=== PATIENT | male | born 1940 | race Caucasian/White ===

== ENCOUNTER 2016-11-06 13:08 | Inpatient (IN) | payer MEDICARE, OTHER ==
[2016-11-06] MEDS ORDERED: HYDROmorphone 1 MG/ML 1 ML SYRINGE IVP STA ×2 (13:17→17:20)
[2016-11-06] MEDS ORDERED: ONDANSETRON 4 MG/2 ML VIAL IVP STA (13:17)
--- NOTE | 2016-11-06 13:19 | ED ---
General Adult HPI - General Chief complaint: Fall Stated complaint: Fall Time Seen by Provider: 11/06/16 13:10 Source: patient, EMS, RN notes reviewed Mode of arrival: EMS Limitations: no limitations - History of Present Illness Initial comments: This is a 76-year-old male who presents emergency Department complaining of right hip pain. Patient states he normally uses a walker but in his apartment he often does not. Patient states she was walking across his apartment when he lost his balance and fell on his right hip. Patient complains of right hip pain he states he heard a crack when he fell. Patient denies any knee pain. The pain or ankle pain. Patient denies any other injury. Patient states he was not lightheaded or dizzy prior to the fall. Patient states he did not hit his head or neck. Patient denies any chest pain difficult breathing shortest of breath per patient denies any abdominal pain. Patient denies any recent fever chills or cough. Patient states he was not feeling ill prior to the fall. - Related Data Home Medications Medication Instructions Recorded Confirmed Aspirin EC [Ecotrin Low Dose] 81 mg PO W/SUPPER 07/16/16 11/06/16 HYDROcodone/APAP 10-325MG [[place] 1 tab PO TID PRN 07/16/16 11/06/16 10-325] Primidone [Primidone] 250 mg PO DAILY 11/06/16 11/06/16 Allergies Allergy/AdvReac Type Severity Reaction Status Date / Time No Known Allergies Allergy Verified 07/29/16 14:23 Review of Systems ROS Statement: Those systems with pertinent positive or pertinent negative responses have been documented in the HPI. ROS Other: All systems not noted in ROS Statement are negative. Past Medical History Past Medical History: Cancer, CVA/TIA, Deep Vein Thrombosis (DVT), Liver Disease , Pneumonia Additional Past Medical History / Comment(s): DDD, SPINAL CANAL STENSOSIS, COLON CA IN THE HAD SX CHEMO AND RADIATION, 03-01-15 UTI(E COLI), left arm weakness-fx lt arm at shoulder-December 2014-remains painful, rectal carcinoma, elevated liver enzymes, walker use,recent falls History of Any Multi-Drug Resistant Organisms: None Reported Past Surgical History: Appendectomy, Back Surgery, Bowel Resection, Cholecystectomy, Joint Replacement, Orthopedic Surgery Additional Past Surgical History / Comment(s): GASTRECTOMY, L hip replacement, spinal surgery, RT ANKLE SX Past Anesthesia/Blood Transfusion Reactions: No Reported Reaction Additional Past Anesthesia/Blood Transfusion Reaction / Comment(s): no hx at [facility]CF Past Psychological History: No Psychological Hx Reported Smoking Status: Former smoker Past Alcohol Use History: None Reported Additional Past Alcohol Use History / Comment(s): SMOKED FOR 40 YEARS QUIT 1994 , hx ETOH Past Drug Use History: None Reported - Past Family History Father Family Medical History: Unable to Obtain Additional Family Medical History / Comment(s): heart problems Mother Family Medical History: Diabetes Mellitus General Exam - General Exam Comments Initial Comments: GENERAL: Patient is well-developed and well-nourished. Patient is nontoxic and well- hydrated and is in mild distress. ENT: Neck is soft and supple. No significant lymphadenopathy is noted. Oropharynx is clear. Moist mucous membranes. Neck has full range of motion without eliciting any pain. EYES: The sclera were anicteric and conjunctiva were pink and moist. Extraocular movements were intact and pupils were equal round and reactive to light. Eyelids were unremarkable. PULMONARY: Unlabored respirations. Good breath sounds bilaterally. No audible rales rhonchi or wheezing was noted. CARDIOVASCULAR: There is a regular rate and rhythm without any murmurs gallops or rubs. ABDOMEN: Soft and nontender with normal bowel sounds. No palpable organomegaly was noted. There is no palpable pulsatile mass. SKIN: Skin is clear with no lesions or rashes and otherwise unremarkable. NEUROLOGIC: Patient is alert and oriented x3. Cranial nerves II through XII are grossly intact. Motor and sensory are also intact. Normal speech, volume and content. Symmetrical smile. MUSCULOSKELETAL: Patient is unable to move the left leg secondary to pain in the hip on palpation of the hip is very tender in the lateral aspect of the hip. Patient also has some residual left-sided weakness of the arm and leg secondary to a previous stroke. Patient cannot lift his left arm with the shoulder only can move it at the elbow. LYMPHATICS: No significant lymphadenopathy is noted PSYCHIATRIC: Normal psychiatric evaluation. Normal interpersonal interactions appears functionally intact in deals appropriately with others. No signs of depression. No signs of anxiety. Limitations: no limitations Course Vital Signs 11/06/16 13:12 Temperature 97.6 F Pulse Rate 84 Respiratory 16 Rate Blood Pressure 120/66 O2 Sat by Pulse 99 Oximetry Medical Decision Making - Medical Decision Making EKG shows normal sinus rhythm at 77 bpm MT interval 144 QRS is 86 QT interval 394 QTC is 445. Patient's EKG shows no ST segment elevation or depression or T- wave abdomen is noted. Patient has a right intertrochanteric hip fracture. - Lab Data Result diagrams: 11/06/16 13:30 11/06/16 13:30 Lab Results 11/06/16 11/06/16 11/06/16 Range/Units 13:30 13:30 14:30 WBC 6.5 (3.8-10.6) k/uL RBC 3.75 L (4.30-5.90) m/uL Hgb 12.0 L (13.0-17.5) gm/dL Hct 35.7 L (39.0-53.0) % MCV 95.2 (80.0-100.0) fL MCH 32.1 (25.0-35.0) pg MCHC 33.7 (31.0-37.0) g/dL RDW 13.2 (11.5-15.5) % Plt Count 193 (150-450) k/uL Neutrophils % 45 % Lymphocytes % 43 % Monocytes % 5 % Eosinophils % 2 % Basophils % 1 % Neutrophils # 3.0 (1.3-7.7) k/uL Lymphocytes # 2.8 (1.0-4.8) k/uL Monocytes # 0.3 (0-1.0) k/uL Eosinophils # 0.2 (0-0.7) k/uL Basophils # 0.0 (0-0.2) k/uL PT 10.1 (9.0-12.0) sec INR 1.0 (<1.1) APTT 23.6 (22.0-30.0) sec Sodium 141 (137-145) mmol/L Potassium 4.3 (3.5-5.1) mmol/L Chloride 107 (98-107) mmol/L Carbon Dioxide 23 (22-30) mmol/L Anion Gap 11 mmol/L BUN 19 (9-20) mg/dL Creatinine 0.68 (0.66-1.25) mg/dL Est GFR (MDRD) Af Amer >60 (>60 ml/min/1.73 sqM) Est GFR (MDRD) Non-Af >60 (>60 ml/min/1.73 sqM) Glucose 107 H (74-99) mg/dL Calcium 8.4 (8.4-10.2) mg/dL Total Bilirubin 0.3 (0.2-1.3) mg/dL AST 22 (17-59) U/L ALT 25 (21-72) U/L Alkaline Phosphatase 114 (38-126) U/L Total Protein 5.9 L (6.3-8.2) g/dL Albumin 3.3 L (3.5-5.0) g/dL Disposition Clinical Impression: Intertrochanteric fracture of right hip Disposition: ADMITTED IP TO THIS [facility] Time of Disposition: 15:40
[2016-11-06 14:15] LABS: Basophils % (A) 1 %; CH 31.6; CHCM 33.4; Eosinophils # (A) 0.2 k/uL (0-0.7); Eosinophils % (A) 2 %; HCT 35.7 % (39.0-53.0); HDW 2.56; Luc # (Auto) 0.22; Luc % (Auto) 3; Lymphocytes # (A) 2.8 k/uL (1.0-4.8); Lymphocytes % (A) 43 %; MCH 32.1 pg (25.0-35.0); MCHC 33.7 g/dL (31.0-37.0); MCV 95.2 fL (80.0-100.0); Mean Platelet Volume 7.2; Monocytes # (A) 0.3 k/uL (0-1.0); Monocytes % (A) 5 %; Neutrophils % (A) 45 %; RBC 3.75 m/uL (4.30-5.90); RDW 13.2 % (11.5-15.5); WBC 6.5 k/uL (3.8-10.6); WBC (Perox) 6.43
[2016-11-06 14:16] LABS: ALT 25 U/L (21-72); AST 22 U/L (17-59); Alkaline Phosphatase 114 U/L (38-126); Anion Gap 11 mmol/L; Blood Urea Nitrogen 19 mg/dL (9-20); Calcium 8.4 mg/dL (8.4-10.2); Carbon Dioxide 23 mmol/L (22-30); Chloride 107 mmol/L (98-107); Glucose 107 mg/dL (74-99); Non-African American GFR(MDRD) >60 (>60 ml/min/1.73 sqM); Potassium 4.3 mmol/L (3.5-5.1); Sodium 141 mmol/L (137-145); Total Bilirubin 0.3 mg/dL (0.2-1.3); Total Protein 5.9 g/dL (6.3-8.2)
[2016-11-06 14:49] LABS: Partial Thromboplastin Time 23.6 sec (22.0-30.0); Prothrombin Time 10.1 sec (9.0-12.0)
--- NOTE | 2016-11-06 15:33 | XR ---
EXAMINATION TYPE: XR Hip RT and AP Pelvis DATE OF EXAM: 11/06/2016 3:27 PM COMPARISON: NONE HISTORY: Fall, pain TECHNIQUE: A single AP view of the pelvis is obtained. Two views of the right hip are obtained. FINDINGS: Noted is a three-part right sided intertrochanteric fracture. Proximal migration of the dis latoya fracture component. No additional fractures identified. Left femoral hemiprosthesis in place. Ped icular screws of the lumbar spine. IMPRESSION: Right sided intertrochanteric fracture.
--- NOTE | 2016-11-06 15:35 | XR ---
EXAMINATION TYPE: XR chest 1V DATE OF EXAM: 11/06/2016 3:27 PM HISTORY: Shortness of breath. COMPARISON: 07/29/2016 TECHNIQUE: Single view of the chest is submitted. FINDINGS: Demonstrated are scattered senescent parenchymal change. There is no evidence for focal infiltrate. The heart is stable. Hilar and mediastinal structures are within normal limits. Degenerative changes are seen of the dorsal spine. IMPRESSION: 1. Chronic changes without evidence for acute pulmonary disease.
[2016-11-06] MEDS ORDERED: SODIUM CHLORIDE 0.9% 1,000 ML IV ONE (15:40)
[2016-11-06] MEDS ORDERED: HYDROmorphone 1 MG/ML 1 ML SYRINGE IVP PRN (15:41)
[2016-11-06] MEDS ORDERED: ONDANSETRON 4 MG/2 ML VIAL IVP PRN (15:42)
--- NOTE | 2016-11-06 16:48 | P.HPOR ---
History of Present Illness H&P Date: 11/06/16 Chief Complaint: Right hip pain This is a 76-year-old male who fell in his home when he lost his balance today, sustaining injury to his right hip. On exam and x-ray the emergency department he was found to have a right hip fracture. He is admitted to our service for surgical intervention and care. Past Medical History Past Medical History: Cancer, CVA/TIA, Deep Vein Thrombosis (DVT), Liver Disease , Pneumonia Additional Past Medical History / Comment(s): 11-06-16 FALL/FX RT HIP. DDD, SPINAL CANAL STENOSIS, COLON CA IN THE HAD SX CHEMO AND RADIATION, UTI(E COLI), left arm weakness-fx lt arm at shoulder-December 2014-remains painful , rectal carcinoma, elevated liver enzymes, walker use,recent falls,PAST CVA AFFECTED LT SIDE AND STATED HIS MEMORY ISN'T GOOD IT USED TO BE. History of Any Multi-Drug Resistant Organisms: None Reported Past Surgical History: Appendectomy, Back Surgery, Bowel Resection, Cholecystectomy, Joint Replacement, Orthopedic Surgery Additional Past Surgical History / Comment(s): GASTRECTOMY, L hip replacement, spinal surgery, RT ANKLE SX Past Anesthesia/Blood Transfusion Reactions: No Reported Reaction Additional Past Anesthesia/Blood Transfusion Reaction / Comment(s): no hx at F Past Psychological History: No Psychological Hx Reported Additional Psychological History / Comment(s): PT STATED LIVES AT [facility] IN [facility]. USES THE ELEVATOR. UP WITH WALKER. 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 NO PETS.M NO PAST [employer]. WORKED A COOK. Smoking Status: Former smoker Past Alcohol Use History: Occasional Additional Past Alcohol Use History / Comment(s): SMOKED FOR 40 YEARS QUIT 1994. Past Drug Use History: None Reported - Past Family History Father Family Medical History: Unable to Obtain Additional Family Medical History / Comment(s): heart problems Mother Family Medical History: Diabetes Mellitus Medications and Allergies Home Medications Medication Instructions Recorded Confirmed Type Aspirin EC [Ecotrin Low Dose] 81 mg PO W/SUPPER 07/16/16 11/06/16 History HYDROcodone/APAP 10-325MG [[place] 1 tab PO TID PRN 07/16/16 11/06/16 History 10-325] Primidone [Primidone] 250 mg PO DAILY 11/06/16 11/06/16 History Allergies Allergy/AdvReac Type Severity Reaction Status Date / Time No Known Allergies Allergy Verified 07/29/16 14:23 Physical Examination This is a pleasant 76-year-old male in no acute distress. He is alert and oriented 3. Exam of the head neck reveal no obvious deformity. There are couple of abrasions to the nose which she states are from him scratching himself. There is no pain with cervical rotation. There is no pain with palpation about cervical spine or paraspinal musculature. Exam of the upper extremities unremarkable. He has full shoulder, elbow, wrist and finger motion with without difficulty or pain. Exam the lower extremities reveals shortening and external rotation of the right leg. He has full foot and ankle motion without difficulty or pain. There is pain with any motion of the right hip. Neurovascular status to the lower extremities is intact. Results X-rays reveal a subtrochanteric fracture with avulsion of the lesser trochanter as well as a fracture line extending distally along the proximal femur. It is difficult to see where the fracture ends on the hip x-ray. - Labs Result Diagrams: 11/06/16 13:30 11/06/16 13:30 Assessment and Plan (1) Intertrochanteric fracture of right hip Status: Acute (2) Subtrochanteric fracture of right femur Status: Acute Plan: The clinical and x-ray findings are discussed the patient. It is recommended he be admitted for surgical intervention. We're planning closed reduction with insertion of long intertrochanteric nail of the right hip. The procedures been discussed in detail including possible risks and outcomes of surgery. We will consult Dr. Askew for presurgical clearance and medical management. He will will most likely require inpatient rehab postoperatively.
--- NOTE | 2016-11-06 17:01 | XR ---
Right femur HISTORY: Fall, hip pain 2 views of the right femur on 4 images. Comparison the pelvis same date Previously described intertrochanteric comminuted proximal right femoral fracture is again noted with resulting varus deformity. There are vascular calcifications along the distribution of the femoral a rtery. IMPRESSION: Fracture as previously noted proximal right femur
[2016-11-06 17:16] VITALS: BMI 26.3
[2016-11-06] MEDS: HYDROmorphone 1 MG/ML 1 ML SYRINGE IVP PRN (20:40)
[2016-11-07] MEDS: HYDROmorphone 1 MG/ML 1 ML SYRINGE IVP PRN ×5 (00:14→13:35)
--- NOTE | 2016-11-07 11:08 | P.CONS ---
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 Also has a history of colon cancer in 1989 and underwent chemo and radiation. Patient reports that he fell coming out of his bathroom into the living room. He was not using his walker at the time. He fell on his right knee. Had significant pain and heard a pop. He was unable to get up. EMS was called. He is brought into the emergency room. X-rays were done showing a right-sided intertrochanteric fracture. Patient is scheduled for surgery this afternoon. Patient denies any loss of consciousness, dizziness, chest pain, shortness of breath, nausea or vomiting, bowel movement changes or urinary symptoms. He denies any fevers chills or sweats. We have been consulted for medical management and medical clearance. Review of Systems Please refer to HPI otherwise unremarkable Past Medical History Past Medical History: Cancer, CVA/TIA, Deep Vein Thrombosis (DVT), Liver Disease , Pneumonia Additional Past Medical History / Comment(s): 11-06-16 FALL/FX RT HIP. DDD, SPINAL CANAL STENOSIS, COLON CA IN THE HAD SX CHEMO AND RADIATION, UTI(E COLI), left arm weakness-fx lt arm at shoulder-December 2014-remains painful , rectal carcinoma, elevated liver enzymes, walker use,recent falls,PAST CVA AFFECTED LT SIDE AND STATED HIS MEMORY ISN'T GOOD IT USED TO BE. History of Any Multi-Drug Resistant Organisms: None Reported Past Surgical History: Appendectomy, Back Surgery, Bowel Resection, Cholecystectomy, Joint Replacement, Orthopedic Surgery Additional Past Surgical History / Comment(s): GASTRECTOMY, L hip replacement, spinal surgery, RT ANKLE SX Past Anesthesia/Blood Transfusion Reactions: No Reported Reaction Additional Past Anesthesia/Blood Transfusion Reaction / Comm: no hx at ECF Past Psychological History: No Psychological Hx Reported Additional Psychological History / Comment(s): PT STATED LIVES AT [facility] [place] IN [facility]. USES THE ELEVATOR. UP WITH WALKER. 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 Smoking Status: Former smoker Past Alcohol Use History: Occasional Additional Past Alcohol Use History / Comment(s): SMOKED FOR 40 YEARS QUIT 1994. Patient reports drinking about 2 glasses of wine twice a week. In the past he had been heavy drinker with whiskey. He hasn't drank whiskey and about 15 years Past Drug Use History: None Reported - Past Family History Father Family Medical History: Unable to Obtain Additional Family Medical History / Comment(s): heart problems Mother Family Medical History: Diabetes Mellitus Medications and Allergies Home Medications Medication Instructions Recorded Confirmed Type Aspirin EC [Ecotrin Low Dose] 81 mg PO W/SUPPER 07/16/16 11/06/16 History HYDROcodone/APAP 10-325MG [[place] 1 tab PO TID PRN 07/16/16 11/06/16 History 10-325] Primidone [Primidone] 250 mg PO DAILY 11/06/16 11/06/16 History Allergies Allergy/AdvReac Type Severity Reaction Status Date / Time No Known Allergies Allergy Verified 07/29/16 14:23 Physical Exam Vitals: Vital Signs Temp Pulse Resp BP Pulse Ox 11/07/16 07:00 98.7 F 85 16 131/66 96 11/07/16 04:00 97.9 F 84 17 125/70 97 11/06/16 20:00 98.3 F 90 18 160/66 97 11/06/16 17:18 97.2 F L 86 16 171/79 98 Intake and Output 11/06/16 11/07/16 11/07/16 22:59 06:59 14:59 Intake Total 400 Output Total 400 200 Balance 400 -400 -200 Intake: Intake, IV Titration 300 Amount Sodium Chloride 0.9% 1, 300 000 ml @ 100 mls/hr IV . Q10H ONE Rx#:[id number] Oral 100 Output: Urine 400 200 Other: Voiding Method Urinal # Voids 1 1 Weight 76.204 kg Head normocephalic Neck supple Lungs clear to auscultation bilaterally no wheezing or crackles Heart regular rate and rhythm S1-S2, no rub or gallop Abdomen is soft nontender nondistended positive bowel sounds no hepatosplenomegaly Extremities no edema Neuro alert and orientated to 3 Results CBC & Chem 7: 11/06/16 13:30 11/06/16 13:30 Assessment and Plan Plan: 1. Fall with right sided intertrochanteric fracture: Patient admitted to orthopedic service and scheduled for surgery this afternoon. EKG showing a normal sinus rhythm and chest x-ray shows no acute changes. There is no evidence of any acute infection. Patient has intermediate to moderate risk for surgery due to previous history of stroke and age. However, patient is medically stable to proceed with surgery. 2. History of CVA. Hold aspirin for surgery 3. 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 Prior history to colon cancer in 1990s status post chemo and radiation and bowel resection 5. History of liver disease 6. GI prophylaxis Pepcid and DVT prophylaxis per orthopedic recommendations Thank you for this consultation. We will continue to follow along with you. Time with Patient: Greater than 30 (Greater than 50% of the total time spent in counseling and coordination of care. I performed an examination of the patient and discussed their management with the physician Applied Research Director. I have reviewed the Physician Applied Research Director's notes and agree with the documented findings and plan of care)
[2016-11-07 11:14] LABS: Appearance,Urine Clear (Clear); Bilirubin,Urine Negative (Negative); Glucose,Urine (UA) Negative (Negative); Ketones,Urine Negative (Negative); Leukocyte Esterase,Urine Negative (Negative); Mucus,Urine Rare /hpf; Nitrite,Urine Negative (Negative); Particle Count 322; Protein,Urine Negative (Negative); RBC,Urine 2 /hpf (0-5); Specific Gravity,Urine 1.014 (1.001-1.035); UA Billing (MACRO vs. MICRO) MICRO; Urobilinogen,Urine <2.0 mg/dL (<2.0); WBC,Urine <1 /hpf (0-5)
[2016-11-07] MEDS: PRIMIDONE 250 MG TAB PO SCH (12:41)
[2016-11-07] MEDS ORDERED: HYDROCORTISONE SUCCINATE 100 MG/2 ML VIAL IVP ONE (15:27)
[2016-11-07] MEDS ORDERED: NALOXONE 0.4 MG/ML 1 ML VIAL IV PRN (15:34)
[2016-11-07] MEDS ORDERED: HYDROcodone/APAP 5-325MG 1 EACH TAB PO PRN ×2 (15:34)
[2016-11-07] MEDS ORDERED: DIAZEPAM 5 MG TAB PO PRN (15:34)
[2016-11-07] MEDS ORDERED: MAGNESIUM HYDROXIDE 2,400 MG/10 ML CUP PO PRN (15:34)
[2016-11-07] MEDS ORDERED: IV FLUID CONTINUATION 1,000 ML IV ONE (15:34)
[2016-11-07] MEDS ORDERED: HYDROmorphone 1 MG/ML 1 ML SYRINGE IVP PRN ×3 (15:34)
[2016-11-07] MEDS ORDERED: GLYCOPYRROLATE 0.2 MG/ML 2 ML VIAL ONE (15:45)
[2016-11-07] MEDS ORDERED: PROPOFOL 10 MG/ML 20 ML VIAL IV ONE (15:45)
[2016-11-07] MEDS ORDERED: ceFAZolin 1,000 MG VIAL ONE (15:45)
[2016-11-07] MEDS ORDERED: ESMOLOL 100 MG/10 ML VIAL ONE (15:45)
[2016-11-07] MEDS ORDERED: KETAMINE 10 MG/ML 20 ML VIAL ONE (15:45)
[2016-11-07] MEDS ORDERED: fentaNYL (PF) 50 MCG/ML 2 ML AMP ONE (15:45)
[2016-11-07] MEDS ORDERED: PHENYLEPHRINE-0.9% NACL SYG 1 MG/10 ML SYRINGE ONE (15:45)
[2016-11-07] MEDS ORDERED: MIDAZOLAM 2 MG/2 ML VIAL ONE (15:45)
[2016-11-07] MEDS ORDERED: ceFAZolin 1,000 MG in SODIUM CHLORIDE 0.9% 1,000 ML IRRIGATION ONE (16:01)
[2016-11-07] MEDS: ceFAZolin 2 GM in SODIUM CHLORIDE 0.9% 100 ML IVPB SCH (16:01)
[2016-11-07] MEDS ORDERED: LACTATED RINGERS 1,000 ML IV ONE ×2 (16:38→18:14)
--- NOTE | 2016-11-07 17:46 | XR ---
Limited right hip HISTORY: Hip fracture with open reduction and internal fixation Intraoperative C-arm images document the procedure
--- NOTE | 2016-11-07 17:46 | FL ---
Fluoroscopy HISTORY: Right hip fracture 1 minute 33 seconds fluoroscopy time supplied to the referring clinician. 5 intraoperative C-arm amber ges document the procedure. See dictated report from orthopedic surgery.
--- NOTE | 2016-11-07 18:25 | XR ---
EXAMINATION TYPE: XR Hip Limited RT DATE OF EXAM: 11/07/2016 6:20 PM COMPARISON: 11/06/2016 HISTORY: Hip surgery TECHNIQUE: 2 views FINDINGS: There is intramedullary bev and a transverse screw fixing the comminuted intratrochanteric fracture of the right femur. Fragments are in anatomic position. I see no complicating process. IMPRESSION: Satisfactory reduction of the comminuted femur fracture.
[2016-11-07] MEDS: HYDROcodone/APAP 10-325MG 1 EACH TAB PO PRN (19:32)
[2016-11-07] MEDS: LACTATED RINGERS 1,000 ML IV SCH (20:55)
[2016-11-07] MEDS: ASPIRIN 325 MG TAB PO SCH (22:04)
[2016-11-07] MEDS: SENNOSIDES-DOCUSATE SODIUM 1 EACH TAB PO SCH (22:06)
--- NOTE | 2016-11-07 22:14 | PN ---
DATE OF SERVICE: 11/07/2016 Joel is a very pleasant 76-year-old man who is well known to me. Yesterday he fell in his home when he lost his balance and sustained an injury to his right hip. He was brought to [facility] via ambulance. Workup, including physical examination, x-ray, noted a right intertrochanteric hip fracture with subtrochanteric extension. He is a household independent ambulator. He does use a walker. He was admitted to my service for surgical intervention and care. MEDICAL HISTORY: 1. Cancer. 2. CVA/TIA. 3. Deep vein thrombosis. 4. Liver disease. 5. Pneumonia. 6. Degenerative disc disease. 7. Spinal canal stenosis. 8. Colon cancer in the , where he had surgery, chemo and radiation. 9. ( ) left proximal humerus fracture in December of 2014. SURGICAL HISTORY: 1. Appendectomy. 2. Back surgery. 3. Bowel resection. 4. Cholecystectomy. 5. Joint replacement. 6. Gastrectomy. 7. Left hip replacement. 8. Spinal surgery. 9. Right ankle surgery. He is a former smoker. Occasional alcohol use. PHYSICAL EXAMINATION: He is very painful over the right hip. Skin is intact. There is no bruising. He has no pain with palpation and range of motion of all long bones and joints with the exception of the right hip. His neurovascular status to both lower extremities is intact. X-rays reveal a comminuted intertrochanteric hip fracture with fairly significant subtrochanteric extension. LABORATORIES: White count 6.5, hemoglobin 12.0, platelets 193. ASSESSMENT: Right intertrochanteric hip fracture. PLAN: I reviewed my clinical impression with Joel. He is an independent ambulator. Recommendation is for operative fixation of his fracture with a long intramedullary hip screw fixation. The risks were discussed with him in detail. These risks include but not limited to risk of infection, nerve damage, bleeding, pain, failure of the fracture to heal, failure of the hardware, and possibility for perioperative fracture as well. All of his questions with regards to the risks were answered to his satisfaction and appropriate informed consent was obtained. We will proceed with fixation of his hip fracture after he has been cleared by the medical service.
[2016-11-08] MEDS: ceFAZolin 2 GM in SODIUM CHLORIDE 0.9% 100 ML IVPB SCH ×2 (00:07→08:45)
[2016-11-08] MEDS: TEMAZEPAM 15 MG CAP PO PRN ×2 (01:48→20:07)
[2016-11-08] MEDS: HYDROcodone/APAP 10-325MG 1 EACH TAB PO PRN ×3 (01:48→20:07)
[2016-11-08] MEDS: LACTATED RINGERS 1,000 ML IV SCH ×2 (03:35→13:16)
[2016-11-08 07:31] LABS: Basophils % (A) 0 %; CH 31.9; CHCM 34.2; Eosinophils # (A) 0.1 k/uL (0-0.7); Eosinophils % (A) 1 %; HCT 27.5 % (39.0-53.0); Luc # (Auto) 0.14; Luc % (Auto) 2; Lymphocytes # (A) 1.5 k/uL (1.0-4.8); Lymphocytes % (A) 19 %; MCH 30.8 pg (25.0-35.0); MCHC 32.8 g/dL (31.0-37.0); MCV 93.9 fL (80.0-100.0); Mean Platelet Volume 7.9; Monocytes # (A) 0.7 k/uL (0-1.0); Monocytes % (A) 9 %; Neutrophils # (A) 5.3 k/uL (1.3-7.7); Neutrophils % (A) 69 %; RBC 2.93 m/uL (4.30-5.90); RDW 13.2 % (11.5-15.5); WBC 7.7 k/uL (3.8-10.6); WBC (Perox) 7.68
[2016-11-08 07:44] LABS: ALT 27 U/L (21-72); AST 26 U/L (17-59); Alkaline Phosphatase 76 U/L (38-126); Anion Gap 7 mmol/L; Blood Urea Nitrogen 10 mg/dL (9-20); Calcium 8.4 mg/dL (8.4-10.2); Carbon Dioxide 24 mmol/L (22-30); Chloride 106 mmol/L (98-107); Glucose 114 mg/dL (74-99); Non-African American GFR(MDRD) >60 (>60 ml/min/1.73 sqM); Potassium 3.9 mmol/L (3.5-5.1); Sodium 137 mmol/L (137-145); Total Bilirubin 0.6 mg/dL (0.2-1.3); Total Protein 5.1 g/dL (6.3-8.2)
--- NOTE | 2016-11-08 08:06 | OP ---
DATE OF SERVICE: 11/07/2016 SURGEON: DEVIN MORRIS MD FIELD INSTRUCTOR: Venkat Hidalgo PA-C. PREOPERATIVE DIAGNOSIS: Right intertrochanteric hip fracture with subtrochanteric extension. POSTOPERATIVE DIAGNOSIS: Right intertrochanteric hip fracture with subtrochanteric extension. OPERATION: Right long intramedullary hip screw for right intertrochanteric hip fracture with subtrochanteric extension. ANESTHESIA: Spinal with sedation. ESTIMATED BLOOD LOSS: 150 mL. SPECIMENS REMOVED: COMPLICATIONS: None apparent. TOURNIQUET: None. DRAINS: None. DISPOSITION: Postanesthesia care unit. OPERATIVE FINDINGS: INDICATIONS: Joel Cohen is a very pleasant 76-year-old man who fell yesterday and sustained a right comminuted intertrochanteric hip fracture with subtrochanteric extension. He is admitted to my service. Surgically he was cleared by the medical service. Recommendation was for operative fixation of his hip fracture and Joel has agreed and decided to go forward with fixation. Risks of the procedure were discussed with him in detail. These risks include, but are not limited to risk of infection, nerve damage, bleeding, pain, and a small risk of deep vein thrombosis, which could lead to fatal pulmonary embolism. There is also a risk of fracture about the implant. There is also a risk of nonunion. The patient understands the risks. All of his questions were answered to his satisfaction. Appropriate informed consent was obtained. DESCRIPTION OF THE PROCEDURE: The patient was identified in the preoperative holding area. Surgical site was marked by both the patient and myself. He was given 2 grams of Ancef IV for prophylactic purposes. He was then transferred to the operative suite. He is placed supine on the operating room table. Spinal anesthetic was then administered and dosed by the Anesthesia Department without apparent complication. He was then placed onto the fracture table, well padded in preparation for surgery. Great care was taken to ensure that everything was appropriately padded. The fracture was then reduced with longitudinal traction and rotation. This was confirmed with fluoroscopic imaging prior to prepping and draping his leg. The reduction was acceptable. We then went forward. The right lower extremity was then prepped and draped usual sterile fashion. Standard surgical pause was then undertaken to ensure that were operating on correct site and that appropriate preoperative antibiotics had been given. All staff in the room were in agreement and we proceeded. Fluoroscopy was brought in. Identified the tip of the greater trochanter. Approximately 3 cm incision on the lateral aspect of the thigh starting at the tip of the greater trochanter and extending proximally was then made with a 10 blade scalpel. Dissection was carried down sharply to the tensor fascia. The tensor fascia was then incised in line with the incision. I then was able to place the awl on the medial aspect on the greater trochanter. I then advanced the pin to the medial aspect of the tip of the greater trochanter distally in line with the shaft of the femur. Fluoroscopic images were taken to ensure that the pin was within bone throughout and it was. I then utilized the starting reamer. The skin was protected throughout. The cannulation starting reamer was then placed over the starting pin and advanced to the lesser trochanter. The threaded starting pin was then removed and the ball-tip guidewire was then advanced down from the tip of the greater trochanter down the shaft of the femur. Again, its placement was confirmed to be intramedullary by fluoroscopic imaging. I then measured as I was planning to use a long intramedullary hip screw because he had such extensive subtrochanteric extension. I measured for a 360 mm nail. I then reamed over the ball-tip guidewire. I started with a 9 mm reamer and increasing up to a 13 mm reamer incrementally. I then had the liability claims representative open an 11 mm x 360 mm x 125-degree Rafa long gamma nail. The targeting guides were assembled on the back table and then the nail was then advanced over the ball-tip guidewire down the shaft of the femur. The ball-tip guidewire was removed. The nail was then inserted to appropriate depth. I then proceeded with placement of the hip screw. A second approximately 2 cm incision was made on the lateral thigh. The guide was then placed flush with the lateral cortex of the femur. The threaded guide pin was then placed in the center of the femoral head on both AP and lateral views. Fluoroscopic imaging was utilized to ensure proper placement. The tip apex distance was appropriate. I then measured and then reamed to 105 mm. I then had the liability claims representative open a Rafa 105 mm cannulated partially threaded hip screw. This was then advanced over the threaded guide pin. It was placed deep in the femoral head. He had excellent purchase in bone. The tip-apex distance was appropriate. I had such a good purchase in the head I decided to compress the fracture as much as possible. Compression mechanism was then utilized and then after the fracture was compressed, I placed the proximal locking screw and tightened it fully to make a fixed angle device out of the hip screw. I then proceeded to place the distal locking bolt. We used the long targeting arm. A third small stab incision was made distally over the distal slot and nail. The guide was then placed flush with the lateral cortex of femur. The drill was then placed through the lateral cortex through the nail and through the medial cortex. I then placed a 50 mm x 5.0 mm distal locking bolt. Fluoroscopic imaging was utilized to confirm that it was placed within the nail slot and it was. This was placed in a static nature. At this point in time, no further work was deemed necessary. Final fluoroscopic imaging was taken. The distal screw was confirmed to be placed through the nail and was of appropriate length. The hip screw was placed deep in the femoral head. The tip-apex distance was appropriate. The nail was of appropriate length. At this point in time, no further work was deemed necessary. All of the jig and targeting arm was removed. The wounds were thoroughly irrigated with sterile saline solution with antibiotic added. The deep tensor fascia was closed with 0 Vicryl interrupted suture. Subcutaneous tissue closed with 2-0 Vicryl interrupted suture and the skin was closed with stainless steel danielle. Sterile compressive dressings were then applied. All sponge and needle counts were deemed correct prior to closure. The patient tolerated the procedure without apparent complication. He was transferred to recovery room in stable condition.
[2016-11-08] MEDS: PRIMIDONE 250 MG TAB PO SCH (08:43)
[2016-11-08] MEDS: hydrOXYzine PAMOATE 25 MG CAP PO PRN (08:43)
[2016-11-08] MEDS: ASPIRIN 325 MG TAB PO SCH ×2 (08:43→23:06)
[2016-11-08] MEDS: FAMOTIDINE 20 MG TAB PO SCH (08:43)
--- NOTE | 2016-11-08 09:05 | P.PN ---
Subjective Principal diagnosis: S/P right IT gamma Nail for right hip fracture Patient is a pleasant 76-year-old male seen at bedside this morning. He is postop day #1 from right IT gamma nail insertion for right hip fracture performed by Dr. Huertas. He has no new complaints today. His pain appears to be controlled. He denies numbness or tingling. Review of systems negative for fever, chills, chest pain, shortness breath, nausea, vomiting or other. Objective - Vital Signs Vital signs: Vital Signs Temp 98.8 F 11/08/16 03:29 Pulse 92 11/08/16 04:00 Resp 18 11/08/16 04:00 BP 107/55 11/08/16 03:29 Pulse Ox 94 L 11/08/16 03:29 Intake & Output 11/07/16 11/08/16 11/08/16 18:59 06:59 18:59 Intake Total 2401 1000 Output Total 700 350 300 Balance 1701 650 -300 Weight 76.204 kg Intake: IV 2401 100 Sodium Chloride 0.9% 1, 800 000 ml @ 100 mls/hr IV . Q10H [facility] Rx#:[id number] ceFAZolin 2 gm In Sodium 100 Chloride 0.9% 100 ml @ 100 mls/hr IVPB Q8HR [facility] Rx#:[id number] Intake, IV Titration 900 Amount Lactated Ringers 1,000 ml 900 @ 100 mls/hr IV .Q10H [facility] Rx#:[id number] Output: Urine 550 350 300 Uretheral (Vu) 300 Estimated Blood Loss 150 Other: Voiding Method Urinal # Voids 1 1 - Exam Inspection of the surgical wounds are benign. There is no active bleeding, dehiscence or drainage. Sensation to light touch is intact throughout the right lower extremity. He has active motor at the knee, ankle, foot and toes. The calf is soft and nontender. There is 2+ dorsalis pedis pulse and less than 2 second cap refill. - Constitutional General appearance: Present: no acute distress - Psychiatric Psychiatric: Present: A&O x's 3, appropriate affect, intact judgment & insight - Labs CBC & Chem 7: 11/08/16 07:04 11/08/16 07:04 Labs: Abnormal Lab Results - Last 24 Hours (Table) 11/07/16 11/08/16 11/08/16 Range/Units 10:30 07:04 07:04 RBC 2.93 L (4.30-5.90) m/uL Hgb 9.0 L D (13.0-17.5) gm/dL Hct 27.5 L (39.0-53.0) % Creatinine 0.55 L (0.66-1.25) mg/dL Glucose 114 H (74-99) mg/dL Total Protein 5.1 L (6.3-8.2) g/dL Albumin 2.6 L (3.5-5.0) g/dL Urine Blood Trace H (Negative) Urine Mucus Rare H (None) /hpf Microbiology - Last 24 Hours (Table) 11/07/16 10:30 Urine Culture - Preliminary Urine,Clean Catch Assessment and Plan (1) Intertrochanteric fracture of right hip Narrative/Plan: He'll continue with routine postop orthopedic protocol including pain management , wound care, DVT prophylaxis, physical therapy where he is to be touchdown weightbearing, and medical management. Expect transfer to extended care facility for rehabilitation in the next 1-2 days. Status: Acute Time with Patient: Less than 30
--- NOTE | 2016-11-08 12:37 | P.PN ---
Subjective Right hip fracture status post surgery. Postop day #1. Patient's pain is tolerable. He is resting comfortably. Arousable. Denies any chest pain or shortness of breath. Denies any nausea or vomiting. Vu catheter removed this morning. Denies any bowel movement yet. Objective - Vital Signs Vital signs: Vital Signs Temp 98.8 F 11/08/16 03:29 Pulse 92 11/08/16 04:00 Resp 18 11/08/16 04:00 BP 107/55 11/08/16 03:29 Pulse Ox 94 L 11/08/16 03:29 Intake & Output 11/07/16 11/08/16 11/08/16 18:59 06:59 18:59 Intake Total 2401 1000 Output Total 700 350 300 Balance 1701 650 -300 Weight 76.204 kg Intake: IV 2401 100 Sodium Chloride 0.9% 1, 800 000 ml @ 100 mls/hr IV . Q10H [facility] Rx#:[id number] ceFAZolin 2 gm In Sodium 100 Chloride 0.9% 100 ml @ 100 mls/hr IVPB Q8HR [facility] Rx#:[id number] Intake, IV Titration 900 Amount Lactated Ringers 1,000 ml 900 @ 100 mls/hr IV .Q10H [facility] Rx#:[id number] Output: Urine 550 350 300 Uretheral (Vu) 300 Estimated Blood Loss 150 Other: Voiding Method Urinal Indwelling Catheter # Voids 1 1 - Exam Head normocephalic Neck supple Lungs clear to auscultation bilaterally no wheezing or crackles Heart regular rate and rhythm S1-S2, no rub or gallop Abdomen is soft nontender nondistended positive bowel sounds no hepatosplenomegaly Extremities no edema Neuro alert and orientated to 3 - Labs CBC & Chem 7: 11/08/16 07:04 11/08/16 07:04 Labs: Abnormal Lab Results - Last 24 Hours (Table) 11/08/16 11/08/16 Range/Units 07:04 07:04 RBC 2.93 L (4.30-5.90) m/uL Hgb 9.0 L D (13.0-17.5) gm/dL Hct 27.5 L (39.0-53.0) % Creatinine 0.55 L (0.66-1.25) mg/dL Glucose 114 H (74-99) mg/dL Total Protein 5.1 L (6.3-8.2) g/dL Albumin 2.6 L (3.5-5.0) g/dL Microbiology - Last 24 Hours (Table) 11/07/16 10:30 Urine Culture - Preliminary Urine,Clean Catch Assessment and Plan Plan: 1. Fall with right sided intertrochanteric hip fracture: Status post right long intramedullary hip screw placement. Postop day #1. Continue with current pain medications. DVT prophylaxis aspirin 325 mg twice a day 2. History of CVA. 3. 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 Prior history to colon cancer in 1990s status post chemo and radiation and bowel resection 5. History of liver disease 6. GI prophylaxis Pepcid and DVT prophylaxis aspirin 7. Acute blood loss anemia secondary to surgery. Hemoglobin 9. Start patient on iron supplement. Repeat CBC in a.m.
[2016-11-08] MEDS: FERROUS SULFATE 325 MG TAB PO SCH ×2 (13:14→17:28)
[2016-11-08] MEDS: MULTIVITAMINS, THERA 1 EACH TAB PO SCH (13:16)
[2016-11-08] MEDS: SENNOSIDES-DOCUSATE SODIUM 1 EACH TAB PO SCH (20:07)
[2016-11-09] MEDS: HYDROcodone/APAP 10-325MG 1 EACH TAB PO PRN ×3 (07:46→18:03)
[2016-11-09] MEDS: MULTIVITAMINS, THERA 1 EACH TAB PO SCH (07:46)
[2016-11-09] MEDS: FAMOTIDINE 20 MG TAB PO SCH (07:46)
[2016-11-09] MEDS: ASPIRIN 325 MG TAB PO SCH ×2 (07:46→20:25)
[2016-11-09] MEDS: PRIMIDONE 250 MG TAB PO SCH (07:47)
[2016-11-09] MEDS: FERROUS SULFATE 325 MG TAB PO SCH ×2 (07:47→18:03)
--- NOTE | 2016-11-09 08:47 | P.PN ---
Subjective Principal diagnosis: Status post IT nail right hip This is a 76 year-old male post right hip IT nail. This is post-op day 2. The patient was evaluated at the bedside today. The patient denies nausea, vomiting , abdominal pain, shortness of breath, and chest pain this morning. He states his pain is controlled at this time. The patient is moving slow with physical therapy. Objective - Vital Signs Vital signs: Vital Signs Temp 99.3 F 11/09/16 02:20 Pulse 91 11/09/16 02:20 Resp 19 11/09/16 02:20 BP 123/59 11/09/16 02:20 Pulse Ox 96 11/09/16 02:20 Intake & Output 11/08/16 11/09/16 11/09/16 18:59 06:59 18:59 Intake Total 480 Output Total 600 Balance -120 Intake: Intake, IV Titration 480 Amount Lactated Ringers 1,000 ml 480 @ 100 mls/hr IV .Q10H [facility] Rx#:[id number] Output: Urine 600 Uretheral (Vu) 300 Other: Voiding Method Indwelling Catheter Urinal # Voids 500 - Exam The patient does not appear in acute distress. Alert and orientated x3. Dressing is clean dry and intact. Incision appears fine with no erythema or active drainage. Thor in place. Calf is soft and nontender. Good foot and ankle motion without difficulty. Sensation and circulatory status is intact. - Labs CBC & Chem 7: 11/08/16 07:04 11/08/16 07:04 Labs: Microbiology - Last 24 Hours (Table) 11/07/16 10:30 Urine Culture - Final Urine,Clean Catch Assessment and Plan (1) Intertrochanteric fracture of right hip Status: Acute (2) Status post hip surgery Status: Acute Plan: 1. Continue pain control 2. Anticoagulation with Aspirin 3. Continue physical therapy and ambulation 4. Anticipate discharge to skilled rehab on Friday
[2016-11-09 09:20] LABS: Basophils % (A) 0 %; CH 31.3; CHCM 32.9; Eosinophils # (A) 0.1 k/uL (0-0.7); Eosinophils % (A) 1 %; HCT 25.5 % (39.0-53.0); HDW 2.54; HGB 8.6 gm/dL (13.0-17.5); Luc # (Auto) 0.12; Luc % (Auto) 2; Lymphocytes # (A) 1.2 k/uL (1.0-4.8); Lymphocytes % (A) 17 %; MCH 32.4 pg (25.0-35.0); MCHC 33.9 g/dL (31.0-37.0); MCV 95.7 fL (80.0-100.0); Mean Platelet Volume 7.4; Monocytes # (A) 0.4 k/uL (0-1.0); Monocytes % (A) 6 %; Neutrophils # (A) 5.3 k/uL (1.3-7.7); Neutrophils % (A) 74 %; RBC 2.67 m/uL (4.30-5.90); RDW 13.4 % (11.5-15.5); WBC 7.2 k/uL (3.8-10.6); WBC (Perox) 7.57
[2016-11-09 09:28] LABS: ALT 16 U/L (21-72); AST 25 U/L (17-59); Alkaline Phosphatase 79 U/L (38-126); Anion Gap 8 mmol/L; Blood Urea Nitrogen 12 mg/dL (9-20); Calcium 8.5 mg/dL (8.4-10.2); Carbon Dioxide 25 mmol/L (22-30); Chloride 107 mmol/L (98-107); Glucose 178 mg/dL (74-99); Non-African American GFR(MDRD) >60 (>60 ml/min/1.73 sqM); Potassium 4.2 mmol/L (3.5-5.1); Sodium 140 mmol/L (137-145); Total Bilirubin 0.4 mg/dL (0.2-1.3); Total Protein 5.1 g/dL (6.3-8.2)
[2016-11-09] MEDS: LACTATED RINGERS 1,000 ML IV SCH ×2 (09:28→09:51)
--- NOTE | 2016-11-09 16:43 | P.PN ---
Subjective Principal diagnosis: Fall with right hip fracture status post surgery postoperative day #2 Today patient is doing better His pain is better controlled There is no chest pain or shortness of breath no nausea or vomiting no abdominal pain and no urinary symptoms Objective - Vital Signs Vital signs: Vital Signs Temp 98.9 F 11/09/16 13:00 Pulse 105 H 11/09/16 13:00 Resp 16 11/09/16 13:00 BP 109/68 11/09/16 13:00 Pulse Ox 98 11/09/16 13:00 Intake & Output 11/08/16 11/09/16 11/09/16 18:59 06:59 18:59 Intake Total 480 477 Output Total 600 550 Balance -120 -73 Intake: Intake, IV Titration 480 Amount Lactated Ringers 1,000 ml 480 @ 100 mls/hr IV .Q10H [facility] Rx#:[id number] Oral 477 Output: Urine 600 550 Uretheral (Vu) 300 Other: Voiding Method Indwelling Catheter Urinal # Voids 500 # Bowel Movements 1 - Exam HEENT head normocephalic and atraumatic Neck is supple no JVD no goiter no lymphadenopathy Chest is clear to auscultation no wheezing Cardiac exam reveals regular heart sounds no gallops no murmurs Abdomen is soft nontender no organomegaly Extremity exam reveals no edema no cyanosis or clubbing - Labs CBC & Chem 7: 11/09/16 08:43 11/09/16 08:43 Labs: Abnormal Lab Results - Last 24 Hours (Table) 11/09/16 11/09/16 Range/Units 08:43 08:43 RBC 2.67 L (4.30-5.90) m/uL Hgb 8.6 L (13.0-17.5) gm/dL Hct 25.5 L (39.0-53.0) % Creatinine 0.59 L (0.66-1.25) mg/dL Glucose 178 H (74-99) mg/dL ALT 16 L (21-72) U/L Total Protein 5.1 L (6.3-8.2) g/dL Albumin 2.7 L (3.5-5.0) g/dL Microbiology - Last 24 Hours (Table) 11/07/16 10:30 Urine Culture - Final Urine,Clean Catch Assessment and Plan Plan: 1. Fall with right sided intertrochanteric hip fracture: Status post right long intramedullary hip screw placement. Postop day #1. Continue with current pain medications. DVT prophylaxis aspirin 325 mg twice a day 2. History of CVA. 3. 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 Prior history to colon cancer in status post chemo and radiation and bowel resection 5. History of elevated liver enzymes 6. GI prophylaxis Pepcid and DVT prophylaxis aspirin 7. Acute blood loss anemia secondary to surgery. Hemoglobin 8.6 Start patient on iron supplement. Repeat CBC in a.m.
[2016-11-09] MEDS: SENNOSIDES-DOCUSATE SODIUM 1 EACH TAB PO SCH (20:28)
[2016-11-10] MEDS: HYDROcodone/APAP 10-325MG 1 EACH TAB PO PRN ×4 (00:39→20:36)
[2016-11-10 07:26] LABS: Basophils % (A) 0 %; CH 31.6; CHCM 33.4; Eosinophils # (A) 0.1 k/uL (0-0.7); Eosinophils % (A) 2 %; HCT 25.4 % (39.0-53.0); HDW 2.63; HGB 8.7 gm/dL (13.0-17.5); Luc % (Auto) 3; Lymphocytes # (A) 1.7 k/uL (1.0-4.8); Lymphocytes % (A) 26 %; MCH 32.6 pg (25.0-35.0); MCHC 34.2 g/dL (31.0-37.0); MCV 95.4 fL (80.0-100.0); Mean Platelet Volume 7.2; Monocytes # (A) 0.4 k/uL (0-1.0); Monocytes % (A) 5 %; Neutrophils # (A) 4.3 k/uL (1.3-7.7); Neutrophils % (A) 64 %; RBC 2.66 m/uL (4.30-5.90); RDW 13.7 % (11.5-15.5); WBC 6.7 k/uL (3.8-10.6); WBC (Perox) 6.89
[2016-11-10 07:36] LABS: ALT 21 U/L (21-72); AST 22 U/L (17-59); Alkaline Phosphatase 76 U/L (38-126); Anion Gap 7 mmol/L; Blood Urea Nitrogen 15 mg/dL (9-20); Calcium 8.3 mg/dL (8.4-10.2); Carbon Dioxide 28 mmol/L (22-30); Chloride 105 mmol/L (98-107); Glucose 106 mg/dL (74-99); Non-African American GFR(MDRD) >60 (>60 ml/min/1.73 sqM); Potassium 3.6 mmol/L (3.5-5.1); Sodium 140 mmol/L (137-145); Total Bilirubin 0.6 mg/dL (0.2-1.3); Total Protein 4.9 g/dL (6.3-8.2)
[2016-11-10] MEDS: ASPIRIN 325 MG TAB PO SCH ×2 (07:37→20:34)
[2016-11-10] MEDS: PRIMIDONE 250 MG TAB PO SCH (07:38)
[2016-11-10] MEDS: FAMOTIDINE 20 MG TAB PO SCH (07:38)
[2016-11-10] MEDS: FERROUS SULFATE 325 MG TAB PO SCH ×2 (07:38→19:02)
--- NOTE | 2016-11-10 09:17 | P.PN ---
Subjective Principal diagnosis: Status post IT nail right hip This is a 76 year-old male post right hip IT nail. This is post-op day 3. The patient was evaluated at the bedside today. The patient denies nausea, vomiting , abdominal pain, shortness of breath, and chest pain this morning. He states his pain is controlled at this time. The patient is moving slow with physical therapy. Objective - Vital Signs Vital signs: Vital Signs Temp 97.7 F 11/10/16 07:26 Pulse 98 11/09/16 20:00 Resp 16 11/10/16 07:26 BP 116/62 11/10/16 07:26 Pulse Ox 97 11/10/16 07:26 Intake & Output 11/09/16 11/10/16 11/10/16 18:59 06:59 18:59 Intake Total 702 100 Output Total 550 200 Balance 152 -100 Intake: Oral 702 100 Output: Urine 550 200 Other: Voiding Method Urinal # Voids 2 # Bowel Movements 1 - Exam The patient does not appear in acute distress. Alert and orientated x3. Dressing is clean dry and intact. Incision appears fine with no erythema or active drainage. [place] in place. Calf is soft and nontender. Good foot and ankle motion without difficulty. Sensation and circulatory status is intact. - Labs CBC & Chem 7: 11/10/16 06:55 11/10/16 06:55 Labs: Abnormal Lab Results - Last 24 Hours (Table) 11/09/16 11/09/16 11/10/16 Range/Units 08:43 08:43 06:55 RBC 2.67 L 2.66 L (4.30-5.90) m/uL Hgb 8.6 L 8.7 L (13.0-17.5) gm/dL Hct 25.5 L 25.4 L (39.0-53.0) % Creatinine 0.59 L (0.66-1.25) mg/dL Glucose 178 H (74-99) mg/dL Calcium (8.4-10.2) mg/dL ALT 16 L (21-72) U/L Total Protein 5.1 L (6.3-8.2) g/dL Albumin 2.7 L (3.5-5.0) g/dL 11/10/16 Range/Units 06:55 RBC (4.30-5.90) m/uL Hgb (13.0-17.5) gm/dL Hct (39.0-53.0) % Creatinine 0.56 L (0.66-1.25) mg/dL Glucose 106 H (74-99) mg/dL Calcium 8.3 L (8.4-10.2) mg/dL ALT (21-72) U/L Total Protein 4.9 L (6.3-8.2) g/dL Albumin 2.7 L (3.5-5.0) g/dL Assessment and Plan (1) Intertrochanteric fracture of right hip Status: Acute (2) Status post hip surgery Status: Acute Plan: 1. Continue pain control 2. Anticoagulation with Aspirin 3. Continue physical therapy and ambulation 4. Anticipate discharge to skilled rehab tomorrow
[2016-11-10] MEDS: MULTIVITAMINS, THERA 1 EACH TAB PO SCH (11:48)
--- NOTE | 2016-11-10 15:40 | P.PN ---
Subjective Principal diagnosis: Fall with right hip fracture status post surgery postoperative day #2 Today patient is doing better His pain is better controlled There is no chest pain or shortness of breath no nausea or vomiting no abdominal pain and no urinary symptoms Objective - Vital Signs Vital signs: Vital Signs Temp 97.6 F 11/10/16 14:39 Pulse 90 11/10/16 14:39 Resp 15 11/10/16 14:39 BP 152/59 11/10/16 14:39 Pulse Ox 97 11/10/16 14:39 Intake & Output 11/09/16 11/10/16 11/10/16 18:59 06:59 18:59 Intake Total 702 100 Output Total 550 200 Balance 152 -100 Intake: Oral 702 100 Output: Urine 550 200 Other: Voiding Method Urinal # Voids 2 # Bowel Movements 1 - Exam HEENT head normocephalic and atraumatic Neck is supple no JVD no goiter no lymphadenopathy Chest is clear to auscultation no wheezing Cardiac exam reveals regular heart sounds no gallops no murmurs Abdomen is soft nontender no organomegaly Extremity exam reveals no edema no cyanosis or clubbing - Labs CBC & Chem 7: 11/10/16 06:55 11/10/16 06:55 Labs: Abnormal Lab Results - Last 24 Hours (Table) 11/10/16 11/10/16 Range/Units 06:55 06:55 RBC 2.66 L (4.30-5.90) m/uL Hgb 8.7 L (13.0-17.5) gm/dL Hct 25.4 L (39.0-53.0) % Creatinine 0.56 L (0.66-1.25) mg/dL Glucose 106 H (74-99) mg/dL Calcium 8.3 L (8.4-10.2) mg/dL Total Protein 4.9 L (6.3-8.2) g/dL Albumin 2.7 L (3.5-5.0) g/dL Assessment and Plan Plan: 1. Fall with right sided intertrochanteric hip fracture: Status post right long intramedullary hip screw placement. Postop day #1. Continue with current pain medications. DVT prophylaxis aspirin 325 mg twice a day 2. History of CVA. 3. 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 Prior history to colon cancer in status post chemo and radiation and bowel resection 5. History of elevated liver enzymes 6. GI prophylaxis Pepcid and DVT prophylaxis aspirin 7. Acute blood loss anemia secondary to surgery. Hemoglobin 8.7 Start patient on iron supplement. Repeat CBC in a.m. 8. possible discharge to rehab unit tomorrow
[2016-11-10] MEDS: hydrOXYzine PAMOATE 25 MG CAP PO PRN (17:25)
[2016-11-10] MEDS: SENNOSIDES-DOCUSATE SODIUM 1 EACH TAB PO SCH (20:00)
[2016-11-11] MEDS: HYDROcodone/APAP 10-325MG 1 EACH TAB PO PRN ×3 (03:28→19:44)
[2016-11-11 07:23] LABS: Basophils % (A) 0 %; CH 31.7; CHCM 33.1; Eosinophils # (A) 0.2 k/uL (0-0.7); Eosinophils % (A) 3 %; HCT 24.7 % (39.0-53.0); HDW 2.83; HGB 8.1 gm/dL (13.0-17.5); Luc # (Auto) 0.14; Luc % (Auto) 2; Lymphocytes # (A) 1.2 k/uL (1.0-4.8); Lymphocytes % (A) 19 %; MCH 31.6 pg (25.0-35.0); MCHC 32.9 g/dL (31.0-37.0); MCV 96.3 fL (80.0-100.0); Mean Platelet Volume 6.9; Monocytes # (A) 0.3 k/uL (0-1.0); Monocytes % (A) 5 %; Neutrophils # (A) 4.3 k/uL (1.3-7.7); Neutrophils % (A) 71 %; RBC 2.56 m/uL (4.30-5.90); RDW 13.7 % (11.5-15.5); WBC 6.1 k/uL (3.8-10.6); WBC (Perox) 6.38
--- NOTE | 2016-11-11 07:39 | P.DS ---
Providers Date of admission: 11/06/16 15:40 Expected date of discharge: 11/11/16 Attending physician: Sedrick Huertas Primary care physician: Manny Askew - Discharge Diagnosis(es) (1) Intertrochanteric fracture of right hip Current Visit: Yes Status: Acute (2) Status post hip surgery Current Visit: Yes Status: Acute Hospital Course: This is a 76 year old male who presented to the hospital post fall at home and sustained a right hip fracture. The patient was cleared by medicine for surgery. The patient underwent a right long intramedullary screw on [address] Huertas. The procedure was performed without complication or sequelae. The patient is doing well postoperatively. Labs and vital signs are stable on the day of discharge. On the day of discharge the patient's hip incision is healing well. There is minimal erythema. There is no drainage noted at this time. There is minimal soft tissue swelling to the hip and thigh. The patient has full foot and ankle motion without difficulty or pain. Neurovascular status to the right lower extremity is intact. The patient is discharged to skilled rehab in good condition. See medication reconciliation for accurate list of discharge medications. Pertinent Studies: Laboratory Tests 11/11/16 06:50 WBC 6.1 RBC 2.56 L Hgb 8.1 L Hct 24.7 L Patient Condition at Discharge: Stable Plan - Discharge Summary New Discharge Prescriptions: HYDROcodone/APAP 7.5-325MG [[place] 7.5-325] 1 - 2 tab PO Q6HR PRN #60 tab PRN Reason: Pain Aspirin 325 mg PO BID #60 tab Discharge Medication List Aspirin EC [Ecotrin Low Dose] 81 mg PO W/SUPPER 07/16/16 [History] HYDROcodone/APAP 10-325MG [Rankin 10-325] 1 tab PO TID PRN 07/16/16 [History] Primidone [Primidone] 250 mg PO DAILY 11/06/16 [History] Aspirin 325 mg PO BID #60 tab 11/08/16 [Rx] HYDROcodone/APAP 7.5-325MG [[place]in 7.5-325] 1 - 2 tab PO Q6HR PRN #60 tab [Rx] Follow up Appointment(s)/Referral(s): [facility], [NON-STAFF] - 1 Week Manny Askew MD [Primary Care Provider] - 1-2 days Sedrick Huertas MD [STAFF PHYSICIAN] - 2 Weeks Activity/Diet/Wound Care/Special Instructions: Touchdown weightbearing right lower extremity Keep wound clean and dry Take meds as directed Thor to be removed at follow up appointment Follow up with Dr. Huertas in office [phone] Discharge Disposition: TRANSFER TO SNF/ECF
[2016-11-11 07:45] LABS: ALT 24 U/L (21-72); AST 24 U/L (17-59); Alkaline Phosphatase 77 U/L (38-126); Anion Gap 10 mmol/L; Blood Urea Nitrogen 16 mg/dL (9-20); Calcium 8.3 mg/dL (8.4-10.2); Carbon Dioxide 27 mmol/L (22-30); Chloride 104 mmol/L (98-107); Glucose 98 mg/dL (74-99); Non-African American GFR(MDRD) >60 (>60 ml/min/1.73 sqM); Potassium 3.9 mmol/L (3.5-5.1); Sodium 141 mmol/L (137-145); Total Bilirubin 0.8 mg/dL (0.2-1.3); Total Protein 5.2 g/dL (6.3-8.2)
[2016-11-11] MEDS: ASPIRIN 325 MG TAB PO SCH ×2 (08:31→19:44)
[2016-11-11] MEDS: PRIMIDONE 250 MG TAB PO SCH (08:31)
[2016-11-11] MEDS: FERROUS SULFATE 325 MG TAB PO SCH ×2 (08:31→16:59)
[2016-11-11] MEDS: FAMOTIDINE 20 MG TAB PO SCH (08:31)
[2016-11-11] MEDS: hydrOXYzine PAMOATE 25 MG CAP PO PRN (08:32)
[2016-11-11] MEDS: MULTIVITAMINS, THERA 1 EACH TAB PO SCH (11:32)
--- NOTE | 2016-11-11 17:21 | P.PN ---
Subjective Principal diagnosis: Fall with right hip fracture status post surgery postoperative day #2 Today patient is doing better His pain is better controlled There is no chest pain or shortness of breath no nausea or vomiting no abdominal pain and no urinary symptoms Objective - Vital Signs Vital signs: Vital Signs Temp 98.6 F 11/11/16 14:48 Pulse 84 11/11/16 14:48 Resp 16 11/11/16 14:48 BP 93/55 11/11/16 14:48 Pulse Ox 98 11/11/16 14:48 Intake & Output 11/10/16 11/11/16 11/11/16 18:59 06:59 18:59 Intake Total 600 Output Total 600 600 Balance 0 -600 Intake: Oral 600 Output: Urine 600 600 Other: Voiding Method Urinal Urinal # Voids 2 - Exam HEENT head normocephalic and atraumatic Neck is supple no JVD no goiter no lymphadenopathy Chest is clear to auscultation no wheezing Cardiac exam reveals regular heart sounds no gallops no murmurs Abdomen is soft nontender no organomegaly Extremity exam reveals no edema no cyanosis or clubbing - Labs CBC & Chem 7: 11/11/16 06:50 11/11/16 06:50 Labs: Abnormal Lab Results - Last 24 Hours (Table) 11/11/16 11/11/16 Range/Units 06:50 06:50 RBC 2.56 L (4.30-5.90) m/uL Hgb 8.1 L (13.0-17.5) gm/dL Hct 24.7 L (39.0-53.0) % Creatinine 0.60 L (0.66-1.25) mg/dL Calcium 8.3 L (8.4-10.2) mg/dL Total Protein 5.2 L (6.3-8.2) g/dL Albumin 2.7 L (3.5-5.0) g/dL Assessment and Plan Plan: 1. Fall with right sided intertrochanteric hip fracture: Status post right long intramedullary hip screw placement. Postop day #1. Continue with current pain medications. DVT prophylaxis aspirin 325 mg twice a day 2. History of CVA. 3. 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 Prior history to colon cancer in status post chemo and radiation and bowel resection 5. History of elevated liver enzymes 6. GI prophylaxis Pepcid and DVT prophylaxis aspirin 7. Acute blood loss anemia secondary to surgery. Hemoglobin 8.7 Start patient on iron supplement. Repeat CBC in a.m. 8. possible discharge to rehab unit tomorrow
[2016-11-11] MEDS ORDERED: SODIUM FERRIC GLUCONAT-SUCROSE 125 MG in SODIUM CHLORIDE 0.9% 100 ML IVPB ONE (18:00)
[2016-11-11] MEDS: SENNOSIDES-DOCUSATE SODIUM 1 EACH TAB PO SCH (19:44)
[2016-11-12] MEDS: HYDROcodone/APAP 10-325MG 1 EACH TAB PO PRN ×4 (03:19→21:19)
[2016-11-12 07:40] LABS: Basophils % (A) 1 %; CH 31.4; Eosinophils # (A) 0.2 k/uL (0-0.7); Eosinophils % (A) 3 %; HCT 22.7 % (39.0-53.0); HDW 2.94; HGB 7.7 gm/dL (13.0-17.5); Luc # (Auto) 0.14; Luc % (Auto) 2; Lymphocytes # (A) 1.3 k/uL (1.0-4.8); Lymphocytes % (A) 22 %; MCH 31.2 pg (25.0-35.0); MCHC 33.7 g/dL (31.0-37.0); MCV 92.7 fL (80.0-100.0); Mean Platelet Volume 7.1; Monocytes # (A) 0.4 k/uL (0-1.0); Monocytes % (A) 6 %; Neutrophils # (A) 4.1 k/uL (1.3-7.7); Neutrophils % (A) 67 %; RBC 2.45 m/uL (4.30-5.90); RDW 13.9 % (11.5-15.5); WBC 6.2 k/uL (3.8-10.6); WBC (Perox) 5.98
[2016-11-12 07:58] LABS: ALT 26 U/L (21-72); AST 30 U/L (17-59); Alkaline Phosphatase 77 U/L (38-126); Anion Gap 8 mmol/L; Blood Urea Nitrogen 21 mg/dL (9-20); Carbon Dioxide 25 mmol/L (22-30); Chloride 106 mmol/L (98-107); Glucose 100 mg/dL (74-99); Non-African American GFR(MDRD) >60 (>60 ml/min/1.73 sqM); Sodium 139 mmol/L (137-145); Total Bilirubin 0.8 mg/dL (0.2-1.3)
[2016-11-12] MEDS: FERROUS SULFATE 325 MG TAB PO SCH ×2 (09:35→18:46)
[2016-11-12] MEDS: MULTIVITAMINS, THERA 1 EACH TAB PO SCH (09:35)
[2016-11-12] MEDS: PRIMIDONE 250 MG TAB PO SCH (09:35)
[2016-11-12] MEDS: ASPIRIN 325 MG TAB PO SCH ×2 (09:35→21:18)
[2016-11-12] MEDS: FAMOTIDINE 20 MG TAB PO SCH (09:35)
--- NOTE | 2016-11-12 18:53 | P.PN ---
Subjective Principal diagnosis: Fall with right hip fracture status post surgery postoperative day #2 Today patient is doing better His pain is better controlled There is no chest pain or shortness of breath no nausea or vomiting no abdominal pain and no urinary symptoms Objective - Vital Signs Vital signs: Vital Signs Temp 98.4 F 11/12/16 14:03 Pulse 81 11/12/16 14:03 Resp 16 11/12/16 14:03 BP 119/56 11/12/16 14:03 Pulse Ox 99 11/12/16 14:03 Intake & Output 11/11/16 11/12/16 11/12/16 18:59 06:59 18:59 Intake Total 500 240 Output Total 600 Balance -600 500 240 Intake: Intake, IV Titration 100 Amount Sodium Ferric Gluconat- 100 Sucrose 125 mg In Sodium Chloride 0.9% 100 ml @ 100 mls/hr IVPB ONCE ONE Rx#:[id number] Oral 400 240 Output: Urine 600 Other: Voiding Method Urinal Urinal # Voids 2 - Exam HEENT head normocephalic and atraumatic Neck is supple no JVD no goiter no lymphadenopathy Chest is clear to auscultation no wheezing Cardiac exam reveals regular heart sounds no gallops no murmurs Abdomen is soft nontender no organomegaly Extremity exam reveals no edema no cyanosis or clubbing - Labs CBC & Chem 7: 11/12/16 07:20 11/12/16 07:20 Labs: Abnormal Lab Results - Last 24 Hours (Table) 11/12/16 11/12/16 Range/Units 07:20 07:20 RBC 2.45 L (4.30-5.90) m/uL Hgb 7.7 L (13.0-17.5) gm/dL Hct 22.7 L (39.0-53.0) % BUN 21 H (9-20) mg/dL Glucose 100 H (74-99) mg/dL Calcium 8.0 L (8.4-10.2) mg/dL Total Protein 5.0 L (6.3-8.2) g/dL Albumin 2.5 L (3.5-5.0) g/dL Assessment and Plan Plan: 1. Fall with right sided intertrochanteric hip fracture: Status post right long intramedullary hip screw placement. Postop day #1. Continue with current pain medications. DVT prophylaxis aspirin 325 mg twice a day 2. History of CVA. 3. 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 Prior history to colon cancer in status post chemo and radiation and bowel resection 5. History of elevated liver enzymes 6. GI prophylaxis Pepcid and DVT prophylaxis aspirin 7. Acute blood loss anemia secondary to surgery. Hemoglobin 7.7 Start patient on iron supplement. Repeat CBC in a.m. 8. possible discharge to rehab unit tomorrow, at this time awaiting insurance approval for rehab
[2016-11-12] MEDS: SENNOSIDES-DOCUSATE SODIUM 1 EACH TAB PO SCH (21:18)
[2016-11-13 02:37] VITALS: RESP 16
[2016-11-13 08:11] LABS: Basophils % (A) 0 %; CH 31.7; CHCM 33.8; Eosinophils # (A) 0.2 k/uL (0-0.7); Eosinophils % (A) 3 %; HDW 2.89; HGB 8.5 gm/dL (13.0-17.5); Luc # (Auto) 0.16; Luc % (Auto) 2; Lymphocytes # (A) 1.3 k/uL (1.0-4.8); Lymphocytes % (A) 18 %; MCH 30.9 pg (25.0-35.0); MCHC 32.8 g/dL (31.0-37.0); MCV 94.4 fL (80.0-100.0); Monocytes # (A) 0.4 k/uL (0-1.0); Monocytes % (A) 6 %; Neutrophils # (A) 5.3 k/uL (1.3-7.7); Neutrophils % (A) 71 %; RBC 2.75 m/uL (4.30-5.90); RDW 13.9 % (11.5-15.5); WBC 7.4 k/uL (3.8-10.6); WBC (Perox) 8.04
[2016-11-13 08:18] LABS: ALT 37 U/L (21-72); AST 32 U/L (17-59); Alkaline Phosphatase 96 U/L (38-126); Anion Gap 7 mmol/L; Blood Urea Nitrogen 15 mg/dL (9-20); Carbon Dioxide 28 mmol/L (22-30); Chloride 103 mmol/L (98-107); Glucose 97 mg/dL (74-99); Non-African American GFR(MDRD) >60 (>60 ml/min/1.73 sqM); Potassium 4.4 mmol/L (3.5-5.1); Sodium 138 mmol/L (137-145); Total Bilirubin 0.9 mg/dL (0.2-1.3); Total Protein 5.4 g/dL (6.3-8.2)
--- NOTE | 2016-11-13 08:35 | P.PN ---
Subjective Principal diagnosis: Status post IT nail right hip This is a 76 year-old male post right hip IT nail. This is post-op day 6. The patient was evaluated at the bedside today. The patient denies nausea, vomiting , abdominal pain, shortness of breath, and chest pain this morning. He states his pain is controlled at this time. The patient is moving slow with physical therapy. We are awaiting rehab placement. Objective - Vital Signs Vital signs: Vital Signs Temp 98.5 F 11/13/16 08:00 Pulse 92 11/13/16 08:00 Resp 16 11/13/16 08:00 BP 120/63 11/13/16 08:00 Pulse Ox 96 11/13/16 08:00 Intake & Output 11/12/16 11/13/16 11/13/16 18:59 06:59 18:59 Intake Total 240 150 Output Total 600 Balance 240 -600 150 Intake: Oral 240 150 Output: Urine 600 Other: Voiding Method Urinal - Exam The patient does not appear in acute distress. Alert and orientated x3. Dressing is clean dry and intact. Incision appears fine with no erythema or active drainage. Thor in place. Calf is soft and nontender. Good foot and ankle motion without difficulty. Sensation and circulatory status is intact. - Labs CBC & Chem 7: 11/13/16 07:29 11/13/16 07:29 Labs: Abnormal Lab Results - Last 24 Hours (Table) 11/13/16 11/13/16 Range/Units 07:29 07:29 RBC 2.75 L (4.30-5.90) m/uL Hgb 8.5 L (13.0-17.5) gm/dL Hct 26.0 L (39.0-53.0) % Creatinine 0.61 L (0.66-1.25) mg/dL Calcium 8.0 L (8.4-10.2) mg/dL Total Protein 5.4 L (6.3-8.2) g/dL Albumin 2.9 L (3.5-5.0) g/dL Assessment and Plan (1) Intertrochanteric fracture of right hip Status: Acute (2) Status post hip surgery Status: Acute Plan: 1. Continue pain control 2. Anticoagulation with Aspirin 3. Continue physical therapy and ambulation 4. Anticipate discharge to skilled rehab today, discharge summary is complete
[2016-11-13] MEDS: HYDROcodone/APAP 10-325MG 1 EACH TAB PO PRN (08:46)
[2016-11-13] MEDS: FERROUS SULFATE 325 MG TAB PO SCH (08:47)
[2016-11-13] MEDS: FAMOTIDINE 20 MG TAB PO SCH (08:47)
[2016-11-13] MEDS: PRIMIDONE 250 MG TAB PO SCH (08:47)
[2016-11-13] MEDS: MULTIVITAMINS, THERA 1 EACH TAB PO SCH (08:47)
[2016-11-13] MEDS: ASPIRIN 325 MG TAB PO SCH (08:47)
[2016-11-13] MEDS ORDERED: HYDROcodone/APAP 10-325MG 1 EACH TAB PO PRN ×2 (09:00→09:01)
--- NOTE | 2016-11-13 12:58 | P.PN ---
Subjective Patient is awaiting discharge to [facility]. No events overnight. Hemoglobin is stable. Objective - Vital Signs Vital signs: Vital Signs Temp 98.5 F 11/13/16 08:00 Pulse 92 11/13/16 08:00 Resp 16 11/13/16 08:00 BP 120/63 11/13/16 08:00 Pulse Ox 96 11/13/16 08:00 Intake & Output 11/12/16 11/13/16 11/13/16 18:59 06:59 18:59 Intake Total 240 150 Output Total 600 Balance 240 -600 150 Intake: Oral 240 150 Output: Urine 600 Other: Voiding Method Urinal - Exam General: The patient is awake and alert, in no distress Eye: there is normal conjunctiva bilaterally. Neck: The neck is supple, there is no JVD. Cardiovascular: Normal S1-S2, no S3-S4, no murmurs. Respiratory: Lungs clear to auscultation bilaterally Gastrointestinal: Abdomen is soft, nontender Musculoskeletal: There is no pedal edema. Neurological:. Speech is normal. Skin: Skin is warm and dry - Labs CBC & Chem 7: 11/13/16 07:29 11/13/16 07:29 Labs: Abnormal Lab Results - Last 24 Hours (Table) 11/13/16 11/13/16 Range/Units 07:29 07:29 RBC 2.75 L (4.30-5.90) m/uL Hgb 8.5 L (13.0-17.5) gm/dL Hct 26.0 L (39.0-53.0) % Creatinine 0.61 L (0.66-1.25) mg/dL Calcium 8.0 L (8.4-10.2) mg/dL Total Protein 5.4 L (6.3-8.2) g/dL Albumin 2.9 L (3.5-5.0) g/dL Assessment and Plan Plan: 1. Fall with right sided intertrochanteric hip fracture: Status post right long intramedullary hip screw placement. DVT prophylaxis aspirin 325 mg twice a day 2. History of CVA. 3. 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 Prior history to colon cancer in 1990s status post chemo and radiation and bowel resection 5. History of elevated liver enzymes 6. Acute blood loss anemia secondary to surgery. Continue iron supplement twice daily Patient is medically clear for discharge.
[2016-11-13 14:48] VITALS: BP 121/65; PULSE 90; TEMP 98.3
== END 2016-11-13 16:20 | DRG 481 ==
LOC: EC 13:08 → 3SUR 15:40
PROVIDERS: ADMIT Orthopaedic Surgery Sports Medicine; ATTEND Orthopaedic Surgery Sports Medicine
PROC: 0QS606Z Reposition Right Upper Femur with Intramedullary Internal Fixation Device, Open Approach (ICD-10-PCS; principal; 2016-11-07 15:40)
DX: S72.141A Displaced intertrochanteric fracture of right femur, initial encounter for closed fracture (principal); I69.354 Hemiplegia and hemiparesis following cerebral infarction affecting left non-dominant side; D62 Acute posthemorrhagic anemia; S72.21XA Displaced subtrochanteric fracture of right femur, initial encounter for closed fracture; R25.1 Tremor, unspecified; K76.9 Liver disease, unspecified; M48.00 Spinal stenosis, site unspecified; Z85.048 Personal history of other malignant neoplasm of rectum, rectosigmoid junction, and anus; Z87.891 Personal history of nicotine dependence; Z86.718 Personal history of other venous thrombosis and embolism; Z90.49 Acquired absence of other specified parts of digestive tract; Z79.899 Other long term (current) drug therapy; Z79.82 Long term (current) use of aspirin; Z96.642 Presence of left artificial hip joint; W01.0XXA Fall on same level from slipping, tripping and stumbling without subsequent striking against object, initial encounter; Y92.009 Unspecified place in unspecified non-institutional (private) residence as the place of occurrence of the external cause
CPT/HCPCS: 36415; 71010; 73501; 73502; 80053; 81001; 85025; 85610; 85730; 87086; 93005; 96361; 96374; 96375; 96376; 99285

== ENCOUNTER 2017-08-18 11:13 | Inpatient (IN) | payer MEDICARE, OTHER ==
[2017-08-18] MEDS ORDERED: IPRATROPIUM-ALBUTEROL 3 ML NEB INHALATION STA (12:08)
--- NOTE | 2017-08-18 12:15 | ED ---
General Adult HPI - General Chief complaint: Shortness of Breath Stated complaint: SOB Time Seen by Provider: 08/18/17 11:45 Source: patient, RN notes reviewed Mode of arrival: EMS Limitations: no limitations - History of Present Illness Initial comments: Patient is a pleasant 77-year-old male presenting to the emergency department with difficulty breathing. Patient is a poor historian. Patient states he did have a sore throat however it is not bothering him at this time. Patient does admit to feeling somewhat short of breath. Patient admits to having somewhat of a cough that has been on her doctor. Patient is unclear if he has had fevers however transfer sheet states patient has had some intermittent fevers. Patient states he has been using nebulizer treatments recently however is unclear of any history of COPD or CHF. - Related Data Home Medications Medication Instructions Recorded Confirmed Aspirin EC [Ecotrin Low Dose] 81 mg PO DAILY 07/26/17 08/18/17 Gabapentin [Neurontin] 300 mg PO HS 07/26/17 08/18/17 Primidone [Mysoline] 100 mg PO TID 07/26/17 08/18/17 Previous Rx's Medication Instructions Recorded Ferrous Sulfate [Iron (65 MG 325 mg PO BID tab 07/29/17 Elemental)] HYDROcodone/APAP 10-325MG [[place] 1 tab PO TID PRN #40 tab 07/29/17 10-325] Allergies Allergy/AdvReac Type Severity Reaction Status Date / Time No Known Allergies Allergy Verified 08/18/17 11:35 Review of Systems ROS Statement: Those systems with pertinent positive or pertinent negative responses have been documented in the HPI. ROS Other: All systems not noted in ROS Statement are negative. Constitutional: Denies: fever Eyes: Denies: eye pain ENT: Reports: throat pain Respiratory: Reports: cough, dyspnea Cardiovascular: Denies: chest pain Endocrine: Reports: fatigue Gastrointestinal: Denies: abdominal pain Genitourinary: Denies: dysuria Musculoskeletal: Denies: back pain Skin: Denies: rash Neurological: Denies: weakness Past Medical History Past Medical History: Cancer, CVA/TIA, Deep Vein Thrombosis (DVT), Liver Disease , Pneumonia Additional Past Medical History / Comment(s): 11-06-16 FALL/FX RT HIP. DDD, SPINAL CANAL STENOSIS, COLON CA IN THE HAD SX CHEMO AND RADIATION, 7-22- 15 UTI(E COLI), left arm weakness-fx lt arm at shoulder-December 2014-remains painful , rectal carcinoma, elevated liver enzymes, walker use,recent falls,PAST CVA AFFECTED LT SIDE. History of Any Multi-Drug Resistant Organisms: None Reported Past Surgical History: Appendectomy, Back Surgery, Bowel Resection, Cholecystectomy, Joint Replacement, Orthopedic Surgery Additional Past Surgical History / Comment(s): GASTRECTOMY, L hip replacement, spinal surgery, RT ANKLE SX Past Anesthesia/Blood Transfusion Reactions: No Reported Reaction Additional Past Anesthesia/Blood Transfusion Reaction / Comment(s): no hx at [facility] Past Psychological History: No Psychological Hx Reported Smoking Status: Former smoker Past Alcohol Use History: Occasional Past Drug Use History: None Reported - Past Family History Father Family Medical History: Unable to Obtain Additional Family Medical History / Comment(s): heart problems Mother Family Medical History: Diabetes Mellitus General Exam Limitations: no limitations General appearance: alert, in no apparent distress Head exam: Present: atraumatic Eye exam: Present: normal appearance, PERRL ENT exam: Present: normal oropharynx Neck exam: Present: normal inspection Respiratory exam: Present: wheezes Cardiovascular Exam: Present: regular rate, normal rhythm GI/Abdominal exam: Present: soft. Absent: tenderness Extremities exam: Present: normal inspection Neurological exam: Present: alert Psychiatric exam: Present: normal affect, normal mood Skin exam: Present: normal color Course Vital Signs 08/18/17 08/18/17 08/18/17 11:21 12:21 12:31 Temperature 98.1 F Pulse Rate 99 98 98 Respiratory 16 Rate Blood Pressure 133/55 O2 Sat by Pulse 95 Oximetry 08/18/17 08/18/17 08/18/17 13:03 13:18 13:56 Temperature 98 F Pulse Rate 108 H 106 H Respiratory 18 18 Rate Blood Pressure 190/88 134/61 O2 Sat by Pulse 96 95 Oximetry 08/18/17 14:55 Temperature Pulse Rate 109 H Respiratory 18 Rate Blood Pressure 135/60 O2 Sat by Pulse 97 Oximetry - Reevaluation(s) Reevaluation #1: 08/18/17 15:16 Concerns for pneumonitis on chest x-ray. Patient does meet criteria for sepsis diagnosis at 1516. EKG Findings - EKG Comments: EKG Findings:: Normal sinus rhythm 93. [place] 158. QRS 76. QT 356. QTc 442. Normal axis. Normal QRS. No acute ST change. Medical Decision Making - Medical Decision Making Patient reevaluated and updated. Case discussed with Dr. Askew, who will admit his patient. - Lab Data Result diagrams: 08/18/17 11:35 08/18/17 11:35 Lab Results 08/18/17 08/18/17 08/18/17 Range/Units 11:35 11:35 11:35 WBC 13.4 H (3.8-10.6) k/uL RBC 4.39 (4.30-5.90) m/uL Hgb 13.7 (13.0-17.5) gm/dL Hct 42.3 (39.0-53.0) % MCV 96.3 (80.0-100.0) fL MCH 31.1 (25.0-35.0) pg MCHC 32.3 (31.0-37.0) g/dL RDW 14.0 (11.5-15.5) % Plt Count 296 (150-450) k/uL Neutrophils % 84 % Lymphocytes % 10 % Monocytes % 5 % Eosinophils % 0 % Basophils % 0 % Neutrophils # 11.3 H (1.3-7.7) k/uL Lymphocytes # 1.3 (1.0-4.8) k/uL Monocytes # 0.7 (0-1.0) k/uL Eosinophils # 0.0 (0-0.7) k/uL Basophils # 0.1 (0-0.2) k/uL PT (9.0-12.0) sec INR (<1.2) APTT (22.0-30.0) sec Sodium 136 L (137-145) mmol/L Potassium 4.4 (3.5-5.1) mmol/L Chloride 100 (98-107) mmol/L Carbon Dioxide 26 (22-30) mmol/L Anion Gap 10 mmol/L BUN 12 (9-20) mg/dL Creatinine 0.53 L (0.66-1.25) mg/dL Est GFR (MDRD) Af Amer >60 (>60 ml/min/1.73 sqM) Est GFR (MDRD) Non-Af >60 (>60 ml/min/1.73 sqM) Glucose 112 H (74-99) mg/dL Plasma Lactic Acid Rahul 1.3 (0.7-2.0) mmol/L Calcium 9.0 (8.4-10.2) mg/dL Total Bilirubin 0.7 (0.2-1.3) mg/dL AST 36 (17-59) U/L ALT 36 (21-72) U/L Alkaline Phosphatase 166 H (38-126) U/L Total Protein 6.5 (6.3-8.2) g/dL Albumin 3.5 (3.5-5.0) g/dL Urine Color Urine Appearance (Clear) Urine pH (5.0-8.0) Ur Specific [place] (1.001-1.035) Urine Protein (Negative) Urine Glucose (UA) (Negative) Urine Ketones (Negative) Urine Blood (Negative) Urine Nitrite (Negative) Urine Bilirubin (Negative) Urine Urobilinogen (<2.0) mg/dL Ur Leukocyte Esterase (Negative) Urine RBC (0-5) /hpf Urine WBC (0-5) /hpf Ur Squamous Epith Cells (0-4) /hpf Urine Mucus (None) /hpf Influenza Type A RNA (Not Detectd) Influenza Type B (PCR) (Not Detectd) Group A Strep Rapid (Negative) 08/18/17 08/18/17 08/18/17 Range/Units 11:35 12:59 12:59 WBC (3.8-10.6) k/uL RBC (4.30-5.90) m/uL Hgb (13.0-17.5) gm/dL Hct (39.0-53.0) % MCV (80.0-100.0) fL MCH (25.0-35.0) pg MCHC (31.0-37.0) g/dL RDW (11.5-15.5) % Plt Count (150-450) k/uL Neutrophils % % Lymphocytes % % Monocytes % % Eosinophils % % Basophils % % Neutrophils # (1.3-7.7) k/uL Lymphocytes # (1.0-4.8) k/uL Monocytes # (0-1.0) k/uL Eosinophils # (0-0.7) k/uL Basophils # (0-0.2) k/uL PT 10.0 (9.0-12.0) sec INR 1.0 (<1.2) APTT 25.4 (22.0-30.0) sec Sodium (137-145) mmol/L Potassium (3.5-5.1) mmol/L Chloride (98-107) mmol/L Carbon Dioxide (22-30) mmol/L Anion Gap mmol/L BUN (9-20) mg/dL Creatinine (0.66-1.25) mg/dL Est GFR (MDRD) Af Amer (>60 ml/min/1.73 sqM) Est GFR (MDRD) Non-Af (>60 ml/min/1.73 sqM) Glucose (74-99) mg/dL Plasma Lactic Acid Rahul (0.7-2.0) mmol/L Calcium (8.4-10.2) mg/dL Total Bilirubin (0.2-1.3) mg/dL AST (17-59) U/L ALT (21-72) U/L Alkaline Phosphatase (38-126) U/L Total Protein (6.3-8.2) g/dL Albumin (3.5-5.0) g/dL Urine Color Urine Appearance (Clear) Urine pH (5.0-8.0) Ur Specific [place] (1.001-1.035) Urine Protein (Negative) Urine Glucose (UA) (Negative) Urine Ketones (Negative) Urine Blood (Negative) Urine Nitrite (Negative) Urine Bilirubin (Negative) Urine Urobilinogen (<2.0) mg/dL Ur Leukocyte Esterase (Negative) Urine RBC (0-5) /hpf Urine WBC (0-5) /hpf Ur Squamous Epith Cells (0-4) /hpf Urine Mucus (None) /hpf Influenza Type A RNA Not Detected (Not Detectd) Influenza Type B (PCR) Not Detected (Not Detectd) Group A Strep Rapid Negative (Negative) 08/18/17 Range/Units 13:25 WBC (3.8-10.6) k/uL RBC (4.30-5.90) m/uL Hgb (13.0-17.5) gm/dL Hct (39.0-53.0) % MCV (80.0-100.0) fL MCH (25.0-35.0) pg MCHC (31.0-37.0) g/dL RDW (11.5-15.5) % Plt Count (150-450) k/uL Neutrophils % % Lymphocytes % % Monocytes % % Eosinophils % % Basophils % % Neutrophils # (1.3-7.7) k/uL Lymphocytes # (1.0-4.8) k/uL Monocytes # (0-1.0) k/uL Eosinophils # (0-0.7) k/uL Basophils # (0-0.2) k/uL PT (9.0-12.0) sec INR (<1.2) APTT (22.0-30.0) sec Sodium (137-145) mmol/L Potassium (3.5-5.1) mmol/L Chloride (98-107) mmol/L Carbon Dioxide (22-30) mmol/L Anion Gap mmol/L BUN (9-20) mg/dL Creatinine (0.66-1.25) mg/dL Est GFR (MDRD) Af Amer (>60 ml/min/1.73 sqM) Est GFR (MDRD) Non-Af (>60 ml/min/1.73 sqM) Glucose (74-99) mg/dL Plasma Lactic Acid Rahul (0.7-2.0) mmol/L Calcium (8.4-10.2) mg/dL Total Bilirubin (0.2-1.3) mg/dL AST (17-59) U/L ALT (21-72) U/L Alkaline Phosphatase (38-126) U/L Total Protein (6.3-8.2) g/dL Albumin (3.5-5.0) g/dL Urine Color Yellow Urine Appearance Clear (Clear) Urine pH 6.0 (5.0-8.0) Ur Specific [place] 1.017 (1.001-1.035) Urine Protein Trace H (Negative) Urine Glucose (UA) Negative (Negative) Urine Ketones 1+ H (Negative) Urine Blood Small H (Negative) Urine Nitrite Negative (Negative) Urine Bilirubin Negative (Negative) Urine Urobilinogen 2.0 (<2.0) mg/dL Ur Leukocyte Esterase Negative (Negative) Urine RBC 22 H (0-5) /hpf Urine WBC 1 (0-5) /hpf Ur Squamous Epith Cells <1 (0-4) /hpf Urine Mucus Occasional H (None) /hpf Influenza Type A RNA (Not Detectd) Influenza Type B (PCR) (Not Detectd) Group A Strep Rapid (Negative) - Radiology Data Radiology results: image reviewed (X-ray concerning for pneumonitis or heart failure.) Critical Care Time Critical Care Time: Yes Total Critical Care Time: 32 Disposition Clinical Impression: Pneumonitis, Sepsis Disposition: ADMITTED IP TO THIS HOSP Referrals: Manny Askew MD [Primary Care Provider] - 1-2 days Decision Time: 15:17
[2017-08-18 12:36] LABS: Partial Thromboplastin Time 25.4 sec (22.0-30.0)
[2017-08-18 12:37] LABS: ALT 36 U/L (21-72); AST 36 U/L (17-59); Albumin 3.5 g/dL (3.5-5.0); Alkaline Phosphatase 166 U/L (38-126); Anion Gap 10 mmol/L; Basophils # (A) 0.1 k/uL (0-0.2); Basophils % (A) 0 %; Blood Urea Nitrogen 12 mg/dL (9-20); Carbon Dioxide 26 mmol/L (22-30); Chloride 100 mmol/L (98-107); Eosinophils % (A) 0 %; Glucose 112 mg/dL (74-99); HCT 42.3 % (39.0-53.0); HGB 13.7 gm/dL (13.0-17.5); Lymphocytes # (A) 1.3 k/uL (1.0-4.8); Lymphocytes % (A) 10 %; MCH 31.1 pg (25.0-35.0); MCHC 32.3 g/dL (31.0-37.0); MCV 96.3 fL (80.0-100.0); Mean Platelet Volume 7.6; Monocytes # (A) 0.7 k/uL (0-1.0); Monocytes % (A) 5 %; Neutrophils # (A) 11.3 k/uL (1.3-7.7); Neutrophils % (A) 84 %; Platelet Count 296 k/uL (150-450); Potassium 4.4 mmol/L (3.5-5.1); RBC 4.39 m/uL (4.30-5.90); Sodium 136 mmol/L (137-145); Total Bilirubin 0.7 mg/dL (0.2-1.3); Total Protein 6.5 g/dL (6.3-8.2); WBC 13.4 k/uL (3.8-10.6)
--- NOTE | 2017-08-18 13:00 | XR ---
EXAMINATION TYPE: XR chest 2V DATE OF EXAM: 08/18/2017 COMPARISON: 07/28/2017 HISTORY: Shortness of breath, fever, and cough TECHNIQUE: Frontal and lateral views of the chest are obtained. FINDINGS: Diffuse interstitial prominence is more pronounced than on the prior exam of 07/28/2017. T his is most exaggerated on the lateral image. No confluent opacity is seen. No pleural effusion or pn eumothorax. Cardiomediastinal silhouette is within normal limits. Moderate acromioclavicular arthropa thy is noted as well as old healed fracture of the left proximal humerus. IMPRESSION: Increased interstitial prominence in comparison to the prior of 07/28/2017. This may rep resent early interstitial edema or atypical pneumonitis.
[2017-08-18 13:39] LABS: Appearance,Urine Clear (Clear); Bilirubin,Urine Negative (Negative); Blood,Urine Small (Negative); Color,Urine Yellow; Glucose,Urine (UA) Negative (Negative); Ketones,Urine 1+ (Negative); Leukocyte Esterase,Urine Negative (Negative); Mucus,Urine Occasional /hpf; Nitrite,Urine Negative (Negative); Protein,Urine Trace (Negative); RBC,Urine 22 /hpf (0-5); Specific Gravity,Urine 1.017 (1.001-1.035); Squamous Epithelial Cell,Urine <1 /hpf (0-4); WBC,Urine 1 /hpf (0-5)
[2017-08-18] MEDS ORDERED: cefTRIAXone IN SWFI 1,000 MG/10 ML SYRINGE IVP STA (15:18)
[2017-08-18] MEDS ORDERED: AZITHROMYCIN 500 MG in SODIUM CHLORIDE 0.9% 250 ML IVPB STA (15:18)
[2017-08-18] MEDS ORDERED: PNEUMONIA PROTOCOL UTILIZED 1 EACH MISC PO PRN (15:18)
[2017-08-18] MEDS ORDERED: IPRATROPIUM-ALBUTEROL 3 ML NEB INHALATION PRN (15:18)
[2017-08-18] MEDS ORDERED: ACETAMINOPHEN TAB 500 MG TAB PO STA (16:36)
[2017-08-18] MEDS: IPRATROPIUM-ALBUTEROL 3 ML NEB INHALATION SCH ×2 (19:58)
[2017-08-18] MEDS: HYDROcodone/APAP 10-325MG 1 EACH TAB PO PRN (21:27)
[2017-08-18] MEDS: PRIMIDONE 50 MG TAB PO SCH (21:29)
[2017-08-18] MEDS: HEPARIN SODIUM,PORCINE 5,000 UNIT/ML 1 ML VIAL SQ SCH (21:30)
[2017-08-18] MEDS: SODIUM CHLORIDE 0.9% 1,000 ML IV SCH (21:30)
[2017-08-18] MEDS: GABAPENTIN 300 MG CAP PO SCH (21:30)
[2017-08-18] MEDS: FERROUS SULFATE 325 MG TAB PO SCH (21:30)
[2017-08-19] MEDS: HYDROcodone/APAP 10-325MG 1 EACH TAB PO PRN ×2 (07:27→15:40)
[2017-08-19] MEDS: PRIMIDONE 50 MG TAB PO SCH ×3 (07:33→22:11)
[2017-08-19] MEDS: AZITHROMYCIN 500 MG TAB PO SCH (07:33)
[2017-08-19] MEDS: HEPARIN SODIUM,PORCINE 5,000 UNIT/ML 1 ML VIAL SQ SCH ×2 (07:33→22:11)
[2017-08-19] MEDS: FERROUS SULFATE 325 MG TAB PO SCH ×2 (07:33→22:11)
[2017-08-19] MEDS: ASPIRIN 81 MG PO SCH (07:33)
[2017-08-19] MEDS: SODIUM CHLORIDE 0.9% 1,000 ML IV SCH ×3 (07:34→22:12)
[2017-08-19] MEDS: cefTRIAXone IN SWFI 1,000 MG/10 ML SYRINGE IVP SCH (08:08)
[2017-08-19] MEDS: IPRATROPIUM-ALBUTEROL 3 ML NEB INHALATION SCH ×4 (08:49→19:20)
--- NOTE | 2017-08-19 12:54 | XR ---
EXAMINATION TYPE: XR chest 2V DATE OF EXAM: 08/19/2017 COMPARISON: Prior chest x-ray 08/18/2017 HISTORY: Pneumonia TECHNIQUE: Frontal and lateral views of the chest are obtained. FINDINGS: The patient is rotated. Increased density question in the right lower lobe. No evident pne umothorax or pleural effusion. Cardiac mediastinal silhouette, pulmonary vascularity and jodie appear stable accounting for technique. Lung volumes are low. Old posttraumatic change noted to the left star ulder. IMPRESSION: Correlate for right lower lobe pneumonia. Rotated exam, expiratory view. Follow-up recom mended.
[2017-08-19 13:26] VITALS: BMI 24.3
--- NOTE | 2017-08-19 14:33 | P.HPIM ---
History of Present Illness H&P Date: 08/19/17 Chief Complaint: Shortness of breath and cough This is a 77-year-old male with a known history of CVA , colon cancer and previous pneumonia. He did also recently been in the hospital in July 2017 after a fall with a displaced trochanteric fracture of the left hip as well as a left humerus fracture. He was seen by orthopedics and no surgical intervention but they recommended rehab. Patient had been at [facility] for rehabilitation. He was transferred from [facility] to [facility] with complaints of worsening shortness of breath feeling cold and a productive cough. He was found to have a temp of 102 white count 13.4 and chest x-ray showed interstitial edema versus atypical pneumonitis. Repeat chest x-ray shows possible right lower lobe pneumonia. Patient has been started on Rocephin and azithromycin and nebulizer treatments. He had also been complaining of a sore throat initial strep screen was negative. Influenza screen negative. EKG showed a normal sinus rhythm. Patient denies any chest pain, nausea or vomiting, bowel movement changes or urinary symptoms Review of Systems Please refer to HPI otherwise unremarkable Past Medical History Past Medical History: Cancer, CVA/TIA, Deep Vein Thrombosis (DVT), Liver Disease , Pneumonia Additional Past Medical History / Comment(s): 11-06-16 FALL/FX RT HIP. DDD, SPINAL CANAL STENOSIS, COLON CA IN THE HAD SX CHEMO AND RADIATION, UTI(E COLI), left arm weakness-fx lt arm at shoulder-December 2014-remains painful , rectal carcinoma, elevated liver enzymes, walker use,recent falls,PAST CVA AFFECTED LT SIDE. History of Any Multi-Drug Resistant Organisms: None Reported Past Surgical History: Appendectomy, Back Surgery, Bowel Resection, Cholecystectomy, Joint Replacement, Orthopedic Surgery Additional Past Surgical History / Comment(s): GASTRECTOMY, L hip replacement, spinal surgery, RT ANKLE SX , 5 broken ribs, left arm fracture Past Anesthesia/Blood Transfusion Reactions: No Reported Reaction Additional Past Anesthesia/Blood Transfusion Reaction / Comment(s): no hx at [facility] Past Psychological History: No Psychological Hx Reported Additional Psychological History / Comment(s): client lives at [facility] Smoking Status: Former smoker Past Alcohol Use History: Occasional Additional Past Alcohol Use History / Comment(s): SMOKED FOR 40 YEARS QUIT 1994. has a few alcoholic drinks per week Past Drug Use History: None Reported - Past Family History Father Family Medical History: Unable to Obtain Additional Family Medical History / Comment(s): heart problems Mother Family Medical History: Diabetes Mellitus Medications and Allergies Home Medications Medication Instructions Recorded Confirmed Type Aspirin EC [Ecotrin Low Dose] 81 mg PO DAILY 07/26/17 08/18/17 History Gabapentin [Neurontin] 300 mg PO HS 07/26/17 08/18/17 History Primidone [Mysoline] 100 mg PO TID 07/26/17 08/18/17 History Ferrous Sulfate [Iron (65 MG 325 mg PO BID tab 07/29/17 08/18/17 Rx Elemental)] HYDROcodone/APAP 10-325MG [[place] 1 tab PO TID PRN #40 tab 07/29/17 08/18/17 Rx 10-325] Allergies Allergy/AdvReac Type Severity Reaction Status Date / Time No Known Allergies Allergy Verified 08/18/17 11:35 Physical Exam Vitals: Vital Signs Temp Pulse Pulse Resp BP BP Pulse Ox 08/19/17 12:24 98 16 08/19/17 12:14 97 16 08/19/17 09:01 94 16 08/19/17 08:49 92 16 96 08/19/17 07:00 97.8 F 98 18 122/57 98 08/18/17 23:00 100.5 F H 98 16 113/54 95 08/18/17 20:08 96 08/18/17 19:58 96 08/18/17 17:15 101.3 F H 106 H 20 110/57 97 08/18/17 16:24 102 F H 108 H 18 147/62 97 08/18/17 14:55 109 H 18 135/60 97 Intake and Output 08/18/17 08/19/17 08/19/17 22:59 06:59 14:59 Intake Total 240 Output Total 450 200 Balance -450 40 Intake: Oral 240 Output: Urine 450 200 Other: Voiding Method Urinal Urinal # Voids 1 2 # Bowel Movements 0 0 Weight 70.307 kg Patient Weight 08/20/17 06:59 Weight 70.307 kg Head normocephalic Neck supple Lungs coarse breath sounds noted on the right Heart regular rate and rhythm S1-S2, no rub or gallop Abdomen is soft nontender nondistended positive bowel sounds no hepatosplenomegaly Extremities no edema Neuro alert and orientated to 3 Results CBC & Chem 7: 08/18/17 11:35 08/18/17 11:35 Labs: Microbiology - Last 24 Hours (Table) 08/18/17 11:35 Blood Culture - Preliminary Blood No Growth after 24 hours 08/18/17 13:25 Urine Culture - Preliminary Urine,Voided 08/18/17 12:59 Throat Culture - Preliminary Throat Thrombosis Risk Factor Assmnt - Choose All That Apply Each Risk Factor Represents 3 Points: Age 75 years or older, History of DVT/PE Thrombosis Risk Factor Assessment Total Risk Factor Score: 6 Thrombosis Risk Factor Assessment Level: High Risk Assessment and Plan Assessment: 1. Right lower lobe pneumonia with sepsis present on admission: Continue Rocephin and azithromycin. Check sputum culture. Continue IV fluid hydration. Urine and throat cultures pending 2. History of CVA 3. History of colon cancer status post chemo and radiation and bowel resection 4. Recent displaced trochanteric fracture of the left hip and a left humerus fracture. No surgical intervention per orthopedics. He had been at [facility] for rehabilitation. Physical therapy will be consulted to continue therapy treatment 5. Iron deficiency anemia continue iron supplement DVT prophylaxis subcu heparin and GI prophylaxis Pepcid Time with Patient: Greater than 30 (Greater than 50% of the total time spent in counseling and coordination of care.I performed an examination of the patient and discussed their management with the physician Guidance Director. I have reviewed the Physician Guidance Director's notes and agree with the documented findings and plan of care)
--- NOTE | 2017-08-19 17:46 | P.CNPUL ---
History of Present Illness Consult date: 08/19/17 Reason for consult: dyspnea, cough, pneumonia Chief complaint: Cough shortness of breath and pneumonia History of present illness: Mr. Cohen is seen and evaluated examined he is a 77-year-old male who was seen on the fourth floor. Patient has been admitted into the hospital with cough shortness of breath and a spiking fever up to 102 as well as leukocytosis patient has a component of pneumonia as well predominantly involving the right lower lobe as well as some interstitial Petrin preliminary workup for influenza and pneumonia is negative so as the strep screen patient is currently being treated with broad-spectrum antibiotics. Patient has a significant history of stroke with left hemiparesis as well as colon cancer and prior pneumonia patient was hospitalized back in July 2017 after a fall and left hip fracture along with left humeral fracture patient was stabilized and eventually was placed in extended care facility for rehabilitation purposes however due to plantar prognosis is spiking fever and breathing difficulty was brought into the emergency department where he was seen eval reexamined has been admitted into the hospital. On specific questioning patient denies any change in weakness in the left side, patient does have cough and shortness breath however slightly better today compared to last few days patient denies any hemoptysis sputum is light green to grayish in color lately Review of Systems All systems: negative Constitutional: Reports chills, Reports chronic pain, Reports fever, Reports night sweats, Reports poor appetite, Reports weakness Eyes: denies as per HPI Ears: deny: decreased hearing Ears, nose, mouth and throat: Reports as per HPI Cardiovascular: Reports as per HPI Respiratory: Reports as per HPI, Reports congestion, Reports cough, Reports cough with sputum, Reports dyspnea, Reports excessive sputum, Reports respiratory infections, Reports wheezing Gastrointestinal: Reports as per HPI Genitourinary: Reports as per HPI Musculoskeletal: Reports as per HPI Integumentary: Reports as per HPI Neurological: Reports as per HPI, Reports ataxia, Reports balance difficulties, Reports gait dysfunction Psychiatric: Reports as per HPI Endocrine: Reports as per HPI Hematologic/Lymphatic: Reports as per HPI Allergic/Immunologic: Reports as per HPI Past Medical History Past Medical History: Cancer, CVA/TIA, Deep Vein Thrombosis (DVT), Liver Disease , Pneumonia Additional Past Medical History / Comment(s): 11-06-16 FALL/FX RT HIP. DDD, SPINAL CANAL STENOSIS, COLON CA IN THE HAD SX CHEMO AND RADIATION, UTI(E COLI), left arm weakness-fx lt arm at shoulder-December 2014-remains painful , rectal carcinoma, elevated liver enzymes, walker use,recent falls,PAST CVA AFFECTED LT SIDE. History of Any Multi-Drug Resistant Organisms: None Reported Past Surgical History: Appendectomy, Back Surgery, Bowel Resection, Cholecystectomy, Joint Replacement, Orthopedic Surgery Additional Past Surgical History / Comment(s): GASTRECTOMY, L hip replacement, spinal surgery, RT ANKLE SX , 5 broken ribs, left arm fracture Past Anesthesia/Blood Transfusion Reactions: No Reported Reaction Additional Past Anesthesia/Blood Transfusion Reaction / Comment(s): no hx at [facility] Past Psychological History: No Psychological Hx Reported Additional Psychological History / Comment(s): client lives at [facility] Smoking Status: Former smoker Past Alcohol Use History: Occasional Additional Past Alcohol Use History / Comment(s): SMOKED FOR 40 YEARS QUIT 1994. has a few alcoholic drinks per week Past Drug Use History: None Reported - Past Family History Father Family Medical History: Unable to Obtain Additional Family Medical History / Comment(s): heart problems Mother Family Medical History: Diabetes Mellitus Medications and Allergies Home Medications Medication Instructions Recorded Confirmed Type Aspirin EC [Ecotrin Low Dose] 81 mg PO DAILY 07/26/17 08/18/17 History Gabapentin [Neurontin] 300 mg PO HS 07/26/17 08/18/17 History Primidone [Mysoline] 100 mg PO TID 07/26/17 08/18/17 History Ferrous Sulfate [Iron (65 MG 325 mg PO BID tab 07/29/17 08/18/17 Rx Elemental)] HYDROcodone/APAP 10-325MG [[place] 1 tab PO TID PRN #40 tab 07/29/17 08/18/17 Rx 10-325] Allergies Allergy/AdvReac Type Severity Reaction Status Date / Time No Known Allergies Allergy Verified 08/18/17 11:35 Physical Exam Vitals: Vital Signs Temp Pulse Pulse Resp BP Pulse Ox 08/19/17 15:54 98 08/19/17 15:42 96 08/19/17 15:18 100 08/19/17 15:00 98.0 F 91 18 101/58 100 08/19/17 12:24 98 16 08/19/17 12:14 97 16 08/19/17 09:01 94 16 01/09/18 08:49 92 16 96 08/19/17 07:00 97.8 F 98 18 122/57 98 08/18/17 23:00 100.5 F H 98 16 113/54 95 08/18/17 20:08 96 08/18/17 19:58 96 Intake and Output 08/19/17 08/19/17 08/19/17 06:59 14:59 22:59 Intake Total 240 Output Total 450 200 Balance -450 40 Intake: Oral 240 Output: Urine 450 200 Other: Voiding Method Urinal Urinal # Voids 2 # Bowel Movements 0 Weight 70.307 kg Patient Weight 08/20/17 06:59 Weight 70.307 kg - Constitutional General appearance: average body habitus, cooperative, disheveled, mild distress - EENT Eyes: EOMI, PERRLA, normal appearance ENT: hard of hearing, normal oropharynx Ears: bilateral: normal - Neck Neck: normal ROM Carotids: bilateral: upstroke normal, bruit absent Thyroid: bilateral: normal size - Respiratory Respiratory: bilateral: diminished (At the bases), rales (Predominantly on the right base), wheezing, prolonged expiration, negative: CTA, dullness, rhonchi, prolonged inspiration - Cardiovascular Heart sounds: normal: S1, S2 - Integumentary Integumentary: normal, normal turgor - Neurologic Neurologic: CNII-XII intact, focal deficits - Musculoskeletal Musculoskeletal: gait normal, generalized weakness, left sided weakness - Psychiatric Psychiatric: A&O x's 3, appropriate affect, intact judgment & insight Results - Laboratory Findings CBC and BMP: 08/18/17 11:35 08/18/17 11:35 PT/INR, D-dimer PT 10.0 sec (9.0-12.0) 08/18/17 11:35 INR 1.0 (<1.2) 08/18/17 11:35 Abnormal lab findings: Abnormal Labs 08/18/17 08/18/17 08/18/17 11:35 11:35 13:25 WBC 13.4 H Neutrophils # 11.3 H Sodium 136 L Creatinine 0.53 L Glucose 112 H Alkaline Phosphatase 166 H Urine Protein Trace H Urine Ketones 1+ H Urine Blood Small H Urine RBC 22 H Urine Mucus Occasional H - Diagnostic Findings Chest x-ray: report reviewed, image reviewed (Chest x-ray performed on 2017 compared with x-ray performed on 08/18/2017 Interstitial prominence predominantly in the right lower lobe) Assessment and Plan Assessment: Right lower lobe pneumonia, healthcare associated pneumonia cannot be excluded however patient appears to be responding well with Zithromax and Rocephin would recommend to continue it and monitor observe a significant worsening of clinical status and x-ray so far has been noted CVA with left hemiparesis Colon cancer status post chemoradiation and bowel resection Left hip fracture related to displace intertrochanteric fracture as well as left humeral fracture stable being monitored and observed by orthopedics no active intervention Chronic anemia Plan: As dictated above continue broad-spectrum antibiotics continue DVT and peptic ulcer disease prophylaxis continue supportive care will monitor observe clinical course closely we'll maintain on current antibiotics for now Time with Patient: Greater than 30
[2017-08-19] MEDS: GABAPENTIN 300 MG CAP PO SCH (22:11)
[2017-08-19] MEDS: MELATONIN 5 MG TABLET PO PRN (23:39)
[2017-08-20] MEDS: AZITHROMYCIN 500 MG TAB PO SCH (07:25)
[2017-08-20] MEDS: cefTRIAXone IN SWFI 1,000 MG/10 ML SYRINGE IVP SCH (07:25)
[2017-08-20] MEDS: FERROUS SULFATE 325 MG TAB PO SCH ×2 (07:25→21:46)
[2017-08-20] MEDS: FAMOTIDINE 20 MG TAB PO SCH (07:25)
[2017-08-20] MEDS: ASPIRIN 81 MG PO SCH (07:25)
[2017-08-20] MEDS: HEPARIN SODIUM,PORCINE 5,000 UNIT/ML 1 ML VIAL SQ SCH ×2 (07:25→21:46)
[2017-08-20] MEDS: HYDROcodone/APAP 10-325MG 1 EACH TAB PO PRN ×3 (07:25→22:11)
[2017-08-20] MEDS: PRIMIDONE 50 MG TAB PO SCH ×3 (07:25→21:46)
[2017-08-20] MEDS: SODIUM CHLORIDE 0.9% 1,000 ML IV SCH ×2 (07:26→21:48)
[2017-08-20] MEDS: IPRATROPIUM-ALBUTEROL 3 ML NEB INHALATION SCH ×4 (07:38→19:09)
--- NOTE | 2017-08-20 11:35 | P.PN ---
Subjective Progress Note Date: 08/20/17 This is a 77-year-old male with a known history of CVA , colon cancer and previous pneumonia. He did also recently been in the hospital in July 2017 after a fall with a displaced trochanteric fracture of the left hip as well as a left humerus fracture. He was seen by orthopedics and no surgical intervention but they recommended rehab. Patient had been at [facility] for rehabilitation. He was transferred from [facility] to [facility] with complaints of worsening shortness of breath feeling cold and a productive cough. He was found to have a temp of 102 white count 13.4 and chest x-ray showed interstitial edema versus atypical pneumonitis. Repeat chest x-ray shows possible right lower lobe pneumonia. Patient has been started on Rocephin and azithromycin and nebulizer treatments. He had also been complaining of a sore throat initial strep screen was negative. Influenza screen negative. EKG showed a normal sinus rhythm. Patient denies any chest pain, nausea or vomiting, bowel movement changes or urinary symptoms Objective - Vital Signs Vital signs: Vital Signs Temp 97.8 F 08/20/17 07:00 Pulse 88 08/20/17 07:48 Resp 16 08/20/17 07:00 BP 114/56 08/20/17 07:00 Pulse Ox 99 08/20/17 07:00 Intake & Output 08/19/17 08/20/17 08/20/17 18:59 06:59 18:59 Intake Total 240 Output Total 200 575 100 Balance 40 -575 -100 Weight 70.307 kg Intake: Oral 240 Output: Urine 200 575 100 Other: Voiding Method Urinal Urinal Urinal # Voids 3 # Bowel Movements 1 - Exam Head normocephalic and atraumatic Neck supple no JVD no goiter no lymphadenopathy Lungs coarse breath sounds noted on the right Heart regular rate and rhythm S1-S2, no rub or gallop Abdomen is soft nontender nondistended positive bowel sounds no hepatosplenomegaly Extremities no edema no cyanosis or clubbing Neuro alert and orientated to 3 - Labs CBC & Chem 7: 08/18/17 11:35 08/18/17 11:35 Labs: Microbiology - Last 24 Hours (Table) 08/19/17 09:00 Gram Stain - Preliminary Sputum 08/18/17 13:25 Urine Culture - Final Urine,Voided 08/18/17 12:59 Throat Culture - Preliminary Throat 08/18/17 11:35 Blood Culture - Preliminary Blood No Growth after 24 hours Assessment and Plan Plan: 1. Right lower lobe pneumonia with sepsis present on admission: Continue Rocephin and azithromycin. Check sputum culture. Continue IV fluid hydration. Urine and throat cultures pending continue current antibiotic at this time 2. History of CVA 3. History of colon cancer status post chemo and radiation and bowel resection 4. Recent displaced trochanteric fracture of the left hip and a left humerus fracture. No surgical intervention per orthopedics. He had been at [facility] for rehabilitation. Physical therapy will be consulted to continue therapy treatment 5. Iron deficiency anemia continue iron supplement DVT prophylaxis subcu heparin and GI prophylaxis Pepcid
--- NOTE | 2017-08-20 17:09 | P.PN ---
Subjective Progress Note Date: 08/20/17 Principal diagnosis: Right lower lobe pneumonia, may be aspiration related, CVA, history of colon cancer, recent left hip fracture and chronic anemia Gen. 2017, patient seen and evaluated examined during the rounds he is breathing relatively more comfortably he is still congested though cuff congestion shortness breath is improved denies any hemoptysis no episode of fever or chills are present respiration is slightly more stable, patient has been swelling fairly well no evidence of aspiration has been noted or reported by the staff Mr. Cohen is seen and evaluated examined he is a 77-year-old male who was seen on the fourth floor. Patient has been admitted into the hospital with cough shortness of breath and a spiking fever up to 102 as well as leukocytosis patient has a component of pneumonia as well predominantly involving the right lower lobe as well as some interstitial Petrin preliminary workup for influenza and pneumonia is negative so as the strep screen patient is currently being treated with broad-spectrum antibiotics. Patient has a significant history of stroke with left hemiparesis as well as colon cancer and prior pneumonia patient was hospitalized back in July 2017 after a fall and left hip fracture along with left humeral fracture patient was stabilized and eventually was placed in extended care facility for rehabilitation purposes however due to plantar prognosis is spiking fever and breathing difficulty was brought into the emergency department where he was seen eval reexamined has been admitted into the hospital. On specific questioning patient denies any change in weakness in the left side, patient does have cough and shortness breath however slightly better today compared to last few days patient denies any hemoptysis sputum is light green to grayish in color lately Objective - Vital Signs Vital signs: Vital Signs Temp 97.1 F L 08/20/17 15:00 Pulse 90 08/20/17 16:10 Resp 16 08/20/17 15:00 BP 99/51 08/20/17 15:00 Pulse Ox 98 08/20/17 15:57 Intake & Output 08/19/17 08/20/17 08/20/17 18:59 06:59 18:59 Intake Total 240 480 Output Total 200 575 825 Balance 40 -873 -779 Weight 70.307 kg Intake: Oral 240 480 Output: Urine 200 575 825 Other: Voiding Method Urinal Urinal Urinal # Voids 3 3 # Bowel Movements 1 - Exam - Constitutional General appearance: average body habitus, cooperative, disheveled, mild distress - EENT Eyes: EOMI, PERRLA, normal appearance ENT: hard of hearing, normal oropharynx Ears: bilateral: normal - Neck Neck: normal ROM Carotids: bilateral: upstroke normal, bruit absent Thyroid: bilateral: normal size - Respiratory Respiratory: bilateral: diminished (At the bases), rales (Predominantly on the right base), wheezing, prolonged expiration, negative: CTA, dullness, rhonchi, prolonged inspiration - Cardiovascular Heart sounds: normal: S1, S2 - Integumentary Integumentary: normal, normal turgor - Neurologic Neurologic: CNII-XII intact, focal deficits - Musculoskeletal Musculoskeletal: gait normal, generalized weakness, left sided weakness - Psychiatric Psychiatric: A&O x's 3, appropriate affect, intact judgment & insight - Labs CBC & Chem 7: 08/18/17 11:35 08/18/17 11:35 Labs: Microbiology - Last 24 Hours (Table) 08/18/17 12:59 Throat Culture - Final Throat 08/18/17 11:35 Blood Culture - Preliminary Blood No Growth after 48 hours 08/19/17 09:00 Gram Stain - Preliminary Sputum Sputum Culture - Preliminary 08/18/17 13:25 Urine Culture - Final Urine,Voided Assessment and Plan Assessment: Right lower lobe pneumonia, healthcare associated pneumonia or aspiration related (silent ) cannot be excluded however patient appears to be responding well with Zithromax and Rocephin would recommend to continue it and monitor observe a significant worsening of clinical status and x-ray so far has been noted CVA with left hemiparesis Colon cancer status post chemoradiation and bowel resection Left hip fracture related to displace intertrochanteric fracture as well as left humeral fracture stable being monitored and observed by orthopedics no active intervention Chronic anemia Plan: As dictated above continue broad-spectrum antibiotics continue DVT and peptic ulcer disease prophylaxis continue supportive care will monitor observe clinical course closely we'll maintain on current antibiotics for now continue to monitor aspiration precautions however. Time with Patient: Greater than 30
[2017-08-20] MEDS: GABAPENTIN 300 MG CAP PO SCH (21:46)
[2017-08-20] MEDS: MELATONIN 5 MG TABLET PO PRN (22:11)
[2017-08-21] MEDS: SODIUM CHLORIDE 0.9% 1,000 ML IV SCH ×2 (06:49→15:55)
[2017-08-21] MEDS: IPRATROPIUM-ALBUTEROL 3 ML NEB INHALATION SCH ×4 (08:47→19:54)
[2017-08-21 09:12] LABS: Basophils % (A) 1 %; Eosinophils # (A) 0.2 k/uL (0-0.7); Eosinophils % (A) 4 %; HCT 33.2 % (39.0-53.0); Lymphocytes # (A) 1.2 k/uL (1.0-4.8); Lymphocytes % (A) 24 %; MCH 31.3 pg (25.0-35.0); MCHC 31.8 g/dL (31.0-37.0); MCV 98.4 fL (80.0-100.0); Monocytes # (A) 0.3 k/uL (0-1.0); Monocytes % (A) 6 %; Neutrophils # (A) 3.3 k/uL (1.3-7.7); Neutrophils % (A) 65 %; Platelet Count 243 k/uL (150-450); RBC 3.37 m/uL (4.30-5.90); RDW 12.8 % (11.5-15.5); WBC 5.1 k/uL (3.8-10.6)
[2017-08-21] MEDS: HEPARIN SODIUM,PORCINE 5,000 UNIT/ML 1 ML VIAL SQ SCH ×2 (09:12→19:59)
[2017-08-21] MEDS: AZITHROMYCIN 500 MG TAB PO SCH (09:12)
[2017-08-21] MEDS: cefTRIAXone IN SWFI 1,000 MG/10 ML SYRINGE IVP SCH (09:12)
[2017-08-21] MEDS: PRIMIDONE 50 MG TAB PO SCH ×3 (09:12→19:56)
[2017-08-21] MEDS: FAMOTIDINE 20 MG TAB PO SCH (09:12)
[2017-08-21] MEDS: FERROUS SULFATE 325 MG TAB PO SCH ×2 (09:13→19:56)
[2017-08-21] MEDS: ASPIRIN 81 MG PO SCH (09:13)
[2017-08-21 09:22] LABS: HGB 10.5 gm/dL (13.0-17.5)
[2017-08-21] MEDS: HYDROcodone/APAP 10-325MG 1 EACH TAB PO PRN ×2 (09:24→19:55)
--- NOTE | 2017-08-21 09:45 | P.PN ---
Subjective Progress Note Date: 08/21/17 Principal diagnosis: Right lower lobe pneumonia, may be aspiration related, CVA, history of colon cancer, recent left hip fracture and chronic anemia 08/21/2017, patient seen eval exam is sitting upright in chair his respiratory status slightly better cough congestion is better he is able to tolerate by mouth well no evidence of aspiration reported by the nursing staff he remains on breathing treatment antibiotics overall tolerating well his sputum production denies any hemoptysis 2017, patient seen and evaluated examined during the rounds he is breathing relatively more comfortably he is still congested though cuff congestion shortness breath is improved denies any hemoptysis no episode of fever or chills are present respiration is slightly more stable, patient has been swelling fairly well no evidence of aspiration has been noted or reported by the staff Mr. Cohen is seen and evaluated examined he is a 77-year-old male who was seen on the fourth floor. Patient has been admitted into the hospital with cough shortness of breath and a spiking fever up to 102 as well as leukocytosis patient has a component of pneumonia as well predominantly involving the right lower lobe as well as some interstitial Petrin preliminary workup for influenza and pneumonia is negative so as the strep screen patient is currently being treated with broad-spectrum antibiotics. Patient has a significant history of stroke with left hemiparesis as well as colon cancer and prior pneumonia patient was hospitalized back in July 2017 after a fall and left hip fracture along with left humeral fracture patient was stabilized and eventually was placed in extended care facility for rehabilitation purposes however due to plantar prognosis is spiking fever and breathing difficulty was brought into the emergency department where he was seen eval reexamined has been admitted into the hospital. On specific questioning patient denies any change in weakness in the left side, patient does have cough and shortness breath however slightly better today compared to last few days patient denies any hemoptysis sputum is light green to grayish in color lately Objective - Vital Signs Vital signs: Vital Signs Temp 97.7 F 08/21/17 07:00 Pulse 80 08/21/17 07:00 Resp 16 08/21/17 07:00 BP 110/57 08/21/17 07:00 Pulse Ox 97 08/21/17 07:00 Intake & Output 08/20/17 08/21/17 08/21/17 18:59 06:59 18:59 Intake Total 480 Output Total 825 700 350 Balance -345 -700 -350 Intake: Oral 480 Output: Urine 825 700 350 Other: Voiding Method Urinal Urinal # Voids 3 1 - Exam - Constitutional General appearance: average body habitus, cooperative, disheveled, mild distress - EENT Eyes: EOMI, PERRLA, normal appearance ENT: hard of hearing, normal oropharynx Ears: bilateral: normal - Neck Neck: normal ROM Carotids: bilateral: upstroke normal, bruit absent Thyroid: bilateral: normal size - Respiratory Respiratory: bilateral: diminished (At the bases), rales (Predominantly on the right base), wheezing, prolonged expiration, negative: CTA, dullness, rhonchi, prolonged inspiration - Cardiovascular Heart sounds: normal: S1, S2 - Integumentary Integumentary: normal, normal turgor - Neurologic Neurologic: CNII-XII intact, focal deficits - Musculoskeletal Musculoskeletal: gait normal, generalized weakness, left sided weakness - Psychiatric Psychiatric: A&O x's 3, appropriate affect, intact judgment & insight - Labs CBC & Chem 7: 08/21/17 08:36 08/18/17 11:35 Labs: Abnormal Lab Results - Last 24 Hours (Table) 08/21/17 Range/Units 08:36 RBC 3.37 L (4.30-5.90) m/uL Hgb 10.5 L D (13.0-17.5) gm/dL Hct 33.2 L (39.0-53.0) % Microbiology - Last 24 Hours (Table) 08/18/17 12:59 Throat Culture - Final Throat 08/18/17 11:35 Blood Culture - Preliminary Blood No Growth after 48 hours 08/19/17 09:00 Gram Stain - Preliminary Sputum Sputum Culture - Preliminary Assessment and Plan Assessment: Right lower lobe pneumonia, healthcare associated pneumonia or aspiration related (silent ) cannot be excluded however patient appears to be responding well with Zithromax and Rocephin would recommend to continue it and monitor observe a significant worsening of clinical status and x-ray so far has been noted CVA with left hemiparesis Colon cancer status post chemoradiation and bowel resection Left hip fracture related to displace intertrochanteric fracture as well as left humeral fracture stable being monitored and observed by orthopedics no active intervention Chronic anemia Leukocytosis improved significantly Plan: As dictated above continue broad-spectrum antibiotics continue DVT and peptic ulcer disease prophylaxis continue supportive care will monitor observe clinical course closely we'll maintain on current antibiotics for now continue to monitor aspiration precautions however. Time with Patient: Greater than 30
[2017-08-21 09:53] LABS: ALT 31 U/L (21-72); AST 20 U/L (17-59); Albumin 2.7 g/dL (3.5-5.0); Alkaline Phosphatase 127 U/L (38-126); Anion Gap 9 mmol/L; Blood Urea Nitrogen 9 mg/dL (9-20); Calcium 8.5 mg/dL (8.4-10.2); Carbon Dioxide 24 mmol/L (22-30); Chloride 106 mmol/L (98-107); Glucose 110 mg/dL (74-99); Potassium 4.3 mmol/L (3.5-5.1); Sodium 139 mmol/L (137-145); Total Bilirubin 0.2 mg/dL (0.2-1.3); Total Protein 5.2 g/dL (6.3-8.2)
--- NOTE | 2017-08-21 12:07 | P.PN ---
Subjective Progress Note Date: 08/21/17 This is a 77-year-old male with a known history of CVA , colon cancer and previous pneumonia. He did also recently been in the hospital in July 2017 after a fall with a displaced trochanteric fracture of the left hip as well as a left humerus fracture. He was seen by orthopedics and no surgical intervention but they recommended rehab. Patient had been at [facility] for rehabilitation. He was transferred from [facility] to [facility] with complaints of worsening shortness of breath feeling cold and a productive cough. He was found to have a temp of 102 white count 13.4 and chest x-ray showed interstitial edema versus atypical pneumonitis. Repeat chest x-ray shows possible right lower lobe pneumonia. Patient has been started on Rocephin and azithromycin and nebulizer treatments. He had also been complaining of a sore throat initial strep screen was negative. Influenza screen negative. EKG showed a normal sinus rhythm. Patient denies any chest pain, nausea or vomiting, bowel movement changes or urinary symptoms 08/21/2017 patient reports some improvement in his shortness of breath. Still reports having a cough and difficulty bringing up the phlegm. Mucinex will be added. Pulmonary service is following. Denies any chest pain. Reports having bowel movement. Denies any difficulty urinating. Objective - Vital Signs Vital signs: Vital Signs Temp 97.7 F 08/21/17 07:00 Pulse 86 08/21/17 11:36 Resp 16 08/21/17 07:00 BP 110/57 08/21/17 07:00 Pulse Ox 97 08/21/17 07:00 Intake & Output 08/20/17 08/21/17 08/21/17 18:59 06:59 18:59 Intake Total 480 Output Total 825 700 350 Balance -345 -700 -350 Intake: Oral 480 Output: Urine 825 700 350 Other: Voiding Method Urinal Urinal # Voids 3 1 - Exam Head normocephalic Neck supple Lungs coarse breath sounds noted bilaterally Heart regular rate and rhythm S1-S2, no rub or gallop Abdomen is soft nontender nondistended positive bowel sounds no hepatosplenomegaly Extremities no edema Neuro alert and orientated to 3 - Labs CBC & Chem 7: 08/21/17 08:36 08/21/17 08:36 Labs: Abnormal Lab Results - Last 24 Hours (Table) 08/21/17 08/21/17 Range/Units 08:36 08:36 RBC 3.37 L (4.30-5.90) m/uL Hgb 10.5 L D (13.0-17.5) gm/dL Hct 33.2 L (39.0-53.0) % Creatinine 0.54 L (0.66-1.25) mg/dL Glucose 110 H (74-99) mg/dL Alkaline Phosphatase 127 H (38-126) U/L Total Protein 5.2 L (6.3-8.2) g/dL Albumin 2.7 L (3.5-5.0) g/dL Microbiology - Last 24 Hours (Table) 08/19/17 09:00 Gram Stain - Final Sputum Sputum Culture - Final 08/18/17 12:59 Throat Culture - Final Throat 08/18/17 11:35 Blood Culture - Preliminary Blood No Growth after 48 hours Assessment and Plan Assessment: 1. Healthcare associated pneumonia with possible silent aspiration and sepsis present on admission: Continue Rocephin and azithromycin. Check sputum culture. Blood culture, urine culture and throat culture negative. Influenza screen negative. Consult speech therapy for possible aspiration 2. History of CVA 3. History of colon cancer status post chemo and radiation and bowel resection 4. Recent displaced trochanteric fracture of the left hip and a left humerus fracture. No surgical intervention per orthopedics. He had been at [facility] for rehabilitation. Physical therapy will be consulted to continue therapy treatment 5. Iron deficiency anemia continue iron supplement DVT prophylaxis subcu heparin and GI prophylaxis Pepcid I performed an examination of the patient and discussed their management with the physician Storeroom Clerk. I have reviewed the Physician Storeroom Clerk's notes and agree with the documented findings and plan of care
[2017-08-21] MEDS: GABAPENTIN 300 MG CAP PO SCH (19:56)
[2017-08-21] MEDS: guaiFENesin 600 MG TABLET.ER PO SCH (19:58)
[2017-08-21] MEDS: MELATONIN 5 MG TABLET PO PRN (22:10)
[2017-08-22] MEDS: HYDROcodone/APAP 10-325MG 1 EACH TAB PO PRN ×2 (05:57→16:52)
[2017-08-22] MEDS: SODIUM CHLORIDE 0.9% 1,000 ML IV SCH ×3 (05:59→21:13)
[2017-08-22] MEDS: IPRATROPIUM-ALBUTEROL 3 ML NEB INHALATION SCH ×4 (07:21→21:56)
[2017-08-22] MEDS: AZITHROMYCIN 500 MG TAB PO SCH (09:47)
[2017-08-22] MEDS: cefTRIAXone IN SWFI 1,000 MG/10 ML SYRINGE IVP SCH (09:47)
[2017-08-22] MEDS: PRIMIDONE 50 MG TAB PO SCH ×3 (09:48→21:13)
[2017-08-22] MEDS: guaiFENesin 600 MG TABLET.ER PO SCH ×2 (09:48→21:13)
[2017-08-22] MEDS: FAMOTIDINE 20 MG TAB PO SCH (09:48)
[2017-08-22] MEDS: FERROUS SULFATE 325 MG TAB PO SCH ×2 (09:48→21:12)
[2017-08-22] MEDS: ASPIRIN 81 MG PO SCH (09:48)
[2017-08-22] MEDS: HEPARIN SODIUM,PORCINE 5,000 UNIT/ML 1 ML VIAL SQ SCH ×2 (09:48→21:13)
[2017-08-22 12:55] LABS: Basophils % (A) 1 %; Eosinophils # (A) 0.2 k/uL (0-0.7); Eosinophils % (A) 3 %; HCT 32.5 % (39.0-53.0); HGB 10.4 gm/dL (13.0-17.5); Lymphocytes # (A) 1.6 k/uL (1.0-4.8); Lymphocytes % (A) 30 %; MCHC 31.8 g/dL (31.0-37.0); MCV 97.2 fL (80.0-100.0); Mean Platelet Volume 7.5; Monocytes # (A) 0.3 k/uL (0-1.0); Monocytes % (A) 5 %; Neutrophils # (A) 3.1 k/uL (1.3-7.7); Neutrophils % (A) 60 %; Platelet Count 238 k/uL (150-450); RBC 3.34 m/uL (4.30-5.90); RDW 13.4 % (11.5-15.5); WBC 5.2 k/uL (3.8-10.6)
[2017-08-22 13:18] LABS: ALT 37 U/L (21-72); AST 24 U/L (17-59); Albumin 2.7 g/dL (3.5-5.0); Alkaline Phosphatase 129 U/L (38-126); Anion Gap 7 mmol/L; Blood Urea Nitrogen 9 mg/dL (9-20); Calcium 8.6 mg/dL (8.4-10.2); Carbon Dioxide 25 mmol/L (22-30); Chloride 104 mmol/L (98-107); Glucose 99 mg/dL (74-99); Potassium 4.2 mmol/L (3.5-5.1); Sodium 136 mmol/L (137-145); Total Bilirubin 0.3 mg/dL (0.2-1.3); Total Protein 5.2 g/dL (6.3-8.2)
--- NOTE | 2017-08-22 14:34 | P.PN ---
Subjective Progress Note Date: 08/22/17 This is a 77-year-old male with a known history of CVA , colon cancer and previous pneumonia. He did also recently been in the hospital in July 2017 after a fall with a displaced trochanteric fracture of the left hip as well as a left humerus fracture. He was seen by orthopedics and no surgical intervention but they recommended rehab. Patient had been at [facility] for rehabilitation. He was transferred from [facility] to [facility] with complaints of worsening shortness of breath feeling cold and a productive cough. He was found to have a temp of 102 white count 13.4 and chest x-ray showed interstitial edema versus atypical pneumonitis. Repeat chest x-ray shows possible right lower lobe pneumonia. Patient has been started on Rocephin and azithromycin and nebulizer treatments. He had also been complaining of a sore throat initial strep screen was negative. Influenza screen negative. EKG showed a normal sinus rhythm. Patient denies any chest pain, nausea or vomiting, bowel movement changes or urinary symptoms 08/21/2017 patient reports some improvement in his shortness of breath. Still reports having a cough and difficulty bringing up the phlegm. Mucinex will be added. Pulmonary service is following. Denies any chest pain. Reports having bowel movement. Denies any difficulty urinating. 08/22/2017 patient starting to report some improvement in his shortness of breath and cough. He is complaining of his left hand tremor. Reports that it is getting worse. Neurology will be consulted. No other complaints Objective - Vital Signs Vital signs: Vital Signs Temp 98.0 F 08/22/17 07:00 Pulse 80 08/22/17 11:10 Resp 20 08/22/17 07:00 BP 106/53 08/22/17 07:00 Pulse Ox 98 08/22/17 07:00 Intake & Output 08/21/17 08/22/17 08/22/17 18:59 06:59 18:59 Intake Total 1440 Output Total 1750 800 Balance -310 -800 Intake: Oral 1440 Output: Urine 1750 800 Other: Voiding Method Urinal # Voids 1 - Exam Head normocephalic Neck supple Lungs coarse breath sounds noted bilaterally. Showing improvement in air movement Heart regular rate and rhythm S1-S2, no rub or gallop Abdomen is soft nontender nondistended positive bowel sounds no hepatosplenomegaly Extremities no edema Neuro alert and orientated to 3. Left hand tremor - Labs CBC & Chem 7: 08/22/17 12:37 08/22/17 12:37 Labs: Abnormal Lab Results - Last 24 Hours (Table) 08/22/17 08/22/17 Range/Units 12:37 12:37 RBC 3.34 L (4.30-5.90) m/uL Hgb 10.4 L (13.0-17.5) gm/dL Hct 32.5 L (39.0-53.0) % Sodium 136 L (137-145) mmol/L Creatinine 0.55 L (0.66-1.25) mg/dL Alkaline Phosphatase 129 H (38-126) U/L Total Protein 5.2 L (6.3-8.2) g/dL Albumin 2.7 L (3.5-5.0) g/dL Microbiology - Last 24 Hours (Table) 08/18/17 11:35 Blood Culture - Preliminary Blood No Growth after 96 hours 08/19/17 09:00 Gram Stain - Final Sputum Sputum Culture - Final Assessment and Plan Assessment: 1. Healthcare associated pneumonia and sepsis present on admission: Continue Rocephin and azithromycin. sputum culture growing normal respiratory caron. Blood culture, urine culture and throat culture negative. Influenza screen negative. Pulmonary service following Patient seen by speech therapist with no evidence of aspiration. The recommending continuing regular diet with thin liquids 2. History of CVA 3. History of colon cancer status post chemo and radiation and bowel resection 4. Recent displaced trochanteric fracture of the left hip and a left humerus fracture. No surgical intervention per orthopedics. He had been at [facility] for rehabilitation. Physical therapy will be consulted to continue therapy treatment 5. Iron deficiency anemia continue iron supplement 6. Left hand tremor. Consult neurology. Patient reports that symptoms are worsening even with his current medications DVT prophylaxis subcu heparin and GI prophylaxis Pepcid I performed an examination of the patient and discussed their management with the physician Digital Cartographer. I have reviewed the Physician Digital Cartographer's notes and agree with the documented findings and plan of care
--- NOTE | 2017-08-22 14:56 | P.PN ---
Subjective Progress Note Date: 08/22/17 Principal diagnosis: Right lower lobe pneumonia, may be aspiration related, CVA, history of colon cancer, recent left hip fracture and chronic anemia Den 2017, he shouldn't seen and examined during the rounds from [place] standpoint cough shortness present improved breathing much better cough and sputum production is improved he remains afebrile over noted to have a tremors in the extremity noted that neurology has been consulted, patient has a significant history of stroke and hemiparesis 08/21/2017, patient seen eval exam is sitting upright in chair his respiratory status slightly better cough congestion is better he is able to tolerate by mouth well no evidence of aspiration reported by the nursing staff he remains on breathing treatment antibiotics overall tolerating well his sputum production denies any hemoptysis 2017, patient seen and evaluated examined during the rounds he is breathing relatively more comfortably he is still congested though cuff congestion shortness breath is improved denies any hemoptysis no episode of fever or chills are present respiration is slightly more stable, patient has been swelling fairly well no evidence of aspiration has been noted or reported by the staff Mr. Cohen is seen and evaluated examined he is a 77-year-old male who was seen on the fourth floor. Patient has been admitted into the hospital with cough shortness of breath and a spiking fever up to 102 as well as leukocytosis patient has a component of pneumonia as well predominantly involving the right lower lobe as well as some interstitial Petrin preliminary workup for influenza and pneumonia is negative so as the strep screen patient is currently being treated with broad-spectrum antibiotics. Patient has a significant history of stroke with left hemiparesis as well as colon cancer and prior pneumonia patient was hospitalized back in July 2017 after a fall and left hip fracture along with left humeral fracture patient was stabilized and eventually was placed in extended care facility for rehabilitation purposes however due to plantar prognosis is spiking fever and breathing difficulty was brought into the emergency department where he was seen eval reexamined has been admitted into the hospital. On specific questioning patient denies any change in weakness in the left side, patient does have cough and shortness breath however slightly better today compared to last few days patient denies any hemoptysis sputum is light green to grayish in color lately Objective - Vital Signs Vital signs: Vital Signs Temp 98.0 F 08/22/17 07:00 Pulse 80 08/22/17 11:10 Resp 20 08/22/17 07:00 BP 106/53 08/22/17 07:00 Pulse Ox 98 08/22/17 07:00 Intake & Output 08/21/17 08/22/17 08/22/17 18:59 06:59 18:59 Intake Total 1440 Output Total 1750 800 Balance -310 -800 Intake: Oral 1440 Output: Urine 1750 800 Other: Voiding Method Urinal # Voids 1 - Exam - Constitutional General appearance: average body habitus, cooperative, disheveled, mild distress - EENT Eyes: EOMI, PERRLA, normal appearance ENT: hard of hearing, normal oropharynx Ears: bilateral: normal - Neck Neck: normal ROM Carotids: bilateral: upstroke normal, bruit absent Thyroid: bilateral: normal size - Respiratory Respiratory: bilateral: diminished (At the bases), rales (Predominantly on the right base), wheezing, prolonged expiration, negative: CTA, dullness, rhonchi, prolonged inspiration - Cardiovascular Heart sounds: normal: S1, S2 - Integumentary Integumentary: normal, normal turgor - Neurologic Neurologic: CNII-XII intact, focal deficits - Musculoskeletal Musculoskeletal: gait normal, generalized weakness, left sided weakness - Psychiatric Psychiatric: A&O x's 3, appropriate affect, intact judgment & insight - Labs CBC & Chem 7: 08/22/17 12:37 08/22/17 12:37 Labs: Abnormal Lab Results - Last 24 Hours (Table) 08/22/17 08/22/17 Range/Units 12:37 12:37 RBC 3.34 L (4.30-5.90) m/uL Hgb 10.4 L (13.0-17.5) gm/dL Hct 32.5 L (39.0-53.0) % Sodium 136 L (137-145) mmol/L Creatinine 0.55 L (0.66-1.25) mg/dL Alkaline Phosphatase 129 H (38-126) U/L Total Protein 5.2 L (6.3-8.2) g/dL Albumin 2.7 L (3.5-5.0) g/dL Microbiology - Last 24 Hours (Table) 08/18/17 11:35 Blood Culture - Preliminary Blood No Growth after 96 hours 08/19/17 09:00 Gram Stain - Final Sputum Sputum Culture - Final Assessment and Plan Assessment: Right lower lobe pneumonia, healthcare associated pneumonia or aspiration related (silent ) cannot be excluded however patient appears to be responding well with Zithromax and Rocephin would recommend to continue it and monitor observe a significant worsening of clinical status and x-ray so far has been noted Tremors predominantly on the left side may very well be an essential tremors however developing Parkinson's disease cannot be excluded as they were lesser intense with rest and worse with activity CVA with left hemiparesis Colon cancer status post chemoradiation and bowel resection Left hip fracture related to displace intertrochanteric fracture as well as left humeral fracture stable being monitored and observed by orthopedics no active intervention Chronic anemia Leukocytosis improved significantly Plan: As dictated above continue broad-spectrum antibiotics continue DVT and peptic ulcer disease prophylaxis continue supportive care will monitor observe clinical course closely we'll maintain on current antibiotics for now continue to monitor aspiration precautions however. Time with Patient: Greater than 30
--- NOTE | 2017-08-22 19:53 | P.CNNES ---
History of Present Illness Consult date: 08/22/17 Reason for Consult: Patient with long standing left hand tremors. History of Present Illness: This patient is a 77-year-old right-handed white male who was admitted to Hospital with symptoms of cough and shortness of breath with spiking fevers up to 102. Patient also had evidence for leukocytosis and a component of pneumonia predominantly involving the right lower lobe. He was having productive cough. He had been residing at [facility] for subacute rehabilitation. He was brought into the hospital for further evaluation on 08/18/2017. Chest x-ray revealed interstitial edema versus atypical pneumonitis. He was started on Rocephin and azithromycin and is being followed by pulmonary medicine. Neurology was asked to see the patient as he has a long-standing history of left hand tremor. He has been treated for essential tremors and is currently taking primidone 100 mg 3 times a day. This does not seem to stop her arrest the severity of his hand tremor. The hand tremors have been present since he suffered a stroke about 7 years ago with left -sided hemiparesthesias. He does have a history of colon cancer and is undergone chemotherapy and radiation therapy with bowel resection for treatment. He suffered a fall in July with a displaced trochanteric fracture of the left hip as well as left humerus. He was seen by orthopedic surgery and did not require surgery. They recommended rehabilitation. As noted the patient has noted the tremors ongoing despite his current medications. He states that when he holds a glass in his hand it becomes quite noticeable. He also occasionally notices rest tremor and pill rolling occasionally in the left hand. He does not appear to have mask like facial expression suggesting parkinsonism. On his evaluation today bedside he frequently shows evidence of tremor. On examination his motor tone is slightly increased with rigidity in the left wrist joint. His findings suggest possibility of early parkinsonism. He states he has not been ambulating due to his recent fall. He will require ongoing rehabilitation. As mentioned he is currently on primidone 100 mg 3 times a day without much change or improvement in his tremors. Neurology is now been consulted for further evaluation and recommendations. Review of Systems Constitutional: Denies chills, Denies fever Eyes: denies blurred vision, denies pain Ears, nose, mouth and throat: Denies headache, Denies sore throat Cardiovascular: Denies chest pain, Denies shortness of breath Respiratory: Denies cough Gastrointestinal: Denies abdominal pain, Denies diarrhea, Denies nausea, Denies vomiting Musculoskeletal: Denies myalgias Integumentary: Denies pruritus, Denies rash Neurological: Reports confusion, Reports lack of coordination, Reports tremors, Denies numbness, Denies weakness Psychiatric: Denies anxiety, Denies depression Past Medical History Past Medical History: Cancer, CVA/TIA, Deep Vein Thrombosis (DVT), Liver Disease , Pneumonia Additional Past Medical History / Comment(s): 11-06-16 FALL/FX RT HIP. DDD, SPINAL CANAL STENOSIS, COLON CA IN THE HAD SX CHEMO AND RADIATION, UTI(E COLI), left arm weakness-fx lt arm at shoulder-December 2014-remains painful , rectal carcinoma, elevated liver enzymes, walker use,recent falls,PAST CVA AFFECTED LT SIDE. History of Any Multi-Drug Resistant Organisms: None Reported Past Surgical History: Appendectomy, Back Surgery, Bowel Resection, Cholecystectomy, Joint Replacement, Orthopedic Surgery Additional Past Surgical History / Comment(s): GASTRECTOMY, L hip replacement, spinal surgery, RT ANKLE SX , 5 broken ribs, left arm fracture Past Anesthesia/Blood Transfusion Reactions: No Reported Reaction Additional Past Anesthesia/Blood Transfusion Reaction / Comment(s): no hx at F Past Psychological History: No Psychological Hx Reported Additional Psychological History / Comment(s): client lives at [facility] Smoking Status: Former smoker Past Alcohol Use History: Occasional Additional Past Alcohol Use History / Comment(s): SMOKED FOR 40 YEARS QUIT 1994. has a few alcoholic drinks per week Past Drug Use History: None Reported - Past Family History Father Family Medical History: Unable to Obtain Additional Family Medical History / Comment(s): heart problems Mother Family Medical History: Diabetes Mellitus Medications and Allergies Home Medications Medication Instructions Recorded Confirmed Type Aspirin EC [Ecotrin Low Dose] 81 mg PO DAILY 07/26/17 08/18/17 History Gabapentin [Neurontin] 300 mg PO HS 07/26/17 08/18/17 History Primidone [Mysoline] 100 mg PO TID 07/26/17 08/18/17 History Ferrous Sulfate [Iron (65 MG 325 mg PO BID tab 07/29/17 08/18/17 Rx Elemental)] HYDROcodone/APAP 10-325MG [[place] 1 tab PO TID PRN #40 tab 07/29/17 08/18/17 Rx 10-285] Allergies Allergy/AdvReac Type Severity Reaction Status Date / Time No Known Allergies Allergy Verified 08/18/17 11:35 Physical Examination - Vital Signs Vital Signs: Vital Signs Temp Pulse Pulse Resp BP Pulse Ox 08/22/17 16:33 85 08/22/17 16:17 85 96 08/22/17 15:00 97.4 F L 89 20 90/42 97 08/22/17 11:10 80 08/22/17 11:00 80 08/22/17 07:31 78 08/22/17 07:21 76 08/22/17 07:00 98.0 F 77 20 106/53 98 08/21/17 23:31 12 08/21/17 23:00 98.9 F 77 12 112/62 99 Intake and Output 08/22/17 08/22/17 08/22/17 06:59 14:59 22:59 Intake Total 240 Output Total 500 600 Balance -500 -360 Intake: Oral 240 Output: Urine 500 600 Other: Voiding Method Urinal - Constitutional General appearance: average body habitus, cooperative - EENT EENT: PERRL, mucous membranes moist - Respiratory Respiratory: lungs clear, normal breath sounds - Cardiovascular Cardiovascular: regular rate, normal S1, normal S2 Extremities: no peripheral edema bilaterally - Gastrointestinal Gastrointestinal: normoactive bowel sounds - Integumentary Integumentary: normal - Neurologic Cranial nerve examination: PERRL, VFF, V1/V2/V3 grossly intact, face symmetric, tongue midline, intact gag reflex, intact corneal reflex, normal palatal elevation Speech examination: intact Sensorimotor examination: intact, hemiparesis Motor examination - right side: 4/5: biceps, triceps, wrist flexion, wrist extension, dam tender assistant, hip flexors, knee extensors, dorsiflexion, toe extension (EHL) , plantarflexion Motor examination - left side: 4/5: biceps, triceps, wrist flexion, wrist extension, dam tender assistant, hip flexors, knee extensors, dorsiflexion, toe extension (EHL) , plantarflexion Detailed sensory examination: intact Reflex and gait examination: intact Reflexes: 1+: ankle, bicep, knee, tricep - Musculoskeletal Musculoskeletal: no pain - Psychiatric Psychiatric: mood/affect appropriate, cooperative Results - Laboratory Findings CBC and BMP: 08/22/17 12:37 08/22/17 12:37 Abnormal Lab Findings: Abnormal Labs 08/18/17 08/18/17 08/18/17 11:35 11:35 13:25 WBC 13.4 H RBC Hgb Hct Neutrophils # 11.3 H Sodium 136 L Creatinine 0.53 L Glucose 112 H Alkaline Phosphatase 166 H Total Protein Albumin Urine Protein Trace H Urine Ketones 1+ H Urine Blood Small H Urine RBC 22 H Urine Mucus Occasional H 08/21/17 08/21/17 08/22/17 08:36 08:36 12:37 WBC RBC 3.37 L 3.34 L Hgb 10.5 L D 10.4 L Hct 33.2 L 32.5 L Neutrophils # Sodium Creatinine 0.54 L Glucose 110 H Alkaline Phosphatase 127 H Total Protein 5.2 L Albumin 2.7 L Urine Protein Urine Ketones Urine Blood Urine RBC Urine Mucus 08/22/17 12:37 WBC RBC Hgb Hct Neutrophils # Sodium 136 L Creatinine 0.55 L Glucose Alkaline Phosphatase 129 H Total Protein 5.2 L Albumin 2.7 L Urine Protein Urine Ketones Urine Blood Urine RBC Urine Mucus Assessment and Plan (1) Parkinsonism Current Visit: Yes Status: Acute Code(s): G20 - PARKINSON'S DISEASE SNOMED Code(s): 81075608 (2) Essential tremor Current Visit: Yes Status: Acute Code(s): G25.0 - ESSENTIAL TREMOR SNOMED Code(s): 475381942 (3) Pneumonitis Current Visit: Yes Status: Acute Code(s): J18.9 - PNEUMONIA, UNSPECIFIED ORGANISM SNOMED Code(s): 939157310 (4) History of CVA (cerebrovascular accident) Current Visit: No Status: Acute Code(s): Z86.73 - PRSNL HX OF TIA (TIA), AND CEREB INFRC W/O RESID DEFICITS SNOMED Code(s): 570207403 Plan: This patient is a 77-year-old right-handed white male who is being evaluated for left hand tremor. He has been noticing worsening of his left hand tremor ever since suffering a stroke about 7 years ago. He has been left with left- sided hemiparesis. His tremors occur frequently despite being treated with primidone at 100 mg 3 times a day. His neurological examination reveals mild cogwheel rigidity in the left wrist joint. We have suggested a trial of low- dose Sinemet for a short period of time to see if this helps reduce the frequency and intensity of the tremors. He does not have any rigidity in the right upper extremity. He may continue with the current dose of primidone and this may be slowly weaned off if he responds to low-dose Sinemet. We will suggest a very low dose of 10/100 one tablet twice a day. We will adjust the dose slowly if he is responding. Case was discussed at length with the patient. He understands our findings and recommendations. We will continue close neurological follow-up with this patient during this admission. Time with Patient: Greater than 30
[2017-08-22] MEDS: CARBIDOPA-LEVODOPA 10-100 MG 1 EACH TAB PO SCH (21:12)
[2017-08-22] MEDS: GABAPENTIN 300 MG CAP PO SCH (21:13)
[2017-08-22] MEDS: MELATONIN 5 MG TABLET PO PRN (21:34)
[2017-08-23] MEDS: IPRATROPIUM-ALBUTEROL 3 ML NEB INHALATION SCH ×4 (07:30→19:56)
[2017-08-23] MEDS: FERROUS SULFATE 325 MG TAB PO SCH ×2 (07:42→21:52)
[2017-08-23] MEDS: ASPIRIN 81 MG PO SCH (07:42)
[2017-08-23] MEDS: AZITHROMYCIN 500 MG TAB PO SCH (07:42)
[2017-08-23] MEDS: HEPARIN SODIUM,PORCINE 5,000 UNIT/ML 1 ML VIAL SQ SCH ×2 (07:42→21:52)
[2017-08-23] MEDS: PRIMIDONE 50 MG TAB PO SCH ×3 (07:42→21:52)
[2017-08-23] MEDS: FAMOTIDINE 20 MG TAB PO SCH (07:42)
[2017-08-23] MEDS: CARBIDOPA-LEVODOPA 10-100 MG 1 EACH TAB PO SCH ×2 (07:42→21:52)
[2017-08-23] MEDS: guaiFENesin 600 MG TABLET.ER PO SCH ×2 (07:42→21:52)
[2017-08-23] MEDS: cefTRIAXone IN SWFI 1,000 MG/10 ML SYRINGE IVP SCH (07:42)
[2017-08-23] MEDS: SODIUM CHLORIDE 0.9% 1,000 ML IV SCH ×2 (07:43→16:51)
[2017-08-23 08:51] LABS: Basophils % (A) 1 %; Eosinophils # (A) 0.2 k/uL (0-0.7); Eosinophils % (A) 3 %; HCT 36.5 % (39.0-53.0); HGB 11.6 gm/dL (13.0-17.5); Lymphocytes # (A) 1.6 k/uL (1.0-4.8); Lymphocytes % (A) 26 %; MCH 31.2 pg (25.0-35.0); MCHC 31.7 g/dL (31.0-37.0); MCV 98.2 fL (80.0-100.0); Mean Platelet Volume 7.1; Monocytes # (A) 0.3 k/uL (0-1.0); Monocytes % (A) 4 %; Neutrophils # (A) 4.1 k/uL (1.3-7.7); Neutrophils % (A) 65 %; Platelet Count 276 k/uL (150-450); RBC 3.71 m/uL (4.30-5.90); RDW 12.6 % (11.5-15.5); WBC 6.2 k/uL (3.8-10.6)
[2017-08-23 09:21] LABS: ALT 25 U/L (21-72); AST 23 U/L (17-59); Albumin 2.9 g/dL (3.5-5.0); Alkaline Phosphatase 145 U/L (38-126); Anion Gap 10 mmol/L; Blood Urea Nitrogen 8 mg/dL (9-20); Carbon Dioxide 23 mmol/L (22-30); Chloride 107 mmol/L (98-107); Glucose 153 mg/dL (74-99); Potassium 4.4 mmol/L (3.5-5.1); Sodium 140 mmol/L (137-145); Total Bilirubin 0.3 mg/dL (0.2-1.3); Total Protein 5.7 g/dL (6.3-8.2)
--- NOTE | 2017-08-23 13:27 | P.PN ---
Subjective This is a 77-year-old male with a known history of CVA , colon cancer and previous pneumonia. He did also recently been in the hospital in July 2017 after a fall with a displaced trochanteric fracture of the left hip as well as a left humerus fracture. He was seen by orthopedics and no surgical intervention but they recommended rehab. Patient had been at [facility] for rehabilitation. He was transferred from [facility] to [facility] with complaints of worsening shortness of breath feeling cold and a productive cough. He was found to have a temp of 102 white count 13.4 and chest x-ray showed interstitial edema versus atypical pneumonitis. Repeat chest x-ray shows possible right lower lobe pneumonia. Patient has been started on Rocephin and azithromycin and nebulizer treatments. He had also been complaining of a sore throat initial strep screen was negative. Influenza screen negative. EKG showed a normal sinus rhythm. Patient denies any chest pain, nausea or vomiting, bowel movement changes or urinary symptoms Objective - Vital Signs Vital signs: Vital Signs Temp 97.9 F 08/23/17 07:00 Pulse 88 08/23/17 11:42 Resp 20 08/23/17 07:00 BP 128/69 08/23/17 07:00 Pulse Ox 93 L 08/23/17 07:32 Intake & Output 08/22/17 08/23/17 08/23/17 18:59 06:59 18:59 Intake Total 240 540 Output Total 600 300 Balance -360 540 -300 Intake: Oral 240 540 Output: Urine 600 300 Other: Voiding Method Urinal Urinal # Voids 3 - Exam Head normocephalic and atraumatic Neck supple no JVD no goiter no lymphadenopathy Lungs coarse breath sounds noted on the right Heart regular rate and rhythm S1-S2, no rub or gallop Abdomen is soft nontender nondistended positive bowel sounds no hepatosplenomegaly Extremities no edema no cyanosis or clubbing Neuro alert and orientated to 3 - Labs CBC & Chem 7: 08/23/17 08:26 08/23/17 08:26 Labs: Abnormal Lab Results - Last 24 Hours (Table) 08/23/17 08/23/17 Range/Units 08:26 08:26 RBC 3.71 L (4.30-5.90) m/uL Hgb 11.6 L (13.0-17.5) gm/dL Hct 36.5 L (39.0-53.0) % BUN 8 L (9-20) mg/dL Creatinine 0.56 L (0.66-1.25) mg/dL Glucose 153 H (74-99) mg/dL Alkaline Phosphatase 145 H (38-126) U/L Total Protein 5.7 L (6.3-8.2) g/dL Albumin 2.9 L (3.5-5.0) g/dL Microbiology - Last 24 Hours (Table) 08/18/17 11:35 Blood Culture - Preliminary Blood No Growth after 96 hours Assessment and Plan Plan: 1. Right lower lobe pneumonia with sepsis present on admission: Continue Rocephin and azithromycin. Check sputum culture. Continue IV fluid hydration. Urine and throat cultures pending continue current antibiotic at this time 2. History of CVA 3. History of colon cancer status post chemo and radiation and bowel resection 4. Recent displaced trochanteric fracture of the left hip and a left humerus fracture. No surgical intervention per orthopedics. He had been at [facility] for rehabilitation. Physical therapy will be consulted to continue therapy treatment 5. Iron deficiency anemia continue iron supplement 6. Left hand tremor. Consult neurology. Patient reports that symptoms are worsening even with his current medications DVT prophylaxis subcu heparin and GI prophylaxis Pepcid
--- NOTE | 2017-08-23 16:26 | P.PN ---
Subjective Progress Note Date: 08/23/17 This patient is a 77-year-old male who was seen in neurology consultation yesterday for evaluation of left hand tremor. Patient has a history of chronic hand tremor mostly involving only his left hand. He had a fall in July 2017 with a displaced trochanteric fracture of the left hip and left humerus fracture. Patient had been at [facility] for subacute rehabilitation. He was transferred from [facility] due to worsening shortness of breath and productive cough. Neurology was consulted yesterday for evaluation of his left hand tremor. He was started on low dose Sinemet 10/100 one tablet twice a day. Patient states he has noted significant improvement today with controlling much of the left hand tremor. We will continue to monitor his response to the Sinemet over the next few days. Patient has minimal findings of cogwheel rigidity in the left hand at this time. We will continue him on both combination of the Sinemet and primidone at this time. We will need to see how he does long-term in terms of the current dose of the Sinemet. We will continue to follow his progress closely during this admission. Objective - Vital Signs Vital signs: Vital Signs Temp 97.9 F 08/23/17 07:00 Pulse 84 08/23/17 16:09 Resp 20 08/23/17 07:00 BP 128/69 08/23/17 07:00 Pulse Ox 93 L 08/23/17 07:32 Intake & Output 08/22/17 08/23/17 08/23/17 18:59 06:59 18:59 Intake Total 240 540 Output Total 600 300 Balance -360 540 -300 Intake: Oral 240 540 Output: Urine 600 300 Other: Voiding Method Urinal Urinal # Voids 3 1 - Exam Physical examination: PHYSICAL EXAMINATION: Patient is resting comfortably in bed. VITAL SIGNS: Blood pressure is [128/69]. Heart rate is [82]. Respiration is [20] . Temperature is [97.9]. HEENT: Head is atraumatic, neck is supple, there were no carotid bruits. CHEST: Lungs are clear to auscultation and percussion. CARDIAC: S1, S2 normal rate and rhythm. There is no murmur. ABDOMEN: Soft and nontender. Bowel sounds are present. EXTREMITIES: There is no pedal edema. Peripheral pulses are present. Neurological examination: Patient's neurological examination is nonfocal. He has much better control of his left hand today with less tremors noted on exam - Labs CBC & Chem 7: 08/23/17 08:26 08/23/17 08:26 Labs: Abnormal Lab Results - Last 24 Hours (Table) 08/23/17 08/23/17 Range/Units 08:26 08:26 RBC 3.71 L (4.30-5.90) m/uL Hgb 11.6 L (13.0-17.5) gm/dL Hct 36.5 L (39.0-53.0) % BUN 8 L (9-20) mg/dL Creatinine 0.56 L (0.66-1.25) mg/dL Glucose 153 H (74-99) mg/dL Alkaline Phosphatase 145 H (38-126) U/L Total Protein 5.7 L (6.3-8.2) g/dL Albumin 2.9 L (3.5-5.0) g/dL Microbiology - Last 24 Hours (Table) 08/18/17 11:35 Blood Culture - Preliminary Blood No Growth after 120 hours Assessment and Plan (1) Parkinsonism Current Visit: Yes Status: Acute Code(s): G20 - PARKINSON'S DISEASE SNOMED Code(s): 91905921 (2) Essential tremor Current Visit: Yes Status: Acute Code(s): G25.0 - ESSENTIAL TREMOR SNOMED Code(s): 844750591 (3) Pneumonitis Current Visit: Yes Status: Acute Code(s): J18.9 - PNEUMONIA, UNSPECIFIED ORGANISM SNOMED Code(s): 010869416 (4) History of CVA (cerebrovascular accident) Current Visit: No Status: Acute Code(s): Z86.73 - PRSNL HX OF TIA (TIA), AND CEREB INFRC W/O RESID DEFICITS SNOMED Code(s): 505347861 Plan: This patient is a 77-year-old male who is being evaluated yesterday for left hand tremors. He was started on low-dose Sinemet and has responded very well. We will continue to monitor his response to the Sinemet over the next few days and he may continue on the same dose at this time. He is being treated for right lower lobe pneumonia. He is currently on antibiotic therapy. He may be returning to [facility] early next week. We would recommend continue his current dose of Sinemet at this time and we will adjust his dose as needed. His overall prognosis at this time remains fair.
[2017-08-23] MEDS: GABAPENTIN 300 MG CAP PO SCH (21:52)
[2017-08-23] MEDS: MELATONIN 5 MG TABLET PO PRN (23:06)
[2017-08-23] MEDS: HYDROcodone/APAP 10-325MG 1 EACH TAB PO PRN (23:06)
[2017-08-24] MEDS: IPRATROPIUM-ALBUTEROL 3 ML NEB INHALATION SCH ×4 (07:06→20:22)
[2017-08-24] MEDS: SODIUM CHLORIDE 0.9% 1,000 ML IV SCH ×2 (07:32→14:16)
[2017-08-24 08:00] LABS: Basophils # (A) 0.1 k/uL (0-0.2); Basophils % (A) 1 %; Eosinophils # (A) 0.2 k/uL (0-0.7); Eosinophils % (A) 3 %; HCT 36.3 % (39.0-53.0); HGB 11.4 gm/dL (13.0-17.5); Lymphocytes # (A) 3.6 k/uL (1.0-4.8); Lymphocytes % (A) 52 %; MCH 30.9 pg (25.0-35.0); MCHC 31.3 g/dL (31.0-37.0); MCV 98.8 fL (80.0-100.0); Mean Platelet Volume 7.5; Monocytes # (A) 0.3 k/uL (0-1.0); Monocytes % (A) 4 %; Neutrophils # (A) 2.6 k/uL (1.3-7.7); Neutrophils % (A) 38 %; Platelet Count 250 k/uL (150-450); RBC 3.67 m/uL (4.30-5.90); RDW 13.7 % (11.5-15.5); WBC 6.8 k/uL (3.8-10.6)
--- NOTE | 2017-08-24 08:19 | P.PN ---
Subjective Progress Note Date: 08/23/17 (Late entry note) Principal diagnosis: Right lower lobe pneumonia, may be aspiration related, CVA, history of colon cancer, recent left hip fracture and chronic anemia 08/23/2017, vision seen and evaluated examined during the rounds clinically slightly better cough congestion is better patient has been swallowing by mouth very well his fever pattern is down breathing is improved to the tremors are seen neurology is following this patient closely no episode of aspiration has been noted patient able to swallow fairly well August 22 2017, he shouldn't seen and examined during the rounds from [place] standpoint cough shortness present improved breathing much better cough and sputum production is improved he remains afebrile over noted to have a tremors in the extremity noted that neurology has been consulted, patient has a significant history of stroke and hemiparesis 08/21/2017, patient seen eval exam is sitting upright in chair his respiratory status slightly better cough congestion is better he is able to tolerate by mouth well no evidence of aspiration reported by the nursing staff he remains on breathing treatment antibiotics overall tolerating well his sputum production denies any hemoptysis 2017, patient seen and evaluated examined during the rounds he is breathing relatively more comfortably he is still congested though cuff congestion shortness breath is improved denies any hemoptysis no episode of fever or chills are present respiration is slightly more stable, patient has been swelling fairly well no evidence of aspiration has been noted or reported by the staff Mr. Cohen is seen and evaluated examined he is a 77-year-old male who was seen on the fourth floor. Patient has been admitted into the hospital with cough shortness of breath and a spiking fever up to 102 as well as leukocytosis patient has a component of pneumonia as well predominantly involving the right lower lobe as well as some interstitial Petrin preliminary workup for influenza and pneumonia is negative so as the strep screen patient is currently being treated with broad-spectrum antibiotics. Patient has a significant history of stroke with left hemiparesis as well as colon cancer and prior pneumonia patient was hospitalized back in July 2017 after a fall and left hip fracture along with left humeral fracture patient was stabilized and eventually was placed in extended care facility for rehabilitation purposes however due to plantar prognosis is spiking fever and breathing difficulty was brought into the emergency department where he was seen eval reexamined has been admitted into the hospital. On specific questioning patient denies any change in weakness in the left side, patient does have cough and shortness breath however slightly better today compared to last few days patient denies any hemoptysis sputum is light green to grayish in color lately Objective - Vital Signs Vital signs: Blood pressure 128/69, heart rate 88 temperature 97.9 saturation 93% on 2 L oxygen, I/O-300 mL - Exam - Constitutional General appearance: average body habitus, cooperative, disheveled, mild distress - EENT Eyes: EOMI, PERRLA, normal appearance ENT: hard of hearing, normal oropharynx Ears: bilateral: normal - Neck Neck: normal ROM Carotids: bilateral: upstroke normal, bruit absent Thyroid: bilateral: normal size - Respiratory Respiratory: bilateral: diminished (At the bases), rales (Predominantly on the right base), wheezing, prolonged expiration, negative: CTA, dullness, rhonchi, prolonged inspiration - Cardiovascular Heart sounds: normal: S1, S2 - Integumentary Integumentary: normal, normal turgor - Neurologic Neurologic: CNII-XII intact, focal deficits - Musculoskeletal Musculoskeletal: gait normal, generalized weakness, left sided weakness - Psychiatric Psychiatric: A&O x's 3, appropriate affect, intact judgment & insight - Labs CBC & Chem 7: 08/24/17 07:25 08/23/17 08:26 Labs: Abnormal Lab Results - Last 24 Hours (Table) 08/23/17 08/23/17 08/24/17 Range/Units 08:26 08:26 07:25 RBC 3.71 L 3.67 L (4.30-5.90) m/uL Hgb 11.6 L 11.4 L (13.0-17.5) gm/dL Hct 36.5 L 36.3 L (39.0-53.0) % BUN 8 L (9-20) mg/dL Creatinine 0.56 L (0.66-1.25) mg/dL Glucose 153 H (74-99) mg/dL Alkaline Phosphatase 145 H (38-126) U/L Total Protein 5.7 L (6.3-8.2) g/dL Albumin 2.9 L (3.5-5.0) g/dL Microbiology - Last 24 Hours (Table) 08/18/17 11:35 Blood Culture - Preliminary Blood No Growth after 120 hours Assessment and Plan Assessment: Generalized weakness and medical debility due to complex and medical medical problems or issues as noted below Right lower lobe pneumonia, healthcare associated pneumonia or aspiration related (silent ) cannot be excluded however patient appears to be responding well with Zithromax and Rocephin would recommend to continue it and monitor observe a significant worsening of clinical status and x-ray so far has been noted Tremors predominantly on the left side may very well be an essential tremors however developing Parkinson's disease cannot be excluded as they were lesser intense with rest and worse with activity him a neurology following has been started on Sinemet tolerating well CVA with left hemiparesis Colon cancer status post chemoradiation and bowel resection Left hip fracture related to displace intertrochanteric fracture as well as left humeral fracture stable being monitored and observed by orthopedics no active intervention Chronic anemia Leukocytosis improved significantly Plan: As dictated above continue broad-spectrum antibiotics continue DVT and peptic ulcer disease prophylaxis continue supportive care will monitor observe clinical course closely we'll maintain on current antibiotics for now continue to monitor aspiration precautions however. Continue deep breathing exercises incentive spirometry Time with Patient: Greater than 30
--- NOTE | 2017-08-24 08:22 | P.PN ---
Subjective Progress Note Date: 08/24/17 Principal diagnosis: Right lower lobe pneumonia, may be aspiration related, CVA, history of colon cancer, recent left hip fracture and chronic anemia, Parkinson's disease 08/24/2017, patient seen and evaluated examined during the rounds he is sitting upright on the bed eating his breakfast and denies any choking problem breathing comfortably his cuff congestion shortness of breath is better and improved denies any pain and started on Sinemet is tremors has improved 08/23/2017, seen and evaluated examined during the rounds clinically slightly better cough congestion is better patient has been swallowing by mouth very well his fever pattern is down breathing is improved to the tremors are seen neurology is following this patient closely no episode of aspiration has been noted patient able to swallow fairly well August 22 2017, he shouldn't seen and examined during the rounds from [facility] standpoint cough shortness present improved breathing much better cough and sputum production is improved he remains afebrile over noted to have a tremors in the extremity noted that neurology has been consulted, patient has a significant history of stroke and hemiparesis 08/21/2017, patient seen eval exam is sitting upright in chair his respiratory status slightly better cough congestion is better he is able to tolerate by mouth well no evidence of aspiration reported by the nursing staff he remains on breathing treatment antibiotics overall tolerating well his sputum production denies any hemoptysis 2017, patient seen and evaluated examined during the rounds he is breathing relatively more comfortably he is still congested though cuff congestion shortness breath is improved denies any hemoptysis no episode of fever or chills are present respiration is slightly more stable, patient has been swelling fairly well no evidence of aspiration has been noted or reported by the staff Mr. Cohen is seen and evaluated examined he is a 77-year-old male who was seen on the fourth floor. Patient has been admitted into the hospital with cough shortness of breath and a spiking fever up to 102 as well as leukocytosis patient has a component of pneumonia as well predominantly involving the right lower lobe as well as some interstitial Petrin preliminary workup for influenza and pneumonia is negative so as the strep screen patient is currently being treated with broad-spectrum antibiotics. Patient has a significant history of stroke with left hemiparesis as well as colon cancer and prior pneumonia patient was hospitalized back in July 2017 after a fall and left hip fracture along with left humeral fracture patient was stabilized and eventually was placed in extended care facility for rehabilitation purposes however due to plantar prognosis is spiking fever and breathing difficulty was brought into the emergency department where he was seen eval reexamined has been admitted into the hospital. On specific questioning patient denies any change in weakness in the left side, patient does have cough and shortness breath however slightly better today compared to last few days patient denies any hemoptysis sputum is light green to grayish in color lately Objective - Vital Signs Vital signs: Vital Signs Temp 97.6 F 08/24/17 07:00 Pulse 80 08/24/17 07:19 Resp 20 08/24/17 07:00 BP 115/50 08/24/17 07:00 Pulse Ox 96 08/24/17 07:08 Intake & Output 08/23/17 08/24/17 08/24/17 18:59 06:59 18:59 Intake Total 1050 Output Total 300 1500 Balance -300 -450 Intake: Oral 1050 Output: Urine 300 1500 Other: Voiding Method Urinal Urinal Urinal # Voids 1 - Exam - Constitutional General appearance: average body habitus, cooperative, disheveled, mild distress - EENT Eyes: EOMI, PERRLA, normal appearance ENT: hard of hearing, normal oropharynx Ears: bilateral: normal - Neck Neck: normal ROM Carotids: bilateral: upstroke normal, bruit absent Thyroid: bilateral: normal size - Respiratory Respiratory: bilateral: diminished (At the bases), rales (Predominantly on the right base), wheezing, prolonged expiration, negative: CTA, dullness, rhonchi, prolonged inspiration - Cardiovascular Heart sounds: normal: S1, S2 - Integumentary Integumentary: normal, normal turgor - Neurologic Neurologic: CNII-XII intact, focal deficits - Musculoskeletal Musculoskeletal: gait normal, generalized weakness, left sided weakness - Psychiatric Psychiatric: A&O x's 3, appropriate affect, intact judgment & insight - Labs CBC & Chem 7: 08/24/17 07:25 08/23/17 08:26 Labs: Abnormal Lab Results - Last 24 Hours (Table) 08/23/17 08/23/17 08/24/17 Range/Units 08:26 08:26 07:25 RBC 3.71 L 3.67 L (4.30-5.90) m/uL Hgb 11.6 L 11.4 L (13.0-17.5) gm/dL Hct 36.5 L 36.3 L (39.0-53.0) % BUN 8 L (9-20) mg/dL Creatinine 0.56 L (0.66-1.25) mg/dL Glucose 153 H (74-99) mg/dL Alkaline Phosphatase 145 H (38-126) U/L Total Protein 5.7 L (6.3-8.2) g/dL Albumin 2.9 L (3.5-5.0) g/dL Microbiology - Last 24 Hours (Table) 08/18/17 11:35 Blood Culture - Preliminary Blood No Growth after 120 hours Assessment and Plan Assessment: Generalized weakness and medical debility due to complex and medical medical problems or issues as noted below Right lower lobe pneumonia, healthcare associated pneumonia or aspiration related (silent ) cannot be excluded however patient appears to be responding well with Zithromax and Rocephin would recommend to continue it and monitor observe a significant worsening of clinical status and x-ray so far has been noted Tremors predominantly on the left side may very well be an essential tremors however developing Parkinson's disease cannot be excluded as they were lesser intense with rest and worse with activity him a neurology following has been started on Sinemet tolerating well CVA with left hemiparesis Colon cancer status post chemoradiation and bowel resection Left hip fracture related to displace intertrochanteric fracture as well as left humeral fracture stable being monitored and observed by orthopedics no active intervention Chronic anemia Leukocytosis improved significantly Plan: As dictated above continue broad-spectrum antibiotics continue DVT and peptic ulcer disease prophylaxis continue supportive care will monitor observe clinical course closely we'll maintain on current antibiotics for now continue to monitor aspiration precautions however. Continue deep breathing exercises incentive spirometry patient can be discharged home from pulmonary standpoint the IV antibiotics can be switched to by mouth increase activity as tolerated we 'll follow closely during outpatient setting Time with Patient: Greater than 30
[2017-08-24 08:24] LABS: ALT 27 U/L (21-72); AST 20 U/L (17-59); Albumin 2.8 g/dL (3.5-5.0); Alkaline Phosphatase 138 U/L (38-126); Anion Gap 9 mmol/L; Blood Urea Nitrogen 7 mg/dL (9-20); Carbon Dioxide 25 mmol/L (22-30); Chloride 105 mmol/L (98-107); Glucose 92 mg/dL (74-99); Potassium 4.4 mmol/L (3.5-5.1); Sodium 139 mmol/L (137-145); Total Bilirubin 0.2 mg/dL (0.2-1.3); Total Protein 5.5 g/dL (6.3-8.2)
[2017-08-24] MEDS: AZITHROMYCIN 500 MG TAB PO SCH (08:24)
[2017-08-24] MEDS: guaiFENesin 600 MG TABLET.ER PO SCH ×2 (08:24→20:04)
[2017-08-24] MEDS: HEPARIN SODIUM,PORCINE 5,000 UNIT/ML 1 ML VIAL SQ SCH ×2 (08:24→20:05)
[2017-08-24] MEDS: cefTRIAXone IN SWFI 1,000 MG/10 ML SYRINGE IVP SCH (08:24)
[2017-08-24] MEDS: PRIMIDONE 50 MG TAB PO SCH ×3 (08:25→20:04)
[2017-08-24] MEDS: CARBIDOPA-LEVODOPA 10-100 MG 1 EACH TAB PO SCH ×2 (08:25→20:05)
[2017-08-24] MEDS: FAMOTIDINE 20 MG TAB PO SCH (08:25)
[2017-08-24] MEDS: FERROUS SULFATE 325 MG TAB PO SCH ×2 (08:25→20:05)
[2017-08-24] MEDS: ASPIRIN 81 MG PO SCH (08:25)
[2017-08-24 10:34] LABS: Poikilocytosis (M) Present
--- NOTE | 2017-08-24 12:04 | P.PN ---
Subjective Progress Note Date: 08/24/17 This patient is a 77-year-old male who was seen in neurology consultation yesterday for evaluation of left hand tremor. Patient has a history of chronic hand tremor mostly involving only his left hand. He had a fall in July 2017 with a displaced trochanteric fracture of the left hip and left humerus fracture. Patient had been at [facility] for subacute rehabilitation. He was transferred from [facility] due to worsening shortness of breath and productive cough. Neurology was consulted yesterday for evaluation of his left hand tremor. He was started on low dose Sinemet 10/100 one tablet twice a day. Patient states he has noted significant improvement today with controlling much of the left hand tremor. We will continue to monitor his response to the Sinemet over the next few days. Patient has minimal findings of cogwheel rigidity in the left hand at this time. We will continue him on both combination of the Sinemet and primidone at this time. We will need to see how he does long-term in terms of the current dose of the Sinemet. Patient is being considered for discharge back to [facility] tomorrow. His dose of Sinemet should be maintained and can be gradually increased over the next several weeks as needed. We will continue to follow his progress closely during this admission. Objective - Vital Signs Vital signs: Vital Signs Temp 97.6 F 08/24/17 07:00 Pulse 80 08/24/17 07:19 Resp 20 08/24/17 07:00 BP 115/50 08/24/17 07:00 Pulse Ox 96 08/24/17 07:08 Intake & Output 08/23/17 08/24/17 08/24/17 18:59 06:59 18:59 Intake Total 1050 320 Output Total 300 1500 Balance -300 -450 320 Intake: Oral 1050 320 Output: Urine 300 1500 Other: Voiding Method Urinal Urinal Urinal # Voids 1 - Exam Physical examination: PHYSICAL EXAMINATION: Patient is resting comfortably in bed. VITAL SIGNS: Blood pressure is [115/50]. Heart rate is [82]. Respiration is [20] . Temperature is [97.7]. HEENT: Head is atraumatic, neck is supple, there were no carotid bruits. CHEST: Lungs are clear to auscultation and percussion. CARDIAC: S1, S2 normal rate and rhythm. There is no murmur. ABDOMEN: Soft and nontender. Bowel sounds are present. EXTREMITIES: There is no pedal edema. Peripheral pulses are present. Neurological examination: Patient's neurological examination is nonfocal. He has much better control of his left hand today with less tremors noted on exam - Labs CBC & Chem 7: 08/24/17 07:25 08/24/17 07:25 Labs: Abnormal Lab Results - Last 24 Hours (Table) 08/24/17 08/24/17 Range/Units 07:25 07:25 RBC 3.67 L (4.30-5.90) m/uL Hgb 11.4 L (13.0-17.5) gm/dL Hct 36.3 L (39.0-53.0) % BUN 7 L (9-20) mg/dL Creatinine 0.53 L (0.66-1.25) mg/dL Alkaline Phosphatase 138 H (38-126) U/L Total Protein 5.5 L (6.3-8.2) g/dL Albumin 2.8 L (3.5-5.0) g/dL Microbiology - Last 24 Hours (Table) 08/18/17 11:35 Blood Culture - Preliminary Blood No Growth after 120 hours Assessment and Plan (1) Parkinsonism Current Visit: Yes Status: Acute Code(s): G20 - PARKINSON'S DISEASE SNOMED Code(s): 92307516 (2) Essential tremor Current Visit: Yes Status: Acute Code(s): G25.0 - ESSENTIAL TREMOR SNOMED Code(s): 389464984 (3) Pneumonitis Current Visit: Yes Status: Acute Code(s): J18.9 - PNEUMONIA, UNSPECIFIED ORGANISM SNOMED Code(s): 820702787 (4) History of CVA (cerebrovascular accident) Current Visit: No Status: Acute Code(s): Z86.73 - PRSNL HX OF TIA (TIA), AND CEREB INFRC W/O RESID DEFICITS SNOMED Code(s): 474113685 Plan: This patient is a 77-year-old male who was initially admitted to hospital with shortness of breath and right lower lobe pneumonia. Neurology was consulted to see the patient for left hand tremor. He was started on low-dose Sinemet 2 days ago and is noted ongoing improvement with controlling the left hand tremor. He is to continue on current Sinemet dose 10/100 one tablet twice a day. He is being considered for transfer back tomorrow would [facility] tomorrow and should be maintained on this low dose Sinemet. He seems to be showing good improvement. The dose may be increased over the next several weeks. We will continue to follow his progress closely during this admission. His overall prognosis at this time remains guarded.
--- NOTE | 2017-08-24 15:05 | P.PN ---
Subjective This is a 77-year-old male with a known history of CVA , colon cancer and previous pneumonia. He did also recently been in the hospital in July 2017 after a fall with a displaced trochanteric fracture of the left hip as well as a left humerus fracture. He was seen by orthopedics and no surgical intervention but they recommended rehab. Patient had been at [facility] for rehabilitation. He was transferred from [facility] to [facility] with complaints of worsening shortness of breath feeling cold and a productive cough. He was found to have a temp of 102 white count 13.4 and chest x-ray showed interstitial edema versus atypical pneumonitis. Repeat chest x-ray shows possible right lower lobe pneumonia. Patient has been started on Rocephin and azithromycin and nebulizer treatments. He had also been complaining of a sore throat initial strep screen was negative. Influenza screen negative. EKG showed a normal sinus rhythm. Patient denies any chest pain, nausea or vomiting, bowel movement changes or urinary symptoms On 08/24/2017 patient is feeling better he has less cough and less shortness of breath he denies any chest pain no fever or chills no nausea or vomiting no abdominal pain and no urinary symptoms Objective - Vital Signs Vital signs: Vital Signs Temp 97.6 F 08/24/17 07:00 Pulse 80 08/24/17 07:19 Resp 20 08/24/17 07:00 BP 115/50 08/24/17 07:00 Pulse Ox 96 08/24/17 07:08 Intake & Output 08/23/17 08/24/17 08/24/17 18:59 06:59 18:59 Intake Total 1050 320 Output Total 300 1500 Balance -300 -450 320 Intake: Oral 1050 320 Output: Urine 300 1500 Other: Voiding Method Urinal Urinal Urinal # Voids 1 3 - Exam Head normocephalic and atraumatic Neck supple no JVD no goiter no lymphadenopathy Lungs coarse breath sounds noted on the right Heart regular rate and rhythm S1-S2, no rub or gallop Abdomen is soft nontender nondistended positive bowel sounds no hepatosplenomegaly Extremities no edema no cyanosis or clubbing Neuro alert and orientated to 3 - Labs CBC & Chem 7: 08/24/17 07:25 08/24/17 07:25 Labs: Abnormal Lab Results - Last 24 Hours (Table) 08/24/17 08/24/17 Range/Units 07:25 07:25 RBC 3.67 L (4.30-5.90) m/uL Hgb 11.4 L (13.0-17.5) gm/dL Hct 36.3 L (39.0-53.0) % BUN 7 L (9-20) mg/dL Creatinine 0.53 L (0.66-1.25) mg/dL Alkaline Phosphatase 138 H (38-126) U/L Total Protein 5.5 L (6.3-8.2) g/dL Albumin 2.8 L (3.5-5.0) g/dL Microbiology - Last 24 Hours (Table) 08/18/17 11:35 Blood Culture - Final Blood No Growth after 144 hours Assessment and Plan Plan: 1. Right lower lobe pneumonia with sepsis present on admission: Continue Rocephin and azithromycin. Check sputum culture. Continue IV fluid hydration. Urine and throat cultures pending continue current antibiotic at this time 2. History of CVA 3. History of colon cancer status post chemo and radiation and bowel resection 4. Recent displaced trochanteric fracture of the left hip and a left humerus fracture. No surgical intervention per orthopedics. He had been at [facility] for rehabilitation. Physical therapy will be consulted to continue therapy treatment 5. Iron deficiency anemia continue iron supplement 6. Left hand tremor. Consult neurology. Patient reports that symptoms are worsening even with his current medications DVT prophylaxis subcu heparin and GI prophylaxis Pepcid Continue with current management possible transfer to rehab tomorrow
[2017-08-24] MEDS: HYDROcodone/APAP 10-325MG 1 EACH TAB PO PRN (16:47)
[2017-08-24] MEDS: GABAPENTIN 300 MG CAP PO SCH (20:05)
[2017-08-25] MEDS: SODIUM CHLORIDE 0.9% 1,000 ML IV SCH ×5 (05:56→15:50)
[2017-08-25] MEDS: IPRATROPIUM-ALBUTEROL 3 ML NEB INHALATION SCH ×3 (07:52→15:57)
[2017-08-25 07:53] VITALS: RESP 14
[2017-08-25 08:13] VITALS: BP 115/63; TEMP 97
[2017-08-25 08:24] LABS: Basophils % (A) 1 %; Eosinophils # (A) 0.3 k/uL (0-0.7); Eosinophils % (A) 5 %; HCT 35.6 % (39.0-53.0); HGB 11.3 gm/dL (13.0-17.5); Lymphocytes # (A) 1.5 k/uL (1.0-4.8); Lymphocytes % (A) 27 %; MCHC 31.8 g/dL (31.0-37.0); MCV 97.3 fL (80.0-100.0); Mean Platelet Volume 7.5; Monocytes # (A) 0.3 k/uL (0-1.0); Monocytes % (A) 6 %; Neutrophils # (A) 3.4 k/uL (1.3-7.7); Neutrophils % (A) 60 %; Platelet Count 272 k/uL (150-450); RBC 3.66 m/uL (4.30-5.90); RDW 13.4 % (11.5-15.5); WBC 5.6 k/uL (3.8-10.6)
[2017-08-25 08:44] LABS: ALT 27 U/L (21-72); AST 19 U/L (17-59); Albumin 2.8 g/dL (3.5-5.0); Alkaline Phosphatase 134 U/L (38-126); Anion Gap 8 mmol/L; Blood Urea Nitrogen 8 mg/dL (9-20); Carbon Dioxide 27 mmol/L (22-30); Chloride 103 mmol/L (98-107); Glucose 89 mg/dL (74-99); Potassium 4.5 mmol/L (3.5-5.1); Sodium 138 mmol/L (137-145); Total Bilirubin 0.2 mg/dL (0.2-1.3); Total Protein 5.5 g/dL (6.3-8.2)
[2017-08-25] MEDS: cefTRIAXone IN SWFI 1,000 MG/10 ML SYRINGE IVP SCH (08:46)
[2017-08-25] MEDS: FERROUS SULFATE 325 MG TAB PO SCH (08:46)
[2017-08-25] MEDS: HEPARIN SODIUM,PORCINE 5,000 UNIT/ML 1 ML VIAL SQ SCH (08:46)
[2017-08-25] MEDS: ASPIRIN 81 MG PO SCH (08:47)
[2017-08-25] MEDS: guaiFENesin 600 MG TABLET.ER PO SCH (08:47)
[2017-08-25] MEDS: AZITHROMYCIN 500 MG TAB PO SCH (08:47)
[2017-08-25] MEDS: PRIMIDONE 50 MG TAB PO SCH ×2 (08:47→15:58)
[2017-08-25] MEDS: FAMOTIDINE 20 MG TAB PO SCH (08:48)
[2017-08-25] MEDS: CARBIDOPA-LEVODOPA 10-100 MG 1 EACH TAB PO SCH (08:48)
[2017-08-25] MEDS: HYDROcodone/APAP 10-325MG 1 EACH TAB PO PRN ×2 (09:04→15:57)
--- NOTE | 2017-08-25 11:47 | P.PN ---
Subjective Progress Note Date: 08/25/17 Principal diagnosis: Right lower lobe pneumonia, may be aspiration related, CVA, history of colon cancer, recent left hip fracture and chronic anemia, Parkinson's disease August 25 2017, patient seen eval reexamined during the rounds clinically doing relatively better he still have cough congestion shortness of breath is slightly improved though able to tolerate by mouth well no obvious evidence of aspiration has been noted to tremors in the hand has improved on Sinemet 08/24/2017, patient seen and evaluated examined during the rounds he is sitting upright on the bed eating his breakfast and denies any choking problem breathing comfortably his cuff congestion shortness of breath is better and improved denies any pain and started on Sinemet is tremors has improved 08/23/2017, seen and evaluated examined during the rounds clinically slightly better cough congestion is better patient has been swallowing by mouth very well his fever pattern is down breathing is improved to the tremors are seen neurology is following this patient closely no episode of aspiration has been noted patient able to swallow fairly well August 22 2017, he shouldn't seen and examined during the rounds from [facility] standpoint cough shortness present improved breathing much better cough and sputum production is improved he remains afebrile over noted to have a tremors in the extremity noted that neurology has been consulted, patient has a significant history of stroke and hemiparesis 08/21/2017, patient seen eval exam is sitting upright in chair his respiratory status slightly better cough congestion is better he is able to tolerate by mouth well no evidence of aspiration reported by the nursing staff he remains on breathing treatment antibiotics overall tolerating well his sputum production denies any hemoptysis 2017, patient seen and evaluated examined during the rounds he is breathing relatively more comfortably he is still congested though cuff congestion shortness breath is improved denies any hemoptysis no episode of fever or chills are present respiration is slightly more stable, patient has been swelling fairly well no evidence of aspiration has been noted or reported by the staff Mr. Cohen is seen and evaluated examined he is a 77-year-old male who was seen on the fourth floor. Patient has been admitted into the hospital with cough shortness of breath and a spiking fever up to 102 as well as leukocytosis patient has a component of pneumonia as well predominantly involving the right lower lobe as well as some interstitial Petrin preliminary workup for influenza and pneumonia is negative so as the strep screen patient is currently being treated with broad-spectrum antibiotics. Patient has a significant history of stroke with left hemiparesis as well as colon cancer and prior pneumonia patient was hospitalized back in July 2017 after a fall and left hip fracture along with left humeral fracture patient was stabilized and eventually was placed in extended care facility for rehabilitation purposes however due to plantar prognosis is spiking fever and breathing difficulty was brought into the emergency department where he was seen eval reexamined has been admitted into the hospital. On specific questioning patient denies any change in weakness in the left side, patient does have cough and shortness breath however slightly better today compared to last few days patient denies any hemoptysis sputum is light green to grayish in color lately Objective - Vital Signs Vital signs: Vital Signs Temp 97.0 F L 08/25/17 07:00 Pulse 83 08/25/17 07:52 Resp 14 08/25/17 07:52 BP 115/63 08/25/17 07:00 Pulse Ox 93 L 08/25/17 07:52 Intake & Output 08/24/17 08/25/17 08/25/17 18:59 06:59 18:59 Intake Total 320 Output Total 700 100 Balance 320 -700 -100 Intake: Oral 320 Output: Urine 700 100 Other: Voiding Method Urinal Urinal # Voids 3 2 # Bowel Movements 0 - Exam - Constitutional General appearance: average body habitus, cooperative, disheveled, mild distress - EENT Eyes: EOMI, PERRLA, normal appearance ENT: hard of hearing, normal oropharynx Ears: bilateral: normal - Neck Neck: normal ROM Carotids: bilateral: upstroke normal, bruit absent Thyroid: bilateral: normal size - Respiratory Respiratory: bilateral: diminished (At the bases), rales (Predominantly on the right base), wheezing, prolonged expiration, negative: CTA, dullness, rhonchi, prolonged inspiration - Cardiovascular Heart sounds: normal: S1, S2 - Integumentary Integumentary: normal, normal turgor - Neurologic Neurologic: CNII-XII intact, focal deficits - Musculoskeletal Musculoskeletal: gait normal, generalized weakness, left sided weakness - Psychiatric Psychiatric: A&O x's 3, appropriate affect, intact judgment & insight - Labs CBC & Chem 7: 08/25/17 07:43 08/25/17 07:43 Labs: Abnormal Lab Results - Last 24 Hours (Table) 08/25/17 08/25/17 Range/Units 07:43 07:43 RBC 3.66 L (4.30-5.90) m/uL Hgb 11.3 L (13.0-17.5) gm/dL Hct 35.6 L (39.0-53.0) % BUN 8 L (9-20) mg/dL Creatinine 0.60 L (0.66-1.25) mg/dL Alkaline Phosphatase 134 H (38-126) U/L Total Protein 5.5 L (6.3-8.2) g/dL Albumin 2.8 L (3.5-5.0) g/dL Microbiology - Last 24 Hours (Table) 08/18/17 11:35 Blood Culture - Final Blood No Growth after 144 hours Assessment and Plan Assessment: Generalized weakness and medical debility due to complex and medical medical problems or issues as noted below Right lower lobe pneumonia, healthcare associated pneumonia or aspiration related (silent ) cannot be excluded however patient appears to be responding well with Zithromax and Rocephin would recommend to continue it and monitor observe a significant worsening of clinical status and x-ray so far has been noted Tremors predominantly on the left side may very well be an essential tremors however developing Parkinson's disease cannot be excluded as they were lesser intense with rest and worse with activity him a neurology following has been started on Sinemet tolerating well CVA with left hemiparesis Colon cancer status post chemoradiation and bowel resection Left hip fracture related to displace intertrochanteric fracture as well as left humeral fracture stable being monitored and observed by orthopedics no active intervention Chronic anemia Leukocytosis improved significantly Plan: As dictated above continue broad-spectrum antibiotics continue DVT and peptic ulcer disease prophylaxis continue supportive care will monitor observe clinical course closely we'll maintain on current antibiotics for now continue to monitor aspiration precautions however. Continue deep breathing exercises incentive spirometry patient can be discharged home from pulmonary standpoint the IV antibiotics can be switched to by mouth increase activity as tolerated we 'll follow closely during outpatient setting Time with Patient: Greater than 30
--- NOTE | 2017-08-25 13:48 | P.DS ---
Providers Date of admission: 08/18/17 15:18 Expected date of discharge: 08/25/17 Attending physician: Manny Askew Consults: 08/19/17 16:19 Consult Physician Routine Consulting Provider: Destin Arboleda Consult Reason/Comments: pneumonia Do you want consulting provider notified?: Yes 08/22/17 14:30 Consult Physician Routine Consulting Provider: Nereida Modi Consult Reason/Comments: left hand tremor Do you want consulting provider notified?: Yes Primary care physician: Manny Jamilah [facility] Course: Discharge diagnosis 1. Healthcare associated pneumonia and sepsis present on admission: Continue Rocephin and azithromycin. sputum culture growing normal respiratory caron. Blood culture, urine culture and throat culture negative. Influenza screen negative. Pulmonary service following. Patient will be discharged with 5 more days of azithromycin also continue Mucinex for 5 more days Patient seen by speech therapist with no evidence of aspiration. The recommending continuing regular diet with thin liquids 2. History of CVA 3. History of colon cancer status post chemo and radiation and bowel resection 4. Recent displaced trochanteric fracture of the left hip and a left humerus fracture. No surgical intervention per orthopedics. He had been at [facility] for rehabilitation. Physical therapy will be consulted to continue therapy treatment 5. Iron deficiency anemia continue iron supplement 6. 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 Patient evaluated by neurology. They have added Sinemet 10/100 mg 1 tablet twice a day. Symptoms are improving. The Sinemet can be increased over the next several weeks per neurology Hospital course This is a 77-year-old male with a known history of CVA , colon cancer and previous pneumonia. He did also recently been in the hospital in July 2017 after a fall with a displaced trochanteric fracture of the left hip as well as a left humerus fracture. He was seen by orthopedics and no surgical intervention but they recommended rehab. Patient had been at [facility] for rehabilitation. He was transferred from [facility] to [facility] with complaints of worsening shortness of breath feeling cold and a productive cough. He was found to have a temp of 102 white count 13.4 and chest x-ray showed interstitial edema versus atypical pneumonitis. Repeat chest x-ray shows possible right lower lobe pneumonia. Patient has been started on Rocephin and azithromycin and nebulizer treatments. He had also been complaining of a sore throat initial strep screen was negative. Influenza screen negative. EKG showed a normal sinus rhythm. Patient denies any chest pain, nausea or vomiting, bowel movement changes or urinary symptoms Patient was seen by pulmonary service he was maintained on IV antibiotics and bronchodilators. Sputum culture grew normal respiratory caron. Symptoms continued to improve. He has been afebrile and white count has normalized. Pulmonary service has cleared him for discharge. He will continue 5 more days of azithromycin and Mucinex. Patient was also seen by neurology regarding his left hand tremor that continued to worsen. They have diagnosed him with an assist showed left hand tremor and Parkinson's. They have added Sinemet. This can be increased as stated above. Patient's symptoms have improved. He has been cleared by consulting physicians. Patient will be discharged to [facility] for further rehabilitation. He'll be followed by Dr. Talbert at [facility] I performed an examination of the patient and discussed their management with the physician Hair Stylist. I have reviewed the Physician Hair Stylist's notes and agree with the documented findings and plan of care Patient Condition at Discharge: Stable Plan - Discharge Summary New Discharge Prescriptions: New Azithromycin [Zithromax] 500 mg PO DAILY #5 tab Carbidopa-Levodopa 10-100 mg [Sinemet 10-100 mg] 1 each PO BID tab guaiFENesin [Mucinex] 1,200 mg PO Q12HR #10 tablet.er Continue Primidone [Mysoline] 100 mg PO TID Aspirin EC [Ecotrin Low Dose] 81 mg PO DAILY Gabapentin [Neurontin] 300 mg PO HS Ferrous Sulfate [Iron (65 MG Elemental)] 325 mg PO BID tab HYDROcodone/APAP 10-325MG [[place] 10-325] 1 tab PO TID PRN #40 tab PRN Reason: Pain Discharge Medication List Aspirin EC [Ecotrin Low Dose] 81 mg PO DAILY 07/26/17 [History] Gabapentin [Neurontin] 300 mg PO HS 07/26/17 [History] Primidone [Mysoline] 100 mg PO TID 07/26/17 [History] Ferrous Sulfate [Iron (65 MG Elemental)] 325 mg PO BID tab 07/29/17 [Rx] Azithromycin [Zithromax] 500 mg PO DAILY #5 tab 08/25/17 [Rx] Carbidopa-Levodopa 10-100 mg [Sinemet 10-100 mg] 1 each PO BID tab 08/25/17 [Rx ] HYDROcodone/APAP 10-325MG [[place] 10-325] 1 tab PO TID PRN #40 tab 08/25/17 [Rx] guaiFENesin [Mucinex] 1,200 mg PO Q12HR #10 tablet.er 08/25/17 [Rx] Follow up Appointment(s)/Referral(s): Destin Arboleda MD [STAFF PHYSICIAN] - 1 Week Manny Askew MD [Primary Care Provider] - 1 Week Activity/Diet/Wound Care/Special Instructions: Diet: Regular Activity: as tolerated Discharge patient back to [facility]. Dr. Talbert to follow at [facility] Discharge Disposition: TRANSFER TO SNF/ECF
[2017-08-25 16:01] VITALS: PULSE 82
== END 2017-08-25 16:27 | DRG 871 ==
LOC: EC 11:13 → 4MS4W 15:18
PROVIDERS: ADMIT Internal Medicine; ATTEND Internal Medicine
DX: A41.9 Sepsis, unspecified organism (principal); J18.9 Pneumonia, unspecified organism; S72.143A Displaced intertrochanteric fracture of unspecified femur, initial encounter for closed fracture; G20 Parkinson's disease; I69.354 Hemiplegia and hemiparesis following cerebral infarction affecting left non-dominant side; S42.302A Unspecified fracture of shaft of humerus, left arm, initial encounter for closed fracture; D50.9 Iron deficiency anemia, unspecified; G25.0 Essential tremor; M48.00 Spinal stenosis, site unspecified; Z79.899 Other long term (current) drug therapy; Z79.82 Long term (current) use of aspirin; Z96.642 Presence of left artificial hip joint; Z92.21 Personal history of antineoplastic chemotherapy; Z91.81 History of falling; Z87.891 Personal history of nicotine dependence; Z87.01 Personal history of pneumonia (recurrent); Z85.048 Personal history of other malignant neoplasm of rectum, rectosigmoid junction, and anus; Z86.718 Personal history of other venous thrombosis and embolism; W19.XXXA Unspecified fall, initial encounter
CPT/HCPCS: 36415; 71046; 80053; 81001; 83605; 83880; 85025; 85610; 85730; 87040; 87070; 87086; 87205; 87430; 87502; 93005; 94640; 94760; 96365; 96375; 99291

== ENCOUNTER 2017-09-17 21:21 | Inpatient (IN) | payer MEDICARE, OTHER ==
[2017-09-17] MEDS ORDERED: ACETAMINOPHEN IV (For NPO) 1,000 MG in EMPTY BAG 1 BAG IVPB STA (21:50)
[2017-09-17] MEDS ORDERED: SODIUM CHLORIDE 0.9% 1,000 ML IV STA ×2 (21:50)
[2017-09-17 21:59] LABS: Basophils % (A) 0 %; Eosinophils % (A) 1 %; HCT 47.6 % (39.0-53.0); Lymphocytes # (A) 0.4 k/uL (1.0-4.8); Lymphocytes % (A) 7 %; MCHC 31.7 g/dL (31.0-37.0); MCV 97.7 fL (80.0-100.0); Mean Platelet Volume 7.4; Monocytes # (A) 0.3 k/uL (0-1.0); Monocytes % (A) 4 %; Neutrophils # (A) 5.8 k/uL (1.3-7.7); Neutrophils % (A) 88 %; Platelet Count 225 k/uL (150-450); RBC 4.87 m/uL (4.30-5.90); RDW 12.6 % (11.5-15.5); WBC 6.6 k/uL (3.8-10.6)
[2017-09-17 22:01] LABS: HGB 15.1 gm/dL (13.0-17.5)
--- NOTE | 2017-09-17 22:03 | ED ---
General Adult HPI - General Chief complaint: Nausea/Vomiting/Diarrhea Stated complaint: NVD Time Seen by Provider: 09/17/17 21:50 Source: patient, RN notes reviewed, old records reviewed Mode of arrival: EMS Limitations: no limitations - History of Present Illness Initial comments: This is a 77-year-old male the ER for evaluation and I'll pain. Bowel pain fever. Patient does have history of multiple abdominal surgeries. Patient was given Tylenol prior to arrival for evaluation of fever. Patient does have positive nausea vomiting. No current diarrhea. - Related Data Home Medications Medication Instructions Recorded Confirmed Aspirin EC [Ecotrin Low Dose] 81 mg PO DAILY@1700 07/26/17 09/17/17 Gabapentin [Neurontin] 300 mg PO HS 07/26/17 09/17/17 Primidone [Mysoline] 100 mg PO TID 07/26/17 09/17/17 Beneprotein 1 scoop PO BID 09/17/17 09/17/17 Bisacodyl [Dulcolax] 10 mg RECTAL DAILY PRN 09/17/17 09/17/17 Carbidopa-Levodopa 10-100 mg 1 tab PO BID 09/17/17 09/17/17 [Sinemet 10-100 mg] Magnesium Hydroxide [Milk of 2,400 mg PO DAILY PRN 09/17/17 09/17/17 Magnesia] Na Phos,M-B/Na Phos,Di-Ba [Fleet 133 ml RECTAL ONCE PRN 09/17/17 09/17/17 Adult] Previous Rx's Medication Instructions Recorded Ferrous Sulfate [Iron (65 MG 325 mg PO BID tab 07/29/17 Elemental)] guaiFENesin [Mucinex] 1,200 mg PO Q12HR #10 tablet.er 08/25/17 HYDROcodone/APAP 10-325MG [[place] 1 tab PO TID PRN #40 tab 09/22/17 10-325] Allergies Allergy/AdvReac Type Severity Reaction Status Date / Time No Known Allergies Allergy Verified 09/17/17 21:31 Review of Systems ROS Statement: Those systems with pertinent positive or pertinent negative responses have been documented in the HPI. ROS Other: All systems not noted in ROS Statement are negative. Past Medical History Past Medical History: Cancer, CVA/TIA, Deep Vein Thrombosis (DVT), Liver Disease , Pneumonia Additional Past Medical History / Comment(s): 11-06-16 FALL/FX RT HIP. DDD, SPINAL CANAL STENOSIS, COLON CA IN THE HAD SX CHEMO AND RADIATION, UTI(E COLI), left arm weakness-fx lt arm at shoulder-December 2014-remains painful , rectal carcinoma, elevated liver enzymes, walker use,recent falls,PAST CVA AFFECTED LT SIDE. History of Any Multi-Drug Resistant Organisms: None Reported Past Surgical History: Appendectomy, Back Surgery, Bowel Resection, Cholecystectomy, Joint Replacement, Orthopedic Surgery Additional Past Surgical History / Comment(s): GASTRECTOMY, L hip replacement, spinal surgery, RT ANKLE SX , 5 broken ribs, left arm fracture Past Anesthesia/Blood Transfusion Reactions: No Reported Reaction Additional Past Anesthesia/Blood Transfusion Reaction / Comment(s): no hx at ECF Past Psychological History: No Psychological Hx Reported Smoking Status: Former smoker Past Alcohol Use History: Occasional Past Drug Use History: None Reported - Past Family History Father Family Medical History: Unable to Obtain Additional Family Medical History / Comment(s): heart problems Mother Family Medical History: Diabetes Mellitus General Exam Limitations: no limitations General appearance: alert, in no apparent distress Head exam: Present: atraumatic, normocephalic, normal inspection Eye exam: Present: normal appearance, PERRL, EOMI. Absent: scleral icterus, conjunctival injection, periorbital swelling ENT exam: Present: normal exam, mucous membranes moist Neck exam: Present: normal inspection. Absent: tenderness, meningismus, lymphadenopathy Respiratory exam: Present: normal lung sounds bilaterally. Absent: respiratory distress, wheezes, rales, rhonchi, stridor Cardiovascular Exam: Present: normal rhythm, tachycardia, normal heart sounds. Absent: systolic murmur, diastolic murmur, rubs, gallop, clicks GI/Abdominal exam: Present: soft, normal bowel sounds. Absent: distended, tenderness, guarding, rebound, rigid Extremities exam: Present: normal inspection, full ROM, normal capillary refill. Absent: tenderness, pedal edema, joint swelling, calf tenderness Back exam: Present: normal inspection Neurological exam: Present: alert, oriented X3, CN II-XII intact Psychiatric exam: Present: normal affect, normal mood Skin exam: Present: warm, dry, intact, normal color. Absent: rash Course Vital Signs 09/17/17 09/17/17 09/18/17 21:25 23:00 00:18 Temperature 100.2 F H 101.6 F H Pulse Rate 107 H 98 100 Respiratory 20 18 20 Rate Blood Pressure 137/63 123/59 124/59 O2 Sat by Pulse 97 97 98 Oximetry 09/18/17 00:49 Temperature 98.8 F Pulse Rate 94 Respiratory 18 Rate Blood Pressure 112/56 O2 Sat by Pulse 98 Oximetry Medical Decision Making - Medical Decision Making 77 male the ER with continued nausea vomiting, ileus, fever. Patient be admitted for fever control symptom control and rehydration - Lab Data Result diagrams: 09/22/17 07:14 09/22/17 07:14 Lab Results 09/17/17 09/17/17 09/17/17 Range/Units 21:24 21:31 21:31 WBC 6.6 (3.8-10.6) k/uL RBC 4.87 (4.30-5.90) m/uL Hgb 15.1 D (13.0-17.5) gm/dL Hct 47.6 (39.0-53.0) % MCV 97.7 (80.0-100.0) fL MCH 31.0 (25.0-35.0) pg MCHC 31.7 (31.0-37.0) g/dL RDW 12.6 (11.5-15.5) % Plt Count 225 (150-450) k/uL Neutrophils % 88 % Lymphocytes % 7 % Monocytes % 4 % Eosinophils % 1 % Basophils % 0 % Neutrophils # 5.8 (1.3-7.7) k/uL Lymphocytes # 0.4 L (1.0-4.8) k/uL Monocytes # 0.3 (0-1.0) k/uL Eosinophils # 0.0 (0-0.7) k/uL Basophils # 0.0 (0-0.2) k/uL PT (9.0-12.0) sec INR (<1.2) APTT (22.0-30.0) sec Sodium (137-145) mmol/L Potassium (3.5-5.1) mmol/L Chloride (98-107) mmol/L Carbon Dioxide (22-30) mmol/L Anion Gap mmol/L BUN (9-20) mg/dL Creatinine (0.66-1.25) mg/dL Est GFR (MDRD) Af Amer (>60 ml/min/1.73 sqM) Est GFR (MDRD) Non-Af (>60 ml/min/1.73 sqM) Glucose (74-99) mg/dL Plasma Lactic Acid Rahul (0.7-2.0) mmol/L Calcium (8.4-10.2) mg/dL Phosphorus (2.5-4.5) mg/dL Magnesium (1.6-2.3) mg/dL Total Bilirubin (0.2-1.3) mg/dL AST (17-59) U/L ALT (21-72) U/L Alkaline Phosphatase (38-126) U/L Total Creatine Kinase 116 (55-170) U/L CK-MB (CK-2) 0.6 (0.0-2.4) ng/mL CK-MB (CK-2) Rel Index 0.5 Troponin I <0.012 (0.000-0.034) ng/mL Total Protein (6.3-8.2) g/dL Albumin (3.5-5.0) g/dL Influenza Type A RNA Not Detected (Not Detectd) Influenza Type B (PCR) Not Detected (Not Detectd) 09/17/17 09/17/17 09/17/17 Range/Units 21:31 21:31 21:31 WBC (3.8-10.6) k/uL RBC (4.30-5.90) m/uL Hgb (13.0-17.5) gm/dL Hct (39.0-53.0) % MCV (80.0-100.0) fL MCH (25.0-35.0) pg MCHC (31.0-37.0) g/dL RDW (11.5-15.5) % Plt Count (150-450) k/uL Neutrophils % % Lymphocytes % % Monocytes % % Eosinophils % % Basophils % % Neutrophils # (1.3-7.7) k/uL Lymphocytes # (1.0-4.8) k/uL Monocytes # (0-1.0) k/uL Eosinophils # (0-0.7) k/uL Basophils # (0-0.2) k/uL PT 9.6 (9.0-12.0) sec INR 1.0 (<1.2) APTT 21.5 L (22.0-30.0) sec Sodium 134 L (137-145) mmol/L Potassium 4.7 (3.5-5.1) mmol/L Chloride 98 (98-107) mmol/L Carbon Dioxide 28 (22-30) mmol/L Anion Gap 8 mmol/L BUN 16 (9-20) mg/dL Creatinine 0.64 L (0.66-1.25) mg/dL Est GFR (MDRD) Af Amer >60 (>60 ml/min/1.73 sqM) Est GFR (MDRD) Non-Af >60 (>60 ml/min/1.73 sqM) Glucose 135 H (74-99) mg/dL Plasma Lactic Acid Rahul 1.1 (0.7-2.0) mmol/L Calcium 9.0 (8.4-10.2) mg/dL Phosphorus 2.4 L (2.5-4.5) mg/dL Magnesium 1.6 (1.6-2.3) mg/dL Total Bilirubin 0.4 (0.2-1.3) mg/dL AST 52 (17-59) U/L ALT 32 (21-72) U/L Alkaline Phosphatase 166 H (38-126) U/L Total Creatine Kinase (55-170) U/L CK-MB (CK-2) (0.0-2.4) ng/mL CK-MB (CK-2) Rel Index Troponin I (0.000-0.034) ng/mL Total Protein 7.5 (6.3-8.2) g/dL Albumin 4.0 (3.5-5.0) g/dL Influenza Type A RNA (Not Detectd) Influenza Type B (PCR) (Not Detectd) - Radiology Data Radiology results: report reviewed (CT of pelvis positive for likely ileus), image reviewed Disposition Clinical Impression: Dehydration, Fever, Ileus, Weakness, Nausea & vomiting Disposition: ADMITTED IP TO THIS HOSP Condition: Stable
[2017-09-17 22:13] LABS: Prothrombin Time 9.6 sec (9.0-12.0)
[2017-09-17 22:17] LABS: ALT 32 U/L (21-72); AST 52 U/L (17-59); Alkaline Phosphatase 166 U/L (38-126); Anion Gap 8 mmol/L; Blood Urea Nitrogen 16 mg/dL (9-20); Carbon Dioxide 28 mmol/L (22-30); Chloride 98 mmol/L (98-107); Glucose 135 mg/dL (74-99); Magnesium 1.6 mg/dL (1.6-2.3); Phosphorus 2.4 mg/dL (2.5-4.5); Sodium 134 mmol/L (137-145); Total Bilirubin 0.4 mg/dL (0.2-1.3); Total Protein 7.5 g/dL (6.3-8.2)
[2017-09-17 22:20] LABS: Creatine Kinase 116 U/L (55-170)
[2017-09-17 22:22] LABS: Potassium 4.7 mmol/L (3.5-5.1)
[2017-09-17 22:26] LABS: Partial Thromboplastin Time 21.5 sec (22.0-30.0)
[2017-09-17 22:33] LABS: Creatine Kinase MB 0.6 ng/mL (0.0-2.4); Troponin I <0.012 ng/mL (0.000-0.034)
--- NOTE | 2017-09-17 23:32 | XR ---
EXAMINATION TYPE: XR abdomen acute w cxr DATE OF EXAM: 09/17/2017 COMPARISON: NONE HISTORY: Pain TECHNIQUE: 4 views FINDINGS: There is no sign of intestinal obstruction or pneumoperitoneum. Fecal pattern is normal. Lungs are cl ear of consolidation. There is no heart failure. Thoracic aorta is atheromatous. There is no sign of pleural effusion. There is bilateral hip surgery. There is lower lumbar spine posterior fusion surger y. There are no pathologic calcifications over the kidneys. IMPRESSION: Nonacute abdomen. No active cardiopulmonary disease.
[2017-09-17] MEDS ORDERED: RX INFO: IV CONTRAST WAS GIVEN 1 EACH MISC MISCELLANE PRN (23:57)
[2017-09-18] MEDS ORDERED: IBUPROFEN 600 MG TAB PO STA (00:26)
[2017-09-18] MEDS ORDERED: ACETAMINOPHEN TAB 325 MG TAB PO STA (00:26)
--- NOTE | 2017-09-18 00:46 | CT ---
EXAMINATION TYPE: CT abdomen pelvis w con DATE OF EXAM: 09/18/2017 COMPARISON: 04/18/2015 HISTORY: Prior on synapse, abd pain, vomiting and diarrhea, pt has partial gastrectomy, appendectomy and cholecystectomy CT DLP: 1031.20 mGycm Automated exposure control for dose reduction was used. TECHNIQUE: Helical acquisition of images was performed from the lung bases through the pelvis. CONTRAST: Performed without Oral Contrast and with IV Contrast, patient injected with 100 mL of Omnipaque 300. FINDINGS: There is subpleural reticular interstitial density at the lung bases consistent with fibrosis. There is no pleural effusion. Heart size is normal. Liver shows no focal defect. Bile ducts are not dilated. There are clips from cholecystectomy. There is no pancreatic mass. Spleen appears normal. There is no adrenal mass. Kidneys show satisfactory con trast opacification. There is no hydronephrosis. There is no retroperitoneal adenopathy. There are a few fluid-filled mildly distended loops of small bowel in the mid abdomen. These measure up to 2.5 cm . Bladder distends smoothly. There is a left hip prosthesis. There is no ascites. There is no sign of free air. There is no sign of a hernia. There is metal artifact from posterior lumbar spine fusion s urgery. There are multiple mild compression fractures in the thoracic and lumbar spine. These appear not significantly different than old exam. There is a first-degree L5-S1 spondylolisthesis. IMPRESSION: THERE IS EVIDENCE OF MILD SMALL BOWEL ILEUS. FIBROTIC CHANGES AT THE LUNG BASES. THERE IS CLEARING OF THE DILATED BILIARY TREE COMPARED TO OLD EXAM. NO DILATED DUCTS.
[2017-09-18] MEDS ORDERED: ONDANSETRON 4 MG/2 ML VIAL IVP STA (00:51)
[2017-09-18] MEDS ORDERED: ACETAMINOPHEN TAB 325 MG TAB PO PRN (00:51)
[2017-09-18] MEDS ORDERED: MORPHINE SULFATE 4 MG/ML SYRINGE IVP STA (00:51)
[2017-09-18] MEDS ORDERED: SODIUM CHLORIDE 0.9% 1,000 ML IV ONE (00:51)
[2017-09-18] MEDS ORDERED: MORPHINE SULFATE 4 MG/ML SYRINGE IVP PRN (00:51)
[2017-09-18] MEDS ORDERED: ONDANSETRON 4 MG/2 ML VIAL IVP PRN (00:51)
[2017-09-18] MEDS ORDERED: AMPICILLIN-SULBACTAM 3 GM in SODIUM CHLORIDE 0.9% 100 ML IVPB STA (00:53)
[2017-09-18] MEDS ORDERED: MAGNESIUM HYDROXIDE 2,400 MG/10 ML CUP PO PRN (08:52)
[2017-09-18] MEDS ORDERED: HYDROcodone/APAP 10-325MG 1 EACH TAB PO PRN (08:52)
[2017-09-18] MEDS ORDERED: BISACODYL 10 MG SUPP RECTAL PRN (08:52)
[2017-09-18] MEDS ORDERED: PROTEIN SUPPLEMENT PO SCH (09:00)
[2017-09-18] MEDS: FERROUS SULFATE 325 MG TAB PO SCH ×2 (09:09→21:25)
[2017-09-18] MEDS: CARBIDOPA-LEVODOPA 10-100 MG 1 EACH TAB PO SCH ×2 (09:10→21:25)
[2017-09-18] MEDS: guaiFENesin 600 MG TABLET.ER PO SCH ×2 (09:10→21:25)
[2017-09-18] MEDS: PANTOPRAZOLE 40 MG/10 ML VIAL IVP SCH (09:11)
[2017-09-18] MEDS: PRIMIDONE 50 MG TAB PO SCH ×3 (09:11→21:25)
[2017-09-18] MEDS: ENOXAPARIN 40 MG/0.4 ML SYRINGE SQ SCH (09:11)
[2017-09-18 09:40] LABS: ALT 39 U/L (21-72); AST 35 U/L (17-59); Albumin 2.7 g/dL (3.5-5.0); Alkaline Phosphatase 108 U/L (38-126); Anion Gap 7 mmol/L; Blood Urea Nitrogen 14 mg/dL (9-20); Calcium 8.2 mg/dL (8.4-10.2); Carbon Dioxide 26 mmol/L (22-30); Chloride 105 mmol/L (98-107); Glucose 92 mg/dL (74-99); Sodium 138 mmol/L (137-145); Total Bilirubin 0.2 mg/dL (0.2-1.3); Total Protein 5.2 g/dL (6.3-8.2)
[2017-09-18 10:26] LABS: Basophils % (A) 0 %; Eosinophils # (A) 0.1 k/uL (0-0.7); Eosinophils % (A) 2 %; Lymphocytes # (A) 0.9 k/uL (1.0-4.8); Lymphocytes % (A) 19 %; MCH 30.8 pg (25.0-35.0); MCHC 31.9 g/dL (31.0-37.0); MCV 96.7 fL (80.0-100.0); Mean Platelet Volume 7.2; Monocytes # (A) 0.3 k/uL (0-1.0); Monocytes % (A) 6 %; Neutrophils # (A) 3.6 k/uL (1.3-7.7); Neutrophils % (A) 72 %; Platelet Count 195 k/uL (150-450); RBC 3.93 m/uL (4.30-5.90); RDW 12.7 % (11.5-15.5)
[2017-09-18 10:32] LABS: HGB 12.1 gm/dL (13.0-17.5)
--- NOTE | 2017-09-18 10:38 | XR ---
EXAMINATION TYPE: XR chest 1V portable DATE OF EXAM: 09/18/2017 COMPARISON: 09/17/2017 HISTORY: Rehabilitation placement TECHNIQUE: Single frontal view of the chest is obtained. FINDINGS: There is no focal air space opacity, pleural effusion, or pneumothorax seen. The cardiac silhouette size is within normal limits. The osseous structures are intact. Elevated right hemidiap hragm noted. Diffuse osteopenia and arthropathy shoulders with evidence of remote trauma involving th e left shoulder. Underlying COPD suspected. IMPRESSION: No acute process.
[2017-09-18 10:53] LABS: Mucus,Urine Rare /hpf; Squamous Epithelial Cell,Urine <1 /hpf (0-4)
[2017-09-18 10:54] LABS: Appearance,Urine Clear (Clear); Color,Urine Yellow; Glucose,Urine (UA) Negative (Negative); Protein,Urine Negative (Negative); Specific Gravity,Urine 1.015 (1.001-1.035)
[2017-09-18 10:55] LABS: Bilirubin,Urine 2+ (Negative); Blood,Urine Negative (Negative); Ketones,Urine Negative (Negative); Leukocyte Esterase,Urine Negative (Negative); Nitrite,Urine Negative (Negative); Urobilinogen,Urine <2.0 mg/dL (<2.0)
--- NOTE | 2017-09-18 13:30 | P.HPIM ---
History of Present Illness H&P Date: 09/18/17 Chief Complaint: Vomiting diarrhea and fever This is a 77-year-old male with a known history of colon cancer status post chemo and radiation treatment in 1989 and bowel resection, CVA, Parkinson's, recent displaced trochanteric fracture of the left hip and left humerus fracture. No surgical intervention per orthopedics. He has been undergoing rehab at [facility]. Patient was recently hospitalized in August for pneumonia with sepsis. He has been at [facility] and presented to the emergency room due to multiple episodes of diarrhea vomiting and fever. Patient had a temp of 101.6 last night. He had a computed tomography scan of the abdomen showing a small bowel ileus. Fibrotic changes at the lung bases. Chest x-ray was negative. Influenza swab negative. Blood culture and urine culture pending. Consult has been placed for infectious disease and surgical service. Patient reports that his symptoms started yesterday. Reports no blood in the stool or the vomit. Patient was given 1 dose of Unasyn in the emergency room. He is currently on IV fluids. Stool study for C. diff and oral virus have been ordered. Patient denies any abdominal pain. Denies any chest pain or shortness of breath. Denies any burning with urination. Review of Systems Please refer to HPI otherwise unremarkable Past Medical History Past Medical History: Cancer, CVA/TIA, Deep Vein Thrombosis (DVT), Liver Disease , Pneumonia Additional Past Medical History / Comment(s): 11-06-16 FALL/FX RT HIP. DDD, SPINAL CANAL STENOSIS, COLON CA IN THE HAD SX CHEMO AND RADIATION, UTI(E COLI), left arm weakness-fx lt arm at shoulder-December 2014-remains painful , rectal carcinoma, elevated liver enzymes, walker use,recent falls,PAST CVA AFFECTED LT SIDE. History of Any Multi-Drug Resistant Organisms: None Reported Past Surgical History: Appendectomy, Back Surgery, Bowel Resection, Cholecystectomy, Joint Replacement, Orthopedic Surgery Additional Past Surgical History / Comment(s): GASTRECTOMY, L hip replacement, spinal surgery, RT ANKLE SX , 5 broken ribs, left arm fracture Past Anesthesia/Blood Transfusion Reactions: No Reported Reaction Additional Past Anesthesia/Blood Transfusion Reaction / Comment(s): no hx at F Past Psychological History: No Psychological Hx Reported Additional Psychological History / Comment(s): client lives at [facility] Smoking Status: Former smoker Past Alcohol Use History: Occasional Additional Past Alcohol Use History / Comment(s): SMOKED FOR 37 YEARS QUIT 1995 Past Drug Use History: None Reported - Past Family History Father Family Medical History: Unable to Obtain Additional Family Medical History / Comment(s): heart problems Mother Family Medical History: Diabetes Mellitus Medications and Allergies Home Medications Medication Instructions Recorded Confirmed Type Aspirin EC [Ecotrin Low Dose] 81 mg PO DAILY@1700 07/26/17 09/17/17 History Gabapentin [Neurontin] 300 mg PO HS 07/26/17 09/17/17 History Primidone [Mysoline] 100 mg PO TID 07/26/17 09/17/17 History Ferrous Sulfate [Iron (65 MG 325 mg PO BID tab 07/29/17 09/17/17 Rx Elemental)] HYDROcodone/APAP 10-325MG [[place] 1 tab PO TID PRN #40 tab 08/25/17 09/17/17 Rx 10-325] guaiFENesin [Mucinex] 1,200 mg PO Q12HR #10 tablet.er 08/25/17 09/17/17 Rx Beneprotein 1 scoop PO BID 09/17/17 09/17/17 History Bisacodyl [Dulcolax] 10 mg RECTAL DAILY PRN 09/17/17 09/17/17 History Carbidopa-Levodopa 10-100 mg 1 tab PO BID 09/17/17 09/17/17 History [Sinemet 10-100 mg] Magnesium Hydroxide [Milk of 2,400 mg PO DAILY PRN 09/17/17 09/17/17 History Magnesia] Na Phos,M-B/Na Phos,Di-Ba [Fleet 133 ml RECTAL ONCE PRN 09/17/17 09/17/17 History Adult] Allergies Allergy/AdvReac Type Severity Reaction Status Date / Time No Known Allergies Allergy Verified 09/17/17 21:31 Physical Exam Vitals: Vital Signs Temp Pulse Pulse Resp BP BP Pulse Ox 09/18/17 09:07 97.2 F L 79 16 120/58 99 09/18/17 08:00 16 09/18/17 01:54 98.5 F 92 18 117/66 09/18/17 00:49 98.8 F 94 18 112/56 98 09/18/17 00:18 100 20 124/59 98 09/17/17 23:00 101.6 F H 98 18 123/59 97 09/17/17 21:25 100.2 F H 107 H 20 137/63 97 Intake and Output 09/17/17 09/18/17 09/18/17 22:59 06:59 14:59 Intake Total 400 Output Total 400 500 Balance 0 -500 Intake: Intake, IV Titration 400 Amount Sodium Chloride 0.9% 1, 400 000 ml @ 100 mls/hr IV . Q10H ONE Rx#:[id number] Output: Urine 400 500 Other: Voiding Method Diaper Diaper Urinal Diaper # Voids 2 Weight 68.039 kg Head normocephalic Neck supple Lungs clear to auscultation bilaterally no wheezing or crackles Heart regular rate and rhythm S1-S2, no rub or gallop Abdomen is soft nontender nondistended positive bowel sounds no hepatosplenomegaly Extremities no edema Neuro alert and orientated to 3 Results CBC & Chem 7: 09/18/17 09:12 09/18/17 09:12 Labs: Abnormal Lab Results - Last 24 Hours (Table) 09/17/17 09/17/17 09/17/17 Range/Units 21:31 21:31 21:31 RBC (4.30-5.90) m/uL Hgb (13.0-17.5) gm/dL Hct (39.0-53.0) % Lymphocytes # 0.4 L (1.0-4.8) k/uL APTT 21.5 L (22.0-30.0) sec Sodium 134 L (137-145) mmol/L Creatinine 0.64 L (0.66-1.25) mg/dL Glucose 135 H (74-99) mg/dL Calcium (8.4-10.2) mg/dL Phosphorus 2.4 L (2.5-4.5) mg/dL Alkaline Phosphatase 166 H (38-126) U/L Total Protein (6.3-8.2) g/dL Albumin (3.5-5.0) g/dL Urine Bilirubin (Negative) Urine Mucus (None) /hpf 09/18/17 09/18/17 09/18/17 Range/Units 09:12 09:12 10:00 RBC 3.93 L (4.30-5.90) m/uL Hgb 12.1 L D (13.0-17.5) gm/dL Hct 38.0 L (39.0-53.0) % Lymphocytes # 0.9 L (1.0-4.8) k/uL APTT (22.0-30.0) sec Sodium (137-145) mmol/L Creatinine 0.60 L (0.66-1.25) mg/dL Glucose (74-99) mg/dL Calcium 8.2 L (8.4-10.2) mg/dL Phosphorus (2.5-4.5) mg/dL Alkaline Phosphatase (38-126) U/L Total Protein 5.2 L (6.3-8.2) g/dL Albumin 2.7 L (3.5-5.0) g/dL Urine Bilirubin 2+ H (Negative) Urine Mucus Rare H (None) /hpf Thrombosis Risk Factor Assmnt - Choose All That Apply Any of the Below Risk Factors Present?: Yes Each Factor Represents 1 point: Medical pt on bed rest Other Risk Factors: Yes Each Risk Factor Represents 2 Points: Patient confined to bed Each Risk Factor Represents 3 Points: Age 75 years or older, History of DVT/PE Each Risk Factor Represents 5 Points: Hip, pelvis, or leg fracture (< 1 month) Thrombosis Risk Factor Assessment Total Risk Factor Score: 14 Thrombosis Risk Factor Assessment Level: High Risk Assessment and Plan Assessment: 1. Vomiting, diarrhea and fever as high as 101.6. Recent antibiotic use. Check stool for C. diff. Check stool for norovirus. Continue IV fluid hydration. Consult infectious disease 2. Computed tomography scan abdomen and pelvis showing a small bowel ileus. Consult surgery. 3. History of colon cancer with chemotherapy and radiation treatment and bowel resection 4. History of CVA 5. Recent pneumonia. Chest x-ray negative 6. Recent displaced trochanteric fracture of the left hip and left humerus fracture. No surgical intervention per orthopedics. Patient undergoing rehabilitation at [facility] 7. Parkinson's continue Sinemet GI prophylaxis Protonix and DVT prophylaxis Lovenox Time with Patient: Greater than 30 (Greater than 50% of the total time spent in counseling and coordination of care.I performed an examination of the patient and discussed their management with the physician Oncology Rn. I have reviewed the Physician Oncology Rn's notes and agree with the documented findings and plan of care)
[2017-09-18] MEDS: SODIUM CHLORIDE 0.9% 1,000 ML IV SCH ×2 (14:00→23:41)
[2017-09-18] MEDS: ASPIRIN 81 MG PO SCH (15:37)
--- NOTE | 2017-09-18 20:44 | P.GSCN ---
History of Present Illness Consult date: 09/18/17 Reason for Consult: Abdominal pain History of present illness: Patient hospitalized with primary complaints of intractable diarrhea some vomiting and some abdominal pain. He recently fell and is currently at [facility] rehabilitating. He was found have elevated fevers as high as 101.6. C. diff was checked and is normal. Normal virus is pending. Infectious disease is also consulted. Says his pain is improved currently. No recent travel. He is hungry. White blood cell count is normal. CAT scan abdomen and pelvis revealed some mildly dilated small bowel loops without definite obstruction. This would be consistent with enteritis. He is a history of previous rectal cancer and states he had did have surgical resection. Review of Systems The patient denies any acute changes in vision or hearing, no dysphagia or odynophagia, no chest pain or shortness of breath, no dysuria or hematuria, no headache, no runny nose, no rectal bleeding or melena, no unexplained weight loss Past Medical History Past Medical History: Cancer, CVA/TIA, Deep Vein Thrombosis (DVT), Liver Disease , Pneumonia Additional Past Medical History / Comment(s): 11-06-16 FALL/FX RT HIP. DDD, SPINAL CANAL STENOSIS, COLON CA IN THE HAD SX CHEMO AND RADIATION, UTI(E COLI), left arm weakness-fx lt arm at shoulder-December 2014-remains painful , rectal carcinoma, elevated liver enzymes, walker use,recent falls,PAST CVA AFFECTED LT SIDE. History of Any Multi-Drug Resistant Organisms: None Reported Past Surgical History: Appendectomy, Back Surgery, Bowel Resection, Cholecystectomy, Joint Replacement, Orthopedic Surgery Additional Past Surgical History / Comment(s): GASTRECTOMY, L hip replacement, spinal surgery, RT ANKLE SX , 5 broken ribs, left arm fracture Past Anesthesia/Blood Transfusion Reactions: No Reported Reaction Additional Past Anesthesia/Blood Transfusion Reaction / Comm: no hx at F Past Psychological History: No Psychological Hx Reported Additional Psychological History / Comment(s): client lives at [facility] Smoking Status: Former smoker Past Alcohol Use History: Occasional Additional Past Alcohol Use History / Comment(s): SMOKED FOR 37 YEARS QUIT 1995 Past Drug Use History: None Reported - Past Family History Father Family Medical History: Unable to Obtain Additional Family Medical History / Comment(s): heart problems Mother Family Medical History: Diabetes Mellitus Medications and Allergies Home Medications Medication Instructions Recorded Confirmed Type Aspirin EC [Ecotrin Low Dose] 81 mg PO DAILY@1700 07/26/17 09/17/17 History Gabapentin [Neurontin] 300 mg PO HS 07/26/17 09/17/17 History Primidone [Mysoline] 100 mg PO TID 07/26/17 09/17/17 History Ferrous Sulfate [Iron (65 MG 325 mg PO BID tab 07/29/17 09/17/17 Rx Elemental)] HYDROcodone/APAP 10-325MG [Lacey 1 tab PO TID PRN #40 tab 08/25/17 09/17/17 Rx 10-325] guaiFENesin [Mucinex] 1,200 mg PO Q12HR #10 tablet.er 08/25/17 09/17/17 Rx Beneprotein 1 scoop PO BID 09/17/17 09/17/17 History Bisacodyl [Dulcolax] 10 mg RECTAL DAILY PRN 09/17/17 09/17/17 History Carbidopa-Levodopa 10-100 mg 1 tab PO BID 09/17/17 09/17/17 History [Sinemet 10-100 mg] Magnesium Hydroxide [Milk of 2,400 mg PO DAILY PRN 09/17/17 09/17/17 History Magnesia] Na Phos,M-B/Na Phos,Di-Ba [Fleet 133 ml RECTAL ONCE PRN 09/17/17 09/17/17 History Adult] Allergies Allergy/AdvReac Type Severity Reaction Status Date / Time No Known Allergies Allergy Verified 09/17/17 21:31 Surgical - Exam Vital Signs Temp Pulse Resp BP Pulse Ox 100.2 F H 107 H 20 137/63 97 09/17/17 21:25 09/17/17 21:25 09/17/17 21:25 09/17/17 21:25 09/17/17 21:25 Physical exam: General: Well-developed, well-nourished HEENT: Normocephalic, sclerae nonicteric Abdomen: Nontender, nondistended Extremities: No edema Neuro: Alert and oriented Results - Labs 09/18/17 09:12 09/18/17 09:12 Abnormal Lab Results - Last 24 Hours (Table) 09/17/17 09/17/17 09/17/17 Range/Units 21:31 21:31 21:31 RBC (4.30-5.90) m/uL Hgb (13.0-17.5) gm/dL Hct (39.0-53.0) % Lymphocytes # 0.4 L (1.0-4.8) k/uL APTT 21.5 L (22.0-30.0) sec Sodium 134 L (137-145) mmol/L Creatinine 0.64 L (0.66-1.25) mg/dL Glucose 135 H (74-99) mg/dL Calcium (8.4-10.2) mg/dL Phosphorus 2.4 L (2.5-4.5) mg/dL Alkaline Phosphatase 166 H (38-126) U/L Total Protein (6.3-8.2) g/dL Albumin (3.5-5.0) g/dL Urine Bilirubin (Negative) Urine Mucus (None) /hpf 09/18/17 09/18/17 09/18/17 Range/Units 09:12 09:12 10:00 RBC 3.93 L (4.30-5.90) m/uL Hgb 12.1 L D (13.0-17.5) gm/dL Hct 38.0 L (39.0-53.0) % Lymphocytes # 0.9 L (1.0-4.8) k/uL APTT (22.0-30.0) sec Sodium (137-145) mmol/L Creatinine 0.60 L (0.66-1.25) mg/dL Glucose (74-99) mg/dL Calcium 8.2 L (8.4-10.2) mg/dL Phosphorus (2.5-4.5) mg/dL Alkaline Phosphatase (38-126) U/L Total Protein 5.2 L (6.3-8.2) g/dL Albumin 2.7 L (3.5-5.0) g/dL Urine Bilirubin 2+ H (Negative) Urine Mucus Rare H (None) /hpf Microbiology - Last 24 Hours (Table) 09/18/17 10:00 Urine Culture - Preliminary Urine,Clean Catch Diabetes panel 09/17/17 09/18/17 Range/Units 21:31 09:12 Sodium 134 L 138 (137-145) mmol/L Potassium 4.7 4.0 (3.5-5.1) mmol/L Chloride 98 105 (98-107) mmol/L Carbon Dioxide 28 26 (22-30) mmol/L BUN 16 14 (9-20) mg/dL Creatinine 0.64 L 0.60 L (0.66-1.25) mg/dL Glucose 135 H 92 (74-99) mg/dL Calcium 9.0 8.2 L (8.4-10.2) mg/dL AST 52 35 (17-59) U/L ALT 32 39 (21-72) U/L Alkaline Phosphatase 166 H 108 (38-126) U/L Total Protein 7.5 5.2 L (6.3-8.2) g/dL Albumin 4.0 2.7 L (3.5-5.0) g/dL Calcium panel 09/17/17 09/18/17 Range/Units 21:31 09:12 Calcium 9.0 8.2 L (8.4-10.2) mg/dL Phosphorus 2.4 L (2.5-4.5) mg/dL Albumin 4.0 2.7 L (3.5-5.0) g/dL Pituitary panel 09/17/17 09/18/17 Range/Units 21:31 09:12 Sodium 134 L 138 (137-145) mmol/L Potassium 4.7 4.0 (3.5-5.1) mmol/L Chloride 98 105 (98-107) mmol/L Carbon Dioxide 28 26 (22-30) mmol/L BUN 16 14 (9-20) mg/dL Creatinine 0.64 L 0.60 L (0.66-1.25) mg/dL Glucose 135 H 92 (74-99) mg/dL Calcium 9.0 8.2 L (8.4-10.2) mg/dL Adrenal panel 18 09/18/17 Range/Units 21:31 09:12 Sodium 134 L 138 (137-145) mmol/L Potassium 4.7 4.0 (3.5-5.1) mmol/L Chloride 98 105 (98-107) mmol/L Carbon Dioxide 28 26 (22-30) mmol/L BUN 16 14 (9-20) mg/dL Creatinine 0.64 L 0.60 L (0.66-1.25) mg/dL Glucose 135 H 92 (74-99) mg/dL Calcium 9.0 8.2 L (8.4-10.2) mg/dL Total Bilirubin 0.4 0.2 (0.2-1.3) mg/dL AST 52 35 (17-59) U/L ALT 32 39 (21-72) U/L Alkaline Phosphatase 166 H 108 (38-126) U/L Total Protein 7.5 5.2 L (6.3-8.2) g/dL Albumin 4.0 2.7 L (3.5-5.0) g/dL Assessment and Plan (1) Enteritis Narrative/Plan: Continue gradually advancing diet. Await neurovirus results. Will follow with you. Current Visit: Yes Status: Acute Code(s): K52.9 - NONINFECTIVE GASTROENTERITIS AND COLITIS, UNSPECIFIED SNOMED Code(s): 14450795
[2017-09-18] MEDS: GABAPENTIN 300 MG CAP PO SCH (21:25)
[2017-09-18] MEDS: metroNIDAZOLE 500 MG TAB PO SCH (23:41)
[2017-09-18] MEDS: cefTRIAXone IN SWFI 1,000 MG/10 ML SYRINGE IVP SCH (23:41)
--- NOTE | 2017-09-19 06:06 | CONS ---
CONSULTATION DATE OF CONSULTATION: 09/18/2017. REASON FOR CONSULTATION: Fever and diarrhea. HISTORY OF PRESENT ILLNESS: The patient is a 77-year-old male who recently did have a trochanteric fracture of the left hip and left femur fracture after a fall: No surgical intervention per Orthopedics and the patient has been undergoing rehab at [facility]. Also treated for pneumonia with sepsis in August. The patient has been sent to the ER at [facility] with concern for fever, nausea and vomiting along with diarrhea. The patient's symptoms had been going on for a day prior to presentation to hospital. The patient did have multiple episodes of vomiting as well as loose stool. No blood or mucus in the stools. The patient did have some pain for 1 day before presentation to hospital. The pain is mostly in the abdominal area, was mostly colicky 3-4 out of 10 and no radiation. However, the patient did have pain seemed to have resolved. The patient has been evaluated by the ER physician. On arrival to the ER the patient did have a fever of 100.2-101.6. His white count was not elevated. The patient did have stool for Clostridium difficile, which came back negative. Influenza serology was negative. CT abdomen and pelvis was suspicious for enteritis. He did receive a dose of Unasyn in the ER and ID was consulted for further recommendation regarding antibiotic therapy. REVIEW OF SYSTEMS: Constitutional: Positive for weakness along with fever. Eyes no complaint. ENT no complaint. Respiratory no complaint. Cardiovascular no complaint. Genitourinary no complaint. GASTROINTESTINAL: As per HPI. Musculoskeletal no complaint. INTEGUMENTARY: No complaint. Psychological no complaint. Endocrine no complaint. Neurological no complaint. PAST MEDICAL HISTORY: Significant for rectal cancer, CVA, TIA, DVT, pneumonia, right hip fracture, osteoarthritis of the spine. PAST SURGICAL HISTORY: Appendectomy, back surgery, bowel resection, cholecystectomy, left hip replacement, right ankle surgery. SOCIAL HISTORY: Remote history of smoking, quit back in 1995. No drinking or drug use. FAMILY HISTORY: Father history of heart problems. Mother history of diabetes mellitus. ALLERGIES: No known drug allergies. MEDICATION: Medications include the patient is currently on Gilliam, aspirin, Dulcolax, Lovenox, iron sulfate, Neurontin, Mucinex milk of magnesia, morphine sulfate, Zofran, Protonix, Tylenol, and did received dose of Unasyn in the ER. EXAMINATION: Blood pressure 133/66 with a pulse of 76, temperature 98.3, he is 98% on room air. General description is an elderly male lying in bed in no distress with no tachypnea or accessory muscles of respiration use. HEENT: Shows no pallor or scleral icterus. Oral mucosa membranes dry. No pharyngeal thrush. Neck trachea central. No thyromegaly. Lungs unlabored breathing. Clear to auscultation anteriorly. No wheeze or crackles. Heart S1, S2. Regular rate and rhythm. ABDOMEN: Soft. No tenderness. No guarding. No rigidity. No abdominal distention. EXTREMITIES: No edema of feet. Skin examination: No rash or mass palpable. Neurological: Patient is awake, alert, oriented x2. Mood and affect normal. LABS: Hemoglobin is 12.1, white count 5.0 with a BUN of 14, creatinine 0.60. Electrolytes have been normal. Liver enzymes are normal. Urine is negative. CT report as mentioned above. DIAGNOSTIC IMPRESSION AND PLAN: Patient admitted to the hospital with fever, nausea, vomiting and diarrhea with some abdominal pain in a patient whose initial workup including a stool for C. difficile, which has been negative. CT abdominal pelvis with some features of enteritis, but no evidence of any colitis, abdominal abscess. The patient did receive a dose of Unasyn with overall resolution of fever with question of possible bacterial. is not entirely excluded versus a viral etiology. PLAN: 1. We will check a stool for stool cultures. 2. We will add Rocephin 1 g daily and Flagyl 500 p.o. q.8 hours. Waiting for the culture to finalize. 3. Depending upon his clinical response as well as cultures will adjust the medication further if needed. Thank you for this consultation. Will follow this patient along with you. MMODL / IJN: [id number] / FRANC
[2017-09-19 07:10] LABS: Basophils % (A) 1 %; Eosinophils # (A) 0.2 k/uL (0-0.7); Eosinophils % (A) 3 %; HCT 39.1 % (39.0-53.0); HGB 12.1 gm/dL (13.0-17.5); Hypochromasia Slight; Lymphocytes # (A) 1.6 k/uL (1.0-4.8); Lymphocytes % (A) 28 %; MCH 30.9 pg (25.0-35.0); MCHC 30.9 g/dL (31.0-37.0); MCV 99.8 fL (80.0-100.0); Mean Platelet Volume 7.4; Monocytes # (A) 0.3 k/uL (0-1.0); Monocytes % (A) 6 %; Neutrophils # (A) 3.5 k/uL (1.3-7.7); Neutrophils % (A) 61 %; Platelet Count 182 k/uL (150-450); RBC 3.91 m/uL (4.30-5.90); RDW 12.6 % (11.5-15.5); WBC 5.7 k/uL (3.8-10.6)
[2017-09-19 07:24] LABS: ALT 33 U/L (21-72); AST 32 U/L (17-59); Albumin 2.8 g/dL (3.5-5.0); Alkaline Phosphatase 112 U/L (38-126); Anion Gap 9 mmol/L; Blood Urea Nitrogen 9 mg/dL (9-20); Calcium 8.5 mg/dL (8.4-10.2); Carbon Dioxide 19 mmol/L (22-30); Chloride 110 mmol/L (98-107); Glucose 59 mg/dL (74-99); Potassium 4.1 mmol/L (3.5-5.1); Sodium 138 mmol/L (137-145); Total Bilirubin 0.3 mg/dL (0.2-1.3); Total Protein 5.3 g/dL (6.3-8.2)
[2017-09-19] MEDS: PANTOPRAZOLE 40 MG/10 ML VIAL IVP SCH (08:20)
[2017-09-19] MEDS: ENOXAPARIN 40 MG/0.4 ML SYRINGE SQ SCH (08:20)
[2017-09-19] MEDS: metroNIDAZOLE 500 MG TAB PO SCH ×3 (08:21→20:55)
[2017-09-19] MEDS: CARBIDOPA-LEVODOPA 10-100 MG 1 EACH TAB PO SCH ×2 (08:21→20:56)
[2017-09-19] MEDS: FERROUS SULFATE 325 MG TAB PO SCH ×2 (08:21→20:56)
[2017-09-19] MEDS: PRIMIDONE 50 MG TAB PO SCH ×3 (08:21→20:55)
[2017-09-19] MEDS: SODIUM CHLORIDE 0.9% 1,000 ML IV SCH ×2 (08:22→19:58)
[2017-09-19] MEDS: guaiFENesin 600 MG TABLET.ER PO SCH ×2 (08:22→20:55)
[2017-09-19 09:00] LABS: Glucose,Whole Blood 68 mg/dL (75-99)
[2017-09-19 09:00] LABS: Glucose,Whole Blood 76 mg/dL (75-99)
--- NOTE | 2017-09-19 10:05 | P.PN ---
<Edita Coats M - Last Filed: 09/19/17 10:00> Subjective Progress Note Date: 09/19/17 77-year-old male seen and examined sitting up in a chair. Patient states he has not had any further bowel movements this morning none during the night. Tolerating a full liquid diet. Patients being followed by surgical service for CAT scan abdomen and pelvis showing mild dilated small bowel loop of the bowel with no definitive obstruction. Consistent with enteritis stool for C. diff negative Objective - Vital Signs Vital signs: Vital Signs Temp 97.3 F L 09/19/17 06:53 Pulse 82 09/19/17 06:53 Resp 16 09/19/17 06:53 BP 118/56 09/19/17 06:53 Pulse Ox 96 09/19/17 08:53 Intake & Output 09/18/17 09/19/17 09/19/17 18:59 06:59 18:59 Intake Total 600 Output Total 1000 350 Balance -1000 250 Intake: IV 500 Sodium Chloride 0.9% 1, 500 000 ml @ 100 mls/hr IV . Q10H [facility] Rx#:[id number] Oral 100 Output: Urine 1000 350 Other: Voiding Method Urinal Urinal Diaper Incontinent # Voids 2 1 # Bowel Movements 5 1 - Exam Physical exam Pleasant 77-year-old male sitting up in a chair appears in no acute distress Lungs adequate air movement bilaterally no shortness of breath Heart S1-S2 audible regular no chest pain Abdomen soft nontender. Hypoactive bowel tones no stool urinating no difficulty Extremities no edema - Labs CBC & Chem 7: 09/19/17 06:18 09/19/17 06:18 Labs: Abnormal Lab Results - Last 24 Hours (Table) 09/18/17 09/18/17 09/19/17 Range/Units 09:12 10:00 06:18 RBC 3.93 L 3.91 L (4.30-5.90) m/uL Hgb 12.1 L D 12.1 L (13.0-17.5) gm/dL Hct 38.0 L (39.0-53.0) % MCHC 30.9 L (31.0-37.0) g/dL Lymphocytes # 0.9 L (1.0-4.8) k/uL Chloride (98-107) mmol/L Carbon Dioxide (22-30) mmol/L Creatinine (0.66-1.25) mg/dL Glucose (74-99) mg/dL POC Glucose (mg/dL) (75-99) mg/dL Total Protein (6.3-8.2) g/dL Albumin (3.5-5.0) g/dL Urine Bilirubin 2+ H (Negative) Urine Mucus Rare H (None) /hpf 09/19/17 09/19/17 Range/Units 06:18 08:34 RBC (4.30-5.90) m/uL Hgb (13.0-17.5) gm/dL Hct (39.0-53.0) % MCHC (31.0-37.0) g/dL Lymphocytes # (1.0-4.8) k/uL Chloride 110 H (98-107) mmol/L Carbon Dioxide 19 L (22-30) mmol/L Creatinine 0.51 L (0.66-1.25) mg/dL Glucose 59 L (74-99) mg/dL POC Glucose (mg/dL) 68 L (75-99) mg/dL Total Protein 5.3 L (6.3-8.2) g/dL Albumin 2.8 L (3.5-5.0) g/dL Urine Bilirubin (Negative) Urine Mucus (None) /hpf Microbiology - Last 24 Hours (Table) 09/17/17 21:31 Blood Culture - Preliminary Blood No Growth after 24 hours 09/18/17 10:00 Urine Culture - Preliminary Urine,Clean Catch Assessment and Plan Assessment: Impression Present on admission nausea vomiting febrile History of colon cancer with chemo and radiation treatment with a bowel resection A recent displaced fracture left hip left humerus Parkinson's disease CAT scan abdomen and pelvis mildly dilated small bowel loops without definitive up structure and consistent with enteritis Plan Follow up on pending labs Advance diet to full liquid Follow-up norovirus results pending Will follow with you The above impression and plan of care have been discussed and directed by signing physician. Edita Coats nurse practitioner acting as scribe for signing physician. <Kaz Mariscal - Last Filed: 09/19/17 14:14> Objective - Vital Signs Vital signs: Vital Signs Temp 97.3 F L 09/19/17 06:53 Pulse 82 09/19/17 06:53 Resp 16 09/19/17 06:53 BP 118/56 09/19/17 06:53 Pulse Ox 96 09/19/17 08:53 Intake & Output 09/18/17 09/19/17 09/19/17 18:59 06:59 18:59 Intake Total 600 Output Total 1000 350 Balance -1000 250 Intake: IV 500 Sodium Chloride 0.9% 1, 500 000 ml @ 100 mls/hr IV . Q10H [facility] Rx#:[id number] Oral 100 Output: Urine 1000 350 Other: Voiding Method Urinal Urinal Diaper Incontinent # Voids 2 1 1 # Bowel Movements 5 1 1 - Labs CBC & Chem 7: 09/19/17 06:18 09/19/17 06:18 Labs: Abnormal Lab Results - Last 24 Hours (Table) 09/19/17 09/19/17 09/19/17 Range/Units 06:18 06:18 08:34 RBC 3.91 L (4.30-5.90) m/uL Hgb 12.1 L (13.0-17.5) gm/dL MCHC 30.9 L (31.0-37.0) g/dL Chloride 110 H (98-107) mmol/L Carbon Dioxide 19 L (22-30) mmol/L Creatinine 0.51 L (0.66-1.25) mg/dL Glucose 59 L (74-99) mg/dL POC Glucose (mg/dL) 68 L (75-99) mg/dL Total Protein 5.3 L (6.3-8.2) g/dL Albumin 2.8 L (3.5-5.0) g/dL Microbiology - Last 24 Hours (Table) 09/18/17 10:00 Urine Culture - Final Urine,Clean Catch 09/17/17 21:31 Blood Culture - Preliminary Blood No Growth after 24 hours Assessment and Plan Assessment: Patient doing better today. States his diarrhea is improved. He is afebrile. Denies abdominal pain. He is hungry. We'll plan advancing diet as tolerated. We'll sign off at this point. Please contact if needed. (1) Enteritis Current Visit: Yes Status: Acute Code(s): K52.9 - NONINFECTIVE GASTROENTERITIS AND COLITIS, UNSPECIFIED SNOMED Code(s): 99775783
--- NOTE | 2017-09-19 12:03 | P.PN ---
Subjective Progress Note Date: 09/19/17 This is a 77-year-old male with a known history of colon cancer status post chemo and radiation treatment in 1989 and bowel resection, CVA, Parkinson's, recent displaced trochanteric fracture of the left hip and left humerus fracture. No surgical intervention per orthopedics. He has been undergoing rehab at [facility]. Patient was recently hospitalized in August for pneumonia with sepsis. He has been at [facility] and presented to the emergency room due to multiple episodes of diarrhea vomiting and fever. Patient had a temp of 101.6 last night. He had a computed tomography scan of the abdomen showing a small bowel ileus. Fibrotic changes at the lung bases. Chest x-ray was negative. Influenza swab negative. Blood culture and urine culture pending. Consult has been placed for infectious disease and surgical service. Patient reports that his symptoms started yesterday. Reports no blood in the stool or the vomit. Patient was given 1 dose of Unasyn in the emergency room. He is currently on IV fluids. Stool study for C. diff and oral virus have been ordered. Patient denies any abdominal pain. Denies any chest pain or shortness of breath. Denies any burning with urination. 09/19/2017 patient sitting at bedside chair. No further episodes of diarrhea since midnight last night. He was started on Rocephin and Flagyl by infectious disease. He's been afebrile. C. diff is negative. Awaiting further stool studies. He did have some hypoglycemia this morning. However, he had been initially nothing by mouth. Now liquid diet has been started by surgery and to advance as tolerated. Patient denies any chest pain or shortness of breath. Starting to feel little bit better. However, does not feel he is ready for discharge. Stomach is still little nauseous and he feels that he may have diarrhea again. Objective - Vital Signs Vital signs: Vital Signs Temp 97.3 F L 09/19/17 06:53 Pulse 82 09/19/17 06:53 Resp 16 09/19/17 06:53 BP 118/56 09/19/17 06:53 Pulse Ox 96 09/19/17 08:53 Intake & Output 09/18/17 09/19/17 09/19/17 18:59 06:59 18:59 Intake Total 600 Output Total 1000 350 Balance -1000 250 Intake: IV 500 Sodium Chloride 0.9% 1, 500 000 ml @ 100 mls/hr IV . Q10H [facility] Rx#:[id number] Oral 100 Output: Urine 1000 350 Other: Voiding Method Urinal Urinal Diaper Incontinent # Voids 2 1 1 # Bowel Movements 5 1 1 - Exam Head normocephalic Neck supple Lungs clear to auscultation bilaterally no wheezing or crackles Heart regular rate and rhythm S1-S2, no rub or gallop Abdomen is soft nontender nondistended positive bowel sounds no hepatosplenomegaly Extremities no edema Neuro alert and orientated to 3 - Labs CBC & Chem 7: 09/19/17 06:18 09/19/17 06:18 Labs: Abnormal Lab Results - Last 24 Hours (Table) 09/19/17 09/19/17 09/19/17 Range/Units 06:18 06:18 08:34 RBC 3.91 L (4.30-5.90) m/uL Hgb 12.1 L (13.0-17.5) gm/dL MCHC 30.9 L (31.0-37.0) g/dL Chloride 110 H (98-107) mmol/L Carbon Dioxide 19 L (22-30) mmol/L Creatinine 0.51 L (0.66-1.25) mg/dL Glucose 59 L (74-99) mg/dL POC Glucose (mg/dL) 68 L (75-99) mg/dL Total Protein 5.3 L (6.3-8.2) g/dL Albumin 2.8 L (3.5-5.0) g/dL Microbiology - Last 24 Hours (Table) 09/17/17 21:31 Blood Culture - Preliminary Blood No Growth after 24 hours 09/18/17 10:00 Urine Culture - Preliminary Urine,Clean Catch Assessment and Plan Assessment: 1. Vomiting, diarrhea and fever as high as 101.6. Recent antibiotic use. Stool cultures and norovirus pending. Vomiting resolved. Last stool was yesterday at midnight. He had multiple episodes of diarrhea yesterday. Surgery and infectious disease evaluated patient. Rocephin and Flagyl added per infectious disease 2. Computed tomography scan abdomen and pelvis showing a small bowel ileus. Evaluated by surgery. 3. History of colon cancer with chemotherapy and radiation treatment and bowel resection 4. History of CVA 5. Recent pneumonia. Chest x-ray negative 6. Recent displaced trochanteric fracture of the left hip and left humerus fracture. No surgical intervention per orthopedics. Patient undergoing rehabilitation at [facility] 7. Parkinson's continue Sinemet 8. Hypoglycemia secondary to nothing by mouth status. Patient's been started on liquid diet. Blood sugar is improving. Continue to monitor. 9. Metabolic acidosis: Secondary to diarrhea. Repeat labs in a.m. GI prophylaxis Protonix and DVT prophylaxis Lovenox I performed an examination of the patient and discussed their management with the physician Senior Gis Analyst. I have reviewed the Physician Senior Gis Analyst's notes and agree with the documented findings and plan of care
[2017-09-19 14:27] LABS: Bilirubin Confirmation, Urine Negative (Negative)
[2017-09-19] MEDS: ASPIRIN 81 MG PO SCH (16:04)
[2017-09-19] MEDS: GABAPENTIN 300 MG CAP PO SCH (20:55)
[2017-09-19] MEDS: cefTRIAXone IN SWFI 1,000 MG/10 ML SYRINGE IVP SCH (20:56)
--- NOTE | 2017-09-19 21:52 | PN ---
PROGRESS NOTE DATE OF SERVICE: 09/19/2017 REASON FOR FOLLOWUP: A fever with acute gastroenteritis questionable viral versus bacterial. INTERVAL HISTORY: The patient is afebrile. He is breathing comfortably. Denies having any chest pain or cough. No abdominal pain. Diarrhea has slowed down. No nausea. No vomiting. No blood or mucus in the stool. EXAMINATION: Blood pressure is 127/58 with a pulse of 59, temperature of 98.8. He is 97% on room air. General description is an elderly male lying in bed in no distress. RESPIRATORY SYSTEM: Unlabored breathing. Clear to auscultation anteriorly. HEART: S1, S2. Regular rate and rhythm. ABDOMEN: Soft. No tenderness. LABS: Hemoglobin is 12.1, white count of 5.7. BUN of 9 creatinine 0.51. Stool culture currently pending. DIAGNOSTIC IMPRESSION AND PLAN: Patient admitted to the hospital with fever, nausea, vomiting and diarrhea with a question of viral gastritis versus bacterial. The patient responded to Rocephin and Flagyl. That will be continued while we are waiting for the culture to finalize. Continue supportive care. MMODL / IJN: [id number] /
[2017-09-20 07:30] LABS: Basophils % (A) 1 %; Eosinophils # (A) 0.2 k/uL (0-0.7); Eosinophils % (A) 3 %; HCT 34.6 % (39.0-53.0); HGB 10.8 gm/dL (13.0-17.5); Lymphocytes # (A) 1.6 k/uL (1.0-4.8); Lymphocytes % (A) 28 %; MCH 30.4 pg (25.0-35.0); MCHC 31.1 g/dL (31.0-37.0); MCV 97.9 fL (80.0-100.0); Mean Platelet Volume 7.2; Monocytes # (A) 0.4 k/uL (0-1.0); Monocytes % (A) 7 %; Neutrophils # (A) 3.4 k/uL (1.3-7.7); Neutrophils % (A) 60 %; Platelet Count 158 k/uL (150-450); RBC 3.54 m/uL (4.30-5.90); RDW 12.8 % (11.5-15.5); WBC 5.6 k/uL (3.8-10.6)
[2017-09-20 07:47] LABS: ALT 27 U/L (21-72); AST 22 U/L (17-59); Albumin 2.4 g/dL (3.5-5.0); Alkaline Phosphatase 91 U/L (38-126); Anion Gap 7 mmol/L; Blood Urea Nitrogen 5 mg/dL (9-20); Calcium 8.3 mg/dL (8.4-10.2); Carbon Dioxide 20 mmol/L (22-30); Chloride 111 mmol/L (98-107); Glucose 85 mg/dL (74-99); Potassium 3.5 mmol/L (3.5-5.1); Sodium 138 mmol/L (137-145); Total Bilirubin 0.2 mg/dL (0.2-1.3); Total Protein 4.9 g/dL (6.3-8.2)
[2017-09-20] MEDS: PRIMIDONE 50 MG TAB PO SCH ×3 (08:25→21:31)
[2017-09-20] MEDS: PANTOPRAZOLE 40 MG/10 ML VIAL IVP SCH (08:25)
[2017-09-20] MEDS: FERROUS SULFATE 325 MG TAB PO SCH ×2 (08:25→21:31)
[2017-09-20] MEDS: CARBIDOPA-LEVODOPA 10-100 MG 1 EACH TAB PO SCH ×2 (08:26→21:31)
[2017-09-20] MEDS: guaiFENesin 600 MG TABLET.ER PO SCH ×2 (08:26→21:31)
[2017-09-20] MEDS: ENOXAPARIN 40 MG/0.4 ML SYRINGE SQ SCH (08:26)
[2017-09-20] MEDS: metroNIDAZOLE 500 MG TAB PO SCH ×3 (08:26→21:31)
[2017-09-20] MEDS: SODIUM CHLORIDE 0.9% 1,000 ML IV SCH ×2 (08:29→21:30)
--- NOTE | 2017-09-20 09:14 | P.PN ---
Subjective Progress Note Date: 09/20/17 This is a 77-year-old male with a known history of colon cancer status post chemo and radiation treatment in 1989 and bowel resection, CVA, Parkinson's, recent displaced trochanteric fracture of the left hip and left humerus fracture. No surgical intervention per orthopedics. He has been undergoing rehab at [facility]. Patient was recently hospitalized in August for pneumonia with sepsis. He has been at [facility] and presented to the emergency room due to multiple episodes of diarrhea vomiting and fever. Patient had a temp of 101.6 last night. He had a computed tomography scan of the abdomen showing a small bowel ileus. Fibrotic changes at the lung bases. Chest x-ray was negative. Influenza swab negative. Blood culture and urine culture pending. Consult has been placed for infectious disease and surgical service. Patient reports that his symptoms started yesterday. Reports no blood in the stool or the vomit. Patient was given 1 dose of Unasyn in the emergency room. He is currently on IV fluids. Stool study for C. diff and oral virus have been ordered. Patient denies any abdominal pain. Denies any chest pain or shortness of breath. Denies any burning with urination. 09/19/2017 patient sitting at bedside chair. No further episodes of diarrhea since midnight last night. He was started on Rocephin and Flagyl by infectious disease. He's been afebrile. C. diff is negative. Awaiting further stool studies. He did have some hypoglycemia this morning. However, he had been initially nothing by mouth. Now liquid diet has been started by surgery and to advance as tolerated. Patient denies any chest pain or shortness of breath. Starting to feel little bit better. However, does not feel he is ready for discharge. Stomach is still little nauseous and he feels that he may have diarrhea again. On 09/20/2017 patient is feeling better he had diarrhea yesterday no bowel movements today yet, stool testing positive for Norovirus group 2 Patient clinically improving potassium low again at 3.5 will continue with IV fluid and potassium replacement will discuss with infectious disease whether we can stop antibiotics at this time Objective - Vital Signs Vital signs: Vital Signs Temp 98.4 F 09/20/17 07:00 Pulse 80 09/20/17 07:00 Resp 18 09/20/17 07:00 BP 124/61 09/20/17 07:00 Pulse Ox 95 09/20/17 07:00 Intake & Output 09/19/17 09/20/17 09/20/17 18:59 06:59 18:59 Intake Total 1270 Balance 1270 Intake: IV 1150 Sodium Chloride 0.9% 1, 1150 000 ml @ 100 mls/hr IV . Q10H [facility] Rx#:[id number] Oral 120 Other: Voiding Method Incontinent # Voids 1 1 # Bowel Movements 1 1 - Exam Head normocephalic and atraumatic Neck supple no JVD no goiter Lungs clear to auscultation bilaterally no wheezing or crackles Heart regular rate and rhythm S1-S2, no rub or gallop Abdomen is soft nontender nondistended positive bowel sounds no hepatosplenomegaly Extremities no edema no cyanosis or clubbing Neuro alert and orientated to 3 - Labs CBC & Chem 7: 09/20/17 07:11 09/20/17 07:11 Labs: Abnormal Lab Results - Last 24 Hours (Table) 09/20/17 09/20/17 Range/Units 07:11 07:11 RBC 3.54 L (4.30-5.90) m/uL Hgb 10.8 L (13.0-17.5) gm/dL Hct 34.6 L (39.0-53.0) % Chloride 111 H (98-107) mmol/L Carbon Dioxide 20 L (22-30) mmol/L BUN 5 L (9-20) mg/dL Creatinine 0.46 L (0.66-1.25) mg/dL Calcium 8.3 L (8.4-10.2) mg/dL Total Protein 4.9 L (6.3-8.2) g/dL Albumin 2.4 L (3.5-5.0) g/dL Microbiology - Last 24 Hours (Table) 09/17/17 21:31 Blood Culture - Preliminary Blood No Growth after 48 hours 09/19/17 10:00 Stool Culture - Preliminary Stool 09/18/17 10:00 Urine Culture - Final Urine,Clean Catch Assessment and Plan Plan: 1. Vomiting, diarrhea and fever as high as 101.6. Recent antibiotic use. Stool cultures and norovirus pending. Vomiting resolved. Last stool was yesterday at midnight. He had multiple episodes of diarrhea yesterday. Surgery and infectious disease evaluated patient. Rocephin and Flagyl added per infectious disease. Stool testing is positive for Norro virus group 2 2. Computed tomography scan abdomen and pelvis showing a small bowel ileus. Evaluated by surgery. 3. History of colon cancer with chemotherapy and radiation treatment and bowel resection 4. History of CVA 5. Recent pneumonia. Chest x-ray negative 6. Recent displaced trochanteric fracture of the left hip and left humerus fracture. No surgical intervention per orthopedics. Patient undergoing rehabilitation at [facility] 7. Parkinson's continue Sinemet 8. Hypoglycemia secondary to nothing by mouth status. Patient's been started on liquid diet. Blood sugar is improving. Continue to monitor. 9. Metabolic acidosis: Secondary to diarrhea. Repeat labs in a.m. GI prophylaxis Protonix and DVT prophylaxis Lovenox
[2017-09-20] MEDS: ASPIRIN 81 MG PO SCH (16:02)
[2017-09-20] MEDS: GABAPENTIN 300 MG CAP PO SCH (21:31)
[2017-09-20] MEDS: cefTRIAXone IN SWFI 1,000 MG/10 ML SYRINGE IVP SCH (21:31)
[2017-09-21] MEDS: FERROUS SULFATE 325 MG TAB PO SCH ×2 (07:37→21:04)
[2017-09-21] MEDS: CARBIDOPA-LEVODOPA 10-100 MG 1 EACH TAB PO SCH ×2 (07:37→21:03)
[2017-09-21] MEDS: ENOXAPARIN 40 MG/0.4 ML SYRINGE SQ SCH (07:37)
[2017-09-21] MEDS: metroNIDAZOLE 500 MG TAB PO SCH (07:38)
[2017-09-21] MEDS: guaiFENesin 600 MG TABLET.ER PO SCH ×2 (07:38→21:04)
[2017-09-21] MEDS: PRIMIDONE 50 MG TAB PO SCH ×3 (07:38→21:03)
[2017-09-21] MEDS: PANTOPRAZOLE 40 MG/10 ML VIAL IVP SCH (07:38)
[2017-09-21] MEDS: SODIUM CHLORIDE 0.9% 1,000 ML IV SCH ×2 (07:43→15:08)
[2017-09-21 08:14] LABS: ALT 28 U/L (21-72); AST 18 U/L (17-59); Albumin 2.6 g/dL (3.5-5.0); Alkaline Phosphatase 105 U/L (38-126); Anion Gap 6 mmol/L; Blood Urea Nitrogen 3 mg/dL (9-20); Calcium 8.4 mg/dL (8.4-10.2); Carbon Dioxide 24 mmol/L (22-30); Chloride 111 mmol/L (98-107); Glucose 88 mg/dL (74-99); Potassium 3.6 mmol/L (3.5-5.1); Sodium 141 mmol/L (137-145); Total Bilirubin 0.2 mg/dL (0.2-1.3); Total Protein 4.9 g/dL (6.3-8.2)
[2017-09-21 08:33] LABS: Basophils % (A) 0 %; Eosinophils # (A) 0.1 k/uL (0-0.7); Eosinophils % (A) 3 %; HCT 36.7 % (39.0-53.0); HGB 11.4 gm/dL (13.0-17.5); Lymphocytes # (A) 1.5 k/uL (1.0-4.8); Lymphocytes % (A) 33 %; MCH 30.5 pg (25.0-35.0); MCHC 31.1 g/dL (31.0-37.0); MCV 97.9 fL (80.0-100.0); Mean Platelet Volume 7.3; Monocytes # (A) 0.3 k/uL (0-1.0); Monocytes % (A) 7 %; Neutrophils # (A) 2.6 k/uL (1.3-7.7); Neutrophils % (A) 55 %; Platelet Count 166 k/uL (150-450); RBC 3.75 m/uL (4.30-5.90); RDW 12.8 % (11.5-15.5); WBC 4.7 k/uL (3.8-10.6)
--- NOTE | 2017-09-21 09:42 | P.PN ---
Subjective Progress Note Date: 09/21/17 This is a 77-year-old male with a known history of colon cancer status post chemo and radiation treatment in 1989 and bowel resection, CVA, Parkinson's, recent displaced trochanteric fracture of the left hip and left humerus fracture. No surgical intervention per orthopedics. He has been undergoing rehab at [facility]. Patient was recently hospitalized in August for pneumonia with sepsis. He has been at [facility] and presented to the emergency room due to multiple episodes of diarrhea vomiting and fever. Patient had a temp of 101.6 last night. He had a computed tomography scan of the abdomen showing a small bowel ileus. Fibrotic changes at the lung bases. Chest x-ray was negative. Influenza swab negative. Blood culture and urine culture pending. Consult has been placed for infectious disease and surgical service. Patient reports that his symptoms started yesterday. Reports no blood in the stool or the vomit. Patient was given 1 dose of Unasyn in the emergency room. He is currently on IV fluids. Stool study for C. diff and oral virus have been ordered. Patient denies any abdominal pain. Denies any chest pain or shortness of breath. Denies any burning with urination. 09/19/2017 patient sitting at bedside chair. No further episodes of diarrhea since midnight last night. He was started on Rocephin and Flagyl by infectious disease. He's been afebrile. C. diff is negative. Awaiting further stool studies. He did have some hypoglycemia this morning. However, he had been initially nothing by mouth. Now liquid diet has been started by surgery and to advance as tolerated. Patient denies any chest pain or shortness of breath. Starting to feel little bit better. However, does not feel he is ready for discharge. Stomach is still little nauseous and he feels that he may have diarrhea again. On 09/20/2017 patient is feeling better he had diarrhea yesterday no bowel movements today yet, stool testing positive for Norovirus group 2 Patient clinically improving potassium low again at 3.5 will continue with IV fluid and potassium replacement will discuss with infectious disease whether we can stop antibiotics at this time. On 09/21/2017 patient is feeling better he is alert and oriented 3 no new episodes of diarrhea patient is afebrile, potassium is 3.6, patient is feeling better most likely diagnosis is viral gastroenteritis was normal virus group 2 patient improved clinically at this time will discontinue antibiotics if stable possible transfer back to longterm tomorrow. Objective - Vital Signs Vital signs: Vital Signs Temp 97.4 F L 09/21/17 07:00 Pulse 68 09/21/17 08:00 Resp 16 09/21/17 08:00 BP 123/68 09/21/17 07:00 Pulse Ox 97 09/21/17 07:00 Intake & Output 09/20/17 09/21/17 09/21/17 18:59 06:59 18:59 Intake Total 240 1200 Output Total 0 0 Balance 240 1200 0 Intake: IV 1200 Sodium Chloride 0.9% 1, 1200 000 ml @ 100 mls/hr IV . Q10H [facility] Rx#:[id number] Oral 240 Output: Stool 0 0 Other: Voiding Method Incontinent Incontinent Incontinent # Voids 2 - Exam Head normocephalic and atraumatic Neck supple no JVD no goiter Lungs clear to auscultation bilaterally no wheezing or crackles Heart regular rate and rhythm S1-S2, no rub or gallop Abdomen is soft nontender nondistended positive bowel sounds no hepatosplenomegaly Extremities no edema no cyanosis or clubbing Neuro alert and orientated to 3 - Labs CBC & Chem 7: 09/21/17 07:37 09/21/17 07:37 Labs: Abnormal Lab Results - Last 24 Hours (Table) 09/21/17 09/21/17 Range/Units 07:37 07:37 RBC 3.75 L (4.30-5.90) m/uL Hgb 11.4 L (13.0-17.5) gm/dL Hct 36.7 L (39.0-53.0) % Chloride 111 H (98-107) mmol/L BUN 3 L (9-20) mg/dL Creatinine 0.49 L (0.66-1.25) mg/dL Total Protein 4.9 L (6.3-8.2) g/dL Albumin 2.6 L (3.5-5.0) g/dL Microbiology - Last 24 Hours (Table) 09/19/17 10:00 Stool Culture - Preliminary Stool 09/17/17 21:31 Blood Culture - Preliminary Blood No Growth after 72 hours Assessment and Plan Plan: 1. Vomiting, diarrhea and fever as high as 101.6. Recent antibiotic use. norovirus group 2 positive. Vomiting resolved. Last stool was yesterday at midnight. He had multiple episodes of diarrhea yesterday. Surgery and infectious disease evaluated patient. Rocephin and Flagyl added per infectious disease. Stool testing is positive for Norro virus group 2 2. Computed tomography scan abdomen and pelvis showing a small bowel ileus. Evaluated by surgery. 3. History of colon cancer with chemotherapy and radiation treatment and bowel resection 4. History of CVA 5. Recent pneumonia. Chest x-ray negative 6. Recent displaced trochanteric fracture of the left hip and left humerus fracture. No surgical intervention per orthopedics. Patient undergoing rehabilitation at [facility] 7. Parkinson's continue Sinemet 8. Hypoglycemia secondary to nothing by mouth status. Patient's been started on liquid diet. Blood sugar is improving. Continue to monitor. 9. Metabolic acidosis: Secondary to diarrhea. Repeat labs in a.m. GI prophylaxis Protonix and DVT prophylaxis Lovenox
[2017-09-21] MEDS: ASPIRIN 81 MG PO SCH (15:07)
[2017-09-21] MEDS: GABAPENTIN 300 MG CAP PO SCH (21:17)
[2017-09-21 21:49] VITALS: RESP 18
--- NOTE | 2017-09-21 23:42 | PN ---
PROGRESS NOTE DATE OF SERVICE: 09/21/2017. REASON FOR FOLLOW UP: Acute gastroenteritis, viral. INTERVAL HISTORY: The patient is afebrile, has been breathing comfortably. Denies having any chest pain. No cough. No abdominal pain. No nausea, vomiting and diarrhea has resolved. EXAMINATION: Blood pressure 144/75 with a pulse of 65, temperature 97.2. He is 97% on room air. General description is an elderly male lying in bed in no distress. Respiratory system: Unlabored breathing. Clear to auscultation anteriorly. Heart S1, S2. Regular rate and rhythm. Abdomen soft, no tenderness. LABS: Hemoglobin 11.4, white count 4.6 with a BUN of 30, creatinine 0.49. Stool culture has been negative. DIAGNOSTIC IMPRESSION AND PLAN: Patient admitted to the hospital with acute gastroenteritis with nausea, vomiting, diarrhea and a fever with concern for possible infectious gastroenteritis. Stool culture has been negative, could be more likely a viral. Antibiotic has been discontinued. We will continue with symptomatic treatment. Monitor him closely off antibiotic therapy. Continue supportive care. MMODL / IJN: [id number] /
[2017-09-22] MEDS: SODIUM CHLORIDE 0.9% 1,000 ML IV SCH ×2 (05:35→09:11)
[2017-09-22 07:48] VITALS: BP 122/65; PULSE 64; TEMP 98.6
[2017-09-22 08:21] LABS: Basophils % (A) 1 %; Eosinophils # (A) 0.2 k/uL (0-0.7); Eosinophils % (A) 4 %; HCT 35.9 % (39.0-53.0); HGB 11.3 gm/dL (13.0-17.5); Lymphocytes % (A) 39 %; MCH 30.4 pg (25.0-35.0); MCHC 31.5 g/dL (31.0-37.0); MCV 96.5 fL (80.0-100.0); Mean Platelet Volume 7.2; Monocytes # (A) 0.3 k/uL (0-1.0); Monocytes % (A) 6 %; Neutrophils # (A) 2.4 k/uL (1.3-7.7); Neutrophils % (A) 48 %; Platelet Count 187 k/uL (150-450); RBC 3.72 m/uL (4.30-5.90); RDW 12.7 % (11.5-15.5); WBC 5.1 k/uL (3.8-10.6)
[2017-09-22 08:41] LABS: ALT 24 U/L (21-72); AST 22 U/L (17-59); Albumin 2.5 g/dL (3.5-5.0); Alkaline Phosphatase 100 U/L (38-126); Anion Gap 8 mmol/L; Blood Urea Nitrogen 3 mg/dL (9-20); Calcium 8.4 mg/dL (8.4-10.2); Carbon Dioxide 23 mmol/L (22-30); Chloride 108 mmol/L (98-107); Glucose 81 mg/dL (74-99); Sodium 139 mmol/L (137-145); Total Bilirubin 0.3 mg/dL (0.2-1.3)
[2017-09-22] MEDS: CARBIDOPA-LEVODOPA 10-100 MG 1 EACH TAB PO SCH (09:10)
[2017-09-22] MEDS: guaiFENesin 600 MG TABLET.ER PO SCH (09:10)
[2017-09-22] MEDS: FERROUS SULFATE 325 MG TAB PO SCH (09:10)
[2017-09-22] MEDS: ENOXAPARIN 40 MG/0.4 ML SYRINGE SQ SCH (09:10)
[2017-09-22] MEDS: PANTOPRAZOLE 40 MG/10 ML VIAL IVP SCH (09:10)
[2017-09-22] MEDS: PRIMIDONE 50 MG TAB PO SCH (09:10)
--- NOTE | 2017-09-22 12:47 | P.DS ---
Providers Date of admission: 09/18/17 00:51 Expected date of discharge: 09/22/17 Attending physician: Manny Askew Consults: 09/18/17 13:21 Consult Physician Routine Consulting Provider: Kaz Mariscal Consult Reason/Comments: small bowel ileus Do you want consulting provider notified?: Yes Consult Physician Routine Consulting Provider: Maday Casanova Consult Reason/Comments: fever with diarrhea and vomiting Do you want consulting provider notified?: Yes Primary care physician: Manny Jamilah [place] [facility] Course: Discharge diagnosis 1. Viral gastroenteritis with no oral virus group 2 positive: Vomiting, diarrhea and fever as high as 101.6 on admission. Now resolved. 2. Computed tomography scan abdomen and pelvis showing a small bowel ileus. Evaluated by surgery. NO intervention needed. 3. History of colon cancer with chemotherapy and radiation treatment and bowel resection 4. History of CVA 5. Recent pneumonia. Chest x-ray negative 6. Recent displaced trochanteric fracture of the left hip and left humerus fracture. No surgical intervention per orthopedics. Patient undergoing rehabilitation at [facility] 7. Parkinson's continue Sinemet 8. Hypoglycemia secondary to nothing by mouth status. improved as diet was advanced 9. Metabolic acidosis: Secondary to diarrhea. now resolved Hospital course This is a 77-year-old male with a known history of colon cancer status post chemo and radiation treatment in 1989 and bowel resection, CVA, Parkinson's, recent displaced trochanteric fracture of the left hip and left humerus fracture. No surgical intervention per orthopedics. He has been undergoing rehab at [facility]. Patient was recently hospitalized in August for pneumonia with sepsis. He has been at [facility] and presented to the emergency room due to multiple episodes of diarrhea vomiting and fever. Patient had a temp of 101.6 last night. He had a computed tomography scan of the abdomen showing a small bowel ileus. Fibrotic changes at the lung bases. Chest x-ray was negative. Influenza swab negative. Blood culture and urine culture pending. Consult has been placed for infectious disease and surgical service. Patient reports that his symptoms started yesterday. Reports no blood in the stool or the vomit. Patient was given 1 dose of Unasyn in the emergency room. He is currently on IV fluids. Stool study for C. diff and oral virus have been ordered. Patient denies any abdominal pain. Denies any chest pain or shortness of breath. Denies any burning with urination. Patient was seen by infectious disease and surgical service. He was started on IV antibiotics by infectious disease. However, stool studies were negative for C. diff and stool cultures were negative. The norovirus was positive. Therefore antibiotics were discontinued. He was continued on IV fluids. And symptoms improved. He tolerated advancement of diet. He's had no further episodes of diarrhea. He was evaluated by surgical service for possible small bowel ileus. No intervention was needed. Surgical service. Patient is medical stable for discharge and he'll return back to [facility] for further rehabilitation. I performed an examination of the patient and discussed their management with the physician Certified Respiratory Therapist. I have reviewed the Physician Certified Respiratory Therapist's notes and agree with the documented findings and plan of care Patient Condition at Discharge: Stable Plan - Discharge Summary Discharge Rx Participant: No New Discharge Prescriptions: Continue Primidone [Mysoline] 100 mg PO TID Aspirin EC [Ecotrin Low Dose] 81 mg PO DAILY@1700 Gabapentin [Neurontin] 300 mg PO HS Ferrous Sulfate [Iron (65 MG Elemental)] 325 mg PO BID tab guaiFENesin [Mucinex] 1,200 mg PO Q12HR #10 tablet.er Magnesium Hydroxide [Milk of Magnesia] 2,400 mg PO DAILY PRN PRN Reason: Constipation Na Phos,M-B/Na Phos,Di-Ba [Fleet Adult] 133 ml RECTAL ONCE PRN PRN Reason: Constipation Bisacodyl [Dulcolax] 10 mg RECTAL DAILY PRN PRN Reason: Constipation Carbidopa-Levodopa 10-100 mg [Sinemet 10-100 mg] 1 tab PO BID Beneprotein 1 scoop PO BID HYDROcodone/APAP 10-325MG [Fisher 10-325] 1 tab PO TID PRN #40 tab PRN Reason: Pain Discharge Medication List Aspirin EC [Ecotrin Low Dose] 81 mg PO DAILY@1700 07/26/17 [History] Gabapentin [Neurontin] 300 mg PO HS 07/26/17 [History] Primidone [Mysoline] 100 mg PO TID 07/26/17 [History] Ferrous Sulfate [Iron (65 MG Elemental)] 325 mg PO BID tab 07/29/17 [Rx] guaiFENesin [Mucinex] 1,200 mg PO Q12HR #10 tablet.er 08/25/17 [Rx] Beneprotein 1 scoop PO BID 09/17/17 [History] Bisacodyl [Dulcolax] 10 mg RECTAL DAILY PRN 09/17/17 [History] Carbidopa-Levodopa 10-100 mg [Sinemet 10-100 mg] 1 tab PO BID 09/17/17 [History] Magnesium Hydroxide [Milk of Magnesia] 2,400 mg PO DAILY PRN 09/17/17 [History] Na Phos,M-B/Na Phos,Di-Ba [Fleet Adult] 133 ml RECTAL ONCE PRN 09/17/17 [History ] HYDROcodone/APAP 10-325MG [Fisher 10-325] 1 tab PO TID PRN #40 tab 09/22/17 [Rx] Follow up Appointment(s)/Referral(s): Manny Askew MD [Primary Care Provider] - 1 Week Activity/Diet/Wound Care/Special Instructions: Diet: regular Activity: as tolerated ok to D/c back to [facility]. Dr. Talbert to follow at [facility] Discharge Disposition: TRANSFER TO SNF/ECF
--- NOTE | 2017-09-22 23:39 | PN ---
PROGRESS NOTE DATE OF SERVICE: 09/22/2017 REASON FOR FOLLOW UP: Acute gastroenteritis, likely viral. INTERVAL HISTORY: The patient is seen on rounds this morning. The patient has been afebrile, has been breathing comfortably. No nausea, no vomiting. No abdominal pain. No diarrhea. He has been tolerating a regular diet. EXAMINATION: Blood pressure 122/65 with a pulse of 74, temperature of 98.6. He is 93% on room air. General description is an elderly male lying in bed in no distress. Respiratory system: Unlabored breathing clear to auscultation anteriorly. Heart S1, S2. Regular rate and rhythm. Abdomen soft, no tenderness. LABS: Hemoglobin 11.8, white count 5.1 with a BUN of 30, creatinine 0.51. DIAGNOSTIC IMPRESSION AND PLAN: Patient admitted to the hospital with acute nausea, vomiting, diarrhea with concern for gastroenteritis, questionable bacteria. However, his stool culture has been negative and patient will go off antibiotic therapy. Recommend no antibiotic on discharge. Plan of care discussed with the nurse practitioner for the primary team. JESI / AYSHAN: [id number] /
== END 2017-09-22 15:50 | DRG 392 ==
LOC: EC 21:21 → 3SUR 09-18 00:51 → 5MS5E 09-19 22:06
PROVIDERS: ADMIT Internal Medicine; ATTEND Internal Medicine
DX: A08.4 Viral intestinal infection, unspecified (principal); E87.2 Acidosis; G20 Parkinson's disease; K56.7 Ileus, unspecified; E86.0 Dehydration; E16.2 Hypoglycemia, unspecified; Z83.3 Family history of diabetes mellitus; Z85.048 Personal history of other malignant neoplasm of rectum, rectosigmoid junction, and anus; Z86.73 Personal history of transient ischemic attack (TIA), and cerebral infarction without residual deficits; Z87.01 Personal history of pneumonia (recurrent); Z87.891 Personal history of nicotine dependence; Z90.49 Acquired absence of other specified parts of digestive tract; Z92.21 Personal history of antineoplastic chemotherapy; Z92.3 Personal history of irradiation; Z96.642 Presence of left artificial hip joint; Z79.82 Long term (current) use of aspirin; Z79.899 Other long term (current) drug therapy; Z79.891 Long term (current) use of opiate analgesic; S72.002D Fracture of unspecified part of neck of left femur, subsequent encounter for closed fracture with routine healing
CPT/HCPCS: 36415; 71045; 74022; 74177; 80053; 81003; 82550; 82553; 83605; 83735; 84100; 84484; 85025; 85610; 85730; 87040; 87045; 87046; 87086; 87324; 87502; 87798; 94760; 96360; 96361; 99285

== ENCOUNTER → 2017-11-03 | Outpatient (CLI) | payer MEDICARE, OTHER ==
--- NOTE | 2017-11-03 14:01 | US ---
EXAMINATION TYPE: US abdomen comp/pelvis limited DATE OF EXAM: 11/03/2017 COMPARISON: CT abdomen and pelvis September 18, 2017 CLINICAL HISTORY: R10.84 abdominal pain, R10.9 right flank pain. EXAM MEASUREMENTS: Liver Length: 11.8 cm Gallbladder Wall: Surgically absent CBD: 0.2 cm Spleen: 11.0 cm Right Kidney: 9.5 x4.4 x 4.2 cm Left Kidney: 10.0 x 6.0 x 5.5 cm Pancreas: Suboptimally seen due to overlying bowel gas Liver: portions visualized wnl, some portions obscured Gallbladder: Surgically absent CBD: wnl Spleen: wnl Right Kidney: Inferior portion obscured by overlying bowel gas Left Kidney: lobulated surface, there is a possible mass measuring 1.9 x 1.9 x 1.9 cm, this may be a lobulation but does appear to have borders Upper IVC: wnl Abd Aorta: proximal portions obscured by bowel gas Bladder: irregular wall border with cystic spaces Bilateral Jets Seen Yes Normal Post Void Residual (normal less than 50ml) Atherosclerotic and ectatic course to abdominal aorta is present. Pancreas is suboptimally evaluated on current study. Visualized portion of liver slightly heterogeneous. Gallbladder is surgically absen t. Bladder shows lobulations without suspicious wall thickening or focal mass. Bilateral distal urete r jets are seen. I do not see post void images performed. Towards end of study technologist degroot lob ulated cortex as possible isoechoic 1.9 cm lesion. I strongly favor lobulated cortex which correlates with CT. IMPRESSION: No hydronephrosis is present bilaterally. No suspicious finding is seen to account for pilar neri's symptoms of right-sided flank pain.
== END | disposition home or self-care (01) ==
LOC: RADUSWWP 08:45
PROVIDERS: ATTEND Internal Medicine
DX: R10.84 Generalized abdominal pain (principal)
CPT/HCPCS: 76700; 76857

== ENCOUNTER 2018-12-23 12:34 | Inpatient (IN) | payer MEDICARE, OTHER ==
[2018-12-23] MEDS ORDERED: ACETAMINOPHEN TAB 325 MG TAB PO STA (12:49)
--- NOTE | 2018-12-23 12:53 | ED ---
General Adult HPI - General Chief complaint: Fever Stated complaint: Fever Time Seen by Provider: 12/23/18 12:35 Source: patient, EMS, RN notes reviewed Mode of arrival: EMS Limitations: physical limitation - History of Present Illness Initial comments: Patient is a pleasant 78-year-old male presenting to the emergency department with fever. Patient does admit to having cough for the past couple of days. Patient reportedly had a fever that started today. Patient did take one [place] this morning which he does routinely take. Patient is wheelchair-bound. Patient does admit to cough with occasional baker sputum. Patient denies any dyspnea. Patient feels achy and fatigued. Patient states his caregiver must have called ems. - Related Data Home Medications Medication Instructions Recorded Confirmed Aspirin EC [Ecotrin Low Dose] 81 mg PO DAILY@1700 07/26/17 12/23/18 Primidone [Mysoline] 100 mg PO TID 07/26/17 12/23/18 Carbidopa-Levodopa 10-100 mg 1 tab PO BID 09/17/17 12/23/18 [Sinemet 10-100 mg] Amoxic-Pot Clav 500-125 mg 1 tab PO BID 12/23/18 12/23/18 [Augmentin 500-125 mg] Multivitamins, Thera [Multivitamin 1 tab PO DAILY 12/23/18 12/23/18 (formulary)] Previous Rx's Medication Instructions Recorded Ferrous Sulfate [Iron (65 MG 325 mg PO BID tab 07/29/17 Elemental)] HYDROcodone/APAP 10-325MG [[place] 1 tab PO TID PRN #40 tab 09/22/17 10-325] Allergies Allergy/AdvReac Type Severity Reaction Status Date / Time No Known Allergies Allergy Verified 12/23/18 12:51 Review of Systems ROS Statement: Those systems with pertinent positive or pertinent negative responses have been documented in the HPI. ROS Other: All systems not noted in ROS Statement are negative. Constitutional: Reports: fever, chills Eyes: Denies: eye pain ENT: Denies: ear pain Respiratory: Reports: cough. Denies: dyspnea Cardiovascular: Denies: chest pain Endocrine: Reports: fatigue Gastrointestinal: Denies: abdominal pain Genitourinary: Denies: dysuria Musculoskeletal: Denies: back pain Skin: Denies: rash Neurological: Denies: headache Past Medical History Past Medical History: Cancer, CVA/TIA, Deep Vein Thrombosis (DVT), Liver Disease , Pneumonia Additional Past Medical History / Comment(s): 11-06-16 FALL/FX RT HIP. DDD, SPINAL CANAL STENOSIS, COLON CA IN THE HAD SX CHEMO AND RADIATION, 03-01-15 UTI(E COLI), left arm weakness-fx lt arm at shoulder-December 2014-remains painful, rectal carcinoma, elevated liver enzymes, walker use,recent falls,PAST CVA AFFECTED LT SIDE. History of Any Multi-Drug Resistant Organisms: None Reported Past Surgical History: Appendectomy, Back Surgery, Bowel Resection, Cholecystectomy, Joint Replacement, Orthopedic Surgery Additional Past Surgical History / Comment(s): GASTRECTOMY, L hip replacement, spinal surgery, RT ANKLE SX , 5 broken ribs, left arm fracture Past Anesthesia/Blood Transfusion Reactions: No Reported Reaction Additional Past Anesthesia/Blood Transfusion Reaction / Comment(s): no hx at ECF Past Psychological History: No Psychological Hx Reported Smoking Status: Former smoker Past Alcohol Use History: Occasional Past Drug Use History: None Reported - Past Family History Father Family Medical History: Unable to Obtain Additional Family Medical History / Comment(s): heart problems Mother Family Medical History: Diabetes Mellitus General Exam Limitations: physical limitation General appearance: alert, in no apparent distress Head exam: Present: atraumatic Eye exam: Present: normal appearance, PERRL ENT exam: Present: normal oropharynx Neck exam: Present: normal inspection Respiratory exam: Present: rales Cardiovascular Exam: Present: tachycardia GI/Abdominal exam: Present: soft. Absent: tenderness Extremities exam: Present: normal inspection Neurological exam: Present: alert Psychiatric exam: Present: normal affect, normal mood Skin exam: Present: normal color Course Vital Signs 12/23/18 12/23/18 12/23/18 12:40 13:53 15:08 Temperature 100.7 F H 100.6 F H 99.8 F H Pulse Rate 115 H 110 H 103 H Respiratory 20 18 18 Rate Blood Pressure 152/94 118/79 118/72 O2 Sat by Pulse 96 95 95 Oximetry 12/23/18 15:57 Temperature 98.6 F Pulse Rate 86 Respiratory 18 Rate Blood Pressure 106/56 O2 Sat by Pulse 100 Oximetry - Reevaluation(s) Reevaluation #1: 12/23/18 16:37 Patient does meet sepsis criteria diagnosed at 1637. Patient will have blood culture and lactic acid and IV antibiotics ordered. EKG Findings - EKG Comments: EKG Findings:: Sinus tachycardia 109. VT 150. QRS 74. QT 324. QTC 436. Normal axis. Normal QRS. No acute ST change. Medical Decision Making - Medical Decision Making Patient reevaluated and updated. Case was discussed in detail with Dr. Askew, who will admit his patient. - Lab Data Result diagrams: 12/23/18 13:34 12/23/18 13:34 Lab Results 12/23/18 12/23/18 12/23/18 Range/Units 10:00 13:20 13:34 WBC 11.3 H (3.8-10.6) k/uL RBC 4.09 L (4.30-5.90) m/uL Hgb 12.5 L (13.0-17.5) gm/dL Hct 38.4 L (39.0-53.0) % MCV 94.0 (80.0-100.0) fL MCH 30.5 (25.0-35.0) pg MCHC 32.5 (31.0-37.0) g/dL RDW 13.0 (11.5-15.5) % Plt Count 325 (150-450) k/uL Neutrophils % 83 % Lymphocytes % 10 % Monocytes % 5 % Eosinophils % 1 % Basophils % 0 % Neutrophils # 9.4 H (1.3-7.7) k/uL Lymphocytes # 1.1 (1.0-4.8) k/uL Monocytes # 0.5 (0-1.0) k/uL Eosinophils # 0.1 (0-0.7) k/uL Basophils # 0.0 (0-0.2) k/uL PT (9.0-12.0) sec INR (<1.2) APTT (22.0-30.0) sec Sodium (137-145) mmol/L Potassium (3.5-5.1) mmol/L Chloride (98-107) mmol/L Carbon Dioxide (22-30) mmol/L Anion Gap mmol/L BUN (9-20) mg/dL Creatinine (0.66-1.25) mg/dL Est GFR (CKD-EPI)AfAm (>60 ml/min/1.73 sqM) Est GFR (CKD-EPI)NonAf (>60 ml/min/1.73 sqM) Glucose (74-99) mg/dL Plasma Lactic Acid Rahul (0.7-2.0) mmol/L Calcium (8.4-10.2) mg/dL Total Bilirubin (0.2-1.3) mg/dL AST (17-59) U/L ALT (21-72) U/L Alkaline Phosphatase (38-126) U/L Total Protein (6.3-8.2) g/dL Albumin (3.5-5.0) g/dL Urine Color Yellow Urine Appearance Clear (Clear) Urine pH 6.0 (5.0-8.0) Ur Specific Echo 1.018 (1.001-1.035) Urine Protein 1+ H (Negative) Urine Glucose (UA) Negative (Negative) Urine Ketones 3+ H (Negative) Urine Blood Moderate H (Negative) Urine Nitrite Positive (Negative) Urine Bilirubin Negative (Negative) Urine Urobilinogen <2.0 (<2.0) mg/dL Ur Leukocyte Esterase Small H (Negative) Urine RBC 3 (0-5) /hpf Urine WBC 32 H (0-5) /hpf Urine Bacteria Rare H (None) /hpf Influenza Type A RNA Not Detected (Not Detectd) Influenza Type B (PCR) Not Detected (Not Detectd) 12/23/18 12/23/18 12/23/18 Range/Units 13:34 13:34 13:34 WBC (3.8-10.6) k/uL RBC (4.30-5.90) m/uL Hgb (13.0-17.5) gm/dL Hct (39.0-53.0) % MCV (80.0-100.0) fL MCH (25.0-35.0) pg MCHC (31.0-37.0) g/dL RDW (11.5-15.5) % Plt Count (150-450) k/uL Neutrophils % % Lymphocytes % % Monocytes % % Eosinophils % % Basophils % % Neutrophils # (1.3-7.7) k/uL Lymphocytes # (1.0-4.8) k/uL Monocytes # (0-1.0) k/uL Eosinophils # (0-0.7) k/uL Basophils # (0-0.2) k/uL PT 10.6 (9.0-12.0) sec INR 1.0 (<1.2) APTT 28.5 (22.0-30.0) sec Sodium 136 L (137-145) mmol/L Potassium 4.5 (3.5-5.1) mmol/L Chloride 100 (98-107) mmol/L Carbon Dioxide 24 (22-30) mmol/L Anion Gap 12 mmol/L BUN 14 (9-20) mg/dL Creatinine 0.54 L (0.66-1.25) mg/dL Est GFR (CKD-EPI)AfAm >90 (>60 ml/min/1.73 sqM) Est GFR (CKD-EPI)NonAf >90 (>60 ml/min/1.73 sqM) Glucose 91 (74-99) mg/dL Plasma Lactic Acid Rahul 0.9 (0.7-2.0) mmol/L Calcium 9.1 (8.4-10.2) mg/dL Total Bilirubin 0.6 (0.2-1.3) mg/dL AST 27 (17-59) U/L ALT 6 L (21-72) U/L Alkaline Phosphatase 147 H (38-126) U/L Total Protein 7.1 (6.3-8.2) g/dL Albumin 3.9 (3.5-5.0) g/dL Urine Color Urine Appearance (Clear) Urine pH (5.0-8.0) Ur Specific Echo (1.001-1.035) Urine Protein (Negative) Urine Glucose (UA) (Negative) Urine Ketones (Negative) Urine Blood (Negative) Urine Nitrite (Negative) Urine Bilirubin (Negative) Urine Urobilinogen (<2.0) mg/dL Ur Leukocyte Esterase (Negative) Urine RBC (0-5) /hpf Urine WBC (0-5) /hpf Urine Bacteria (None) /hpf Influenza Type A RNA (Not Detectd) Influenza Type B (PCR) (Not Detectd) - Radiology Data Radiology results: image reviewed (Chest x-ray shows chronic changes without acute process.) Critical Care Time Critical Care Time: Yes Total Critical Care Time: 32 Disposition Clinical Impression: Urinary tract infection, Sepsis Disposition: ADMITTED IP TO THIS HOSP Is patient prescribed a controlled substance at d/c from ED?: No Referrals: None,Stated [REFERRING] - 1-2 days Decision Time: 16:37
[2018-12-23 13:53] LABS: Basophils % (A) 0 %; Eosinophils # (A) 0.1 k/uL (0-0.7); Eosinophils % (A) 1 %; HCT 38.4 % (39.0-53.0); HGB 12.5 gm/dL (13.0-17.5); Lymphocytes # (A) 1.1 k/uL (1.0-4.8); Lymphocytes % (A) 10 %; MCH 30.5 pg (25.0-35.0); MCHC 32.5 g/dL (31.0-37.0); Monocytes # (A) 0.5 k/uL (0-1.0); Monocytes % (A) 5 %; Neutrophils # (A) 9.4 k/uL (1.3-7.7); Neutrophils % (A) 83 %; Platelet Count 325 k/uL (150-450); RBC 4.09 m/uL (4.30-5.90); WBC 11.3 k/uL (3.8-10.6)
[2018-12-23 14:07] LABS: ALT 6 U/L (21-72); AST 27 U/L (17-59); Albumin 3.9 g/dL (3.5-5.0); Alkaline Phosphatase 147 U/L (38-126); Anion Gap 12 mmol/L; Blood Urea Nitrogen 14 mg/dL (9-20); Calcium 9.1 mg/dL (8.4-10.2); Carbon Dioxide 24 mmol/L (22-30); Chloride 100 mmol/L (98-107); Glucose 91 mg/dL (74-99); Potassium 4.5 mmol/L (3.5-5.1); Sodium 136 mmol/L (137-145); Total Bilirubin 0.6 mg/dL (0.2-1.3); Total Protein 7.1 g/dL (6.3-8.2)
[2018-12-23 14:12] LABS: Partial Thromboplastin Time 28.5 sec (22.0-30.0); Prothrombin Time 10.6 sec (9.0-12.0)
--- NOTE | 2018-12-23 14:15 | XR ---
EXAMINATION TYPE: XR chest 2V DATE OF EXAM: 12/23/2018 COMPARISON: Chest x-ray September 18 2017. HISTORY: Fever today. Cough for several days. TECHNIQUE: Frontal and lateral views of the chest are obtained. FINDINGS: There is some chronic parenchymal change without suspicious new focal air space opacity, pl eural effusion, or pneumothorax seen. The cardiac silhouette size remains within normal limits. Is a therosclerotic and ectatic thoracic aorta causing mass effect on trachea redemonstrated. Cholecystect arash clips are again seen. The osseous structures remain demineralized. Deformity left proximal humer us is again seen. There are old lateral left mid rib fractures redemonstrated. IMPRESSION: Chronic changes without acute pulmonary process.
[2018-12-23 15:17] LABS: Appearance,Urine Clear (Clear); Bacteria,Urine Rare /hpf; Bilirubin,Urine Negative (Negative); Blood,Urine Moderate (Negative); Color,Urine Yellow; Glucose,Urine (UA) Negative (Negative); Ketones,Urine 3+ (Negative); Leukocyte Esterase,Urine Small (Negative); Nitrite,Urine Positive (Negative); Protein,Urine 1+ (Negative); RBC,Urine 3 /hpf (0-5); Specific Gravity,Urine 1.018 (1.001-1.035); Urobilinogen,Urine <2.0 mg/dL (<2.0); WBC,Urine 32 /hpf (0-5)
[2018-12-23] MEDS ORDERED: NALOXONE 0.4 MG/ML 1 ML VIAL IV PRN (16:38)
[2018-12-23] MEDS ORDERED: cefTRIAXone IN SWFI 1,000 MG/10 ML SYRINGE IVP STA (16:38)
[2018-12-23] MEDS: SODIUM CHLORIDE 0.9% 1,000 ML IV SCH (16:48)
[2018-12-23] MEDS: PRIMIDONE 50 MG TAB PO SCH (21:16)
[2018-12-23] MEDS: CARBIDOPA-LEVODOPA 10-100 MG 1 EACH TAB PO SCH (21:17)
[2018-12-24] MEDS: ACETAMINOPHEN TAB 325 MG TAB PO PRN ×2 (00:36→20:12)
[2018-12-24] MEDS: SODIUM CHLORIDE 0.9% 1,000 ML IV SCH ×2 (06:33→16:57)
[2018-12-24] MEDS: MULTIVITAMINS, THERA 1 EACH TAB PO SCH (07:31)
[2018-12-24] MEDS: PRIMIDONE 50 MG TAB PO SCH ×3 (07:31→21:47)
[2018-12-24] MEDS: FERROUS SULFATE 325 MG TAB PO SCH ×2 (07:31→16:59)
[2018-12-24] MEDS: CARBIDOPA-LEVODOPA 10-100 MG 1 EACH TAB PO SCH ×2 (07:31→21:47)
[2018-12-24 09:22] LABS: Basophils % (A) 1 %; Eosinophils # (A) 0.1 k/uL (0-0.7); Eosinophils % (A) 1 %; Lymphocytes # (A) 1.3 k/uL (1.0-4.8); Lymphocytes % (A) 18 %; MCH 30.3 pg (25.0-35.0); MCHC 32.3 g/dL (31.0-37.0); MCV 93.7 fL (80.0-100.0); Mean Platelet Volume 7.3; Monocytes # (A) 0.4 k/uL (0-1.0); Monocytes % (A) 5 %; Neutrophils # (A) 5.7 k/uL (1.3-7.7); Neutrophils % (A) 75 %; Platelet Count 277 k/uL (150-450); RBC 3.63 m/uL (4.30-5.90); RDW 13.7 % (11.5-15.5); WBC 7.6 k/uL (3.8-10.6)
[2018-12-24 09:30] LABS: ALT 11 U/L (21-72); AST 23 U/L (17-59); Albumin 2.9 g/dL (3.5-5.0); Alkaline Phosphatase 102 U/L (38-126); Anion Gap 8 mmol/L; Blood Urea Nitrogen 14 mg/dL (9-20); Calcium 8.4 mg/dL (8.4-10.2); Carbon Dioxide 24 mmol/L (22-30); Chloride 104 mmol/L (98-107); Glucose 138 mg/dL (74-99); Sodium 136 mmol/L (137-145); Total Bilirubin 0.4 mg/dL (0.2-1.3); Total Protein 5.8 g/dL (6.3-8.2)
--- NOTE | 2018-12-24 10:38 | P.HPIM ---
History of Present Illness H&P Date: 12/24/18 This is a 78-year-old male patient who presented with complaints of fever. Patient reports that he started to feel feverish yesterday along with increased weakness. Patient reports he feels increased achiness and fatigue. Patient currently resides at [facility] in which he has caregivers. Patient also reports that he's had a nonproductive cough. Patient is wheelchair-bound. Additional medical history includes colon cancer in 1989 status post chemoradiation, CVA with left-sided weakness, DVT, liver disease, pneumonia and cholecystectomy. Chest x-ray completed showing chronic changes without acute pulmonary process. EKG completed showing sinus tachycardia. Elevated temperature 100.7 on admission. White blood cell 11.3. Lactic acid 0.9. Urinary analysis showing small amount of leukocyte Estrace. Patient started on Rocephin for IV antibiotics. Urine and blood cultures ordered. This time patient is resting comfortably in bed. Patient still complaining of cough will order repeat chest x-ray. Patient denies any chest pain. Patient denies nausea vomiting or diarrhea. Patient denies any burning with urination or frequency. Review of Systems please refer to HPI otherwise unremarkable Past Medical History Past Medical History: Cancer, CVA/TIA, Deep Vein Thrombosis (DVT), Liver Disease, Pneumonia Additional Past Medical History / Comment(s): 11-06-16 FALL/FX RT HIP. DDD, SPINAL CANAL STENOSIS, COLON CA IN THE HAD SX CHEMO AND RADIATION, 03-01-15 UTI(E COLI), left arm weakness-fx lt arm at shoulder-December 2014-remains painful, rectal carcinoma, elevated liver enzymes, walker use,recent falls,PAST CVA AFFECTED LT SIDE. History of Any Multi-Drug Resistant Organisms: None Reported Past Surgical History: Appendectomy, Back Surgery, Bowel Resection, Cholecystectomy, Joint Replacement, Orthopedic Surgery Additional Past Surgical History / Comment(s): GASTRECTOMY, L hip replacement, spinal surgery, RT ANKLE SX , 5 broken ribs, left arm fracture Past Anesthesia/Blood Transfusion Reactions: No Reported Reaction Additional Past Anesthesia/Blood Transfusion Reaction / Comment(s): no hx at ECF Past Psychological History: No Psychological Hx Reported Additional Psychological History / Comment(s): Client lives at [facility]. Smoking Status: Former smoker Past Alcohol Use History: None Reported, Occasional Additional Past Alcohol Use History / Comment(s): SMOKED FOR 37 YEARS QUIT 1995 Past Drug Use History: None Reported - Past Family History Father Family Medical History: Unable to Obtain Additional Family Medical History / Comment(s): heart problems Mother Family Medical History: Diabetes Mellitus Medications and Allergies Home Medications Medication Instructions Recorded Confirmed Type Aspirin EC [Ecotrin Low Dose] 81 mg PO DAILY@1700 07/26/17 12/23/18 History Primidone [Mysoline] 100 mg PO TID 07/26/17 12/23/18 History Ferrous Sulfate [Iron (65 MG 325 mg PO BID tab 07/29/17 12/23/18 Rx Elemental)] Carbidopa-Levodopa 10-100 mg 1 tab PO BID 09/17/17 12/23/18 History [Sinemet 10-100 mg] HYDROcodone/APAP 10-325MG [[place] 1 tab PO TID PRN #40 tab 09/22/17 12/23/18 Rx 10-325] Amoxic-Pot Clav 500-125 mg 1 tab PO BID 12/23/18 12/23/18 History [Augmentin 500-125 mg] Multivitamins, Thera [Multivitamin 1 tab PO DAILY 12/23/18 12/23/18 History (formulary)] Allergies Allergy/AdvReac Type Severity Reaction Status Date / Time No Known Allergies Allergy Verified 12/23/18 12:51 Physical Exam Vitals: Vital Signs Temp Pulse Pulse Resp BP BP BP 12/24/18 07:41 18 12/24/18 04:25 98.8 F 88 20 99/50 12/24/18 00:36 99.4 F 12/23/18 21:00 97.8 F 91 16 112/53 12/23/18 17:25 97.5 F L 88 16 117/56 12/23/18 16:50 92 18 100/59 12/23/18 15:57 98.6 F 86 18 106/56 12/23/18 15:08 99.8 F H 103 H 18 118/72 12/23/18 13:53 100.6 F H 110 H 18 118/79 12/23/18 12:40 100.7 F H 115 H 20 152/94 Pulse Ox 12/24/18 07:41 12/24/18 04:25 96 12/24/18 00:36 12/23/18 21:00 100 12/23/18 17:25 100 12/23/18 16:50 97 12/23/18 15:57 100 12/23/18 15:08 95 12/23/18 13:53 95 12/23/18 12:40 96 Intake and Output 12/23/18 12/24/18 12/24/18 22:59 06:59 14:59 Output Total 200 450 Balance -200 -450 Output: Urine 200 450 Other: Voiding Method Urinal # Voids 0 Head normocephalic Neck supple Lungs clear to auscultation bilaterally no wheezing or crackles Heart regular rate and rhythm S1-S2, no rub or gallop Abdomen is soft nontender nondistended positive bowel sounds no hepatosplenomegaly Extremities no edema Neuro alert and orientated to 3 Results CBC & Chem 7: 12/24/18 08:47 12/24/18 08:47 Labs: Abnormal Lab Results - Last 24 Hours (Table) 12/23/18 12/23/18 12/23/18 Range/Units 10:00 13:34 13:34 WBC 11.3 H (3.8-10.6) k/uL RBC 4.09 L (4.30-5.90) m/uL Hgb 12.5 L (13.0-17.5) gm/dL Hct 38.4 L (39.0-53.0) % Neutrophils # 9.4 H (1.3-7.7) k/uL Sodium 136 L (137-145) mmol/L Creatinine 0.54 L (0.66-1.25) mg/dL Glucose (74-99) mg/dL ALT 6 L (21-72) U/L Alkaline Phosphatase 147 H (38-126) U/L Total Protein (6.3-8.2) g/dL Albumin (3.5-5.0) g/dL Urine Protein 1+ H (Negative) Urine Ketones 3+ H (Negative) Urine Blood Moderate H (Negative) Ur Leukocyte Esterase Small H (Negative) Urine WBC 32 H (0-5) /hpf Urine Bacteria Rare H (None) /hpf 12/24/18 12/24/18 Range/Units 08:47 08:47 WBC (3.8-10.6) k/uL RBC 3.63 L (4.30-5.90) m/uL Hgb 11.0 L (13.0-17.5) gm/dL Hct 34.0 L (39.0-53.0) % Neutrophils # (1.3-7.7) k/uL Sodium 136 L (137-145) mmol/L Creatinine 0.44 L (0.66-1.25) mg/dL Glucose 138 H (74-99) mg/dL ALT 11 L (21-72) U/L Alkaline Phosphatase (38-126) U/L Total Protein 5.8 L (6.3-8.2) g/dL Albumin 2.9 L (3.5-5.0) g/dL Urine Protein (Negative) Urine Ketones (Negative) Urine Blood (Negative) Ur Leukocyte Esterase (Negative) Urine WBC (0-5) /hpf Urine Bacteria (None) /hpf Microbiology - Last 24 Hours (Table) 12/23/18 10:00 Urine Culture - Preliminary Urine,Ureter Thrombosis Risk Factor Assmnt - Choose All That Apply Other Risk Factors: Yes Each Risk Factor Represents 3 Points: Age 75 years or older, History of DVT/PE Other congenital or acquired thrombophilia - If yes, enter type in comment: No Thrombosis Risk Factor Assessment Total Risk Factor Score: 6 Thrombosis Risk Factor Assessment Level: High Risk Assessment and Plan Assessment: 1. Fever with urinary tract infection. Patient's initial temp 100.7. Urine culture ordered. Patient started on Rocephin. Lactic acid 0.9 2. Nonproductive cough. Initial chest x-ray completed showing chronic changes without acute pulmonary process. Will order repeat 2 view chest x-ray 3. History of colon cancer in the in which he received chemo and radiation 4. History of CVA and TIA with left-sided weakness 5. History of deep vein thrombosis 6. History of pneumonia 7. History of Parkinson's. Maintained on levodopa DVT prophylaxis heparin. GI prophylaxis Protonix Time with Patient: Greater than 30 (Greater than 60% of the total time spent in counseling and coordination of care. I performed an examination of the patient and discussed their management with the Nurse Practitioner. I have reviewed the Nurse Practitioner's notes and agree with the documented findings and plan of care)
--- NOTE | 2018-12-24 14:44 | XR ---
EXAMINATION TYPE: XR chest 2V DATE OF EXAM: 12/24/2018 COMPARISON: Prior chest x-ray 12/23/2018 HISTORY: Cough TECHNIQUE: Frontal and lateral views of the chest are obtained. FINDINGS: Patchy basilar density is present as on prior exam. No pneumothorax or evident effusion. D eformity the proximal left humerus appears chronic. Patient is rotated. Apical pleural thickening is greater on the right. Aorta is dense. IMPRESSION: Correlate for right lower lobe pneumonia. Follow-up is recommended.
[2018-12-24] MEDS: ASPIRIN 81 MG PO SCH (17:07)
[2018-12-24] MEDS: HEPARIN SODIUM,PORCINE 5,000 UNIT/ML 1 ML VIAL SQ SCH (20:12)
[2018-12-25] MEDS ORDERED: IPRATROPIUM-ALBUTEROL 3 ML NEB INHALATION PRN (08:25)
[2018-12-25] MEDS ORDERED: guaiFENesin 600 MG TABLET.ER PO PRN (08:26)
[2018-12-25] MEDS: CARBIDOPA-LEVODOPA 10-100 MG 1 EACH TAB PO SCH ×2 (08:31→21:07)
[2018-12-25] MEDS: PRIMIDONE 50 MG TAB PO SCH ×3 (08:31→21:08)
[2018-12-25] MEDS: DOCUSATE 100 MG CAP PO SCH ×2 (08:31→21:08)
[2018-12-25] MEDS: HEPARIN SODIUM,PORCINE 5,000 UNIT/ML 1 ML VIAL SQ SCH ×2 (08:31→21:08)
[2018-12-25] MEDS: PANTOPRAZOLE 40 MG TABLET PO SCH (08:32)
[2018-12-25] MEDS: MULTIVITAMINS, THERA 1 EACH TAB PO SCH (08:32)
[2018-12-25] MEDS: SODIUM CHLORIDE 0.9% 1,000 ML IV SCH ×2 (08:32→17:18)
[2018-12-25] MEDS: FERROUS SULFATE 325 MG TAB PO SCH ×2 (08:32→17:18)
[2018-12-25] MEDS: AZITHROMYCIN 500 MG in SODIUM CHLORIDE 0.9% 250 ML IVPB SCH (09:26)
[2018-12-25 09:47] LABS: Basophils % (A) 0 %; Eosinophils # (A) 0.1 k/uL (0-0.7); Eosinophils % (A) 1 %; HCT 30.8 % (39.0-53.0); HGB 10.2 gm/dL (13.0-17.5); Lymphocytes # (A) 1.3 k/uL (1.0-4.8); Lymphocytes % (A) 19 %; MCHC 33.3 g/dL (31.0-37.0); MCV 93.3 fL (80.0-100.0); Mean Platelet Volume 7.4; Monocytes # (A) 0.4 k/uL (0-1.0); Monocytes % (A) 6 %; Neutrophils % (A) 73 %; Platelet Count 274 k/uL (150-450); WBC 6.9 k/uL (3.8-10.6)
[2018-12-25] MEDS ORDERED: guaiFENesin-Coden 100-10MG/5ML 10 ML CUP PO PRN (09:56)
--- NOTE | 2018-12-25 09:58 | P.PN ---
Subjective Progress Note Date: 12/25/18 This is a 78-year-old male patient who presented with complaints of fever. Patient reports that he started to feel feverish yesterday along with increased weakness. Patient reports he feels increased achiness and fatigue. Patient currently resides [facility] in which he has caregivers. Patient also reports that he's had a nonproductive cough. Patient is wheelchair-bound. Additional medical history includes colon cancer in 1990 status post chemoradiation, CVA with left-sided weakness, DVT, liver disease, pneumonia and cholecystectomy. Chest x-ray completed showing chronic changes without acute pulmonary process. EKG completed showing sinus tachycardia. Elevated temperature 100.7 on admission. White blood cell 11.3. Lactic acid 0.9. Urinary analysis showing small amount of leukocyte Estrace. Patient started on Rocephin for IV antibiotics. Urine and blood cultures ordered. This time patient is resting comfortably in bed. Patient still complaining of cough will order repeat chest x-ray. Patient denies any chest pain. Patient denies nausea vomiting or diarrhea. Patient denies any burning with urination or frequency. On 12/25/2018 patient is alert and oriented 3. Patient is still complaining of cough. Repeat chest x-ray reviewed. Dr. Holloway has been consulted for pulmonary services. Azithromycin and Rocephin added for pneumonia. Assessment patient denies nausea vomiting or diarrhea. Patient denies any urinary burning or frequency. Patient denies chest pain. Objective - Vital Signs Vital signs: Vital Signs Temp 98.8 F 12/25/18 07:00 Pulse 87 12/25/18 07:00 Resp 16 12/25/18 08:00 BP 120/57 12/25/18 07:00 Pulse Ox 99 12/25/18 07:00 Intake & Output 12/24/18 12/25/18 12/25/18 18:59 06:59 18:59 Intake Total 800 160 Output Total 300 Balance 800 -140 Intake: Intake, IV Titration 160 Amount Sodium Chloride 0.9% 1, 160 000 ml @ 80 mls/hr IV . [id number] [facility] Rx#:[id number] Oral 800 Output: Urine 300 Other: Voiding Method Urinal # Voids 3 1 - Exam Head normocephalic Neck supple Lungs clear to auscultation bilaterally no wheezing or crackles Heart regular rate and rhythm S1-S2, no rub or gallop Abdomen is soft nontender nondistended positive bowel sounds no hepatosplenomegaly Extremities no edema Neuro alert and orientated to 3 - Labs CBC & Chem 7: 12/25/18 09:18 12/24/18 08:47 Labs: Abnormal Lab Results - Last 24 Hours (Table) 12/25/18 Range/Units 09:18 RBC 3.30 L (4.30-5.90) m/uL Hgb 10.2 L (13.0-17.5) gm/dL Hct 30.8 L (39.0-53.0) % Microbiology - Last 24 Hours (Table) 12/23/18 10:00 Urine Culture - Final Urine,Ureter 12/23/18 13:34 Blood Culture - Preliminary Blood No Growth after 24 hours Assessment and Plan Assessment: 1. Right lower lobe pneumonia with failed outpatient treatment . Initial chest x-ray completed showing chronic changes without acute pulmonary process. Repeat 2 view chest x-ray showing correlation for right lower lobe pneumonia. Dr. Arboleda has been consulted for pulmonary services. Sputum culture ordered. Patient started on azithromycin and Rocephin. Mucinex added. DuoNeb breathing treatments added 2. urinary tract infection. Patient's initial temp 100.7. Urine culture ordered. Patient started on Rocephin. Lactic acid 0.9 3. History of colon cancer in the in which he received chemo and radiati on 4. History of CVA and TIA with left-sided weakness 5. History of deep vein thrombosis 6. History of pneumonia 7. History of Parkinson's. Maintained on levodopa 8. Anemia. Iron studies have been ordered DVT prophylaxis heparin. GI prophylaxis Protonix I performed an examination of the patient and discussed their management with the Nurse Practitioner. I have reviewed the Nurse Practitioner's notes and agree with the documented findings and plan of care
[2018-12-25 10:00] LABS: ALT 18 U/L (21-72); AST 36 U/L (17-59); Albumin 2.6 g/dL (3.5-5.0); Alkaline Phosphatase 105 U/L (38-126); Anion Gap 4 mmol/L; Blood Urea Nitrogen 9 mg/dL (9-20); Calcium 8.2 mg/dL (8.4-10.2); Carbon Dioxide 26 mmol/L (22-30); Chloride 105 mmol/L (98-107); Glucose 123 mg/dL (74-99); Potassium 3.7 mmol/L (3.5-5.1); Sodium 135 mmol/L (137-145); Total Bilirubin 0.2 mg/dL (0.2-1.3); Total Protein 5.4 g/dL (6.3-8.2)
[2018-12-25] MEDS: IPRATROPIUM-ALBUTEROL 3 ML NEB INHALATION SCH ×3 (12:31→19:40)
--- NOTE | 2018-12-25 13:50 | P.CNPUL ---
History of Present Illness Consult date: 12/25/18 Reason for consult: dyspnea, cough, pneumonia, pleural effusion Chief complaint: Fever with progressive weakness for 2-3 days History of present illness: 78-year-old male with the past medical history of multiple problems including prior history of pelvic fracture and right femoral fracture he is wheelchair- bound he lives in an apartment for last 2 or 3 days he has been having feverish feeling with increased cough and congestion in addition to above complaining of overwhelming tightness with those problem came into the hospital he was found to have elevated temperature 100.7 and white cell count of 11.3 chest x-rays is still of right lower lobe pneumonia hours asked to evaluate this patient further Review of Systems All systems: negative Past Medical History Past Medical History: Cancer, CVA/TIA, Deep Vein Thrombosis (DVT), Liver Disease, Pneumonia Additional Past Medical History / Comment(s): 11-06-16 FALL/FX RT HIP. DDD, SPINAL CANAL STENOSIS, COLON CA IN THE HAD SX CHEMO AND RADIATION, UTI(E COLI), left arm weakness-fx lt arm at shoulder-December 2014-remains painful, rectal carcinoma, elevated liver enzymes, walker use,recent falls,PAST CVA AFFECTED LT SIDE. History of Any Multi-Drug Resistant Organisms: None Reported Past Surgical History: Appendectomy, Back Surgery, Bowel Resection, Cholecystectomy, Joint Replacement, Orthopedic Surgery Additional Past Surgical History / Comment(s): GASTRECTOMY, L hip replacement, spinal surgery, RT ANKLE SX , 5 broken ribs, left arm fracture Past Anesthesia/Blood Transfusion Reactions: No Reported Reaction Additional Past Anesthesia/Blood Transfusion Reaction / Comment(s): no hx at F Past Psychological History: No Psychological Hx Reported Additional Psychological History / Comment(s): Client lives at [facility]. Smoking Status: Former smoker Past Alcohol Use History: None Reported, Occasional Additional Past Alcohol Use History / Comment(s): SMOKED FOR 37 YEARS QUIT 1995 Past Drug Use History: None Reported - Past Family History Father Family Medical History: Unable to Obtain Additional Family Medical History / Comment(s): heart problems Mother Family Medical History: Diabetes Mellitus Medications and Allergies Home Medications Medication Instructions Recorded Confirmed Type Aspirin EC [Ecotrin Low Dose] 81 mg PO DAILY@1700 07/26/17 12/23/18 History Primidone [Mysoline] 100 mg PO TID 07/26/17 12/23/18 History Ferrous Sulfate [Iron (65 MG 325 mg PO BID tab 07/29/17 12/23/18 Rx Elemental)] Carbidopa-Levodopa 10-100 mg 1 tab PO BID 09/17/17 12/23/18 History [Sinemet 10-100 mg] HYDROcodone/APAP 10-325MG [[place] 1 tab PO TID PRN #40 tab 09/22/17 12/23/18 Rx 10-325] Amoxic-Pot Clav 500-125 mg 1 tab PO BID 12/23/18 12/23/18 History [Augmentin 500-125 mg] Multivitamins, Thera [Multivitamin 1 tab PO DAILY 12/23/18 12/23/18 History (formulary)] Allergies Allergy/AdvReac Type Severity Reaction Status Date / Time No Known Allergies Allergy Verified 12/23/18 12:51 Physical Exam Vitals: Vital Signs Temp Pulse Resp BP Pulse Ox 12/25/18 08:00 16 12/25/18 07:00 98.8 F 87 16 120/57 99 12/24/18 23:00 98.2 F 81 18 95 12/24/18 19:59 99.3 F 96 18 104/61 96 12/24/18 15:23 16 12/24/18 14:07 98.6 F 106 H 16 111/54 95 Intake and Output 12/24/18 12/25/18 12/25/18 22:59 06:59 14:59 Intake Total 160 Output Total 300 Balance 160 -300 Intake: Intake, IV Titration 160 Amount Sodium Chloride 0.9% 1, 160 000 ml @ 80 mls/hr IV . [id number] [facility] Rx#:[id number] Output: Urine 300 Other: Voiding Method Urinal # Voids 1 - Constitutional General appearance: average body habitus, cooperative, disheveled, mild distress - EENT Eyes: EOMI, PERRLA, normal appearance ENT: normal oropharynx Ears: bilateral: normal - Neck Neck: normal ROM Carotids: bilateral: upstroke normal, bruit absent Thyroid: bilateral: normal size - Respiratory Respiratory: right: rales, bilateral: diminished, prolonged expiration, negative: rhonchi, wheezing - Cardiovascular Rhythm: regular Heart sounds: normal: S1, S2 - Gastrointestinal General gastrointestinal: decreased bowel sounds, soft - Neurologic Neurologic: CNII-XII intact - Musculoskeletal Musculoskeletal: generalized weakness, strength equal bilaterally - Psychiatric Psychiatric: A&O x's 3, appropriate affect, intact judgment & insight Results - Laboratory Findings CBC and BMP: 12/25/18 09:18 12/25/18 09:18 PT/INR, D-dimer PT 10.6 sec (9.0-12.0) 12/23/18 13:34 INR 1.0 (<1.2) 12/23/18 13:34 Abnormal lab findings: Abnormal Labs 12/23/18 12/23/18 12/23/18 10:00 13:34 13:34 WBC 11.3 H RBC 4.09 L Hgb 12.5 L Hct 38.4 L Neutrophils # 9.4 H Sodium 136 L Creatinine 0.54 L Glucose Calcium ALT 6 L Alkaline Phosphatase 147 H Total Protein Albumin Urine Protein 1+ H Urine Ketones 3+ H Urine Blood Moderate H Ur Leukocyte Esterase Small H Urine WBC 32 H Urine Bacteria Rare H 12/24/18 12/24/18 12/25/18 08:47 08:47 09:18 WBC RBC 3.63 L 3.30 L Hgb 11.0 L 10.2 L Hct 34.0 L 30.8 L Neutrophils # Sodium 136 L Creatinine 0.44 L Glucose 138 H Calcium ALT 11 L Alkaline Phosphatase Total Protein 5.8 L Albumin 2.9 L Urine Protein Urine Ketones Urine Blood Ur Leukocyte Esterase Urine WBC Urine Bacteria 12/25/18 09:18 WBC RBC Hgb Hct Neutrophils # Sodium 135 L Creatinine 0.38 L Glucose 123 H Calcium 8.2 L ALT 18 L Alkaline Phosphatase Total Protein 5.4 L Albumin 2.6 L Urine Protein Urine Ketones Urine Blood Ur Leukocyte Esterase Urine WBC Urine Bacteria - Diagnostic Findings Chest x-ray: report reviewed, image reviewed (Developing right lower lobe pneumonia) Assessment and Plan Assessment: Sepsis due to right lower lobe pneumonia Colon cancer status post XRT and radiation therapy Story of DVT Residual left-sided weakness was prior history of CVA Advanced Parkinson's disease Acute anemia Plan: Broad-spectrum antibiotics deep breathing sense incentive spirometry Bronchodilators DVT prophylaxis Further plan of care as per clinical response of the patient Time with Patient: Greater than 30
[2018-12-25 16:34] LABS: Iron Saturation 9.5 (15.00-50.00)
[2018-12-25] MEDS: ASPIRIN 81 MG PO SCH (17:18)
[2018-12-26] MEDS: PANTOPRAZOLE 40 MG TABLET PO SCH (07:21)
[2018-12-26] MEDS: CARBIDOPA-LEVODOPA 10-100 MG 1 EACH TAB PO SCH ×2 (07:22→20:16)
[2018-12-26] MEDS: DOCUSATE 100 MG CAP PO SCH ×2 (07:22→20:16)
[2018-12-26] MEDS: FERROUS SULFATE 325 MG TAB PO SCH ×2 (07:22→17:48)
[2018-12-26] MEDS: HYDROcodone/APAP 10-325MG 1 EACH TAB PO PRN ×3 (07:22→23:34)
[2018-12-26] MEDS: PRIMIDONE 50 MG TAB PO SCH ×3 (07:22→21:23)
[2018-12-26] MEDS: MULTIVITAMINS, THERA 1 EACH TAB PO SCH (07:22)
[2018-12-26] MEDS: HEPARIN SODIUM,PORCINE 5,000 UNIT/ML 1 ML VIAL SQ SCH ×2 (07:23→20:17)
[2018-12-26] MEDS: AZITHROMYCIN 500 MG in SODIUM CHLORIDE 0.9% 250 ML IVPB SCH (07:23)
[2018-12-26] MEDS: SODIUM CHLORIDE 0.9% 1,000 ML IV SCH (07:24)
[2018-12-26 07:44] LABS: Basophils % (A) 0 %; Eosinophils # (A) 0.1 k/uL (0-0.7); Eosinophils % (A) 2 %; HCT 31.9 % (39.0-53.0); HGB 10.1 gm/dL (13.0-17.5); Lymphocytes # (A) 1.7 k/uL (1.0-4.8); Lymphocytes % (A) 28 %; MCH 30.1 pg (25.0-35.0); MCHC 31.7 g/dL (31.0-37.0); MCV 94.9 fL (80.0-100.0); Mean Platelet Volume 6.9; Monocytes # (A) 0.3 k/uL (0-1.0); Monocytes % (A) 4 %; Neutrophils % (A) 65 %; Platelet Count 300 k/uL (150-450); RBC 3.36 m/uL (4.30-5.90); WBC 6.1 k/uL (3.8-10.6)
[2018-12-26 08:02] LABS: ALT 8 U/L (21-72); AST 42 U/L (17-59); Albumin 2.8 g/dL (3.5-5.0); Alkaline Phosphatase 114 U/L (38-126); Anion Gap 5 mmol/L; Blood Urea Nitrogen 7 mg/dL (9-20); Calcium 8.4 mg/dL (8.4-10.2); Carbon Dioxide 25 mmol/L (22-30); Chloride 104 mmol/L (98-107); Glucose 85 mg/dL (74-99); Potassium 4.1 mmol/L (3.5-5.1); Sodium 134 mmol/L (137-145); Total Bilirubin 0.3 mg/dL (0.2-1.3); Total Protein 5.5 g/dL (6.3-8.2)
[2018-12-26] MEDS: IPRATROPIUM-ALBUTEROL 3 ML NEB INHALATION SCH ×4 (09:07→20:38)
--- NOTE | 2018-12-26 13:48 | P.PN ---
Subjective Progress Note Date: 12/26/18 This is a 78-year-old male patient who presented with complaints of fever. Patient reports that he started to feel feverish yesterday along with increased weakness. Patient reports he feels increased achiness and fatigue. Patient [facility] in which he has caregivers. Patient also reports that he's had a nonproductive cough. Patient is wheelchair-bound. Additional medical history includes colon cancer in 1990 status post chemoradiation, CVA with left-sided weakness, DVT, liver disease, pneumonia and cholecystectomy. Chest x-ray completed showing chronic changes without acute pulmonary process. EKG completed showing sinus tachycardia. Elevated temperature 100.7 on admission. White blood cell 11.3. Lactic acid 0.9. Urinary analysis showing small amount of leukocyte Estrace. Patient started on Rocephin for IV antibiotics. Urine and blood cultures ordered. This time patient is resting comfortably in bed. Patient still complaining of cough will order repeat chest x-ray. Patient denies any chest pain. Patient denies nausea vomiting or diarrhea. Patient denies any burning with urination or frequency. On 12/25/2018 patient is alert and oriented 3. Patient is still complaining of cough. Repeat chest x-ray reviewed. Dr. Holloway has been consulted for pulmonary services. Azithromycin and Rocephin added for pneumonia. Assessment patient denies nausea vomiting or diarrhea. Patient denies any urinary burning or frequency. Patient denies chest pain. On 12/26/2018 patient was seen and examined on the medical floor, he is alert and oriented 3 in no apparent distress he is complaining of neck pain he is also complaining of cough and shortness of breath otherwise he denies any complaints there is no fever or chills no headache or dizziness no chest pain no nausea or vomiting no abdominal pain no diarrhea and no urinary symptoms Objective - Vital Signs Vital signs: Vital Signs Temp 98.3 F 12/26/18 07:28 Pulse 84 12/26/18 12:37 Resp 20 12/26/18 07:28 BP 120/64 12/26/18 07:28 Pulse Ox 97 12/26/18 09:09 Intake & Output 12/25/18 12/26/18 12/26/18 18:59 06:59 18:59 Intake Total 1900 Output Total 850 Balance 1050 Intake: Intake, IV Titration 1250 Amount Sodium Chloride 0.9% 1, 1200 000 ml @ 80 mls/hr IV . [id number] [facility] Rx#:[id number] cefTRIAXone 1 gm In 50 Sodium Chloride 0.9% 50 ml @ 100 mls/hr IVPB Q12H [facility] Rx#:[id number] Oral 650 Output: Urine 850 Other: Voiding Method Urinal Urinal # Voids 3 3 4 # Bowel Movements 0 - Exam In general patient is alert and oriented 3 in no apparent distress Head normocephalic and atraumatic Neck supple no JVD no goiter Lungs clear to auscultation bilaterally no wheezing or crackles Heart regular rate and rhythm S1-S2, no rub or gallop Abdomen is soft nontender nondistended positive bowel sounds no hepatosplenomegaly Extremities no edema no cyanosis or clubbing Neuro no gross focal neurological deficit - Labs CBC & Chem 7: 12/26/18 07:03 12/26/18 07:03 Labs: Abnormal Lab Results - Last 24 Hours (Table) 12/25/18 12/26/18 12/26/18 Range/Units 09:18 07:03 07:03 RBC 3.36 L (4.30-5.90) m/uL Hgb 10.1 L (13.0-17.5) gm/dL Hct 31.9 L (39.0-53.0) % Sodium 134 L (137-145) mmol/L BUN 7 L (9-20) mg/dL Creatinine 0.40 L (0.66-1.25) mg/dL Iron 17 L (65-175) ug/dL TIBC 179 L (228-460) ug/dL Iron Saturation 9.50 L (15.00-50.00) ALT 8 L (21-72) U/L Total Protein 5.5 L (6.3-8.2) g/dL Albumin 2.8 L (3.5-5.0) g/dL Microbiology - Last 24 Hours (Table) 12/25/18 16:00 Gram Stain - Preliminary Sputum Sputum Culture - Preliminary 12/23/18 13:34 Blood Culture - Preliminary Blood No Growth after 48 hours Assessment and Plan Plan: 1. Right lower lobe pneumonia with failed outpatient treatment . Initial chest x-ray completed showing chronic changes without acute pulmonary process. Repeat 2 view chest x-ray showing correlation for right lower lobe pneumonia. Dr. Arboleda has been consulted for pulmonary services. Sputum culture ordered. Patient started on azithromycin and Rocephin. Mucinex added. DuoNeb breathing treatments added 2. urinary tract infection. Patient's initial temp 100.7. Urine culture ordered. Patient started on Rocephin. Lactic acid 0.9 3. History of colon cancer in the in which he received chemo and radiation 4. History of CVA and TIA with left-sided weakness 5. History of deep vein thrombosis 6. History of pneumonia 7. History of Parkinson's. Maintained on levodopa 8. Anemia. Iron studies have been ordered. 9. Neck pain will add muscle relaxer will recheck in a DVT prophylaxis heparin. GI prophylaxis Protonix
[2018-12-26] MEDS ORDERED: guaiFENesin-DM 100-10MG/5ML 10 ML CUP PO PRN (15:41)
--- NOTE | 2018-12-26 15:42 | P.PN ---
Subjective Progress Note Date: 12/26/18 Principal diagnosis: Right lower lobe pneumonia, sepsis, colon cancer, DVT, left-sided weakness, old CVA, advanced Parkinson's disease, acute on chronic anemia 12/26/2018, patient seen and evaluated examined during the rounds, patient is complaining of some stiffness in the extremities and and also some pain in the neck is complaining of intermittent cough as well tolerating antibiotics well his Parkinson's disease remains an issue with possible exacerbation he has been resumed on his anti-Parkinson's medicine will see the response but is possible if he continued to have problem to have medicines readjusted 78-year-old male with the past medical history of multiple problems including prior history of pelvic fracture and right femoral fracture he is wheelchair- bound he lives in an apartment for last 2 or 3 days he has been having feverish feeling with increased cough and congestion in addition to above complaining of overwhelming tightness with those problem came into the hospital he was found to have elevated temperature 100.7 and white cell count of 11.3 chest x-rays is still of right lower lobe pneumonia hours asked to evaluate this patient further Objective - Vital Signs Vital signs: Vital Signs Temp 98.3 F 12/26/18 07:28 Pulse 84 12/26/18 12:37 Resp 20 12/26/18 07:28 BP 120/64 12/26/18 07:28 Pulse Ox 97 12/26/18 09:09 Intake & Output 12/25/18 12/26/18 12/26/18 18:59 06:59 18:59 Intake Total 1900 Output Total 850 Balance 1050 Intake: Intake, IV Titration 1250 Amount Sodium Chloride 0.9% 1, 1200 000 ml @ 80 mls/hr IV . [id number] [facility] Rx#:[id number] cefTRIAXone 1 gm In 50 Sodium Chloride 0.9% 50 ml @ 100 mls/hr IVPB Q12H [facility] Rx#:[id number] Oral 650 Output: Urine 850 Other: Voiding Method Urinal Urinal # Voids 3 3 4 # Bowel Movements 0 - Exam - Constitutional General appearance: average body habitus, cooperative, disheveled, mild distress - EENT Eyes: EOMI, PERRLA, normal appearance ENT: normal oropharynx Ears: bilateral: normal - Neck Neck: normal ROM Carotids: bilateral: upstroke normal, bruit absent Thyroid: bilateral: normal size - Respiratory Respiratory: right: rales, bilateral: diminished, prolonged expiration, negative: rhonchi, wheezing - Cardiovascular Rhythm: regular Heart sounds: normal: S1, S2 - Gastrointestinal General gastrointestinal: decreased bowel sounds, soft - Neurologic Neurologic: CNII-XII intact - Musculoskeletal Musculoskeletal: generalized weakness, strength equal bilaterally - Psychiatric Psychiatric: A&O x's 3, appropriate affect, intact judgment & insight - Labs CBC & Chem 7: 12/26/18 07:03 12/26/18 07:03 Labs: Abnormal Lab Results - Last 24 Hours (Table) 12/25/18 12/26/18 12/26/18 Range/Units 09:18 07:03 07:03 RBC 3.36 L (4.30-5.90) m/uL Hgb 10.1 L (13.0-17.5) gm/dL Hct 31.9 L (39.0-53.0) % Sodium 134 L (137-145) mmol/L BUN 7 L (9-20) mg/dL Creatinine 0.40 L (0.66-1.25) mg/dL Iron 17 L (65-175) ug/dL TIBC 179 L (228-460) ug/dL Iron Saturation 9.50 L (15.00-50.00) ALT 8 L (21-72) U/L Total Protein 5.5 L (6.3-8.2) g/dL Albumin 2.8 L (3.5-5.0) g/dL Microbiology - Last 24 Hours (Table) 12/25/18 16:00 Gram Stain - Preliminary Sputum Sputum Culture - Preliminary Gram Neg Bacilli 12/23/18 13:34 Blood Culture - Preliminary Blood No Growth after 48 hours Assessment and Plan Assessment: Intractable cough Sepsis due to right lower lobe pneumonia Colon cancer status post XRT and radiation therapy Story of DVT Residual left-sided weakness was prior history of CVA Advanced Parkinson's disease Acute anemia Plan: Will use cough medicine Broad-spectrum antibiotics deep breathing sense incentive spirometry Bronchodilators DVT prophylaxis Further plan of care as per clinical response of the patient Time with Patient: Greater than 30
[2018-12-26] MEDS: ASPIRIN 81 MG PO SCH (17:48)
[2018-12-26] MEDS: ACETAMINOPHEN TAB 325 MG TAB PO PRN (20:16)
[2018-12-27] MEDS: SODIUM CHLORIDE 0.9% 1,000 ML IV SCH ×3 (06:26→21:09)
[2018-12-27] MEDS: HYDROcodone/APAP 10-325MG 1 EACH TAB PO PRN ×3 (07:42→21:13)
[2018-12-27] MEDS: HEPARIN SODIUM,PORCINE 5,000 UNIT/ML 1 ML VIAL SQ SCH ×2 (07:42→21:10)
[2018-12-27] MEDS: FERROUS SULFATE 325 MG TAB PO SCH ×2 (07:42→18:11)
[2018-12-27] MEDS: DOCUSATE 100 MG CAP PO SCH ×2 (07:43→21:10)
[2018-12-27] MEDS: CARBIDOPA-LEVODOPA 10-100 MG 1 EACH TAB PO SCH ×2 (07:43→21:10)
[2018-12-27] MEDS: AZITHROMYCIN 500 MG in SODIUM CHLORIDE 0.9% 250 ML IVPB SCH (07:43)
[2018-12-27] MEDS: MULTIVITAMINS, THERA 1 EACH TAB PO SCH (07:43)
[2018-12-27] MEDS: PRIMIDONE 50 MG TAB PO SCH ×3 (07:43→21:10)
[2018-12-27] MEDS: PANTOPRAZOLE 40 MG TABLET PO SCH (07:43)
[2018-12-27] MEDS: IPRATROPIUM-ALBUTEROL 3 ML NEB INHALATION SCH ×4 (08:53→20:46)
[2018-12-27 09:20] LABS: Albumin 2.7 g/dL (3.5-5.0); Anion Gap 8 mmol/L; Blood Urea Nitrogen 6 mg/dL (9-20); Calcium 7.9 mg/dL (8.4-10.2); Carbon Dioxide 24 mmol/L (22-30); Chloride 104 mmol/L (98-107); Glucose 84 mg/dL (74-99); Sodium 136 mmol/L (137-145); Total Bilirubin 0.5 mg/dL (0.2-1.3); Total Protein 5.5 g/dL (6.3-8.2)
[2018-12-27 09:23] LABS: ALT 20 U/L (21-72); AST 41 U/L (17-59); Alkaline Phosphatase 110 U/L (38-126); Basophils % (A) 0 %; Eosinophils # (A) 0.1 k/uL (0-0.7); Eosinophils % (A) 1 %; HCT 31.9 % (39.0-53.0); HGB 10.1 gm/dL (13.0-17.5); Lymphocytes # (A) 1.1 k/uL (1.0-4.8); Lymphocytes % (A) 17 %; MCH 29.9 pg (25.0-35.0); MCHC 31.6 g/dL (31.0-37.0); MCV 94.5 fL (80.0-100.0); Mean Platelet Volume 6.9; Monocytes # (A) 0.3 k/uL (0-1.0); Monocytes % (A) 4 %; Neutrophils # (A) 4.9 k/uL (1.3-7.7); Neutrophils % (A) 76 %; Platelet Count 306 k/uL (150-450); Potassium 4.5 mmol/L (3.5-5.1); RBC 3.37 m/uL (4.30-5.90); WBC 6.5 k/uL (3.8-10.6)
[2018-12-27] MEDS ORDERED: LACTULOSE 20 GM/30 ML CUP PO ONE (11:29)
[2018-12-27] MEDS ORDERED: BACLOFEN 10 MG TAB PO PRN (11:29)
--- NOTE | 2018-12-27 12:41 | P.PN ---
Subjective Progress Note Date: 12/27/18 This is a 78-year-old male patient who presented with complaints of fever. Patient reports that he started to feel feverish yesterday along with increased weakness. Patient reports he feels increased achiness and fatigue. Patient currently resides [facility] in which he has caregivers. Patient also reports that he's had a nonproductive cough. Patient is wheelchair-bound. Additional medical history includes colon cancer in 1990 status post chemoradiation, CVA with left-sided weakness, DVT, liver disease, pneumonia and cholecystectomy. Chest x-ray completed showing chronic changes without acute pulmonary process. EKG completed showing sinus tachycardia. Elevated temperature 100.7 on admission. White blood cell 11.3. Lactic acid 0.9. Urinary analysis showing small amount of leukocyte Estrace. Patient started on Rocephin for IV antibiotics. Urine and blood cultures ordered. This time patient is resting comfortably in bed. Patient still complaining of cough will order repeat chest x-ray. Patient denies any chest pain. Patient denies nausea vomiting or diarrhea. Patient denies any burning with urination or frequency. On 12/25/2018 patient is alert and oriented 3. Patient is still complaining of cough. Repeat chest x-ray reviewed. Dr. Holloway has been consulted for pulmonary services. Azithromycin and Rocephin added for pneumonia. Assessment patient denies nausea vomiting or diarrhea. Patient denies any urinary burning or frequency. Patient denies chest pain. On 12/26/2018 patient was seen and examined on the medical floor, he is alert and oriented 3 in no apparent distress he is complaining of neck pain he is also complaining of cough and shortness of breath otherwise he denies any complaints there is no fever or chills no headache or dizziness no chest pain no nausea or vomiting no abdominal pain no diarrhea and no urinary symptoms On 12/27/2018 patient is alert and oriented 3 is complaining of neck pain, he is still having cough and difficulty bringing sputum, otherwise he denies any complaints there is no fever or chills no headache or dizziness no chest pain no nausea or vomiting no abdominal pain and no urinary symptoms. At this time medications are reevaluated to be able to add a muscle relaxer to his regimen without medication interaction. Objective - Vital Signs Vital signs: Vital Signs Temp 98.8 F 12/27/18 07:09 Pulse 78 12/27/18 08:54 Resp 22 12/27/18 07:09 BP 130/67 12/27/18 07:09 Pulse Ox 97 12/27/18 07:09 Intake & Output 12/26/18 12/27/18 12/27/18 18:59 06:59 18:59 Intake Total 1710 Output Total 375 Balance 1335 Intake: Intake, IV Titration 1290 Amount Sodium Chloride 0.9% 1, 1240 000 ml @ 80 mls/hr IV . [id number] [facility] Rx#:[id number] cefTRIAXone 1 gm In 50 Sodium Chloride 0.9% 50 ml @ 100 mls/hr IVPB Q12H [facility] Rx#:[id number] Oral 420 Output: Urine 375 Other: Voiding Method Urinal Urinal Urinal # Voids 4 2 - Exam In general patient is alert and oriented 3 in no apparent distress Head normocephalic and atraumatic Neck supple no JVD no goiter Lungs clear to auscultation bilaterally no wheezing or crackles Heart regular rate and rhythm S1-S2, no rub or gallop Abdomen is soft nontender nondistended positive bowel sounds no hepatosplenomegaly Extremities no edema no cyanosis or clubbing Neuro no gross focal neurological deficit - Labs CBC & Chem 7: 12/27/18 08:17 12/27/18 08:17 Labs: Abnormal Lab Results - Last 24 Hours (Table) 12/27/18 12/27/18 Range/Units 08:17 08:17 RBC 3.37 L (4.30-5.90) m/uL Hgb 10.1 L (13.0-17.5) gm/dL Hct 31.9 L (39.0-53.0) % Sodium 136 L (137-145) mmol/L BUN 6 L (9-20) mg/dL Creatinine 0.35 L (0.66-1.25) mg/dL Calcium 7.9 L (8.4-10.2) mg/dL ALT 20 L (21-72) U/L Total Protein 5.5 L (6.3-8.2) g/dL Albumin 2.7 L (3.5-5.0) g/dL Microbiology - Last 24 Hours (Table) 12/25/18 16:00 Gram Stain - Final Sputum Sputum Culture - Final Escherichia coli 05/15/19 13:34 Blood Culture - Preliminary Blood No Growth after 72 hours Assessment and Plan Plan: 1. Right lower lobe pneumonia with failed outpatient treatment . Initial chest x-ray completed showing chronic changes without acute pulmonary process. Repeat 2 view chest x-ray showing correlation for right lower lobe pneumonia. Dr. Arboleda has been consulted for pulmonary services. Sputum culture ordered. Patient started on azithromycin and Rocephin. Mucinex added. DuoNeb breathing treatments added 2. urinary tract infection. Patient's initial temp 100.7. Urine culture ordered. Patient started on Rocephin. Lactic acid 0.9 3. History of colon cancer in the in which he received chemo and radiation 4. History of CVA and TIA with left-sided weakness 5. History of deep vein thrombosis 6. History of pneumonia 7. History of Parkinson's. Maintained on levodopa 8. Anemia. Iron studies have been ordered. 9. Neck pain will add muscle relaxer will recheck in a DVT prophylaxis heparin. GI prophylaxis Protonix
[2018-12-27] MEDS: ERTAPENEM 1 GM in SODIUM CHLORIDE 0.9% 50 ML IVPB SCH (16:10)
--- NOTE | 2018-12-27 17:23 | P.CONS ---
History of Present Illness - Reason for Consult Consult date: 12/27/18 - Chief Complaint wweakness and shortness of breath - History of Present Illness 78-year-old male presents to Hospital from his care setting where he has caregivers in the senior apartment where he lives. Generally does relatively well after his history of cancer, progressive weakness and fall resulting in trauma and fracture that his limited his ambulation. Patient relates that he sta rted to feel poorly and constantly was brought into the emergency center. There he was found evidence of leukocytosis and fever and he was admitted. With evidence of urinary tract infection and possible pneumonia the infectious diseases consultation was requested. The patient relates his breathing is better since admission but does not feel back to baseline at this time. Review of Systems HEENT patient denies sinus or mouth discomfort. No dysphagia. No oral pain. No neck stiffness or lymphadenopathy Lungs patient denies shortness of breath cough or sputum production no hemoptysis Heart patient denies chest pain or pressure. He is not having dyspnea on exertion, orthopnea, or syncope Abdomen patient denies abdominal pain, denies nausea vomiting constipation or diarrhea. Denies hematemesis melena or hematochezia Extremitiesas chronic difficulties with lower extremities with his occult he walking does not however have much edema and no ulcers Neuro patient denies dizziness, or new deficits feels quite weak overall Past Medical History Past Medical History: Cancer, CVA/TIA, Deep Vein Thrombosis (DVT), Liver Disease, Pneumonia Additional Past Medical History / Comment(s): 11-06-16 FALL/FX RT HIP. DDD, SPINAL CANAL STENOSIS, COLON CA IN THE HAD SX CHEMO AND RADIATION, 03-01-15 UTI(E COLI), left arm weakness-fx lt arm at shoulder-December 2014-remains painful, rectal carcinoma, elevated liver enzymes, walker use,recent falls,PAST CVA AFFECTED LT SIDE. History of Any Multi-Drug Resistant Organisms: None Reported Past Surgical History: Appendectomy, Back Surgery, Bowel Resection, Cholecystectomy, Joint Replacement, Orthopedic Surgery Additional Past Surgical History / Comment(s): GASTRECTOMY, L hip replacement, spinal surgery, RT ANKLE SX , 5 broken ribs, left arm fracture Past Anesthesia/Blood Transfusion Reactions: No Reported Reaction Additional Past Anesthesia/Blood Transfusion Reaction / Comm: no hx at [facility] Past Psychological History: No Psychological Hx Reported Additional Psychological History / Comment(s): Client lives at [facility]. has caretakers. Retired. No service. No current tobacco use. No current alcohol use. no animal in the apartment Smoking Status: Former smoker Past Alcohol Use History: None Reported, Occasional Additional Past Alcohol Use History / Comment(s): SMOKED FOR 37 YEARS QUIT 1995 Past Drug Use History: None Reported - Past Family History Father Family Medical History: Unable to Obtain Additional Family Medical History / Comment(s): heart problems Mother Family Medical History: Diabetes Mellitus Medications and Allergies Home Medications and Allergies Comment(s): Current Medications Acetaminophen (Tylenol Tab) 650 mg PO Q6HR PRN PRN Reason: Mild Pain or Fever > 100.5 Last Admin: 12/26/18 20:16 Dose: 650 mg Documented by: Hydrocodone Bitart/Acetaminophen ([place] 10) 1 each PO Q6H PRN PRN Reason: MODERATE Pain Last Admin: 12/27/18 13:28 Dose: 1 each Documented by: Albuterol/Ipratropium (Duoneb 0.5 Mg-3 Mg/3 Ml Soln) 3 ml INHALATION RT-QID [facility] Last Admin: 12/27/18 15:57 Dose: 3 ml Documented by: Albuterol/Ipratropium (Duoneb 0.5 Mg-3 Mg/3 Ml Soln) 3 ml INHALATION RT-Q2H PRN PRN Reason: Shortness Of Breath Or Wheezing Aspirin (Aspirin) 81 mg PO DAILY@1700 [facility] Last Admin: 12/26/18 17:48 Dose: 81 mg Documented by: Baclofen (Lioresal) 5 mg PO BID PRN PRN Reason: Muscle Spasm Last Admin: 12/27/18 12:22 Dose: 5 mg Documented by: Carbidopa/Levodopa (Sinemet 10-100) 1 each PO BID [facility] Last Admin: 12/27/18 07:43 Dose: 1 each Documented by: Docusate Sodium (Colace) 100 mg PO BID [facility] Last Admin: 12/27/18 07:43 Dose: 100 mg Documented by: Ferrous Sulfate (Feosol) 325 mg PO BID@1200,1730 [facility] Last Admin: 12/27/18 07:42 Dose: 325 mg Documented by: Guaifenesin (Mucinex) 600 mg PO Q12HR PRN PRN Reason: cough Last Admin: 12/25/18 08:38 Dose: 600 mg Documented by: Heparin Sodium (Porcine) (Heparin) 5,000 unit SQ Q12HR [facility] Last Admin: 12/27/18 07:42 Dose: 5,000 unit Documented by: Sodium Chloride (Saline 0.9%) 1,000 mls @ 80 mls/hr IV .[id number] [facility] Last Admin: 12/27/18 07:44 Dose: 80 mls/hr Documented by: Azithromycin 500 mg/ Sodium (Chloride) 250 mls @ 250 mls/hr IVPB DAILY [facility] Last Admin: 12/27/18 07:43 Dose: 250 mls/hr Documented by: Ertapenem 1 gm/ Sodium (Chloride) 50 mls @ 100 mls/hr IVPB DAILY [facility]; Protocol Last Admin: 12/27/18 16:10 Dose: 100 mls/hr Documented by: Multivitamins (Theragran) 1 each PO DAILY [facility] Last Admin: 12/27/18 07:43 Dose: 1 each Documented by: Naloxone HCl (Narcan) 0.2 mg IV Q2M PRN PRN Reason: Opioid Reversal Pantoprazole Sodium (Protonix) 40 mg PO -BRKFST [facility] Last Admin: 12/27/18 07:43 Dose: 40 mg Documented by: Primidone (Mysoline) 100 mg PO TID [facility] Last Admin: 12/27/18 16:01 Dose: 100 mg Documented by: Home Medications Medication Instructions Recorded Confirmed Type Aspirin EC [Ecotrin Low Dose] 81 mg PO DAILY@1700 07/26/17 12/23/18 History Primidone [Mysoline] 100 mg PO TID 07/26/17 12/23/18 History Ferrous Sulfate [Iron (65 MG 325 mg PO BID tab 07/29/17 12/23/18 Rx Elemental)] Carbidopa-Levodopa 10-100 mg 1 tab PO BID 09/17/17 12/23/18 History [Sinemet 10-100 mg] HYDROcodone/APAP 10-325MG [[place] 1 tab PO TID PRN #40 tab 09/22/17 12/23/18 Rx 10-325] Amoxic-Pot Clav 500-125 mg 1 tab PO BID 12/23/18 12/23/18 History [Augmentin 500-125 mg] Multivitamins, Thera [Multivitamin 1 tab PO DAILY 12/23/18 12/23/18 History (formulary)] Allergies Allergy/AdvReac Type Severity Reaction Status Date / Time No Known Allergies Allergy Verified 12/23/18 12:51 Physical Exam Vitals: Vital Signs Temp Pulse Pulse Resp BP Pulse Ox 12/27/18 16:05 92 12/27/18 15:56 92 12/27/18 14:24 99.0 F 98 16 132/61 97 12/27/18 13:19 80 12/27/18 13:07 84 12/27/18 08:54 78 12/27/18 07:09 98.8 F 82 22 130/67 97 12/27/18 01:39 98.4 F 81 18 128/70 97 12/27/18 00:10 18 12/26/18 20:42 80 12/26/18 20:32 82 12/26/18 20:00 88 18 12/26/18 18:59 99.2 F 88 18 127/72 98 Intake and Output 12/27/18 12/27/18 12/27/18 06:59 14:59 22:59 Intake Total 860 Output Total 375 Balance 485 Intake: Intake, IV Titration 640 Amount Sodium Chloride 0.9% 1, 640 000 ml @ 80 mls/hr IV . [id number] [facility] Rx#:[id number] Oral 220 Output: Urine 375 Other: Voiding Method Urinal # Voids 2 2 3 # Bowel Movements 0 HEENT: Anicteric, conjunctiva are pink and moist, nasal or oral mucosa are without lesion. The neck is supple without lymphadenopathy or thyromegaly. No oral thrush is noted. Lungs: there is symmetrical air entry there are a few basilar crackles no bronchial sounds no dullness or egophony Heart: Regular rate and rhythm with an audible S1-S2, no S3 or S4 noted. No significant murmur click or rub noted. Abdomen: Positive bowel sounds, soft and nontender, there is no palpable masses or organomegaly. Abdomen is without guarding or rebound. Extremities:Upper extremities reveal evidence of equal pulses, no lesions are seen, no petechiae or telangiectasia. The lower extremities have no significant edema, peripheral pulses were 2+ and symmetric, no lesions or ulcerations are se en. Capillary refill was brisk. Skin: Intact without significant rash or lesions. Neuro:Awake and alert, oriented to person place and time. No gross focal sensory motor deficits noted. Musculoskeletal: Patient is able to stand with assistance No acute joint effusions are noted. Lymph: No cervical, supraclavicular, axillary, epitrochlear, or inguinal lymphadenopathy was noted. Results CBC & Chem 7: 12/27/18 08:17 12/27/18 08:17 Labs: Abnormal Lab Results - Last 24 Hours (Table) 12/27/18 12/27/18 Range/Units 08: 08:17 RBC 3.37 L (4.30-5.90) m/uL Hgb 10.1 L (13.0-17.5) gm/dL Hct 31.9 L (39.0-53.0) % Sodium 136 L (137-145) mmol/L BUN 6 L (9-20) mg/dL Creatinine 0.35 L (0.66-1.25) mg/dL Calcium 7.9 L (8.4-10.2) mg/dL ALT 20 L (21-72) U/L Total Protein 5.5 L (6.3-8.2) g/dL Albumin 2.7 L (3.5-5.0) g/dL Microbiology - Last 24 Hours (Table) 12/23/18 13:34 Blood Culture - Preliminary Blood No Growth after 96 hours 12/25/18 16:00 Gram Stain - Final Sputum Sputum Culture - Final Escherichia coli Laboratory Results WBC 6.5 k/uL (3.8-10.6) 12/27/18 08:17 RBC 3.37 m/uL (4.30-5.90) L 12/27/18 08:17 Hgb 10.1 gm/dL (13.0-17.5) L 12/27/18 08:17 Hct 31.9 % (39.0-53.0) L 12/27/18 08:17 MCV 94.5 fL (80.0-100.0) 12/27/18 08:17 MCH 29.9 pg (25.0-35.0) 12/27/18 08:17 MCHC 31.6 g/dL (31.0-37.0) 12/27/18 08:17 RDW 13.0 % (11.5-15.5) 12/27/18 08:17 Plt Count 306 k/uL (150-450) 12/27/18 08:17 Neutrophils % 76 % 12/27/18 08:17 Lymphocytes % 17 % 12/27/18 08:17 Monocytes % 4 % 12/27/18 08:17 Eosinophils % 1 % 12/27/18 08:17 Basophils % 0 % 12/27/18 08:17 Neutrophils # 4.9 k/uL (1.3-7.7) 12/27/18 08:17 Lymphocytes # 1.1 k/uL (1.0-4.8) 12/27/18 08:17 Monocytes # 0.3 k/uL (0-1.0) 12/27/18 08:17 Eosinophils # 0.1 k/uL (0-0.7) 12/27/18 08:17 Basophils # 0.0 k/uL (0-0.2) 12/27/18 08:17 PT 10.6 sec (9.0-12.0) 12/23/18 13:34 INR 1.0 (<1.2) 12/23/18 13:34 APTT 28.5 sec (22.0-30.0) 12/23/18 13:34 Sodium 136 mmol/L (137-145) L 12/27/18 08:17 Potassium 4.5 mmol/L (3.5-5.1) 12/27/18 08:17 Chloride 104 mmol/L (98-107) 12/27/18 08:17 Carbon Dioxide 24 mmol/L (22-30) 12/27/18 08:17 Anion Gap 8 mmol/L 12/27/18 08:17 BUN 6 mg/dL (9-20) L 12/27/18 08:17 Creatinine 0.35 mg/dL (0.66-1.25) L 12/27/18 08:17 Est GFR (CKD-EPI)AfAm >90 (>60 ml/min/1.73 sqM) 12/27/18 08:17 Est GFR (CKD-EPI)NonAf >90 (>60 ml/min/1.73 sqM) 12/27/18 08:17 Glucose 84 mg/dL (74-99) 12/27/18 08:17 Plasma Lactic Acid Rahul 0.9 mmol/L (0.7-2.0) 12/23/18 13:34 Calcium 7.9 mg/dL (8.4-10.2) L 12/27/18 08:17 Iron 17 ug/dL (65-175) L 12/25/18 09:18 TIBC 179 ug/dL (228-460) L 12/25/18 09:18 Iron Saturation 9.50 (15.00-50.00) L 12/25/18 09:18 Ferritin 273.9 ng/mL (22.0-322.0) 12/25/18 09:18 Total Bilirubin 0.5 mg/dL (0.2-1.3) 12/27/18 08:17 AST 41 U/L (17-59) 12/27/18 08:17 ALT 20 U/L (21-72) L 12/27/18 08:17 Alkaline Phosphatase 110 U/L (38-126) 12/27/18 08:17 Total Protein 5.5 g/dL (6.3-8.2) L 12/27/18 08:17 Albumin 2.7 g/dL (3.5-5.0) L 12/27/18 08:17 Urine Color Yellow 12/23/18 10:00 Urine Appearance Clear (Clear) 12/23/18 10:00 Urine pH 6.0 (5.0-8.0) 12/23/18 10:00 Ur Specific [place] 1.018 (1.001-1.035) 12/23/18 10:00 Urine Protein 1+ (Negative) H 12/23/18 10:00 Urine Glucose (UA) Negative (Negative) 12/23/18 10:00 Urine Ketones 3+ (Negative) H 12/23/18 10:00 Urine Blood Moderate (Negative) H 12/23/18 10:00 Urine Nitrite Positive (Negative) 12/23/18 10:00 Urine Bilirubin Negative (Negative) 12/23/18 10:00 Urine Urobilinogen <2.0 mg/dL (<2.0) 12/23/18 10:00 Ur Leukocyte Esterase Small (Negative) H 12/23/18 10:00 Urine RBC 3 /hpf (0-5) 12/23/18 10:00 Urine WBC 32 /hpf (0-5) H 12/23/18 10:00 Urine Bacteria Rare /hpf (None) H 12/23/18 10:00 Influenza Type A RNA Not Detected (Not Detectd) 12/23/18 13:20 Influenza Type B (PCR) Not Detected (Not Detectd) 12/23/18 13:20 Microbiology Entire Visit 12/23/18 13:34 Blood Blood Culture - Preliminary No Growth after 96 hours 12/25/18 16:00 Sputum Gram Stain - Final 12/25/18 16:00 Sputum Sputum Culture - Final Escherichia coli 12/23/18 10:00 Urine,Ureter Urine Culture - Final Assessment and Plan (1) Sepsis Current Visit: Yes Status: Acute Code(s): A41.9 - SEPSIS, UNSPECIFIED ORGANISM SNOMED Code(s): 83750156 (2) Infection due to ESBL-producing Escherichia coli Narrative/Plan: 78-year-old male with multiple medical troubles presents to Hospital with increasing weakness. Evidence of infection and admission with leukocytosis and abnormal chest x-ray with a right lower lobe infiltrate. The patient's expectorated sputum and Escherichia coli ESBL was isolated. Consequently antibiotic therapy has been changed to Invanz. We'll ask for a midline catheter be placed and when he transfers to rehabilitation she will receive 10-14 days of antibiotic therapy to complete the treatment of his drug resistant pneumonia. He fortunately is feeling somewhat better. Leukocytosis is improving with hydration. Sepsis appears to be improving. He is still however weak. Current Visit: Yes Status: Acute Code(s): A49.8 - OTHER BACTERIAL INFECTIONS OF UNSPECIFIED SITE; Z16.12 - EXTENDED SPECTRUM BETA LACTAMASE (ESBL) RESISTANCE SNOMED Code(s): 364659739
[2018-12-27] MEDS: ASPIRIN 81 MG PO SCH (18:11)
--- NOTE | 2018-12-27 18:19 | P.PN ---
Subjective Progress Note Date: 12/27/18 Principal diagnosis: ESBL E. coli related Right lower lobe pneumonia, sepsis, colon cancer, DVT, left-sided weakness, old CVA, advanced Parkinson's disease, acute on chronic anemia 12/27/2018, patient seen eval reexamined during the rounds is still of intermittent cough patient's sputum is growing ESBL E. coli infectious disease Has been consulted patient is being placed on Invanz 12/26/2018, patient seen and evaluated examined during the rounds, patient is complaining of some stiffness in the extremities and and also some pain in the neck is complaining of intermittent cough as well tolerating antibiotics well his Parkinson's disease remains an issue with possible exacerbation he has been resumed on his anti-Parkinson's medicine will see the response but is possible if he continued to have problem to have medicines readjusted 78-year-old male with the past medical history of multiple problems including prior history of pelvic fracture and right femoral fracture he is wheelchair- bound he lives in an apartment for last 2 or 3 days he has been having feverish feeling with increased cough and congestion in addition to above complaining of overwhelming tightness with those problem came into the hospital he was found to have elevated temperature 100.7 and white cell count of 11.3 chest x-rays is still of right lower lobe pneumonia hours asked to evaluate this patient further Objective - Vital Signs Vital signs: Vital Signs Temp 99.0 F 12/27/18 14:24 Pulse 92 12/27/18 16:05 Resp 16 12/27/18 14:24 BP 132/61 12/27/18 14:24 Pulse Ox 97 12/27/18 14:24 Intake & Output 12/26/18 12/27/18 12/27/18 18:59 06:59 18:59 Intake Total 1710 Output Total 375 Balance 1335 Intake: Intake, IV Titration 1290 Amount Sodium Chloride 0.9% 1, 1240 000 ml @ 80 mls/hr IV . [id number] [facility] Rx#:[id number] cefTRIAXone 1 gm In 50 Sodium Chloride 0.9% 50 ml @ 100 mls/hr IVPB Q12H [facility] Rx#:[id number] Oral 420 Output: Urine 375 Other: Voiding Method Urinal Urinal Urinal # Voids 4 2 3 # Bowel Movements 0 - Exam - Constitutional General appearance: average body habitus, cooperative, disheveled, mild distress - EENT Eyes: EOMI, PERRLA, normal appearance ENT: normal oropharynx Ears: bilateral: normal - Neck Neck: normal ROM Carotids: bilateral: upstroke normal, bruit absent Thyroid: bilateral: normal size - Respiratory Respiratory: right: rales, bilateral: diminished, prolonged expiration, negative: rhonchi, wheezing - Cardiovascular Rhythm: regular Heart sounds: normal: S1, S2 - Gastrointestinal General gastrointestinal: decreased bowel sounds, soft - Neurologic Neurologic: CNII-XII intact - Musculoskeletal Musculoskeletal: generalized weakness, strength equal bilaterally - Psychiatric Psychiatric: A&O x's 3, appropriate affect, intact judgment & insight - Labs CBC & Chem 7: 12/27/18 08:17 12/27/18 08:17 Labs: Abnormal Lab Results - Last 24 Hours (Table) 12/27/18 12/27/18 Range/Units 08:17 08:17 RBC 3.37 L (4.30-5.90) m/uL Hgb 10.1 L (13.0-17.5) gm/dL Hct 31.9 L (39.0-53.0) % Sodium 136 L (137-145) mmol/L BUN 6 L (9-20) mg/dL Creatinine 0.35 L (0.66-1.25) mg/dL Calcium 7.9 L (8.4-10.2) mg/dL ALT 20 L (21-72) U/L Total Protein 5.5 L (6.3-8.2) g/dL Albumin 2.7 L (3.5-5.0) g/dL Microbiology - Last 24 Hours (Table) 12/23/18 13:34 Blood Culture - Preliminary Blood No Growth after 96 hours 12/25/18 16:00 Gram Stain - Final Sputum Sputum Culture - Final Escherichia coli Assessment and Plan Assessment: Intractable cough ESBL E. coli right lower lobe pneumonia Sepsis due to right lower lobe pneumonia Colon cancer status post XRT and radiation therapy Story of DVT Residual left-sided weakness was prior history of CVA Advanced Parkinson's disease Acute anemia Plan: Will use cough medicine Broad-spectrum antibiotics, antibiotics are adjusted and Invanz has been started deep breathing sense incentive spirometry Bronchodilators DVT prophylaxis Further plan of care as per clinical response of the patient Time with Patient: Greater than 30
[2018-12-28] MEDS: ERTAPENEM 1 GM in SODIUM CHLORIDE 0.9% 50 ML IVPB SCH (08:18)
[2018-12-28] MEDS: CARBIDOPA-LEVODOPA 10-100 MG 1 EACH TAB PO SCH ×2 (08:19→14:57)
[2018-12-28] MEDS: PANTOPRAZOLE 40 MG TABLET PO SCH (08:19)
[2018-12-28] MEDS: MULTIVITAMINS, THERA 1 EACH TAB PO SCH (08:20)
[2018-12-28] MEDS: DOCUSATE 100 MG CAP PO SCH ×2 (08:20→22:28)
[2018-12-28] MEDS: HEPARIN SODIUM,PORCINE 5,000 UNIT/ML 1 ML VIAL SQ SCH ×2 (08:20→22:28)
[2018-12-28] MEDS: PRIMIDONE 50 MG TAB PO SCH ×3 (08:22→22:28)
[2018-12-28] MEDS: HYDROcodone/APAP 10-325MG 1 EACH TAB PO PRN ×2 (08:28→19:25)
[2018-12-28] MEDS: IPRATROPIUM-ALBUTEROL 3 ML NEB INHALATION SCH ×4 (09:43→20:42)
[2018-12-28] MEDS: AZITHROMYCIN 500 MG in SODIUM CHLORIDE 0.9% 250 ML IVPB SCH (09:57)
[2018-12-28 10:16] LABS: Basophils % (A) 1 %; Eosinophils # (A) 0.2 k/uL (0-0.7); Eosinophils % (A) 2 %; HCT 32.9 % (39.0-53.0); HGB 10.4 gm/dL (13.0-17.5); Lymphocytes # (A) 1.3 k/uL (1.0-4.8); Lymphocytes % (A) 18 %; MCH 29.9 pg (25.0-35.0); MCHC 31.6 g/dL (31.0-37.0); MCV 94.8 fL (80.0-100.0); Mean Platelet Volume 6.8; Monocytes # (A) 0.3 k/uL (0-1.0); Monocytes % (A) 4 %; Neutrophils # (A) 5.1 k/uL (1.3-7.7); Neutrophils % (A) 74 %; Platelet Count 323 k/uL (150-450); RBC 3.47 m/uL (4.30-5.90); WBC 6.9 k/uL (3.8-10.6)
[2018-12-28 10:49] LABS: ALT 18 U/L (21-72); AST 32 U/L (17-59); Albumin 2.8 g/dL (3.5-5.0); Alkaline Phosphatase 143 U/L (38-126); Anion Gap 5 mmol/L; Blood Urea Nitrogen 5 mg/dL (9-20); Calcium 8.5 mg/dL (8.4-10.2); Carbon Dioxide 27 mmol/L (22-30); Chloride 105 mmol/L (98-107); Glucose 84 mg/dL (74-99); Potassium 4.3 mmol/L (3.5-5.1); Sodium 137 mmol/L (137-145); Total Bilirubin 0.3 mg/dL (0.2-1.3); Total Protein 5.7 g/dL (6.3-8.2)
--- NOTE | 2018-12-28 11:30 | P.PN ---
Subjective Progress Note Date: 12/28/18 This is a 78-year-old male patient who presented with complaints of fever. Patient reports that he started to feel feverish yesterday along with increased weakness. Patient reports he feels increased achiness and fatigue. [facility] in which he has [facility]. Patient also reports that he's had a nonproductive cough. Patient is wheelchair-bound. Additional medical history includes colon cancer in 1990 status post chemoradiation, CVA with left-sided weakness, DVT, liver disease, pneumonia and cholecystectomy. Chest x-ray completed showing chronic changes without acute pulmonary process. EKG completed showing sinus tachycardia. Elevated temperature 100.7 on admission. White blood cell 11.3. Lactic acid 0.9. Urinary analysis showing small amount of leukocyte Estrace. Patient started on Rocephin for IV antibiotics. Urine and blood cultures ordered. This time patient is resting comfortably in bed. Patient still complaining of cough will order repeat chest x-ray. Patient denies any chest pain. Patient denies nausea vomiting or diarrhea. Patient denies any burning with urination or frequency. On 12/25/2018 patient is alert and oriented 3. Patient is still complaining of cough. Repeat chest x-ray reviewed. Dr. Holloway has been consulted for pulmonary services. Azithromycin and Rocephin added for pneumonia. Assessment patient denies nausea vomiting or diarrhea. Patient denies any urinary burning or frequency. Patient denies chest pain. On 12/26/2018 patient was seen and examined on the medical floor, he is alert and oriented 3 in no apparent distress he is complaining of neck pain he is also complaining of cough and shortness of breath otherwise he denies any complaints there is no fever or chills no headache or dizziness no chest pain no nausea or vomiting no abdominal pain no diarrhea and no urinary symptoms On 12/27/2018 patient is alert and oriented 3 is complaining of neck pain, he is still having cough and difficulty bringing sputum, otherwise he denies any complaints there is no fever or chills no headache or dizziness no chest pain no nausea or vomiting no abdominal pain and no urinary symptoms. At this time medications are reevaluated to be able to add a muscle relaxer to his regimen without medication interaction. On 12/28/2018 patient is alert and oriented 3. Patient reports improvement with neck pain. Patient is getting midline for IV antibiotics at this time. Patient is currently on Invanz. Infectious disease is following. At this time patient is still complaining of some shortness of breath and cough. Patient denies chest pain. Patient denies nausea vomiting or diarrhea. Patient denies any urinary burning or frequency Objective - Vital Signs Vital signs: Vital Signs Temp 98.6 F 12/28/18 06:39 Pulse 92 12/28/18 06:39 Resp 18 12/28/18 06:39 BP 124/64 12/28/18 06:39 Pulse Ox 97 12/28/18 06:39 Intake & Output 12/27/18 12/28/18 12/28/18 18:59 06:59 18:59 Intake Total 700 Balance 700 Intake: Oral 700 Other: Voiding Method Urinal Urinal Urinal Diaper # Voids 3 6 2 # Bowel Movements 0 - Exam Head normocephalic Neck supple Lungs clear to auscultation bilaterally no wheezing or crackles Heart regular rate and rhythm S1-S2, no rub or gallop Abdomen is soft nontender nondistended positive bowel sounds no hepatosplenomegaly Extremities no edema Neuro alert and orientated to 3 - Labs CBC & Chem 7: 12/28/18 09:50 12/28/18 09:50 Labs: Abnormal Lab Results - Last 24 Hours (Table) 12/28/18 12/28/18 Range/Units 09:50 09:50 RBC 3.47 L (4.30-5.90) m/uL Hgb 10.4 L (13.0-17.5) gm/dL Hct 32.9 L (39.0-53.0) % BUN 5 L (9-20) mg/dL Creatinine 0.41 L (0.66-1.25) mg/dL ALT 18 L (21-72) U/L Alkaline Phosphatase 143 H (38-126) U/L Total Protein 5.7 L (6.3-8.2) g/dL Albumin 2.8 L (3.5-5.0) g/dL Microbiology - Last 24 Hours (Table) 12/25/18 16:00 Gram Stain - Final Sputum Sputum Culture - Final Escherichia coli 12/23/18 13:34 Blood Culture - Preliminary Blood No Growth after 96 hours Assessment and Plan Assessment: 1. Right lower lobe pneumonia with failed outpatient treatment and sepsis present on admission . Initial chest x-ray completed showing chronic changes without acute pulmonary process. Repeat 2 view chest x-ray showing correlation for right lower lobe pneumonia. Dr. Robles gooden for pulmonary services. Sputum culture positive for E. coli. Dr. Proctor following for infectious disease. Patient will require outpatient IV antibiotics for 10-4 days. Midline has been placed. 2. urinary tract infection. Patient's initial temp 100.7. Urine culture ordered. Patient started on Rocephin. Lactic acid 0.9 3. History of colon cancer in the in which he received chemo and radiation 4. History of CVA and TIA with left-sided weakness 5. History of deep vein thrombosis 6. History of pneumonia 7. History of Parkinson's. Maintained on levodopa 8. Iron deficiency anemia. Continue ferrous sulfate 9. Neck pain. Muscle relaxer has been added DVT prophylaxis heparin. GI prophylaxis Protonix Plan for discharge to [facility] been medically cleared I performed an examination of the patient and discussed their management with the Nurse Practitioner. I have reviewed the Nurse Practitioner's notes and agree with the documented findings and plan of care
[2018-12-28] MEDS: FERROUS SULFATE 325 MG TAB PO SCH ×2 (12:59→17:41)
--- NOTE | 2018-12-28 15:56 | P.PN ---
Subjective Progress Note Date: 12/28/18 Principal diagnosis: ESBL E. coli related Right lower lobe pneumonia, sepsis, colon cancer, DVT, left-sided weakness, old CVA, advanced Parkinson's disease, acute on chronic anemia 12/28/2018, shouldn't seen and evaluated examined, clinically has improved with stiffness in the extremities and neck also neck pain is improved he is on therapy he is on broad-spectrum antibiotics for ESBL E. coli cough and shortness of breath still present but severity is improving 12/27/2018, patient seen eval reexamined during the rounds is still of intermittent cough patient's sputum is growing ESBL E. coli infectious disease Has been consulted patient is being placed on Invanz 12/26/2018, patient seen and evaluated examined during the rounds, patient is complaining of some stiffness in the extremities and and also some pain in the neck is complaining of intermittent cough as well tolerating antibiotics well his Parkinson's disease remains an issue with possible exacerbation he has been resumed on his anti-Parkinson's medicine will see the response but is possible if he continued to have problem to have medicines readjusted 78-year-old male with the past medical history of multiple problems including prior history of pelvic fracture and right femoral fracture he is wheelchair- bound he lives in an apartment for last 2 or 3 days he has been having feverish feeling with increased cough and congestion in addition to above complaining of overwhelming tightness with those problem came into the hospital he was found to have elevated temperature 100.7 and white cell count of 11.3 chest x-rays is still of right lower lobe pneumonia hours asked to evaluate this patient further Objective - Vital Signs Vital signs: Vital Signs Temp 97.0 F L 12/28/18 12:42 Pulse 88 12/28/18 14:05 Resp 16 12/28/18 12:42 BP 116/68 12/28/18 12:42 Pulse Ox 99 12/28/18 12:42 Intake & Output 12/27/18 12/28/18 12/28/18 18:59 06:59 18:59 Intake Total 700 Output Total 400 Balance 700 -400 Intake: Oral 700 Output: Urine 400 Other: Voiding Method Urinal Urinal Urinal Diaper # Voids 3 6 1 # Bowel Movements 0 - Exam - Constitutional General appearance: average body habitus, cooperative, disheveled, mild distress - EENT Eyes: EOMI, PERRLA, normal appearance ENT: normal oropharynx Ears: bilateral: normal - Neck Neck: normal ROM Carotids: bilateral: upstroke normal, bruit absent Thyroid: bilateral: normal size - Respiratory Respiratory: right: rales, bilateral: diminished, prolonged expiration, negative: rhonchi, wheezing - Cardiovascular Rhythm: regular Heart sounds: normal: S1, S2 - Gastrointestinal General gastrointestinal: decreased bowel sounds, soft - Neurologic Neurologic: CNII-XII intact - Musculoskeletal Musculoskeletal: generalized weakness, strength equal bilaterally - Psychiatric Psychiatric: A&O x's 3, appropriate affect, intact judgment & insight - Labs CBC & Chem 7: 12/28/18 09:50 12/28/18 09:50 Labs: Abnormal Lab Results - Last 24 Hours (Table) 12/28/18 12/28/18 Range/Units 09:50 09:50 RBC 3.47 L (4.30-5.90) m/uL Hgb 10.4 L (13.0-17.5) gm/dL Hct 32.9 L (39.0-53.0) % BUN 5 L (9-20) mg/dL Creatinine 0.41 L (0.66-1.25) mg/dL ALT 18 L (21-72) U/L Alkaline Phosphatase 143 H (38-126) U/L Total Protein 5.7 L (6.3-8.2) g/dL Albumin 2.8 L (3.5-5.0) g/dL Microbiology - Last 24 Hours (Table) 12/23/18 13:34 Blood Culture - Preliminary Blood No Growth after 120 hours 12/25/18 16:00 Gram Stain - Final Sputum Sputum Culture - Final Escherichia coli Assessment and Plan Assessment: Intractable cough slowly improving with therapy ESBL E. coli right lower lobe pneumonia Sepsis due to right lower lobe pneumonia Colon cancer status post XRT and radiation therapy Story of DVT Residual left-sided weakness was prior history of CVA Advanced Parkinson's disease Acute anemia Plan: Will use cough medicine Broad-spectrum antibiotics, antibiotics are adjusted and Invanz has been started deep breathing sense incentive spirometry Bronchodilators DVT prophylaxis Further plan of care as per clinical response of the patient Time with Patient: Greater than 30
[2018-12-28] MEDS: ASPIRIN 81 MG PO SCH (17:41)
[2018-12-28] MEDS: SODIUM CHLORIDE 0.9% 1,000 ML IV SCH ×2 (17:42→22:32)
--- NOTE | 2018-12-29 00:13 | P.PN ---
Subjective Progress Note Date: 12/28/18 78-year-old male presents to Hospital from his care setting where he has caregivers in the senior apartment where he lives. Generally does relatively well after his history of cancer, progressive weakness and fall resulting in trauma and fracture that his limited his ambulation. Patient relates that he started to feel poorly and constantly was brought into the emergency center. There he was found evidence of leukocytosis and fever and he was admitted. With evidence of urinary tract infection and possible pneumonia the infectious diseases consultation was requested. The patient relates his breathing is better since admission but does not feel back to baseline at this time. 12/28/2018 patient is a feels somewhat poorly. is with evidence of pneumonia and ESBL E. coli was isolated. Antibiotic therapy was altered to Invanz. IV access with midline requested for his transfer to extended care. Objective - Vital Signs Vital signs: Vital Signs Temp 99.3 F 12/28/18 21:00 Pulse 87 12/28/18 21:00 Resp 16 12/28/18 21:00 BP 114/59 12/28/18 21:00 Pulse Ox 98 12/28/18 21:00 Intake & Output 12/28/18 12/28/18 12/29/18 06:59 18:59 06:59 Intake Total 700 Output Total 400 250 Balance 700 -400 -250 Intake: Oral 700 Output: Urine 400 250 Other: Voiding Method Urinal Urinal Diaper # Voids 6 2 1 - Exam HEENT: Anicteric, conjunctiva are pink and moist, nasal or oral mucosa are without lesion. The neck is supple without lymphadenopathy or thyromegaly. No oral thrush is noted. Lungs: there is symmetrical air entry there are a few basilar crackles no bronchial sounds no dullness or egophony Heart: Regular rate and rhythm with an audible S1-S2, no S3 or S4 noted. No significant murmur click or rub noted. Abdomen: Positive bowel sounds, soft and nontender, there is no palpable masses or organomegaly. Abdomen is without guarding or rebound. Extremities:Upper extremities reveal evidence of equal pulses, no lesions are seen, no petechiae or telangiectasia. The lower extremities have no significant edema, peripheral pulses were 2+ and symmetric, no lesions or ulcerations are seen. Capillary refill was brisk. Skin: Intact without significant rash or lesions. Neuro:Awake and alert, oriented to person place and time. No gross focal sensory motor deficits noted. Musculoskeletal: Patient is able to stand with assistance No acute joint effusions are noted. Lymph: No cervical, supraclavicular, axillary, epitrochlear, or inguinal lymphadenopathy was noted. - Labs CBC & Chem 7: 12/28/18 09:50 12/28/18 09:50 Labs: Abnormal Lab Results - Last 24 Hours (Table) 12/28/18 12/28/18 Range/Units 09:50 09:50 RBC 3.47 L (4.30-5.90) m/uL Hgb 10.4 L (13.0-17.5) gm/dL Hct 32.9 L (39.0-53.0) % BUN 5 L (9-20) mg/dL Creatinine 0.41 L (0.66-1.25) mg/dL ALT 18 L (21-72) U/L Alkaline Phosphatase 143 H (38-126) U/L Total Protein 5.7 L (6.3-8.2) g/dL Albumin 2.8 L (3.5-5.0) g/dL Microbiology - Last 24 Hours (Table) 12/23/18 13:34 Blood Culture - Preliminary Blood No Growth after 120 hours Laboratory Results WBC 6.9 k/uL (3.8-10.6) 12/28/18 09:50 RBC 3.47 m/uL (4.30-5.90) L 12/28/18 09:50 Hgb 10.4 gm/dL (13.0-17.5) L 12/28/18 09:50 Hct 32.9 % (39.0-53.0) L 12/28/18 09:50 MCV 94.8 fL (80.0-100.0) 12/28/18 09:50 MCH 29.9 pg (25.0-35.0) 12/28/18 09:50 MCHC 31.6 g/dL (31.0-37.0) 12/28/18 09:50 RDW 13.0 % (11.5-15.5) 12/28/18 09:50 Plt Count 323 k/uL (150-450) 12/28/18 09:50 Neutrophils % 74 % 12/28/18 09:50 Lymphocytes % 18 % 12/28/18 09:50 Monocytes % 4 % 12/28/18 09:50 Eosinophils % 2 % 12/28/18 09:50 Basophils % 1 % 12/28/18 09:50 Neutrophils # 5.1 k/uL (1.3-7.7) 12/28/18 09:50 Lymphocytes # 1.3 k/uL (1.0-4.8) 12/28/18 09:50 Monocytes # 0.3 k/uL (0-1.0) 12/28/18 09:50 Eosinophils # 0.2 k/uL (0-0.7) 12/28/18 09:50 Basophils # 0.0 k/uL (0-0.2) 12/28/18 09:50 PT 10.6 sec (9.0-12.0) 12/23/18 13:34 INR 1.0 (<1.2) 12/23/18 13:34 APTT 28.5 sec (22.0-30.0) 12/23/18 13:34 Sodium 137 mmol/L (137-145) 12/28/18 09:50 Potassium 4.3 mmol/L (3.5-5.1) 12/28/18 09:50 Chloride 105 mmol/L (98-107) 12/28/18 09:50 Carbon Dioxide 27 mmol/L (22-30) 12/28/18 09:50 Anion Gap 5 mmol/L 12/28/18 09:50 BUN 5 mg/dL (9-20) L 12/28/18 09:50 Creatinine 0.41 mg/dL (0.66-1.25) L 12/28/18 09:50 Est GFR (CKD-EPI)AfAm >90 (>60 ml/min/1.73 sqM) 12/28/18 09:50 Est GFR (CKD-EPI)NonAf >90 (>60 ml/min/1.73 sqM) 12/28/18 09:50 Glucose 84 mg/dL (74-99) 12/28/18 09:50 Plasma Lactic Acid Rahul 0.9 mmol/L (0.7-2.0) 12/23/18 13:34 Calcium 8.5 mg/dL (8.4-10.2) 12/28/18 09:50 Iron 17 ug/dL (65-175) L 12/25/18 09:18 TIBC 179 ug/dL (228-460) L 12/25/18 09:18 Iron Saturation 9.50 (15.00-50.00) L 12/25/18 09:18 Ferritin 273.9 ng/mL (22.0-322.0) 12/25/18 09:18 Total Bilirubin 0.3 mg/dL (0.2-1.3) 12/28/18 09:50 AST 32 U/L (17-59) 12/28/18 09:50 ALT 18 U/L (21-72) L 12/28/18 09:50 Alkaline Phosphatase 143 U/L (38-126) H 12/28/18 09:50 Total Protein 5.7 g/dL (6.3-8.2) L 12/28/18 09:50 Albumin 2.8 g/dL (3.5-5.0) L 12/28/18 09:50 Urine Color Yellow 12/23/18 10:00 Urine Appearance Clear (Clear) 12/23/18 10:00 Urine pH 6.0 (5.0-8.0) 12/23/18 10:00 Ur Specific [place] 1.018 (1.001-1.035) 12/23/18 10:00 Urine Protein 1+ (Negative) H 12/23/18 10:00 Urine Glucose (UA) Negative (Negative) 12/23/18 10:00 Urine Ketones 3+ (Negative) H 12/23/18 10:00 Urine Blood Moderate (Negative) H 12/23/18 10:00 Urine Nitrite Positive (Negative) 12/23/18 10:00 Urine Bilirubin Negative (Negative) 12/23/18 10:00 Urine Urobilinogen <2.0 mg/dL (<2.0) 12/23/18 10:00 Ur Leukocyte Esterase Small (Negative) H 12/23/18 10:00 Urine RBC 3 /hpf (0-5) 12/23/18 10:00 Urine WBC 32 /hpf (0-5) H 12/23/18 10:00 Urine Bacteria Rare /hpf (None) H 12/23/18 10:00 Influenza Type A RNA Not Detected (Not Detectd) 12/23/18 13:20 Influenza Type B (PCR) Not Detected (Not Detectd) 12/23/18 13:20 Microbiology 12/23/18 13:34 Blood Blood Culture - Preliminary No Growth after 120 hours 12/25/18 16:00 Sputum Gram Stain - Final 12/25/18 16:00 Sputum Sputum Culture - Final Escherichia coli 12/23/18 10:00 Urine,Ureter Urine Culture - Final Assessment and Plan (1) Sepsis Current Visit: Yes Status: Acute Code(s): A41.9 - SEPSIS, UNSPECIFIED ORGANISM SNOMED Code(s): 26630741 (2) Infection due to ESBL-producing Escherichia coli Narrative/Plan: 78-year-old male with multiple medical troubles presents to Hospital with increasing weakness. Evidence of infection and admission with leukocytosis and abnormal chest x-ray with a right lower lobe infiltrate. The patient's expectorated sputum and Escherichia coli ESBL was isolated. Consequently antibiotic therapy has been changed to Invanz. We'll ask for a midline catheter be placed and when he transfers to rehabilitation she will receive 10-14 days of antibiotic therapy to complete the treatment of his drug resistant pneumonia. He fortunately is feeling somewhat better. Leukocytosis is improving with hydration. Sepsis appears to be improving. He is still however weak. 12/28/2018 patient is feeling slightly better today. Midline catheter for his intravenous antibiotic therapy of Invanz as requested. ESBL E. coli pneumonia which is forcing susceptible. Planning 14 days of therapy. On going respiratory treatments. Will transfer to rehab to complete his course of therapy. Current Visit: Yes Status: Acute Code(s): A49.8 - OTHER BACTERIAL INFECTIONS OF UNSPECIFIED SITE; Z16.12 - EXTENDED SPECTRUM BETA LACTAMASE (ESBL) RESISTANCE SNOMED Code(s): 161627741
[2018-12-29] MEDS: IPRATROPIUM-ALBUTEROL 3 ML NEB INHALATION SCH ×2 (07:08→11:04)
[2018-12-29] MEDS: PANTOPRAZOLE 40 MG TABLET PO SCH (08:03)
[2018-12-29] MEDS: FERROUS SULFATE 325 MG TAB PO SCH (08:04)
[2018-12-29] MEDS: SODIUM CHLORIDE 0.9% 1,000 ML IV SCH (08:04)
[2018-12-29] MEDS: AZITHROMYCIN 500 MG in SODIUM CHLORIDE 0.9% 250 ML IVPB SCH (08:04)
[2018-12-29] MEDS: DOCUSATE 100 MG CAP PO SCH (08:04)
[2018-12-29] MEDS: PRIMIDONE 50 MG TAB PO SCH (08:04)
[2018-12-29] MEDS: MULTIVITAMINS, THERA 1 EACH TAB PO SCH (08:04)
[2018-12-29] MEDS: ERTAPENEM 1 GM in SODIUM CHLORIDE 0.9% 50 ML IVPB SCH (08:04)
[2018-12-29] MEDS: CARBIDOPA-LEVODOPA 10-100 MG 1 EACH TAB PO SCH ×2 (08:04→14:02)
[2018-12-29] MEDS: HEPARIN SODIUM,PORCINE 5,000 UNIT/ML 1 ML VIAL SQ SCH (08:04)
[2018-12-29] MEDS: HYDROcodone/APAP 10-325MG 1 EACH TAB PO PRN ×2 (08:07→14:02)
[2018-12-29 10:04] LABS: Basophils % (A) 0 %; Eosinophils # (A) 0.1 k/uL (0-0.7); Eosinophils % (A) 2 %; HCT 31.3 % (39.0-53.0); HGB 10.2 gm/dL (13.0-17.5); Lymphocytes # (A) 1.3 k/uL (1.0-4.8); Lymphocytes % (A) 21 %; MCH 30.5 pg (25.0-35.0); MCHC 32.6 g/dL (31.0-37.0); MCV 93.6 fL (80.0-100.0); Mean Platelet Volume 7.3; Monocytes # (A) 0.2 k/uL (0-1.0); Monocytes % (A) 4 %; Neutrophils # (A) 4.4 k/uL (1.3-7.7); Neutrophils % (A) 71 %; Platelet Count 350 k/uL (150-450); RBC 3.34 m/uL (4.30-5.90); WBC 6.2 k/uL (3.8-10.6)
[2018-12-29 10:31] LABS: ALT 26 U/L (21-72); AST 24 U/L (17-59); Albumin 2.6 g/dL (3.5-5.0); Alkaline Phosphatase 127 U/L (38-126); Anion Gap 6 mmol/L; Blood Urea Nitrogen 5 mg/dL (9-20); Calcium 8.3 mg/dL (8.4-10.2); Carbon Dioxide 25 mmol/L (22-30); Chloride 106 mmol/L (98-107); Glucose 128 mg/dL (74-99); Potassium 4.1 mmol/L (3.5-5.1); Sodium 137 mmol/L (137-145); Total Bilirubin 0.2 mg/dL (0.2-1.3); Total Protein 5.4 g/dL (6.3-8.2)
[2018-12-29 13:16] VITALS: BP 119/69; PULSE 82; RESP 18; TEMP 98.1
--- NOTE | 2018-12-29 13:29 | P.DS ---
Providers Date of admission: 12/24/18 17:45 Expected date of discharge: 12/29/18 Attending physician: Manny Askew Consults: 12/24/18 12:03 Consult Physician Routine Consulting Provider: Destin Arboleda Consult Reason/Comments: Cough with febrile Do you want consulting provider notified?: Yes 12/27/18 11:31 Consult Physician Routine Consulting Provider: Adalberto Proctor Consult Reason/Comments: pneumonia Do you want consulting provider notified?: Yes Primary care physician: [facility] Course: Discharge Diagnosis 1. Right lower lobe pneumonia with failed outpatient treatment and sepsis present on admission . Initial chest x-ray completed showing chronic changes without acute pulmonary process. Repeat 2 view chest x-ray showing correlation for right lower lobe pneumonia. Dr. Arboleda following for pulmonary services. Sputum culture positive for E. coli. Dr. Proctor following for infectious disease. Patient will require outpatient IV antibiotics for 10-4 days. Midline has been placed. Antibiotics per infectious disease. Discussed case with Dr. Fisher pulmonary has been cleared for discharge 2. urinary tract infection. Patient's initial temp 100.7. Urine culture ordered. Patient started on Rocephin. Lactic acid 0.9 3. History of colon cancer in the in which he received chemo and radiation 4. History of CVA and TIA with left-sided weakness 5. History of deep vein thrombosis 6. History of pneumonia 7. History of Parkinson's. Maintained on levodopa 8. Iron deficiency anemia. Continue ferrous sulfate 9. Neck pain. Muscle relaxer has been added Hospital course This is a 78-year-old male patient who presented with complaints of fever. Patient reports that he started to feel feverish yesterday along with increased weakness. Patient reports he feels increased achiness and fatigue. Patient currently resides at [facility] in which he has caregivers. Patient also reports that he's had a nonproductive cough. Patient is wheelchair-bound. Additional medical history includes colon cancer in 1989 status post chemoradiation, CVA with left-sided weakness, DVT, liver disease, pneumonia and cholecystectomy. Chest x-ray completed showing chronic changes without acute pulmonary process. EKG completed showing sinus tachycardia. Elevated temperature 100.7 on admission. White blood cell 11.3. Lactic acid 0.9. U rinary analysis showing small amount of leukocyte Estrace. Patient started on Rocephin for IV antibiotics. Urine and blood cultures ordered. This time patient is resting comfortably in bed. Patient still complaining of cough will order repeat chest x-ray. Patient denies any chest pain. Patient denies nausea vomiting or diarrhea. Patient denies any burning with urination or frequency. On 12/25/2018 patient is alert and oriented 3. Patient is still complaining of cough. Repeat chest x-ray reviewed. Dr. Holloway has been consulted for pulmonary services. Azithromycin and Rocephin added for pneumonia. Assessment patient denies nausea vomiting or diarrhea. Patient denies any urinary burning or frequency. Patient denies chest pain. On 12/26/2018 patient was seen and examined on the medical floor, he is alert and oriented 3 in no apparent distress he is complaining of neck pain he is also complaining of cough and shortness of breath otherwise he denies any complaints there is no fever or chills no headache or dizziness no chest pain no nausea or vomiting no abdominal pain no diarrhea and no urinary symptoms On 12/27/2018 patient is alert and oriented 3 is complaining of neck pain, he is still having cough and difficulty bringing sputum, otherwise he denies any complaints there is no fever or chills no headache or dizziness no chest pain no nausea or vomiting no abdominal pain and no urinary symptoms. At this time medications are reevaluated to be able to add a muscle relaxer to his regimen without medication interaction. On 12/28/2018 patient is alert and oriented 3. Patient reports improvement with neck pain. Patient is getting midline for IV antibiotics at this time. Patient is currently on Invanz. Infectious disease is following. At this time patient is still complaining of some shortness of breath and cough. Patient denies chest pain. Patient denies nausea vomiting or diarrhea. Patient denies any urinary burning or frequency On 12/29/2018 patient is alert and oriented 3. Patient has been cleared for discharge from infectious disease and pulmonary. Patient will be discharged to [facility] for physical therapy. Patient does have midline in place him to get IV IV antibiotics for 10-14 more days per infectious disease. Patient denies chest pain or shortness breath. Patient denies nausea vomiting or diarrhea. Patient denies any urinary burning or frequency. I performed an examination of the patient and discussed their management with the Nurse Practitioner. I have reviewed the Nurse Practitioner's notes and agree with the documented findings and plan of care Patient Condition at Discharge: Stable Plan - Discharge Summary Discharge Rx Participant: No New Discharge Prescriptions: New Docusate [Colace] 100 mg PO BID cap guaiFENesin [Mucinex] 600 mg PO Q12HR PRN tablet.er PRN Reason: cough Continue Primidone [Mysoline] 100 mg PO TID Aspirin EC [Ecotrin Low Dose] 81 mg PO DAILY@1700 Ferrous Sulfate [Iron (65 MG Elemental)] 325 mg PO BID tab Carbidopa-Levodopa 10-100 mg [Sinemet 10-100 mg] 1 tab PO BID Multivitamins, Thera [Multivitamin (formulary)] 1 tab PO DAILY HYDROcodone/APAP 10-325MG [[place] 10-325] 1 tab PO TID PRN 90 Days #40 tab PRN Reason: Pain Discontinued Amoxic-Pot Clav 500-125 mg [Augmentin 500-125 mg] 1 tab PO BID Discharge Medication List Aspirin EC [Ecotrin Low Dose] 81 mg PO DAILY@1700 07/26/17 [History] Primidone [Mysoline] 100 mg PO TID 07/26/17 [History] Ferrous Sulfate [Iron (65 MG Elemental)] 325 mg PO BID tab 07/29/17 [Rx] Carbidopa-Levodopa 10-100 mg [Sinemet 10-100 mg] 1 tab PO BID 09/17/17 [History] Multivitamins, Thera [Multivitamin (formulary)] 1 tab PO DAILY 12/23/18 [History] Docusate [Colace] 100 mg PO BID cap 12/29/18 [Rx] HYDROcodone/APAP 10-325MG [[place] 10-325] 1 tab PO TID PRN 90 Days #40 tab 12/29/18 [Rx] guaiFENesin [Mucinex] 600 mg PO Q12HR PRN tablet.er 12/29/18 [Rx] Follow up Appointment(s)/Referral(s): Laurence Tijerina, [NON-STAFF] - As Needed None,Stated [REFERRING] - 1-2 days Destin Arboleda MD [STAFF PHYSICIAN] - 1 Week Adalberto Proctor MD [STAFF PHYSICIAN] - 1 Week Activity/Diet/Wound Care/Special Instructions: Antibiotics per infectious disease Activity as tolerated Diet heart healthy Discharge Disposition: TRANSFER TO SNF/ECF
--- NOTE | 2018-12-29 18:05 | P.PN ---
Subjective Progress Note Date: 12/29/18 Principal diagnosis: ESBL E. coli related Right lower lobe pneumonia, sepsis, colon cancer, DVT, left-sided weakness, old CVA, advanced Parkinson's disease, acute on chronic anemia 12/29/2018, patient seen eval reexamined during the rounds care plan discussed with the primary service patient has been tolerating antibiotics well cough and congestion is improved respiratory status improved Agri with discharge planning 12/28/2018, seen and evaluated examined, clinically has improved with stiffness in the extremities and neck also neck pain is improved he is on therapy he is on broad-spectrum antibiotics for ESBL E. coli cough and shortness of breath still present but severity is improving 12/27/2018, patient seen eval reexamined during the rounds is still of intermittent cough patient's sputum is growing ESBL E. coli infectious disease Has been consulted patient is being placed on Invanz 12/26/2018, patient seen and evaluated examined during the rounds, patient is complaining of some stiffness in the extremities and and also some pain in the neck is complaining of intermittent cough as well tolerating antibiotics well his Parkinson's disease remains an issue with possible exacerbation he has been resumed on his anti-Parkinson's medicine will see the response but is possible if he continued to have problem to have medicines readjusted 78-year-old male with the past medical history of multiple problems including prior history of pelvic fracture and right femoral fracture he is wheelchair- bound he lives in an apartment for last 2 or 3 days he has been having feverish feeling with increased cough and congestion in addition to above complaining of overwhelming tightness with those problem came into the hospital he was found to have elevated temperature 100.7 and white cell count of 11.3 chest x-rays is still of right lower lobe pneumonia hours asked to evaluate this patient further Objective - Vital Signs Vital signs: Vital Signs Temp 98.1 F 12/29/18 13:16 Pulse 82 12/29/18 13:16 Resp 18 12/29/18 13:16 BP 119/69 12/29/18 13:16 Pulse Ox 95 12/29/18 13:16 Intake & Output 12/28/18 12/29/18 12/29/18 18:59 06:59 18:59 Output Total 445 611 3714 Balance -400 -900 -1200 Output: Urine 474 177 7087 Other: Voiding Method Urinal Urinal Urinal Diaper Diaper Diaper # Voids 2 0 # Bowel Movements 0 - Exam - Constitutional General appearance: average body habitus, cooperative, disheveled, mild distress - EENT Eyes: EOMI, PERRLA, normal appearance ENT: normal oropharynx Ears: bilateral: normal - Neck Neck: normal ROM Carotids: bilateral: upstroke normal, bruit absent Thyroid: bilateral: normal size - Respiratory Respiratory: right: rales, bilateral: diminished, prolonged expiration, negative: rhonchi, wheezing - Cardiovascular Rhythm: regular Heart sounds: normal: S1, S2 - Gastrointestinal General gastrointestinal: decreased bowel sounds, soft - Neurologic Neurologic: CNII-XII intact - Musculoskeletal Musculoskeletal: generalized weakness, strength equal bilaterally - Psychiatric Psychiatric: A&O x's 3, appropriate affect, intact judgment & insight - Labs CBC & Chem 7: 12/29/18 09:26 12/29/18 09:26 Labs: Abnormal Lab Results - Last 24 Hours (Table) 12/29/18 12/29/18 Range/Units 09:26 09:26 RBC 3.34 L (4.30-5.90) m/uL Hgb 10.2 L (13.0-17.5) gm/dL Hct 31.3 L (39.0-53.0) % BUN 5 L (9-20) mg/dL Creatinine 0.40 L (0.66-1.25) mg/dL Glucose 128 H (74-99) mg/dL Calcium 8.3 L (8.4-10.2) mg/dL Alkaline Phosphatase 127 H (38-126) U/L Total Protein 5.4 L (6.3-8.2) g/dL Albumin 2.6 L (3.5-5.0) g/dL Microbiology - Last 24 Hours (Table) 12/23/18 13:34 Blood Culture - Final Blood No Growth after 144 hours Assessment and Plan Assessment: Intractable cough slowly improving with therapy ESBL E. coli right lower lobe pneumonia Sepsis due to right lower lobe pneumonia Colon cancer status post XRT and radiation therapy Story of DVT Residual left-sided weakness was prior history of CVA Advanced Parkinson's disease Acute anemia Plan: Will use cough medicine Broad-spectrum antibiotics, antibiotics are adjusted and Invanz has been started deep breathing sense incentive spirometry Bronchodilators DVT prophylaxis Further plan of care as per clinical response of the patient Time with Patient: Greater than 30
== END 2018-12-29 15:25 | DRG 871 ==
LOC: EC 12:34 → INTOOBSV 16:38 → 4MS4W 16:38 → OBSVTOIN 12-24 17:45 → 4SSUR 12-24 17:56 → 4MS4W 12-27 17:48
PROVIDERS: ADMIT Internal Medicine; ATTEND Internal Medicine
PROC: 05H933Z Insertion of Infusion Device into Right Brachial Vein, Percutaneous Approach (ICD-10-PCS; principal; 2018-12-28 09:15)
DX: A41.51 Sepsis due to Escherichia coli [E. coli] (principal); J15.5 Pneumonia due to Escherichia coli; I69.354 Hemiplegia and hemiparesis following cerebral infarction affecting left non-dominant side; N39.0 Urinary tract infection, site not specified; Z87.891 Personal history of nicotine dependence; Z16.12 Extended spectrum beta lactamase (ESBL) resistance; Z85.038 Personal history of other malignant neoplasm of large intestine; Z92.3 Personal history of irradiation; Z92.21 Personal history of antineoplastic chemotherapy; D50.9 Iron deficiency anemia, unspecified; G20 Parkinson's disease; Z79.82 Long term (current) use of aspirin; Z83.3 Family history of diabetes mellitus; Z85.048 Personal history of other malignant neoplasm of rectum, rectosigmoid junction, and anus; Z86.718 Personal history of other venous thrombosis and embolism; Z87.01 Personal history of pneumonia (recurrent); Z96.642 Presence of left artificial hip joint; Z99.3 Dependence on wheelchair; Z90.3 Acquired absence of stomach [part of]; M54.2 Cervicalgia; Z91.81 History of falling; Z87.440 Personal history of urinary (tract) infections; Z79.2 Long term (current) use of antibiotics; Z79.899 Other long term (current) drug therapy
CPT/HCPCS: 36410; 36415; 71046; 76937; 80053; 81001; 82728; 83540; 83550; 83605; 85025; 85610; 85730; 87040; 87070; 87077; 87086; 87186; 87205; 87502; 93005; 94640; 94760; 96374; 99291

== ENCOUNTER 2019-03-21 09:41 | Emergency (ER) | payer MEDICARE, OTHER ==
--- NOTE | 2019-03-21 10:28 | ED ---
Fall HPI - General Chief Complaint: Fall Stated Complaint: Fall Time Seen by Provider: 03/21/19 09:49 Source: patient, EMS Mode of arrival: EMS Limitations: physical limitation - History of Present Illness Initial Comments: 79-year-old male presents emergency department via EMS chief complaint of right hip pain, head injury. Patient states he fell out of his chair yesterday. Patient states he has some worsening pain today and felt that he needed to be evaluated. He has not went of headache or dizziness denies any neck pain or back pain. Patient does state days had prior surgery to his right hip states he has some soreness is concerned about this. Patient does admit he his left knee has small abrasion but has no complaints of pain. - Related Data Home Medications Medication Instructions Recorded Confirmed Aspirin EC [Ecotrin Low Dose] 81 mg PO DAILY@1700 07/26/17 12/23/18 Primidone [Mysoline] 100 mg PO TID 07/26/17 12/23/18 Carbidopa-Levodopa 10-100 mg 1 tab PO BID 09/17/17 12/23/18 [Sinemet 10-100 mg] Multivitamins, Thera [Multivitamin 1 tab PO DAILY 12/23/18 12/23/18 (formulary)] Previous Rx's Medication Instructions Recorded Ferrous Sulfate [Iron (65 MG 325 mg PO BID tab 07/29/17 Elemental)] Docusate [Colace] 100 mg PO BID cap 12/29/18 Ertapenem [INVanz] 1 gm IVPB DAILY 14 Days #14 vial 12/29/18 HYDROcodone/APAP 10-325MG [[place] 1 tab PO TID PRN 90 Days #40 tab 12/29/18 10-325] guaiFENesin [Mucinex] 600 mg PO Q12HR PRN tablet.er 12/29/18 Allergies Allergy/AdvReac Type Severity Reaction Status Date / Time No Known Allergies Allergy Verified 12/23/18 12:51 Review of Systems ROS Statement: Those systems with pertinent positive or pertinent negative responses have been documented in the HPI. ROS Other: All systems not noted in ROS Statement are negative. Past Medical History Past Medical History: Cancer, CVA/TIA, Deep Vein Thrombosis (DVT), Liver Disease, Pneumonia Additional Past Medical History / Comment(s): 11-06-16 FALL/FX RT HIP. DDD, SPINAL CANAL STENOSIS, COLON CA IN THE HAD SX CHEMO AND RADIATION, 03-01-15 UTI(E COLI), left arm weakness-fx lt arm at shoulder-December 2014-remains painful, rectal carcinoma, elevated liver enzymes, walker use,recent falls,PAST CVA AFFECTED LT SIDE. History of Any Multi-Drug Resistant Organisms: ESBL Date of last positivie culture/infection: 12/25/18 E. coli ESBL MDRO Source:: Sputum Past Surgical History: Appendectomy, Back Surgery, Bowel Resection, Cholecystectomy, Joint Replacement, Orthopedic Surgery Additional Past Surgical History / Comment(s): GASTRECTOMY, L hip replacement, spinal surgery, RT ANKLE SX , 5 broken ribs, left arm fracture Past Anesthesia/Blood Transfusion Reactions: No Reported Reaction Additional Past Anesthesia/Blood Transfusion Reaction / Comment(s): no hx at [facility] Past Psychological History: No Psychological Hx Reported Smoking Status: Former smoker Past Alcohol Use History: None Reported, Occasional Past Drug Use History: None Reported - Past Family History Father Family Medical History: Unable to Obtain Additional Family Medical History / Comment(s): heart problems Mother Family Medical History: Diabetes Mellitus General Exam Limitations: physical limitation General appearance: alert, in no apparent distress Head exam: Present: atraumatic, normocephalic. Absent: normal inspection (Small hematoma noted just above the left eyebrow) Eye exam: Present: normal appearance, PERRL, EOMI. Absent: scleral icterus, conjunctival injection, periorbital swelling ENT exam: Present: normal exam, mucous membranes moist Neck exam: Present: normal inspection, full ROM. Absent: tenderness, meningismus, lymphadenopathy Respiratory exam: Present: normal lung sounds bilaterally. Absent: respiratory distress, wheezes, rales, rhonchi, stridor Cardiovascular Exam: Present: regular rate, normal rhythm, normal heart sounds. Absent: systolic murmur, diastolic murmur, rubs, gallop, clicks GI/Abdominal exam: Present: soft, normal bowel sounds. Absent: distended, tenderness, guarding, rebound, rigid Extremities exam: Present: other (Moderate tenderness the right hip there is no rotation or shortening mild discomfort with range of motion, abrasion to left knee with no tenderness full range of motion) Back exam: Present: full ROM. Absent: tenderness, paraspinal tenderness, vertebral tenderness Neurological exam: Present: alert, oriented X3, CN II-XII intact, reflexes normal. Absent: motor sensory deficit Skin exam: Present: warm, dry, intact, normal color. Absent: rash Course Vital Signs 03/21/19 09:47 Temperature 97.8 F Pulse Rate 85 Respiratory 16 Rate Blood Pressure 149/71 O2 Sat by Pulse 98 Oximetry Medical Decision Making - Medical Decision Making 79-year-old male present emergency from for fall, hip pain, knee pain and head injury. Imaging was obtained which shows no acute findings. Patient will be discharged at this time is able to ambulate. Patient follow-up PCP and return for any worsening symptoms. Disposition Clinical Impression: Fall, Head injury, Contusion, hip, Knee contusion Disposition: HOME SELF-CARE Condition: Stable Instructions (If sedation given, give patient instructions): Fall Prevention for Older Adults (ED) Additional Instructions: Please return to the Emergency Department if symptoms worsen or any other concerns. Is patient prescribed a controlled substance at d/c from ED?: No Referrals: Manny Askew MD [Primary Care Provider] - 1-2 days Time of Disposition: 11:05
--- NOTE | 2019-03-21 10:43 | CT ---
EXAMINATION TYPE: CT brain ioana wo con DATE OF EXAM: 03/21/2019 COMPARISON: 07/16/2016 HISTORY: Fall from wheelchair CT DLP: 1214.8 mGycm, Automated exposure control for dose reduction was used. CONTRAST: None CT of the brain is performed utilizing 3 mm thick sections through the posterior fossa and 3 mm thick sections through the remaining calvarium. Study is performed within 24 hours of arrival to the hospital. No abnormal hyperdensity is present to suggest an acute intracranial hemorrhage. No mass lesion is evident. No acute infarcts are evident. Periventricular white matter hypodensity is present, likely on the ba sis of chronic white matter ischemic changes Ventricles and sulci are prominent for the patient age. Paranasal sinuses and mastoid air cells within the [id number] are clear. Nasal bone fractures are present. This may be old and similar to the 07/16/2016 comparison IMPRESSIONS: 1. Atrophy with periventricular white matter ischemic changes. 2. Suspected old nasal bone fractures. CT cervical spine. COMPARISON: 07/16/2016 CT of the cervical spine is performed in the axial plane at 2 mm thick sections. Reconstructed image s in the coronal, and sagittal plane are reviewed on the computer. No acute fractures are evident. Vertebral body alignment is normal. There is loss of disc height diffusely throughout the cervical spine. Vertebral body heights are preserved. No spinal canal stenosis is evident. Some right foraminal narrowing is present C6-C7. IMPRESSIONS: 1. Degenerative disc changes. 2. No acute abnormality.
--- NOTE | 2019-03-21 10:46 | XR ---
EXAMINATION TYPE: XR knee complete LT DATE OF EXAM: 03/21/2019 COMPARISON: None HISTORY: Pain, fall TECHNIQUE: Three-view left knee FINDINGS: There is narrowing of the medial lateral compartment joint space. Lateral, heart and may dela cruz ve some meniscal calcification. No acute fractures are evident. Moderate to large joint effusion is p resent. Vascular calcifications within the knee. IMPRESSION: 1. Moderate to large joint effusion. 2. Mild degenerative changes left knee.
--- NOTE | 2019-03-21 10:48 | XR ---
EXAMINATION TYPE: XR Hip RT and AP Pelvis DATE OF EXAM: 03/21/2019 COMPARISON: 11/06/2016 pelvis HISTORY: Pain, fall TECHNIQUE: 2 view right hip FINDINGS: There is a left hip prosthesis present. Postsurgical changes are within the lumbar spine. Right hip pin and medullary bev are present. No acute right hip fracture is evident. Femoral head art iculates with the acetabulum. Joint space appears preserved. IMPRESSION: 1. No acute fractures right hip. Right hip pin is present
[2019-03-21 11:45] VITALS: BP 135/76; PULSE 76; RESP 16; TEMP 98.3
== END 2019-03-21 11:44 | disposition home or self-care (01) ==
LOC: EC 09:41
DX: S70.01XA Contusion of right hip, initial encounter (principal); S80.02XA Contusion of left knee, initial encounter; S00.12XA Contusion of left eyelid and periocular area, initial encounter; Z87.891 Personal history of nicotine dependence; Z79.82 Long term (current) use of aspirin; Z79.899 Other long term (current) drug therapy; Z86.73 Personal history of transient ischemic attack (TIA), and cerebral infarction without residual deficits; Z85.048 Personal history of other malignant neoplasm of rectum, rectosigmoid junction, and anus; Z85.038 Personal history of other malignant neoplasm of large intestine; Z92.21 Personal history of antineoplastic chemotherapy; Z92.3 Personal history of irradiation; Z87.39 Personal history of other diseases of the musculoskeletal system and connective tissue; Z96.642 Presence of left artificial hip joint; Z90.49 Acquired absence of other specified parts of digestive tract; W07.XXXA Fall from chair, initial encounter; Y92.009 Unspecified place in unspecified non-institutional (private) residence as the place of occurrence of the external cause
CPT/HCPCS: 70450; 72125; 73502; 99284

== ENCOUNTER 2019-10-14 09:04 | Inpatient (IN) | payer MEDICARE, OTHER ==
[2019-10-14] MEDS ORDERED: methylPREDNISolone SOD SUCCI 125 MG/2 ML VIAL IV STA (09:14)
[2019-10-14] MEDS ORDERED: IPRATROPIUM-ALBUTEROL 3 ML NEB INHALATION STA (09:14)
--- NOTE | 2019-10-14 09:19 | ED ---
SOB HPI - General Chief Complaint: Shortness of Breath Stated Complaint: HAYDE Time Seen by Provider: 10/14/19 09:04 Source: patient, EMS, RN notes reviewed, old records reviewed Mode of arrival: EMS Limitations: no limitations - History of Present Illness Initial Comments: This is a 79-year-old male history of COPD among other medical illnesses who states he's been having difficulty with breathing over last 1-2 weeks getting worse today he's had a cough. He denies any overt fevers chills or sweats to decrease oral intake. He denies any chest pain at this time. He was brought in by paramedics. He was given a nebulizer treatment in route did improve his oxygenation. MD Complaint: shortness of breath - Related Data Home Medications Medication Instructions Recorded Confirmed Aspirin EC [Ecotrin Low Dose] 81 mg PO DAILY@1700 07/26/17 10/14/19 Primidone [Mysoline] 100 mg PO TID 07/26/17 10/14/19 Carbidopa-Levodopa 10-100 mg 1 tab PO BID 09/17/17 10/14/19 [Sinemet 10-100 mg] Multivitamins, Thera [Multivitamin 1 tab PO DAILY 12/23/18 10/14/19 (formulary)] HYDROcodone/APAP 10-325MG [[place] 1 tab PO Q8H PRN 10/14/19 10/14/19 10-325] Previous Rx's Medication Instructions Recorded Ferrous Sulfate [Iron (65 MG 325 mg PO BID tab 07/29/17 Elemental)] Docusate [Colace] 100 mg PO BID cap 12/29/18 guaiFENesin [Mucinex] 600 mg PO Q12HR PRN tablet.er 12/29/18 Allergies Allergy/AdvReac Type Severity Reaction Status Date / Time No Known Allergies Allergy Verified 10/14/19 11:13 Review of Systems ROS Statement: Those systems with pertinent positive or pertinent negative responses have been documented in the HPI. ROS Other: All systems not noted in ROS Statement are negative. Past Medical History Past Medical History: Cancer, CVA/TIA, Deep Vein Thrombosis (DVT), Liver Disea se, Pneumonia Additional Past Medical History / Comment(s): 11-06-16 FALL/FX RT HIP. DDD, SPINAL CANAL STENOSIS, COLON CA IN THE HAD SX CHEMO AND RADIATION, 03-01-15 UTI(E COLI), left arm weakness-fx lt arm at shoulder-December 2014-remains painful, rectal carcinoma, elevated liver enzymes, walker use,recent falls,PAST CVA AFFECTED LT SIDE. History of Any Multi-Drug Resistant Organisms: ESBL Date of last positivie culture/infection: 12/25/18 E. coli ESBL MDRO Source:: Sputum Past Surgical History: Appendectomy, Back Surgery, Bowel Resection, Cholecystectomy, Joint Replacement, Orthopedic Surgery Additional Past Surgical History / Comment(s): GASTRECTOMY, L hip replacement, spinal surgery, RT ANKLE SX , 5 broken ribs, left arm fracture Past Anesthesia/Blood Transfusion Reactions: No Reported Reaction Additional Past Anesthesia/Blood Transfusion Reaction / Comment(s): no hx at [facility] Past Psychological History: No Psychological Hx Reported Smoking Status: Former smoker Past Alcohol Use History: None Reported, Occasional Past Drug Use History: None Reported - Past Family History Father Family Medical History: Unable to Obtain Additional Family Medical History / Comment(s): heart problems Mother Family Medical History: Diabetes Mellitus General Exam - General Exam Comments Initial Comments: This is a well-developed sec appearing male was awake alert no somewhat lethargic Limitations: no limitations General appearance: alert, lethargic Head exam: Present: atraumatic, normocephalic, normal inspection Eye exam: Present: normal appearance, PERRL, EOMI. Absent: scleral icterus, conjunctival injection, periorbital swelling ENT exam: Present: mucous membranes dry Neck exam: Present: normal inspection, full ROM, other (No stridor JVD or bruits). Absent: tenderness, meningismus, lymphadenopathy Respiratory exam: Present: wheezes, accessory muscle use, decreased breath sounds. Absent: respiratory distress, rales, rhonchi, stridor Cardiovascular Exam: Present: regular rate, normal rhythm, normal heart sounds. Absent: systolic murmur, diastolic murmur, rubs, gallop, clicks GI/Abdominal exam: Present: soft, normal bowel sounds. Absent: distended, tenderness, guarding, rebound, rigid Extremities exam: Present: normal inspection, full ROM, normal capillary refill. Absent: tenderness, pedal edema, joint swelling, calf tenderness Back exam: Present: normal inspection Neurological exam: Present: alert, oriented X3, CN II-XII intact Psychiatric exam: Present: normal affect, normal mood Skin exam: Present: warm, dry, intact, normal color. Absent: rash Course Vital Signs 10/14/19 10/14/19 10/14/19 09:06 09:52 10:01 Temperature 97.7 F Pulse Rate 90 85 87 Respiratory 14 Rate Blood Pressure 135/63 O2 Sat by Pulse 100 Oximetry 10/14/19 10/14/19 10:19 11:48 Temperature 98.0 F 98.4 F Pulse Rate 88 91 Respiratory 16 16 Rate Blood Pressure 127/60 120/60 O2 Sat by Pulse 99 100 Oximetry Medical Decision Making - Medical Decision Making I did reevaluate patient several occasions he still dyspneic with some wheezing. He will be admitted the case was initially discussed with Dr. Askew. Patient has been discharged from the practice to be admitted to [facility] Dr. Stevens - Lab Data Result diagrams: 10/14/19 09:28 10/14/19 09:28 Lab Results 10/14/19 10/14/19 10/14/19 Range/Units 09:28 09:28 09:28 WBC 8.3 (3.8-10.6) k/uL RBC 4.13 L (4.30-5.90) m/uL Hgb 12.5 L (13.0-17.5) gm/dL Hct 39.2 (39.0-53.0) % MCV 94.9 (80.0-100.0) fL MCH 30.1 (25.0-35.0) pg MCHC 31.7 (31.0-37.0) g/dL RDW 12.9 (11.5-15.5) % Plt Count 427 (150-450) k/uL Neutrophils % 74 % Lymphocytes % 18 % Monocytes % 5 % Eosinophils % 1 % Basophils % 0 % Neutrophils # 6.1 (1.3-7.7) k/uL Lymphocytes # 1.5 (1.0-4.8) k/uL Monocytes # 0.4 (0-1.0) k/uL Eosinophils # 0.1 (0-0.7) k/uL Basophils # 0.0 (0-0.2) k/uL PT 10.5 (9.0-12.0) sec INR 1.0 (<1.2) APTT 26.4 (22.0-30.0) sec Sodium 137 (137-145) mmol/L Potassium 4.6 (3.5-5.1) mmol/L Chloride 103 (98-107) mmol/L Carbon Dioxide 26 (22-30) mmol/L Anion Gap 8 mmol/L BUN 18 (9-20) mg/dL Creatinine 0.54 L (0.66-1.25) mg/dL Est GFR (CKD-EPI)AfAm >90 (>60 ml/min/1.73 sqM) Est GFR (CKD-EPI)NonAf >90 (>60 ml/min/1.73 sqM) Glucose 109 H (74-99) mg/dL Plasma Lactic Acid Rahul (0.7-2.0) mmol/L Calcium 8.3 L (8.4-10.2) mg/dL Magnesium 1.6 (1.6-2.3) mg/dL Total Bilirubin 0.5 (0.2-1.3) mg/dL AST 28 (17-59) U/L ALT 13 (4-49) U/L Alkaline Phosphatase 115 (38-126) U/L Creatine Kinase 21 L (55-170) U/L Troponin I (0.000-0.034) ng/mL NT-Pro-B Natriuret Pep pg/mL Total Protein 6.2 L (6.3-8.2) g/dL Albumin 2.9 L (3.5-5.0) g/dL 10/14/19 10/14/19 10/14/19 Range/Units 09:28 09:28 09:28 WBC (3.8-10.6) k/uL RBC (4.30-5.90) m/uL Hgb (13.0-17.5) gm/dL Hct (39.0-53.0) % MCV (80.0-100.0) fL MCH (25.0-35.0) pg MCHC (31.0-37.0) g/dL RDW (11.5-15.5) % Plt Count (150-450) k/uL Neutrophils % % Lymphocytes % % Monocytes % % Eosinophils % % Basophils % % Neutrophils # (1.3-7.7) k/uL Lymphocytes # (1.0-4.8) k/uL Monocytes # (0-1.0) k/uL Eosinophils # (0-0.7) k/uL Basophils # (0-0.2) k/uL PT (9.0-12.0) sec INR (<1.2) APTT (22.0-30.0) sec Sodium (137-145) mmol/L Potassium (3.5-5.1) mmol/L Chloride (98-107) mmol/L Carbon Dioxide (22-30) mmol/L Anion Gap mmol/L BUN (9-20) mg/dL Creatinine (0.66-1.25) mg/dL Est GFR (CKD-EPI)AfAm (>60 ml/min/1.73 sqM) Est GFR (CKD-EPI)NonAf (>60 ml/min/1.73 sqM) Glucose (74-99) mg/dL Plasma Lactic Acid Rahul 1.0 (0.7-2.0) mmol/L Calcium (8.4-10.2) mg/dL Magnesium (1.6-2.3) mg/dL Total Bilirubin (0.2-1.3) mg/dL AST (17-59) U/L ALT (4-49) U/L Alkaline Phosphatase (38-126) U/L Creatine Kinase (55-170) U/L Troponin I <0.012 (0.000-0.034) ng/mL NT-Pro-B Natriuret Pep 130 pg/mL Total Protein (6.3-8.2) g/dL Albumin (3.5-5.0) g/dL - EKG Data -: EKG Interpreted by Al EKG shows normal: sinus rhythm EKG Comments: Sinus rhythm 87. Interval 146 QRS duration 82 QT since QTC 354/425 evidence of old septal changes no acute ST-T wave changes - Radiology Data Radiology results: report reviewed (Review the imaging and report no acute findings.), image reviewed Disposition Clinical Impression: Acute exacerbation of chronic obstructive pulmonary disease Disposition: ADMITTED IP TO THIS HOSP Condition: Fair Referrals: Manny Askew MD [Primary Care Provider] - 1-2 days
[2019-10-14 09:48] LABS: Basophils % (A) 0 %; Eosinophils # (A) 0.1 k/uL (0-0.7); Eosinophils % (A) 1 %; HCT 39.2 % (39.0-53.0); HGB 12.5 gm/dL (13.0-17.5); Lymphocytes # (A) 1.5 k/uL (1.0-4.8); Lymphocytes % (A) 18 %; MCH 30.1 pg (25.0-35.0); MCHC 31.7 g/dL (31.0-37.0); MCV 94.9 fL (80.0-100.0); Mean Platelet Volume 7.1; Monocytes # (A) 0.4 k/uL (0-1.0); Monocytes % (A) 5 %; Neutrophils # (A) 6.1 k/uL (1.3-7.7); Neutrophils % (A) 74 %; Platelet Count 427 k/uL (150-450); RBC 4.13 m/uL (4.30-5.90); RDW 12.9 % (11.5-15.5); WBC 8.3 k/uL (3.8-10.6)
--- NOTE | 2019-10-14 09:55 | XR ---
EXAMINATION TYPE: XR chest 2V DATE OF EXAM: 10/14/2019 COMPARISON: 12/24/2018 TECHNIQUE: PA and lateral views submitted. HISTORY: Cough FINDINGS: Small right pleural effusion seen with coarsened interstitium. Apical pleural thickening noted. Diffu se osteopenia with arthropathy of the shoulders. Subsegmental changes along the medial aspect of the right lower lobe. Could not exclude a nodule in the right upper lobe measuring 1.2 cm. IMPRESSION: 1. Asymmetric coarsened interstitium with patchy infiltrate involving the right lung correlate for in terstitial pneumonitis with superimposed pneumonia. Follow-up to resolution recommended as there is a questionable 1.2 cm nodule in the right upper lobe. If findings fail to resolve then CT chest would be suggested.
[2019-10-14 09:59] LABS: Partial Thromboplastin Time 26.4 sec (22.0-30.0); Prothrombin Time 10.5 sec (9.0-12.0)
[2019-10-14 10:07] LABS: ALT 13 U/L (4-49); AST 28 U/L (17-59); African American GFR (CKD) >90 (>60 ml/min/1.73 sqM); Albumin 2.9 g/dL (3.5-5.0); Alkaline Phosphatase 115 U/L (38-126); Anion Gap 8 mmol/L; Blood Urea Nitrogen 18 mg/dL (9-20); Calcium 8.3 mg/dL (8.4-10.2); Carbon Dioxide 26 mmol/L (22-30); Chloride 103 mmol/L (98-107); Creatine Kinase 21 U/L (55-170); Glucose 109 mg/dL (74-99); Magnesium 1.6 mg/dL (1.6-2.3); Non-African American GFR(CKD) >90 (>60 ml/min/1.73 sqM); Potassium 4.6 mmol/L (3.5-5.1); Sodium 137 mmol/L (137-145); Total Bilirubin 0.5 mg/dL (0.2-1.3); Total Protein 6.2 g/dL (6.3-8.2)
[2019-10-14] MEDS ORDERED: guaiFENesin 600 MG TABLET.ER PO PRN (12:14)
--- NOTE | 2019-10-14 15:20 | P.CNPUL ---
History of Present Illness Consult date: 10/14/19 Reason for consult: dyspnea, COPD, pneumonia History of present illness: 79-year-old female patient, quite debilitated, known history of COPD in addition to history of Parkinson's disease whereas chronic interstitial changes in his right lung laterally right more than left. He has been hospitalized in the past for pneumonias including infections with E. coli. He comes in feeling sick, with a congested cough, unable to bring up much sputum and his breathing got worse over this past 1-2 weeks. Denies having any chest pain. He is a poor h istorian in general. He has a nebulizer at home that he doesn't necessary basis. His chest x-ray shows asymmetric coarsened interstitium with patchy infiltration involving the right lung base. There is another 1.2 cm nodule in the right upper lobe. His white cell count is currently at 8.3. He is a nonsmoker for now. He is a former smoker. He is a poor historian.. No hypotension. No falls. He has had previous bouts of urine infection with open eye also. He is post CVA with some left-sided weakness. He also has history of rectal cancer. He looks quite malnourished and debilitated. He states that he lives independently by himself and is able to prepare his own meals. He walks without the walker. Review of Systems Constitutional: Reports fatigue, Reports poor appetite, Reports weakness, Reports weight loss Eyes: denies as per HPI, denies blurred vision, denies bulging eye, denies decreased vision, denies diplopia, denies discharge, denies dry eye, denies irritation, denies itching, denies pain, denies photophobia, denies loss of peripheral vision, denies loss of vision, denies tunnel vision/blind spots Ears: deny: decreased hearing, ear discharge, earache, tinnitus Ears, nose, mouth and throat: Reports as per HPI Breasts: absent: as per HPI, gynecomastia Cardiovascular: Reports decreased exercise tolerance, Reports dyspnea on exertion, Reports shortness of breath Respiratory: Reports cough, Reports cough with sputum, Reports dyspnea, Reports respiratory infections Gastrointestinal: Reports loss of appetite Genitourinary: Reports as per HPI Musculoskeletal: Reports as per HPI Musculoskeletal: absent: ankle pain, ankle stiffness, ankle swelling Integumentary: Reports as per HPI Neurological: Reports as per HPI, Reports gait dysfunction, Reports lack of coordination, Reports memory loss, Reports weakness Psychiatric: Reports as per HPI Endocrine: Reports as per HPI, Reports fatigue Hematologic/Lymphatic: Reports as per HPI Allergic/Immunologic: Reports as per HPI 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 coli ESBL MDRO Source:: Sputum Past Surgical History: Appendectomy, Back Surgery, Bowel Resection, Cholecystectomy, Joint Replacement, Orthopedic Surgery Additional Past Surgical History / Comment(s): bowel resection d/t cancer, partial gastrectomy d/t bleeding ulcer, colonoscopies, low back surgery, total L hip arthroplasty, R hip/pelvic fracture with surgery/hardware, R ankle fracture with surgery/hardware Past Anesthesia/Blood Transfusion Reactions: No Reported Reaction Additional Past Anesthesia/Blood Transfusion Reaction / Comment(s): Pt states he has received blood in past without reaction. Smoking Status: Former smoker - Past Family History Father Family Medical History: Unable to Obtain Additional Family Medical History / Comment(s): heart problems Mother History Unknown: Yes Family Medical History: Diabetes Mellitus Additional Family Medical History / Comment(s): Pt states he cannot remember mother's medical hx. Medications and Allergies Home Medications Medication Instructions Recorded Confirmed Type Aspirin EC [Ecotrin Low Dose] 81 mg PO DAILY@1700 07/26/17 10/14/19 History Primidone [Mysoline] 100 mg PO TID 07/26/17 10/14/19 History Ferrous Sulfate [Iron (65 MG 325 mg PO BID tab 07/29/17 10/14/19 Rx Elemental)] Carbidopa-Levodopa 10-100 mg 1 tab PO BID 09/17/17 10/14/19 History [Sinemet 10-100 mg] Multivitamins, Thera [Multivitamin 1 tab PO DAILY 12/23/18 10/14/19 History (formulary)] Docusate [Colace] 100 mg PO BID cap 12/29/18 10/14/19 Rx guaiFENesin [Mucinex] 600 mg PO Q12HR PRN tablet.er 12/29/18 10/14/19 Rx HYDROcodone/APAP 10-325MG [[place] 1 tab PO Q8H PRN 10/14/19 10/14/19 History 10-325] Allergies Allergy/AdvReac Type Severity Reaction Status Date / Time No Known Allergies Allergy Verified 10/14/19 11:13 Physical Exam Vitals: Vital Signs Temp Pulse Pulse Resp BP BP Pulse Ox 10/14/19 13:35 98.1 F 87 16 124/60 99 10/14/19 12:55 16 10/14/19 11:48 98.4 F 91 16 120/60 100 10/14/19 10:19 98.0 F 88 16 127/60 99 10/14/19 10:01 87 10/14/19 09:52 85 10/14/19 09:06 97.7 F 90 14 135/63 100 Intake and Output 10/14/19 10/14/19 10/14/19 06:59 14:59 22:59 Other: Weight 57.606 kg Debilitated cachectic thin nonacute distress Head exam was generally normal. There was no scleral icterus or corneal arcus. Mucous membranes were moist. Neck was supple and without jugular venous distension, thyromegaly, or carotid bruits. Carotids were easily palpable bilaterally. There was no adenopathy. The patient has dentures in the upper jaw, not in the lower jaw, no thrush. Lungs sounds are diminished special lung bases. Scattered rhonchi heard bilaterally right more than left. Cardiac exam revealed the PMI to be normally situated and sized. The rhythm was regular and no extrasystoles were noted during several minutes of auscultation. The first and second heart sounds were normal and physiologic splitting of the second heart sound was noted. There were no murmurs, rubs, clicks, or gallops. Abdominal exam revealed normal bowel sounds. The abdomen was soft, non-tender, and without masses, organomegaly, or appreciable enlargement of the abdominal aorta. Examination of the extremities revealed easily palpable radial, femoral and pedal pulses. There was no cyanosis, clubbing or edema. Examination of the skin revealed no evidence of significant rashes, suspicious appearing nevi or other concerning lesions. Results - Laboratory Findings CBC and BMP: 10/14/19 09:10/14/19: ABG WBC 8.3 k/uL (3.8-10.6) 10/14/19: RBC 4.13 m/uL (4.30-5.90) L 10/14/19: Hgb 12.5 gm/dL (13.0-17.5) L 10/14/19: Hct 39.2 % (39.0-53.0) 10/14/19 MCV 94.9 fL (80.0-100.0) 10/14/19: MCH 30.1 pg (25.0-35.0) 10/14/19 MCHC 31.7 g/dL (31.0-37.0) 10/14/19: RDW 12.9 % (11.5-15.5) 10/14/19: Plt Count 427 k/uL (150-450) 10/14/19: Neutrophils % 74 % 10/14/19: Lymphocytes % 18 % 10/14/19: Monocytes % 5 % 10/14/19: Eosinophils % 1 % 10/14/19: Basophils % 0 % 10/14/19: Neutrophils # 6.1 k/uL (1.3-7.7) 10/14/19: Lymphocytes # 1.5 k/uL (1.0-4.8) 10/14/19: Monocytes # 0.4 k/uL (0-1.0) 10/14/19: Eosinophils # 0.1 k/uL (0-0.7) 10/14/19: Basophils # 0.0 k/uL (0-0.2) 10/14/19: PT 10.5 sec (9.0-12.0) 10/14/19: INR 1.0 (<1.2) 10/14/19: APTT 26.4 sec (22.0-30.0) 10/14/19 09: Sodium 137 mmol/L (137-145) 10/14/19: Potassium 4.6 mmol/L (3.5-5.1) 10/14/19: Chloride 103 mmol/L (98-107) 10/14/19 09: Carbon Dioxide 26 mmol/L (22-30) 10/14/19: Anion Gap 8 mmol/L 10/14/19: BUN 18 mg/dL (9-20) 10/14/19: Creatinine 0.54 mg/dL (0.66-1.25) L 10/14/19: Est GFR (CKD-EPI)AfAm >90 (>60 ml/min/1.73 sqM) 10/14/19: Est GFR (CKD-EPI)NonAf >90 (>60 ml/min/1.73 sqM) 10/14/19: Glucose 109 mg/dL (74-99) H 10/14/19 09: Plasma Lactic Acid Rahul 1.0 mmol/L (0.7-2.0) 10/14/19: Calcium 8.3 mg/dL (8.4-10.2) L 10/14/19: Magnesium 1.6 mg/dL (1.6-2.3) 10/14/19: Total Bilirubin 0.5 mg/dL (0.2-1.3) 10/14/19: AST 28 U/L (17-59) 10/14/19: ALT 13 U/L (4-49) 10/14/19: Alkaline Phosphatase 115 U/L (38-126) 10/14/19: Creatine Kinase 21 U/L (55-170) L 10/14/19: Troponin I <0.012 ng/mL (0.000-0.034) 10/14/19: NT-Pro-B Natriuret Pep 130 pg/mL 10/14/19 09: Total Protein 6.2 g/dL (6.3-8.2) L 10/14/19: Albumin 2.9 g/dL (3.5-5.0) L 10/14/19 09:28 PT/INR, D-dimer PT 10.5 sec (9.0-12.0) 10/14/19 09:28 INR 1.0 (<1.2) 10/14/19 09:28 Abnormal lab findings: Abnormal Labs 10/14/19 10/14/19 09:28 09:28 RBC 4.13 L Hgb 12.5 L Creatinine 0.54 L Glucose 109 H Calcium 8.3 L Creatine Kinase 21 L Total Protein 6.2 L Albumin 2.9 L - Diagnostic Findings Chest x-ray: image reviewed Assessment and Plan Plan: 1 right lung pneumonia possibly an aspiration type. The patient is a high risk factor patient's for recurrent aspiration based on his previous history of CVA and previous history of heart consent disease in addition to COPD and weak cough and poor ability to perform pulmonary toileting. Previous sputum cultures have shown E. coli. There is chronic interstitial changes on the lungs right more than left, possibly indicating ongoing/persistent aspiration. We'll treat this patient accordingly for now. 2 previous history of ESBL producing E. coli in the right lung 3 COPD 4 Parkinson's disease 5 history of CVA 6 remote history of DVT 7 history of rectal cancer 8 History of alcoholism 9 history of partial gastrectomy for stomach ulcer 10 spinal stenosis with degenerative spine disease 11 history of neurogenic bladder with episodic UTIs Plan Aspiration precautions IV Invanz swallow evaluation by speech pathology DuoNeb nebulized treatments around the clock IV Solu-Medrol We'll continue to follow
[2019-10-14] MEDS ORDERED: PIPERACILLIN-TAZOBACTAM 3.375 GM in SODIUM CHLORIDE 0.9% 100 ML IVPB SCH (16:00)
[2019-10-14] MEDS: IPRATROPIUM-ALBUTEROL 3 ML NEB INHALATION SCH ×3 (16:21→23:55)
[2019-10-14] MEDS: ERTAPENEM 1 GM in SODIUM CHLORIDE 0.9% 50 ML IVPB SCH (17:17)
[2019-10-14] MEDS: PRIMIDONE 50 MG TAB PO SCH ×2 (17:17→19:41)
[2019-10-14] MEDS: methylPREDNISolone SOD SUCCI 125 MG/2 ML VIAL IV SCH ×2 (17:17→23:07)
[2019-10-14] MEDS: ASPIRIN 81 MG PO SCH (17:17)
[2019-10-14] MEDS ORDERED: IPRATROPIUM-ALBUTEROL 3 ML NEB INHALATION PRN (17:33)
[2019-10-14] MEDS ORDERED: ACETAMINOPHEN TAB 325 MG TAB PO PRN (17:34)
[2019-10-14] MEDS ORDERED: NALOXONE 0.4 MG/ML 1 ML VIAL IV PRN (17:34)
--- NOTE | 2019-10-14 17:39 | P.HPIM ---
History of Present Illness H&P Date: 10/14/19 Chief Complaint: Shortness of breath 79-year-old male with PMH of COPD and Parkinson's disease presents the ED for shortness of breath. Patient states that he caught a cold 3 weeks ago. His symptoms are characterized by cough productive of baker sputum and rhinorrhea. Patient states that his breathing continued to worsen over the next 3 weeks which prompted him to come to the ED. He reports smoking 3 packs of cigarettes daily for 9-10 years and smoking progressively since the age of 16. He denies any alcohol or drug use. Patient also reports at 30-40 pound weight loss over the past 6 months. He does report a decreased appetite. Patient denies any headache, lower extremity edema, nausea or vomiting, fever or chills, chest pain, palpitations, changes in urination or bowel habits. He denies any dizziness, numbness/weakness/tingling of the extremities. He does not have a nebulizer machine at home. He does not use any home oxygen. He does not see a chucker. In the ED, his vital signs were stable on 2 L nasal cannula. CBC showed hemoglobin of 12.5. Coagulation panel was negative. CMP showed glucose of 109, creatinine 0.54, calcium 8.3. BNP was 130, chest x-ray showing asymmetric patchy infiltrate in the right lung along with 1.2 cm nodule in the right upper lobe. Troponin was less than 0.012, EKG showing normal sinus rhythm. Review of Systems Pertinent positives and negatives as discussed in HPI, a complete review of systems was performed and all other systems are negative. 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, 2013 TIA, DVT in leg-pt cannot recall laterallity, rectal cancer with surgery/chemo and radiation, pneumonia with sepsis, aspiration pneumonia, elevated liver enzymes, past ETOH abuse-pt states he has not drank in years, partial gastrectomy d/t stomach ulcer, DDD, spinal stenosis, chronic back/ cervical pain, parkinson's dx, UTI, iron anemia, History of Any Multi-Drug Resistant Organisms: ESBL Date of last positivie culture/infection: 12/25/18 E. coli ESBL MDRO Source:: Sputum Past Surgical History: Appendectomy, Back Surgery, Bowel Resection, Cholecystectomy, Joint Replacement, Orthopedic Surgery Additional Past Surgical History / Comment(s): 1990s bowel resection d/t cancer, partial gastrectomy d/t bleeding ulcer, colonoscopies, low back surgery, total L hip arthroplasty, R hip/pelvic fracture with surgery/hardware, R ankle fracture with surgery/hardware Past Anesthesia/Blood Transfusion Reactions: No Reported Reaction Additional Past Anesthesia/Blood Transfusion Reaction / Comment(s): Pt states he has received blood in past without reaction. Smoking Status: Former smoker - Past Family History Father Family Medical History: Unable to Obtain Additional Family Medical History / Comment(s): heart problems Mother History Unknown: Yes Family Medical History: Diabetes Mellitus Additional Family Medical History / Comment(s): Pt states he cannot remember mother's medical hx. Medications and Allergies Home Medications Medication Instructions Recorded Confirmed Type Aspirin EC [Ecotrin Low Dose] 81 mg PO DAILY@1700 07/26/17 10/14/19 History Primidone [Mysoline] 100 mg PO TID 07/26/17 10/14/19 History Ferrous Sulfate [Iron (65 MG 325 mg PO BID tab 07/29/17 10/14/19 Rx Elemental)] Carbidopa-Levodopa 10-100 mg 1 tab PO BID 09/17/17 10/14/19 History [Sinemet 10-100 mg] Multivitamins, Thera [Multivitamin 1 tab PO DAILY 12/23/18 10/14/19 History (formulary)] Docusate [Colace] 100 mg PO BID cap 12/29/18 10/14/19 Rx guaiFENesin [Mucinex] 600 mg PO Q12HR PRN tablet.er 12/29/18 10/14/19 Rx HYDROcodone/APAP 10-325MG [[place] 1 tab PO Q8H PRN 10/14/19 10/14/19 History 10-325] Allergies Allergy/AdvReac Type Severity Reaction Status Date / Time No Known Allergies Allergy Verified 10/14/19 11:13 Physical Exam Vitals: Vital Signs Temp Pulse Pulse Resp BP BP Pulse Ox 10/14/19 16:38 82 10/14/19 16:23 86 97 10/14/19 13:35 98.1 F 87 16 124/60 99 03/05/20 12:55 16 10/14/19 11:48 98.4 F 91 16 120/60 100 10/14/19 10:19 98.0 F 88 16 127/60 99 10/14/19 10:01 87 10/14/19 09:52 85 10/14/19 09:06 97.7 F 90 14 135/63 100 Intake and Output 10/14/19 10/14/19 10/14/19 06:59 14:59 22:59 Other: Weight 57.606 kg General: [non toxic], [cachectic], [appears at stated age] Derm: [warm], [dry] Head: [atraumatic], [normocephalic], [symmetric] Eyes: [EOMI], [no lid lag], [anicteric sclera] Mouth: [no lip lesion], [mucus membranes moist] Cardiovascular: [S1S2 reg], [no murmur], [positive DP pulse bilateral], Lungs: [Decreased breath sounds bilateral], [no rhonchi, no rales] , [no accessory muscle use] Abdominal: [soft], [ nontender to palpation], [no guarding], [no appreciable organomegaly] Ext: [no gross muscle atrophy], [no edema], [no contractures] Neuro: [ CN II-XI grossly intact], [no focal neuro deficits], [pin rolling tremor] Psych: [Alert], [oriented], [appropriate affect] Results CBC & Chem 7: 10/14/19 09:28 10/14/19 09:28 Labs: Abnormal Lab Results - Last 24 Hours (Table) 10/14/19 10/14/19 Range/Units 09:28 09:28 RBC 4.13 L (4.30-5.90) m/uL Hgb 12.5 L (13.0-17.5) gm/dL Creatinine 0.54 L (0.66-1.25) mg/dL Glucose 109 H (74-99) mg/dL Calcium 8.3 L (8.4-10.2) mg/dL Creatine Kinase 21 L (55-170) U/L Total Protein 6.2 L (6.3-8.2) g/dL Albumin 2.9 L (3.5-5.0) g/dL Thrombosis Risk Factor Assmnt - Choose All That Apply Any of the Below Risk Factors Present?: Yes Each Factor Represents 1 point: Abnormal pulmonary function (COPD), Serious lung disease incl. pneumonia (< 1month) Other Risk Factors: Yes Each Risk Factor Represents 2 Points: Malignancy Each Risk Factor Represents 3 Points: Age 75 years or older Other congenital or acquired thrombophilia - If yes, enter type in comment: No Thrombosis Risk Factor Assessment Total Risk Factor Score: 7 Thrombosis Risk Factor Assessment Level: High Risk Assessment and Plan Assessment: Acute COPD exacerbation Aspiration pneumonia Pulmonary nodule Severe protein calorie malnutrition Parkinson's disorder Patient's symptoms are consistent with COPD exacerbation. Patient will be started on DuoNeb scheduled and as needed for shortness of breath and wheezing. He will be given Mucinex for cough. I will start formoterol. He is on Solu- Medrol. Patient has concerns of aspiration pneumonia as seen on chest x-ray. He will be started on ertapenem IV as per pulmonology. Patient will likely need CT of the chest once pneumonia is improved to assess for his pulmonary nodule given long smoking history and dramatic weight loss and concerns for cancer. Dietitian will be consulted for protein calorie malnutrition. His home medication of primidone and carbidopa levodopa will be restarted. DVT prophylaxis: [SCD boots] Discussed with: [Patient] Anticipated discharge: [1-2 days] Anticipated discharge place: [Home] A total of [35] minutes was spent on the care of this complex patient more than 50% of the time was spent in counseling and care coordination. Patient names his caregiver Deyanira decision maker if he can't make decisions for himself. Patient would like to be no code.
[2019-10-14] MEDS: FORMOTEROL FUMARATE 20 MCG/2 ML NEBU INHALATION SCH (19:03)
[2019-10-14] MEDS: FERROUS SULFATE 325 MG TAB PO SCH (19:41)
[2019-10-14] MEDS: DOCUSATE 100 MG CAP PO SCH (19:41)
[2019-10-14] MEDS: CARBIDOPA-LEVODOPA 10-100 MG 1 EACH TAB PO SCH (19:42)
[2019-10-15] MEDS: IPRATROPIUM-ALBUTEROL 3 ML NEB INHALATION SCH ×6 (05:08→23:25)
[2019-10-15] MEDS: methylPREDNISolone SOD SUCCI 125 MG/2 ML VIAL IV SCH ×4 (05:19→23:17)
[2019-10-15] MEDS: FORMOTEROL FUMARATE 20 MCG/2 ML NEBU INHALATION SCH ×2 (07:22→19:27)
[2019-10-15] MEDS: PRIMIDONE 50 MG TAB PO SCH ×3 (09:23→21:11)
[2019-10-15] MEDS: MULTIVITAMINS, THERA 1 EACH TAB PO SCH (09:23)
[2019-10-15] MEDS: FERROUS SULFATE 325 MG TAB PO SCH ×2 (09:23→21:11)
[2019-10-15] MEDS: CARBIDOPA-LEVODOPA 10-100 MG 1 EACH TAB PO SCH ×2 (09:24→21:11)
[2019-10-15] MEDS: DOCUSATE 100 MG CAP PO SCH ×2 (09:24→21:11)
[2019-10-15] MEDS: HYDROcodone/APAP 5-325MG 1 EACH TAB PO PRN (09:35)
[2019-10-15 09:37] LABS: African American GFR (CKD) >90 (>60 ml/min/1.73 sqM); Anion Gap 8 mmol/L; Blood Urea Nitrogen 21 mg/dL (9-20); Calcium 9.2 mg/dL (8.4-10.2); Carbon Dioxide 30 mmol/L (22-30); Chloride 97 mmol/L (98-107); Glucose 180 mg/dL (74-99); Magnesium 1.9 mg/dL (1.6-2.3); Non-African American GFR(CKD) >90 (>60 ml/min/1.73 sqM); Sodium 135 mmol/L (137-145)
[2019-10-15 11:37] VITALS: BMI 19.8
--- NOTE | 2019-10-15 11:55 | P.PN ---
Subjective Progress Note Date: 10/15/19 On today's evaluation, the patient is currently covered with broad-spectrum antibiotics with IV Invanz. There was a high suspicion for aspiration. With a day bedside swallow evaluation by speech pathology and the patient did aspirates. Based on that, the patient is going to have a modified barium swall ow. Currently pain-free for aspiration pneumonia with IV Invanz. He has ESBL producing E. coli in the sputum during his last admission. His condition is stable. A congested cough and he is unable to bring up sputum. No fever. No chills. No signs of any respiratory distress Objective - Vital Signs Vital signs: Vital Signs Temp 98.0 F 10/15/19 07:38 Pulse 88 10/15/19 07:47 Resp 17 10/15/19 07:38 BP 124/60 10/15/19 07:38 Pulse Ox 100 10/15/19 07:38 Intake & Output 10/14/19 10/15/19 10/15/19 18:59 06:59 18:59 Intake Total 100 Balance 100 Weight 57.606 kg 57.606 kg Intake: Oral 100 Other: Voiding Method Urinal Urinal # Voids 2 # Bowel Movements 0 - Exam Debilitated cachectic thin nonacute distress Head exam was generally normal. There was no scleral icterus or corneal arcus. Mucous membranes were moist. Neck was supple and without jugular venous distension, thyromegaly, or carotid bruits. Carotids were easily palpable bilaterally. There was no adenopathy. The patient has dentures in the upper jaw, not in the lower jaw, no thrush. Lungs sounds are diminished special lung bases. Scattered rhonchi heard bilaterally right more than left. Cardiac exam revealed the PMI to be normally situated and sized. The rhythm was regular and no extrasystoles were noted during several minutes of auscultation. The first and second heart sounds were normal and physiologic splitting of the second heart sound was noted. There were no murmurs, rubs, clicks, or gallops. Abdominal exam revealed normal bowel sounds. The abdomen was soft, non-tender, and without masses, organomegaly, or appreciable enlargement of the abdominal aorta. Examination of the extremities revealed easily palpable radial, femoral and pedal pulses. There was no cyanosis, clubbing or edema. Examination of the skin revealed no evidence of significant rashes, suspicious appearing nevi or other concerning lesions. - Labs CBC & Chem 7: 10/14/19 09:28 10/15/19 08:23 Labs: Abnormal Lab Results - Last 24 Hours (Table) 10/15/19 Range/Units 08:23 Sodium 135 L (137-145) mmol/L Chloride 97 L (98-107) mmol/L BUN 21 H (9-20) mg/dL Creatinine 0.52 L (0.66-1.25) mg/dL Glucose 180 H (74-99) mg/dL Microbiology - Last 24 Hours (Table) 10/14/19 09:28 Blood Culture - Preliminary Blood No Growth after 24 hours Assessment and Plan Plan: 1 right lung pneumonia possibly an aspiration type. The patient is a high risk factor patient's for recurrent aspiration based on his previous history of CVA and previous history of heart consent disease in addition to COPD and weak cough and poor ability to perform pulmonary toileting. Previous sputum cultures have shown E. coli. There is chronic interstitial changes on the lungs right more than left, possibly indicating ongoing/persistent aspiration. We'll treat this patient accordingly for now. 2 previous history of ESBL producing E. coli in the right lung 3 COPD 4 Parkinson's disease 5 history of CVA 6 remote history of DVT 7 history of rectal cancer 8 History of alcoholism 9 history of partial gastrectomy for stomach ulcer 10 spinal stenosis with degenerative spine disease 11 history of neurogenic bladder with episodic UTIs Plan Aspiration precautions, the patient failed a bedside evaluation and the patient is going to have a modified barium swallow. He is at high risk for aspiration. IV Invanz DuoNeb nebulized treatments around the clock IV Solu-Medrol We'll continue to follow and repeat chest x-ray in the morning.
--- NOTE | 2019-10-15 12:43 | FL ---
EXAMINATION TYPE: FL barium swallow w video DATE OF EXAM: 10/15/2019 COMPARISON: NONE HISTORY: TECHNIQUE: Fluoroscopy. FINDINGS: Fluoroscopic guidance was provided for the procedure performed in conjunction with the [facility] pathology department. Please see complete report forthcoming from the Speech Pathology departmen t. Various consistencies from thin liquid to solids were administered. Fluoroscopy time 2 minutes 51 seconds. Number of images: 0. There is slight hesitancy of bolus formation. With thin liquids there is aspiration which appeared silent. With nectar thick liquids there is a transient penetration with silent aspiration suspected. With the chin tuck method no aspiration with nectar thick or greater consistencies was evident. There is pooling within the vallecula and piriform sinuses. IMPRESSION: 1. Aspiration with thin liquids. 2. Penetration with suspected silent aspiration with nectar thick liquids. 3. No aspiration or significant penetration with nectar thick liquids with the chin tuck method.
[2019-10-15 13:36] LABS: Appearance,Urine Clear (Clear); Bilirubin,Urine Negative (Negative); Blood,Urine Negative (Negative); Color,Urine Yellow; Glucose,Urine (UA) Negative (Negative); Ketones,Urine Negative (Negative); Leukocyte Esterase,Urine Negative (Negative); Nitrite,Urine Negative (Negative); PH, Urine 5.5 (5.0-8.0); Protein,Urine Trace (Negative); Specific Gravity,Urine 1.024 (1.001-1.035)
[2019-10-15] MEDS: ERTAPENEM 1 GM in SODIUM CHLORIDE 0.9% 50 ML IVPB SCH (16:50)
[2019-10-15] MEDS: ASPIRIN 81 MG PO SCH (16:50)
--- NOTE | 2019-10-15 17:10 | P.PN ---
Subjective Progress Note Date: 10/15/19 Principal diagnosis: Aspiration pneumonia Patient was seen and examined. No acute events overnight. Patient reports improvement in his breathing since admission. He continues to complain of cough and is unable to bring up any sputum. He denies any chest pain or palpitations. No nausea or vomiting. No fever or chills. Bedside swallow done today showed aspiration. Video swallow confirms aspiration of thin liquids. Objective - Vital Signs Vital signs: Vital Signs Temp 98.0 F 10/15/19 13:23 Pulse 88 10/15/19 15:55 Resp 20 10/15/19 13:23 BP 136/81 10/15/19 13:23 Pulse Ox 98 10/15/19 15:44 Intake & Output 10/14/19 10/15/19 10/15/19 18:59 06:59 18:59 Intake Total 100 Output Total 200 Balance 100 -200 Weight 57.606 kg 57.606 kg Intake: Oral 100 Output: Post Void Residual 200 Other: Voiding Method Urinal Urinal # Voids 2 1 # Bowel Movements 0 - Exam General: [non toxic], [cachectic], [appears at stated age] Derm: [warm], [dry] Head: [atraumatic], [normocephalic], [symmetric] Eyes: [EOMI], [no lid lag], [anicteric sclera] Mouth: [no lip lesion], [mucus membranes moist] Cardiovascular: [S1S2 reg], [no murmur], [positive DP pulse bilateral], Lungs: [Decreased breath sounds bilateral], [no rhonchi, no rales] , [no accessory muscle use] Abdominal: [soft], [ nontender to palpation], [no guarding], [no appreciable organomegaly] Ext: [no gross muscle atrophy], [no edema], [no contractures] Neuro: [no focal neuro deficits], [pin rolling tremor] Psych: [Alert], [oriented], [appropriate affect] - Labs CBC & Chem 7: 10/14/19 09:28 10/15/19 08:23 Labs: Abnormal Lab Results - Last 24 Hours (Table) 10/15/19 10/15/19 Range/Units 08:23 13:00 Sodium 135 L (137-145) mmol/L Chloride 97 L (98-107) mmol/L BUN 21 H (9-20) mg/dL Creatinine 0.52 L (0.66-1.25) mg/dL Glucose 180 H (74-99) mg/dL Urine Protein Trace H (Negative) Microbiology - Last 24 Hours (Table) 10/14/19 09:28 Blood Culture - Preliminary Blood No Growth after 24 hours Assessment and Plan Assessment: Acute COPD exacerbation Aspiration pneumonia Pulmonary nodule Severe protein calorie malnutrition Parkinson's disorder Patient's symptoms are consistent with COPD exacerbation. Patient will be started on DuoNeb scheduled and as needed for shortness of breath and wheezing. He will be given Mucinex for cough. I will continue formoterol. He is on Solu- Medrol. Patient has concerns of aspiration pneumonia as seen on chest x-ray. He will be started on ertapenem IV as per pulmonology. Bedside swallow was concerning for aspiration. Video swallow confirmed aspiration of thin liquids. Dietitian is currently following the patient. Repeat chest x-rays order for tomorrow mo rning. He is currently on Ertapenem IV. Patient will likely need CT of the chest once pneumonia is improved to assess for his pulmonary nodule given long smoking history and dramatic weight loss and concerns for cancer. Dietitian will be consulted for protein calorie malnutrition. His home medication of primidone and carbidopa levodopa will be restarted. [Patient be monitored for aspiration. He is pending clinical improvement. Would benefit from CT chest will discuss with pulmonology. Likely DC in 1-2 days.]
[2019-10-15 20:29] LABS: Glucose,Whole Blood 165 mg/dL (75-99)
[2019-10-16] MEDS: IPRATROPIUM-ALBUTEROL 3 ML NEB INHALATION SCH ×5 (05:27→21:05)
[2019-10-16] MEDS: methylPREDNISolone SOD SUCCI 125 MG/2 ML VIAL IV SCH (05:47)
--- NOTE | 2019-10-16 07:05 | XR ---
EXAMINATION TYPE: XR chest 1V DATE OF EXAM: 10/16/2019 CLINICAL HISTORY: Difficulty breathing and pneumonia progress study. TECHNIQUE: Single AP portable upright view of the chest is obtained. COMPARISON: Chest x-ray from 2 days earlier and older studies FINDINGS: Background chronic emphysematous change with increased markings over the right lung and pe rsistent medial right basilar opacity. Cardiac silhouette size stable and within normal limits with e ctatic and atherosclerotic aortic knob causing right-sided tracheal deviation. Osseous structures rem ain demineralized. Contrast from recent swallow study noted in right-sided bowel loop. IMPRESSION: Overall stable findings, chronic parenchymal changes with medial right basilar acute at electasis and/or infiltrate redemonstrated.
[2019-10-16 07:32] LABS: Glucose,Whole Blood 107 mg/dL (75-99)
[2019-10-16] MEDS: FERROUS SULFATE 325 MG TAB PO SCH ×2 (08:24→20:58)
[2019-10-16] MEDS: MULTIVITAMINS, THERA 1 EACH TAB PO SCH (08:24)
[2019-10-16] MEDS: PRIMIDONE 50 MG TAB PO SCH ×3 (08:24→20:58)
[2019-10-16] MEDS: CARBIDOPA-LEVODOPA 10-100 MG 1 EACH TAB PO SCH ×2 (08:27→20:58)
[2019-10-16] MEDS: DOCUSATE 100 MG CAP PO SCH ×3 (08:27→21:07)
[2019-10-16] MEDS: FORMOTEROL FUMARATE 20 MCG/2 ML NEBU INHALATION SCH ×2 (09:40→21:05)
[2019-10-16 11:45] LABS: Glucose,Whole Blood 114 mg/dL (75-99)
--- NOTE | 2019-10-16 11:49 | P.PN ---
Subjective Progress Note Date: 10/16/19 On 10/17/2019, patient is being seen for a follow-up. The patient is still weak. Physical therapy is working with him and they're going to attempt to set him up on a chair. A modified barium was done yesterday and the patient was found to have aspiration with thin liquids, presentation with silent aspiration of Thick liquids was seen. No aspiration or significant penetration with nectar thick liquids with the chin tuck method. The patient remains on antibiotics. The chest x-ray from today shows stable chronic parenchymal changes within the right basilar area with some atelectasis and ongoing infiltration. He remains on IV Invanz is on previous E. coli that was cultured in his sputum that was an ESBL producing organism. He is also on DuoNeb about treatments around the clock. Objective - Vital Signs Vital signs: Vital Signs Temp 97.5 F L 10/16/19 05:01 Pulse 84 10/16/19 10:00 Resp 16 10/16/19 05:01 BP 118/66 10/16/19 05:01 Pulse Ox 98 10/16/19 05:01 Intake & Output 10/15/19 10/16/19 10/16/19 18:59 06:59 18:59 Intake Total 480 120 Output Total 300 975 Balance 180 -855 Weight 57.606 kg Intake: Oral 480 120 Output: Urine 975 Post Void Residual 300 Other: Voiding Method Urinal Urinal Urinal # Voids 1 1 # Bowel Movements 1 - Exam Debilitated cachectic thin nonacute distress Head exam was generally normal. There was no scleral icterus or corneal arcus. Mucous membranes were moist. Neck was supple and without jugular venous distension, thyromegaly, or carotid bruits. Carotids were easily palpable bilaterally. There was no adenopathy. The patient has dentures in the upper jaw, not in the lower jaw, no thrush. Lungs sounds are diminished special lung bases. Scattered rhonchi heard sachin aterally right more than left. Cardiac exam revealed the PMI to be normally situated and sized. The rhythm was regular and no extrasystoles were noted during several minutes of auscultation. The first and second heart sounds were normal and physiologic splitting of the second heart sound was noted. There were no murmurs, rubs, clicks, or gallops. Abdominal exam revealed normal bowel sounds. The abdomen was soft, non-tender, and without masses, organomegaly, or appreciable enlargement of the abdominal aorta. Examination of the extremities revealed easily palpable radial, femoral and pedal pulses. There was no cyanosis, clubbing or edema. Examination of the skin revealed no evidence of significant rashes, suspicious appearing nevi or other concerning lesions. - Labs CBC & Chem 7: 10/14/19 09:28 10/15/19 08:23 Labs: Abnormal Lab Results - Last 24 Hours (Table) 10/15/19 10/15/19 10/16/19 Range/Units 13:00 20:17 07:27 POC Glucose (mg/dL) 165 H 107 H (75-99) mg/dL Urine Protein Trace H (Negative) 10/16/19 Range/Units 11:40 POC Glucose (mg/dL) 114 H (75-99) mg/dL Urine Protein (Negative) Microbiology - Last 24 Hours (Table) 10/14/19 09:28 Blood Culture - Preliminary Blood No Growth after 48 hours 10/15/19 13:00 Urine Culture - Preliminary Urine,Voided Assessment and Plan Plan: 1 right lung pneumonia possibly an aspiration type. The patient is a high risk factor patient's for recurrent aspiration based on his previous history of CVA and previous history of heart consent disease in addition to COPD and weak cough and poor ability to perform pulmonary toileting. Previous sputum cultures have shown E. coli. There is chronic interstitial changes on the lungs right more than left, possibly indicating ongoing/persistent aspiration. Patient is currently on IV Invanz. The patient's chest x-ray showed stable infiltration of the right lung. Swallow evaluation was done and the patient has no significant aspiration or penetration with a chin tuck method of nectar thick material. 2 previous history of ESBL producing E. coli in the right lung 3 COPD 4 Parkinson's disease 5 history of CVA 6 remote history of DVT 7 history of rectal cancer 8 History of alcoholism 9 history of partial gastrectomy for stomach ulcer 10 spinal stenosis with degenerative spine disease 11 history of neurogenic bladder with episodic UTIs Plan Aspiration precautions, the results of the modified barium swallow was noted and this will be implemented. IV Invanz , chest x-ray findings are stable for now DuoNeb nebulized treatments around the clock IV Solu-Medrol to be tapered down to 40 mg every 12 We'll continue to follow and repeat chest x-ray in the morning.
--- NOTE | 2019-10-16 13:16 | P.PN ---
Subjective Progress Note Date: 10/16/19 Principal diagnosis: Aspiration pneumonia Patient was seen and examined. No acute events overnight. He continues to complain of cough and is unable to bring up any sputum. Patient reports that honey thick liquids are too thick for him. Complains of choking on his food and the need to place his chin down in order to swallow. He denies any chest pain or palpitations. No nausea or vomiting. No fever or chills. Bedside swallow done yesterday showed aspiration. Video swallow confirmed aspiration of thin liquids. Objective - Vital Signs Vital signs: Vital Signs Temp 97.5 F L 10/16/19 05:01 Pulse 84 10/16/19 10:00 Resp 16 10/16/19 05:01 BP 118/66 10/16/19 05:01 Pulse Ox 98 10/16/19 05:01 Intake & Output 10/15/19 10/16/19 10/16/19 18:59 06:59 18:59 Intake Total 480 120 Output Total 300 975 Balance 180 -855 Weight 57.606 kg Intake: Oral 480 120 Output: Urine 975 Post Void Residual 300 Other: Voiding Method Urinal Urinal Urinal # Voids 1 1 # Bowel Movements 1 - Exam General: [non toxic], [cachectic], [appears at stated age] Derm: [warm], [dry] Head: [atraumatic], [normocephalic], [symmetric] Eyes: [EOMI], [no lid lag], [anicteric sclera] Mouth: [no lip lesion], [mucus membranes moist] Cardiovascular: [S1S2 reg], [no murmur], [positive DP pulse bilateral], Lungs: [Decreased breath sounds bilateral], [no rhonchi, no rales] , [no accessory muscle use] Abdominal: [soft], [ nontender to palpation], [no guarding], [no appreciable organomegaly] Ext: [no gross muscle atrophy], [no edema], [no contractures] Neuro: [no focal neuro deficits], [pin rolling tremor] Psych: [Alert], [oriented], [appropriate affect] - Labs CBC & Chem 7: 10/14/19 09:28 10/15/19 08:23 Labs: Abnormal Lab Results - Last 24 Hours (Table) 10/15/19 10/15/1910/15/20 Range/Units 13:00 20:17 07:27 POC Glucose (mg/dL) 165 H 107 H (75-99) mg/dL Urine Protein Trace H (Negative) 10/16/19 Range/Units 11:40 POC Glucose (mg/dL) 114 H (75-99) mg/dL Urine Protein (Negative) Microbiology - Last 24 Hours (Table) 10/14/19 09:28 Blood Culture - Preliminary Blood No Growth after 48 hours 10/15/19 13:00 Urine Culture - Preliminary Urine,Voided Assessment and Plan Assessment: Acute COPD exacerbation Aspiration pneumonia Pulmonary nodule Severe protein calorie malnutrition Parkinson's disorder Patient's symptoms are consistent with COPD exacerbation. Patient will be started on DuoNeb scheduled and as needed for shortness of breath and wheezing. He will be given Mucinex for cough. I will continue formoterol. He is on Solu- Medrol. Pulmonology is following the patient. Patient has concerns of aspiration pneumonia as seen on chest x-ray. He will be continued on ertapenem IV as per pulmonology. Chest x-ray repeated today shows right basilar infiltrate. Bedside swallow was concerning for aspiration. Video swallow confirmed aspiration of thin liquids. Dietitian is currently following the patient, Honey thick liquids. He is currently on Ertapenem IV. Patient will likely need CT of the chest once pneumonia is improved to assess for his pulmonary nodule given long smoking history and dramatic weight loss and concerns for cancer. Dietitian will be consulted for protein calorie malnutrition. His home medication of primidone and carbidopa levodopa will be restarted. [Patient be monitored for aspiration. Would benefit from CT chest will discuss with pulmonology. Social work on board for DC planning likely to [facility]. Likely DC in 1-2 days.]
[2019-10-16] MEDS: ASPIRIN 81 MG PO SCH (16:29)
[2019-10-16 16:55] LABS: Glucose,Whole Blood 91 mg/dL (75-99)
[2019-10-16] MEDS: ERTAPENEM 1 GM in SODIUM CHLORIDE 0.9% 50 ML IVPB SCH (17:28)
[2019-10-16 20:07] LABS: Glucose,Whole Blood 89 mg/dL (75-99)
[2019-10-16] MEDS: methylPREDNISolone SOD SUCCI 40 MG/ML 1 ML VIAL IV SCH (20:58)
[2019-10-17] MEDS: IPRATROPIUM-ALBUTEROL 3 ML NEB INHALATION SCH ×7 (00:51→20:00)
[2019-10-17 07:01] LABS: Glucose,Whole Blood 90 mg/dL (75-99)
[2019-10-17] MEDS: FORMOTEROL FUMARATE 20 MCG/2 ML NEBU INHALATION SCH ×2 (07:48→19:34)
[2019-10-17] MEDS: CARBIDOPA-LEVODOPA 10-100 MG 1 EACH TAB PO SCH ×2 (08:42→21:03)
[2019-10-17] MEDS: FERROUS SULFATE 325 MG TAB PO SCH ×2 (08:42→21:03)
[2019-10-17] MEDS: methylPREDNISolone SOD SUCCI 40 MG/ML 1 ML VIAL IV SCH ×2 (08:42→21:03)
[2019-10-17] MEDS: DOCUSATE 100 MG CAP PO SCH ×2 (08:42→21:03)
[2019-10-17] MEDS: MULTIVITAMINS, THERA 1 EACH TAB PO SCH (08:42)
[2019-10-17] MEDS: PRIMIDONE 50 MG TAB PO SCH ×3 (08:42→21:03)
[2019-10-17] MEDS: HYDROcodone/APAP 5-325MG 1 EACH TAB PO PRN (08:45)
[2019-10-17 11:40] LABS: Glucose,Whole Blood 102 mg/dL (75-99)
--- NOTE | 2019-10-17 12:35 | P.PN ---
Subjective Progress Note Date: 10/17/19 Principal diagnosis: Aspiration pneumonia Patient was seen and examined. No acute events overnight. He continues to complain of cough but is now bringing up baker sputum. Patient reports that honey thick liquids are too thick for him, requesting chips this afternoon. Patient appears to be progressively fatigued over the last couple of days. He denies any depression or sad mood. He denies any chest pain or palpitations. No nausea or vomiting. No fever or chills. Objective - Vital Signs Vital signs: Vital Signs Temp 96.9 F L 10/17/19 05:00 Pulse 84 10/17/19 08:08 Resp 20 10/17/19 05:00 BP 118/61 10/17/19 05:00 Pulse Ox 100 10/17/19 05:00 Intake & Output 10/16/19 10/17/19 10/17/19 17:59 06:59 18:59 Intake Total Balance Intake: Oral Other: Voiding Method Urinal # Voids # Bowel Movements - Exam General: [non toxic], [cachectic and fatigued], [appears at stated age] Derm: [warm], [dry] Head: [atraumatic], [normocephalic], [symmetric] Eyes: [EOMI], [no lid lag], [anicteric sclera] Mouth: [no lip lesion], [mucus membranes moist] Cardiovascular: [S1S2 reg], [no murmur], [positive DP pulse bilateral], Lungs: [Decreased breath sounds bilateral], [no rhonchi, no rales] , [no accessory muscle use] Abdominal: [soft], [ nontender to palpation], [no guarding], [no appreciable organomegaly] Ext: [no gross muscle atrophy], [no edema], [no contractures] Neuro: [no focal neuro deficits], [pin rolling tremor] Psych: [Alert], [oriented], [appropriate affect] - Labs CBC & Chem 7: 10/14/19 09:28 10/15/19 08:23 Labs: Abnormal Lab Results - Last 24 Hours (Table) 10/16/19 10/17/19 Range/Units 11:40 11:38 POC Glucose (mg/dL) 114 H 102 H (75-99) mg/dL Microbiology - Last 24 Hours (Table) 10/15/19 13:00 Urine Culture - Final Urine,Voided 10/14/19 09:28 Blood Culture - Preliminary Blood No Growth after 72 hours Assessment and Plan Assessment: Acute COPD exacerbation Aspiration pneumonia Pulmonary nodule Severe protein calorie malnutrition Parkinson's disorder Patient's symptoms are consistent with COPD exacerbation. Patient will be started on DuoNeb scheduled and as needed for shortness of breath and wheezing. He will be given Mucinex for cough. I will continue formoterol. He is on Solu- Medrol. Pulmonology is following the patient. Patient has concerns of aspiration pneumonia as seen on chest x-ray. He will be continued on ertapenem IV as per pulmonology. Chest x-ray repeated today shows right basilar infiltrate. Bedside swallow was concerning for aspiration. Video swallow confirmed aspiration of thin liquids. Dietitian is currently following the patient, Honey thick liquids. He is currently on Ertapenem IV. Blood cultures are negative at 72 hours. Patient will likely need CT of the chest once pneumonia is improved to assess for his pulmonary nodule given long smoking history and dramatic weight loss and concerns for cancer. Dietitian is following the patient for protein calorie malnutrition. His home medication of primidone and carbidopa levodopa will be restarted. [Patient be monitored for aspiration. Would benefit from CT chest to rule out malignancy but could also be done in the outpatient setting. Social work on board for DC planning likely to [place]. Likely DC tomorrow.]
--- NOTE | 2019-10-17 13:14 | P.PN ---
Subjective Progress Note Date: 10/17/19 On 10/18/2019 and seeing the patient for a follow-up. Condition is stable. He is tolerating his diet. No reported aspiration. He is weak. He remains on IV Invanz. Sputum sample has not been collected. The blood cultures negative. Urine cultures are negative. He is still on IV Invanz. He is on oxygen at 3 L. He has a weak cough. He is a shallow breather. Does not have any major respiratory distress at this point in time. Objective - Vital Signs Vital signs: Vital Signs Temp 96.9 F L 10/17/19 05:00 Pulse 84 10/17/19 08:08 Resp 20 10/17/19 05:00 BP 118/61 10/17/19 05:00 Pulse Ox 100 10/17/19 05:00 Intake & Output 10/16/19 10/17/19 10/17/19 17:59 06:59 18:59 Intake Total Balance Intake: Oral Other: Voiding Method Urinal # Voids # Bowel Movements - Exam Debilitated cachectic thin nonacute distress Head exam was generally normal. There was no scleral icterus or corneal arcus. Mucous membranes were moist. Neck was supple and without jugular venous distension, thyromegaly, or carotid bruits. Carotids were easily palpable bilaterally. There was no adenopathy. The patient has dentures in the upper jaw, not in the lower jaw, no thrush. Lungs sounds are diminished special lung bases. Scattered rhonchi heard bilaterally right more than left. Cardiac exam revealed the PMI to be normally situated and sized. The rhythm was regular and no extrasystoles were noted during several minutes of auscultation. The first and second heart sounds were normal and physiologic splitting of the second heart sound was noted. There were no murmurs, rubs, clicks, or gallops. Abdominal exam revealed normal bowel sounds. The abdomen was soft, non-tender, and without masses, organomegaly, or appreciable enlargement of the abdominal aorta. Examination of the extremities revealed easily palpable radial, femoral and p edal pulses. There was no cyanosis, clubbing or edema. Examination of the skin revealed no evidence of significant rashes, suspicious appearing nevi or other concerning lesions. - Labs CBC & Chem 7: 10/14/19 09:28 10/15/19 08:23 Labs: Abnormal Lab Results - Last 24 Hours (Table) 10/17/19 Range/Units 11:38 POC Glucose (mg/dL) 102 H (75-99) mg/dL Microbiology - Last 24 Hours (Table) 10/15/19 13:00 Urine Culture - Final Urine,Voided 10/14/19 09:28 Blood Culture - Preliminary Blood No Growth after 72 hours Assessment and Plan Plan: 1 right lung pneumonia possibly an aspiration type. The patient is a high risk factor patient's for recurrent aspiration based on his previous history of CVA and previous history of heart consent disease in addition to COPD and weak cough and poor ability to perform pulmonary toileting. Previous sputum cultures have shown E. coli. There is chronic interstitial changes on the lungs right more than left, possibly indicating ongoing/persistent aspiration. Patient is currently on IV Invanz. The patient's chest x-ray showed stable infiltration of the right lung. Swallow evaluation was done and the patient has no significant aspiration or penetration with a chin tuck method of nectar thick material. 2 previous history of ESBL producing E. coli in the right lung 3 COPD 4 Parkinson's disease 5 history of CVA 6 remote history of DVT 7 history of rectal cancer 8 History of alcoholism 9 history of partial gastrectomy for stomach ulcer 10 spinal stenosis with degenerative spine disease 11 history of neurogenic bladder with episodic UTIs Plan Continue current antibiotic coverage. Continue bronchodilators. Steroids have been tapered. Repeat chest x-ray in the morning. Long-term prognosis poor baseline above-mentioned comorbidities. Collect sputum sample if possible. Condition is stable ,probably somewhat improved
[2019-10-17] MEDS: ERTAPENEM 1 GM in SODIUM CHLORIDE 0.9% 50 ML IVPB SCH (16:15)
[2019-10-17] MEDS: ASPIRIN 81 MG PO SCH (16:16)
[2019-10-17 16:45] LABS: Glucose,Whole Blood 114 mg/dL (75-99)
[2019-10-17] MEDS ORDERED: IPRATROPIUM-ALBUTEROL 3 ML NEB INHALATION PRN (19:54)
[2019-10-17 20:39] LABS: Glucose,Whole Blood 108 mg/dL (75-99)
[2019-10-17] MEDS: HYDROcodone/APAP 10-325MG 1 EACH TAB PO PRN (21:14)
[2019-10-18 07:04] LABS: Glucose,Whole Blood 110 mg/dL (75-99)
[2019-10-18] MEDS: IPRATROPIUM-ALBUTEROL 3 ML NEB INHALATION SCH ×3 (08:57→21:13)
[2019-10-18] MEDS: FORMOTEROL FUMARATE 20 MCG/2 ML NEBU INHALATION SCH ×2 (08:57→21:12)
[2019-10-18] MEDS: methylPREDNISolone SOD SUCCI 40 MG/ML 1 ML VIAL IV SCH ×2 (09:21→20:41)
[2019-10-18] MEDS: DOCUSATE 100 MG CAP PO SCH ×2 (09:22→20:41)
[2019-10-18] MEDS: PRIMIDONE 50 MG TAB PO SCH ×3 (09:22→20:41)
[2019-10-18] MEDS: CARBIDOPA-LEVODOPA 10-100 MG 1 EACH TAB PO SCH ×2 (09:22→20:41)
[2019-10-18] MEDS: MULTIVITAMINS, THERA 1 EACH TAB PO SCH (09:23)
[2019-10-18] MEDS: FERROUS SULFATE 325 MG TAB PO SCH ×2 (09:23→20:41)
--- NOTE | 2019-10-18 11:03 | XR ---
EXAMINATION TYPE: XR chest 1V portable DATE OF EXAM: 10/18/2019 COMPARISON: Prior chest x-ray 10/16/2019 and left shoulder 07/16/[address] 03/21/2019 HISTORY: Right lung atelectasis, abnormal chest x-ray TECHNIQUE: Single frontal view of the chest is obtained. FINDINGS: Volume loss in the right hemithorax, elevation of right hemidiaphragm, interstitial change s with mixed areas of parenchymal opacity again noted in the right lung greater than left. Heart size is stable. Aorta is dense. Technique somewhat apical lordotic and rotated. This abnormal thickening of the pleura at the right upper hemithorax which is stable. 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 IMPRESSION: Findings are similar to prior exam. There are interstitial changes, correlate for atelec tasis versus pneumonia. There is underlying emphysema.
--- NOTE | 2019-10-18 12:56 | P.PN ---
Subjective Progress Note Date: 10/18/19 Patient seen and examined reporting that his breathing is somewhat improved still having episodes of coughing attacks, denies any subjective fevers or chills. Patient reporting that he previously lived at a senior independent living facility, and is usually able to get around with a wheelchair and a walk er. No acute events overnight Objective - Vital Signs Vital signs: Vital Signs Temp 97.7 F 10/18/19 12:10 Pulse 86 10/18/19 12:10 Resp 19 10/18/19 12:10 BP 111/65 10/18/19 12:10 Pulse Ox 100 10/18/19 12:10 Intake & Output 10/17/19 10/18/19 10/18/19 18:59 06:59 18:59 Intake Total 240 Output Total 4 Balance 236 Intake: Oral 240 Output: Stool 4 Other: Voiding Method Urinal Urinal # Voids 2 3 2 # Bowel Movements 1 0 - Exam Constitutional: No acute distress, conversant, pleasant Eyes: Anicteric sclerae, moist conjunctiva, no lid-lag, PERRLA ENMT: NC/AT,Oropharynx clear, no erythema, exudates Neck:Supple, FROM, no masses, or JVD, No carotid bruits; No thyromegaly Lungs: Clear to auscultation, Clear to percussion, Normal respiratory effort, no accessory muscle use Cardiovascular: Heart regular in rate and rhythm, No murmurs, gallops, or rubs no peripheral edema Abdominal: Soft Nontender, nom distended, no guarding, no rebound or rigidity, Normoactive bowel sounds No hepatomegaly, No splenomegaly, No palpable mass No abdominal wall hernia noted Skin: Normal temperature, tone, texture, turgor, No induration No subcutaneous nodules, No rash, lesions, No ulcers Extremities:No digital cyanosis No clubbing, Pedal pulses intact and symmetrical Radial pulses intact and symmetrical Normal gait and station, No calf tenderness Psychiatric: Alert and oriented to person, place and time, Appropriate affect Intact judgement Neuro: Muscles Strength 5/5 in all 4 extremities, Sensation to light touch grossly present throughout, Cranial nerves II-XII grossly intact. No focal sensory deficits - Labs CBC & Chem 7: 10/14/19 09:28 10/15/19 08:23 Labs: Abnormal Lab Results - Last 24 Hours (Table) 0310/17/19 10/18/19 Range/Units 16:43 20:38 06:46 POC Glucose (mg/dL) 114 H 108 H 110 H (75-99) mg/dL Microbiology - Last 24 Hours (Table) 10/14/19 09:28 Blood Culture - Preliminary Blood No Growth after 96 hours 10/15/19 13:00 Urine Culture - Final Urine,Voided Assessment and Plan Assessment: Acute COPD exacerbation * Secondary to aspiration pneumonia * Continue systemic steroids, inhaled steroids with formoterol, scheduled and PRN bronchodilator DuoNeb breathing treatments, Mucinex Aspiration pneumonia right sided * Multifactorial etiology in patient with history of CVA and Parkinson's disease * Patient afebrile without leukocytosis, previously with history of ESBL * Continued on Invanz, consult ID for antibiotic guidance Pulmonary nodule Severe protein calorie malnutrition Parkinson's disorder * Continue levodopa and primidone Disposition * Anticipated discharge in 2-3 days follow-up consultants recommendations
--- NOTE | 2019-10-18 16:01 | P.PN ---
Subjective Progress Note Date: 10/18/19 On 10/18/2019 patient seen in follow-up on general medical floor, she is somnolent, easily arousable to verbal stimulus, denies acute distress, he has a muffled voice, occasional cough, he is able to bring up some white colored phlegm. He denies any dyspnea, she's been afebrile, he is on Invanz for possi bility of ESBL gram-negative infection due to his history of ESBL E. coli pneumonia in the past. ID service is following, today's chest x-ray has been reviewed showing interstitial changes, atelectasis, elevation of the right hemidiaphragm. Patient is on the modified diet for concern of chronic as piration. Patient is working physical therapy, he states he was up to the chair today. Appears quite fatigued and worn out, he states his appetite still remains poor. No altered mentation. Vital signs are stable, no fever or chills Objective - Vital Signs Vital signs: Vital Signs Temp 97.7 F 10/18/19 12:10 Pulse 86 10/18/19 12:10 Resp 19 10/18/19 12:10 BP 111/65 10/18/19 12:10 Pulse Ox 100 10/18/19 12:10 Intake & Output 10/17/19 10/18/19 10/18/19 18:59 06:59 18:59 Intake Total 240 118 Output Total 4 Balance 236 118 Intake: Oral 240 118 Output: Stool 4 Other: Voiding Method Urinal Urinal Urinal # Voids 2 3 2 # Bowel Movements 1 0 - Exam GENERAL EXAM: Alert, very pleasant, 79-year-old white male, appears quite fatigued and worn out, resting in bed, looks chronically debilitated but comfortable in no apparent distress. HEAD: Normocephalic/atraumatic. EYES: Normal reaction of pupils, equal size. Conjunctiva pink, sclera white. NOSE: Clear with pink turbinates. THROAT: No erythema or exudates. NECK: No masses, no JVD, no thyroid enlargement, no adenopathy. CHEST: No chest wall deformity. Symmetrical expansion. LUNGS: Equal air entry with respiratory crackles at the bases, right greater than the left CVS: Regular rate and rhythm, normal S1 and S2, no gallops, no murmurs, no rubs ABDOMEN: Soft, nontender. No hepatosplenomegaly, normal bowel sounds, no guarding or rigidity. EXTREMITIES: No clubbing, no edema, no cyanosis, 2+ pulses and upper and lower extremities. MUSCULOSKELETAL: Muscle strength and tone normal. SPINE: No scoliosis or deformity SKIN: No rashes CENTRAL NERVOUS SYSTEM: Alert and oriented -3. No focal deficits, tone is normal in all 4 extremities. PSYCHIATRIC: Alert and oriented -3. Appropriate affect. Intact judgment and insight. - Labs CBC & Chem 7: 10/14/19 09:28 10/15/19 08:23 Labs: Abnormal Lab Results - Last 24 Hours (Table) 10/17/19 10/17/19 10/18/19 Range/Units 16:43 20:38 06:46 POC Glucose (mg/dL) 114 H 108 H 110 H (75-99) mg/dL Microbiology - Last 24 Hours (Table) 10/14/19 09:28 Blood Culture - Preliminary Blood No Growth after 96 hours Assessment and Plan Plan: Assessment: 1 right lung pneumonia possibly an aspiration type. The patient is a high risk factor patient's for recurrent aspiration based on his previous history of CVA and previous history of heart consent disease in addition to COPD and weak cough and poor ability to perform pulmonary toileting. Previous sputum cultures have shown ESBL E. coli. There is chronic interstitial changes on the lungs right more than left, possibly indicating ongoing/persistent aspiration. Patient is currently on IV Invanz. The patient's chest x-ray showed stable infiltration of the right lung. Swallow evaluation was done and the patient has no significant aspiration or penetration with a chin tuck method of nectar thick material. 2 previous history of ESBL producing E. coli in the right lung 3 COPD 4 Parkinson's disease 5 history of CVA 6 remote history of DVT 7 history of rectal cancer 8 History of alcoholism 9 history of partial gastrectomy for stomach ulcer 10 spinal stenosis with degenerative spine disease 11 history of neurogenic bladder with episodic UTIs Plan: Clinically patient is stable, but he is very weak and debilitated, encourage activity as tolerated, patient is working with physical therapy. Vital signs are stable, patient is afebrile, she remains on Invanz for history of ESBL E. coli pneumonia in the past. We'll continue with IV antibiotics for a couple of days and we'll switch to oral antibiotics and 48 hours. Maintain aspiration precautions, continue breathing treatments. We'll continue to follow I performed a history & physical examination of the patient and discussed their management with my nurse practitioner, Akanksha Green. I reviewed the nurse practitioner's note and agree with the documented findings and plan of care. Lung sounds are positive for bibasilar crackles. The findings and the impression was discussed with the patient. I attest to the documentation by the nurse practitioner. Time with Patient: Less than 30
[2019-10-18] MEDS: ASPIRIN 81 MG PO SCH (16:53)
[2019-10-18 16:54] LABS: Glucose,Whole Blood 125 mg/dL (75-99)
[2019-10-18] MEDS: ERTAPENEM 1 GM in SODIUM CHLORIDE 0.9% 50 ML IVPB SCH (16:54)
[2019-10-18 16:57] LABS: Glucose,Whole Blood 106 mg/dL (75-99)
[2019-10-18 20:19] LABS: Glucose,Whole Blood 112 mg/dL (75-99)
--- NOTE | 2019-10-19 00:54 | P.CONS ---
History of Present Illness - Reason for Consult Consult date: 10/18/19 Antibiotic guidance Requesting physician: Shawn Lewis - Chief Complaint shortness of breath and cough x few days - History of Present Illness Patient is a 79-year male presenting to the ER at about 5 days ago on October 14, 2019 with a chief complaints of difficulty breathing that has been getting worse for about a week or 2 before presentation to hospital patient also have a cough which has been mild to moderate intensity but not bringing up any sputum no nausea no vomiting no abdominal pain no chills no report or any diarrhea with the symptom had the patient was brought into the ER on arrival to the ER patient has been evaluated by the ER physician patient did have a chest x-ray which did show some patchy infiltrate involving the right lung correlate for station pneumonitis patient has been evaluated by pulmonary service with concern for possible aspiration pneumonia the patient has been treated with Invanz 1 g daily in this patient who did not have any antibiotic allergies this patient remains to be afebrile and white count was checked only on admission has been normal and has been rechecked since then patient UA was negative blood culture has been negative and no sputum has been collected I was asked to see the patient today for further recommendation regarding antibiotic therapy Review of Systems positive point has been mentioned in HPI rest of the systems are negative. 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, 2013 TIA, DVT in leg-pt cannot recall laterallity, rectal cancer with surgery/chemo and radiation, pneumonia with sepsis, aspiration pneumonia, elevated liver enzymes, past ETOH abuse-pt states he has not drank in years, partial gastrectomy d/t stomach ulcer, DDD, spinal stenosis, chronic back/cervical pain, parkinson's dx, UTI, iron anemia, History of Any Multi-Drug Resistant Organisms: ESBL Year Discovered:: 12/25/18 E. coli ESBL MDRO Source:: Sputum Past Surgical History: Appendectomy, Back Surgery, Bowel Resection, Cholecystectomy, Joint Replacement, Orthopedic Surgery Additional Past Surgical History / Comment(s): bowel resection d/t cancer, partial gastrectomy d/t bleeding ulcer, colonoscopies, low back surgery, total L hip arthroplasty, R hip/pelvic fracture with surgery/hardware, R ankle fracture with surgery/hardware Past Anesthesia/Blood Transfusion Reactions: No Reported Reaction Additional Past Anesthesia/Blood Transfusion Reaction / Comm: Pt states he has received blood in past without reaction. Smoking Status: Former smoker - Past Family History Father Family Medical History: Unable to Obtain Additional Family Medical History / Comment(s): heart problems Mother History Unknown: Yes Family Medical History: Diabetes Mellitus Additional Family Medical History / Comment(s): Pt states he cannot remember mot her's medical hx. Medications and Allergies Home Medications Medication Instructions Recorded Confirmed Type Aspirin EC [Ecotrin Low Dose] 81 mg PO DAILY@1700 07/26/17 10/14/19 History Primidone [Mysoline] 100 mg PO TID 07/26/17 10/14/19 History Ferrous Sulfate [Iron (65 MG 325 mg PO BID tab 07/29/17 10/14/19 Rx Elemental)] Carbidopa-Levodopa 10-100 mg 1 tab PO BID 09/17/17 10/14/19 History [Sinemet 10-100 mg] Multivitamins, Thera [Multivitamin 1 tab PO DAILY 12/23/18 10/14/19 History (formulary)] Docusate [Colace] 100 mg PO BID cap 12/29/18 10/14/19 Rx guaiFENesin [Mucinex] 600 mg PO Q12HR PRN tablet.er 12/29/18 10/14/19 Rx HYDROcodone/APAP 10-325MG [Shirley 1 tab PO Q8H PRN 10/14/19 10/14/19 History 10-325] Allergies Allergy/AdvReac Type Severity Reaction Status Date / Time No Known Allergies Allergy Verified 10/14/19 11:13 Physical Exam Vitals: Vital Signs Temp Pulse Pulse Resp BP BP Pulse Ox 10/18/19 12:10 97.7 F 86 19 111/65 100 10/18/19 09:14 77 10/18/19 08:58 76 10/18/19 04:28 97.9 F 80 16 108/59 97 10/17/19 20:42 98.1 F 87 14 127/64 99 Intake and Output 10/18/19 10/18/19 10/18/19 06:59 14:59 22:59 Intake Total 118 Balance 118 Intake: Oral 118 Other: Voiding Method Urinal Urinal # Voids 3 2 3 # Bowel Movements 1 0 0 GENERAL DESCRIPTION: Elderly male lying in bed, no distress. No tachypnea or accessory muscle of respiration use. HEENT: Shows Pallor , no scleral icterus. Oral mucous membrane is dry. NECK: Trachea central, no thyromegaly. LUNGS: Unlabored breathing. Decreased breath sound at the base. No wheeze or crackle. HEART: S1, S2, regular rate and rhythm. ABDOMEN: Soft, no tenderness , guarding or rigidity EXTREMITIES: No edema of feet. SKIN: No rash, no masses palpable. NEUROLOGICAL: The patient is awake, alert, oriented x3, mood and affect normal. Results CBC & Chem 7: 10/14/19 09:28 10/15/19 08:23 Labs: Abnormal Lab Results - Last 24 Hours (Table) 10/17/19 10/17/19 10/18/19 Range/Units 16:43 20:38 06:46 POC Glucose (mg/dL) 114 H 108 H 110 H (75-99) mg/dL Microbiology - Last 24 Hours (Table) 10/14/19 09:28 Blood Culture - Preliminary Blood No Growth after 96 hours Assessment and Plan Assessment: 1-patient presented hospital with increasing shortness of breath and cough in this patient who did have right lower lobe infiltrate with concern for possible aspiration pneumonitis though no fever has been recorded to this admission or elevated white count (1) Pneumonitis Current Visit: No Status: Acute Code(s): J18.9 - PNEUMONIA, UNSPECIFIED ORGANISM SNOMED Code(s): 460439641 Plan: 1-as the patient is clinically responded to Invanz to continue 1 g daily however the patient will transition to oral antibiotic when he is ready for discharge We will follow on clinical condition and cultures to further adjust medication if needed Thank you for this consultation we will follow the patient along with you Time with Patient: Greater than 30
[2019-10-19 07:16] LABS: Glucose,Whole Blood 110 mg/dL (75-99)
[2019-10-19] MEDS: DOCUSATE 100 MG CAP PO SCH ×2 (08:45→22:24)
[2019-10-19] MEDS: methylPREDNISolone SOD SUCCI 40 MG/ML 1 ML VIAL IV SCH ×2 (08:45→22:30)
[2019-10-19] MEDS: MULTIVITAMINS, THERA 1 EACH TAB PO SCH (08:45)
[2019-10-19] MEDS: PRIMIDONE 50 MG TAB PO SCH ×3 (08:45→22:24)
[2019-10-19] MEDS: FERROUS SULFATE 325 MG TAB PO SCH ×2 (08:45→22:24)
[2019-10-19] MEDS: CARBIDOPA-LEVODOPA 10-100 MG 1 EACH TAB PO SCH ×2 (08:55→22:30)
[2019-10-19] MEDS: IPRATROPIUM-ALBUTEROL 3 ML NEB INHALATION SCH ×3 (09:54→22:10)
[2019-10-19] MEDS: FORMOTEROL FUMARATE 20 MCG/2 ML NEBU INHALATION SCH ×2 (09:54→22:10)
--- NOTE | 2019-10-19 11:57 | P.PN ---
Subjective Progress Note Date: 10/19/19 On 10/18/2019 and seeing the patient for a follow-up. Condition is stable. He is tolerating his diet. No reported aspiration. He is weak. He remains on IV Invanz. Sputum sample has not been collected. The blood cultures negative. Urine cultures are negative. He is still on IV Invanz. He is on oxygen at 3 L. He has a weak cough. He is a shallow breather. Does not have any major respiratory distress at this point in time. Objective - Vital Signs Vital signs: Vital Signs Temp 97.0 F L 10/19/19 04:06 Pulse 84 10/19/19 10:12 Resp 16 10/19/19 08:00 BP 93/56 10/19/19 04:06 Pulse Ox 100 10/19/19 04:06 Intake & Output 10/18/19 10/19/19 10/19/19 18:59 06:59 18:59 Intake Total 118 Balance 118 Intake: Oral 118 Other: Voiding Method Urinal Urinal # Voids 1 3 # Bowel Movements 0 2 - Exam Debilitated cachectic thin nonacute distress Head exam was generally normal. There was no scleral icterus or corneal arcus. Mucous membranes were moist. Neck was supple and without jugular venous distension, thyromegaly, or carotid b ruits. Carotids were easily palpable bilaterally. There was no adenopathy. The patient has dentures in the upper jaw, not in the lower jaw, no thrush. Lungs sounds are diminished special lung bases. Scattered rhonchi heard bilaterally right more than left. Cardiac exam revealed the PMI to be normally situated and sized. The rhythm was regular and no extrasystoles were noted during several minutes of auscultation. The first and second heart sounds were normal and physiologic splitting of the second heart sound was noted. There were no murmurs, rubs, clicks, or gallops. Abdominal exam revealed normal bowel sounds. The abdomen was soft, non-tender, and without masses, organomegaly, or appreciable enlargement of the abdominal aorta. Examination of the extremities revealed easily palpable radial, femoral and pedal pulses. There was no cyanosis, clubbing or edema. Examination of the skin revealed no evidence of significant rashes, suspicious appearing nevi or other concerning lesions. - Labs CBC & Chem 7: 10/14/19 09:28 10/15/19 08:23 Labs: Abnormal Lab Results - Last 24 Hours (Table) 10/18/19 10/18/19 10/18/19 Range/Units 11:39 16:52 20:17 POC Glucose (mg/dL) 106 H 125 H 112 H (75-99) mg/dL 10/19/19 Range/Units 07:14 POC Glucose (mg/dL) 110 H (75-99) mg/dL Microbiology - Last 24 Hours (Table) 10/14/19 09:28 Blood Culture - Preliminary Blood No Growth after 120 hours Assessment and Plan Plan: 1 right lung pneumonia possibly an aspiration type. The patient is a high risk factor patient's for recurrent aspiration based on his previous history of CVA and previous history of heart consent disease in addition to COPD and weak cough and poor ability to perform pulmonary toileting. Previous sputum cultures have shown E. coli. There is chronic interstitial changes on the lungs right more than left, possibly indicating ongoing/persistent aspiration. Patient is currently on IV Invanz. The patient's chest x-ray showed stable infiltration of the right lung. Swallow evaluation was done and the patient has no significant aspiration or penetration with a chin tuck method of nectar thick material. 2 previous history of ESBL producing E. coli in the right lung 3 COPD 4 Parkinson's disease 5 history of CVA 6 remote history of DVT 7 history of rectal cancer 8 History of alcoholism 9 history of partial gastrectomy for stomach ulcer 10 spinal stenosis with degenerative spine disease 11 history of neurogenic bladder with episodic UTIs Plan Continue IV Invanz Repeat chest x-ray in the morning Hemodynamically stable We'll continue to follow.
[2019-10-19 12:10] LABS: Glucose,Whole Blood 134 mg/dL (75-99)
[2019-10-19] MEDS: ERTAPENEM 1 GM in SODIUM CHLORIDE 0.9% 50 ML IVPB SCH (15:28)
[2019-10-19 17:03] LABS: Glucose,Whole Blood 157 mg/dL (75-99)
[2019-10-19] MEDS: ASPIRIN 81 MG PO SCH (17:26)
--- NOTE | 2019-10-19 17:32 | P.PN ---
Subjective Progress Note Date: 10/19/19 Patient seen and examined reporting that his breathing is somewhat improved the coughing up more sputum today, denies any subjective fevers or chills. Patient reporting that he previously lived at a senior independent living facility, and is usually able to get around with a wheelchair and a walker. Case management planning for placement to [facility]. The patient's appetite diminished despite supplements with ensure and Magic cups. No acute events overnight Objective - Vital Signs Vital signs: Vital Signs Temp 98.0 F 10/19/19 12:25 Pulse 85 10/19/19 13:49 Resp 18 10/19/19 15:10 BP 95/55 10/19/19 12:25 Pulse Ox 100 10/19/19 12:25 Intake & Output 10/18/19 10/19/19 10/19/19 18:59 06:59 18:59 Intake Total 118 300 Balance 118 300 Weight 57.606 kg Intake: Oral 118 300 Other: Voiding Method Urinal Urinal # Voids 1 3 3 # Bowel Movements 0 2 - Exam Constitutional: No acute distress, conversant, pleasant Eyes: Anicteric sclerae, moist conjunctiva, no lid-lag, PERRLA ENMT: NC/AT,Oropharynx clear, no erythema, exudates Neck:Supple, FROM, no masses, or JVD, No carotid bruits; No thyromegaly Lungs: Clear to auscultation, Clear to percussion, Normal respiratory effort, no accessory muscle use Cardiovascular: Heart regular in rate and rhythm, No murmurs, gallops, or rubs no peripheral edema Abdominal: Soft Nontender, nom distended, no guarding, no rebound or rigidity, Normoactive bowel sounds No hepatomegaly, No splenomegaly, No palpable mass No abdominal wall hernia noted Skin: Normal temperature, tone, texture, turgor, No induration No subcutaneous nodules, No rash, lesions, No ulcers Extremities:No digital cyanosis No clubbing, Pedal pulses intact and symmetrical Radial pulses intact and symmetrical Normal gait and station, No calf tenderness Psychiatric: Alert and oriented to person, place and time, Appropriate affect Intact judgement Neuro: Muscles Strength 5/5 in all 4 extremities, Sensation to light touch grossly present throughout, Cranial nerves II-XII grossly intact. No focal sensory deficits - Labs CBC & Chem 7: 10/14/19 09:28 10/15/19 08:23 Labs: Abnormal Lab Results - Last 24 Hours (Table) 10/18/19 10/19/19 10/19/19 Range/Units 20:17 07:14 12:06 POC Glucose (mg/dL) 112 H 110 H 134 H (75-99) mg/dL 10/19/19 Range/Units 17:00 POC Glucose (mg/dL) 157 H (75-99) mg/dL Microbiology - Last 24 Hours (Table) 10/14/19 09:28 Blood Culture - Preliminary Blood No Growth after 120 hours Assessment and Plan Assessment: Acute COPD exacerbation * Secondary to aspiration pneumonia * Continue systemic steroids, inhaled steroids with formoterol, scheduled and PRN bronchodilator DuoNeb breathing treatments, Mucinex Aspiration pneumonia right sided * Multifactorial etiology in patient with history of CVA and Parkinson's disease * Patient afebrile without leukocytosis, previously with history of ESBL * Continued on Invanz, consult ID for antibiotic guidance Pulmonary nodule Severe protein calorie malnutrition * Continue ensure supplementation meals Parkinson's disorder * Continue levodopa and primidone Disposition * Anticipated discharge in 2-3 days follow-up consultants recommendations * Plan for placement to [facility]
[2019-10-19 20:41] LABS: Glucose,Whole Blood 135 mg/dL (75-99)
[2019-10-19] MEDS: HYDROcodone/APAP 10-325MG 1 EACH TAB PO PRN (22:22)
--- NOTE | 2019-10-20 01:01 | PN ---
PROGRESS NOTE DATE OF SERVICE: 10/19/2019 REASON FOR FOLLOWUP: Possible pneumonia. INTERVAL HISTORY: The patient is currently afebrile. The patient has been breathing more comfortably. He denies having any chest pain. Has some cough, not bringing up any sputum. No nausea, vomiting and no diarrhea. PHYSICAL EXAMINATION: Blood pressure 95/55 with a pulse of 85, temperature 98. He is 100% on 3 L nasal cannula. General description is an elderly male, lying in bed, in no distress. Respiratory system: Unlabored breathing. Some coarse breath sounds in the bases. No wheeze. Heart S1, S2. Regular rate and rhythm. ABDOMEN: Soft. No tenderness. LABS: No new labs have been obtained today. DIAGNOSTIC IMPRESSION AND PLAN: Patient admitted to hospital with difficulty breathing, cough with concern for possible pneumonia. Patient currently responding to Invanz to continue, transition to oral antibiotic on discharge. Continue supportive care. MMODL / IJN: [id number] /
[2019-10-20 07:02] LABS: Glucose,Whole Blood 123 mg/dL (75-99)
[2019-10-20] MEDS: methylPREDNISolone SOD SUCCI 40 MG/ML 1 ML VIAL IV SCH ×2 (08:06→22:28)
[2019-10-20] MEDS: CARBIDOPA-LEVODOPA 10-100 MG 1 EACH TAB PO SCH ×2 (08:06→22:28)
[2019-10-20] MEDS: DOCUSATE 100 MG CAP PO SCH ×2 (08:06→22:28)
[2019-10-20] MEDS: FERROUS SULFATE 325 MG TAB PO SCH ×2 (08:07→22:28)
[2019-10-20] MEDS: PRIMIDONE 50 MG TAB PO SCH ×3 (08:07→22:28)
[2019-10-20] MEDS: MULTIVITAMINS, THERA 1 EACH TAB PO SCH (08:07)
[2019-10-20] MEDS: FORMOTEROL FUMARATE 20 MCG/2 ML NEBU INHALATION SCH ×2 (08:35→19:18)
[2019-10-20] MEDS: IPRATROPIUM-ALBUTEROL 3 ML NEB INHALATION SCH ×3 (08:35→19:18)
--- NOTE | 2019-10-20 13:24 | P.PN ---
Subjective Progress Note Date: 10/20/19 Objective - Vital Signs Vital signs: Vital Signs Temp 97.3 F L 10/20/19 05:00 Pulse 88 10/20/19 12:23 Resp 20 10/20/19 08:00 BP 99/59 10/20/19 05:00 Pulse Ox 100 10/20/19 05:00 Intake & Output 10/19/19 10/20/19 10/20/19 18:59 06:59 18:59 Intake Total 300 0 Balance 300 0 Weight 57.606 kg Intake: Oral 300 0 Other: Voiding Method Urinal Urinal Urinal # Voids 3 3 - Exam Constitutional: No acute distress, conversant, pleasant Eyes: Anicteric sclerae, moist conjunctiva, no lid-lag, PERRLA ENMT: NC/AT,Oropharynx clear, no erythema, exudates Neck:Supple, FROM, no masses, or JVD, No carotid bruits; No thyromegaly Lungs: Clear to auscultation, Clear to percussion, Normal respiratory effort, no accessory muscle use Cardiovascular: Heart regular in rate and rhythm, No murmurs, gallops, or rubs no peripheral edema Abdominal: Soft Nontender, nom distended, no guarding, no rebound or rigidity, Normoactive bowel sounds No hepatomegaly, No splenomegaly, No palpable mass No abdominal wall hernia noted Skin: Normal temperature, tone, texture, turgor, No induration No subcutaneous nodules, No rash, lesions, No ulcers Extremities:No digital cyanosis No clubbing, Pedal pulses intact and symmetrical Radial pulses intact and symmetrical Normal gait and station, No calf tenderness Psychiatric: Alert and oriented to person, place and time, Appropriate affect Intact judgement Neuro: Muscles Strength 5/5 in all 4 extremities, Sensation to light touch grossly present throughout, Cranial nerves II-XII grossly intact. No focal sensory deficits - Labs CBC & Chem 7: 10/14/19 09:28 10/15/19 08:23 Labs: Abnormal Lab Results - Last 24 Hours (Table) 10/19/19 10/19/19 10/20/19 Range/Units 17:00 20:40 07:01 POC Glucose (mg/dL) 157 H 135 H 123 H (75-99) mg/dL Microbiology - Last 24 Hours (Table) 10/14/19 09:28 Blood Culture - Final Blood No Growth after 144 hours Assessment and Plan Assessment: Acute COPD exacerbation * Secondary to aspiration pneumonia * Continue systemic steroids, inhaled steroids with formoterol, scheduled and PRN bronchodilator DuoNeb breathing treatments, Mucinex Aspiration pneumonia right sided * Multifactorial etiology in patient with history of CVA and Parkinson's disease * Patient afebrile without leukocytosis, previously with history of ESBL * Continued on Invanz, consult ID for antibiotic guidance Pulmonary nodule Severe protein calorie malnutrition * Continue ensure supplementation meals Parkinson's disorder * Continue levodopa and primidone Disposition * Anticipated discharge in 2-3 days follow-up consultants recommendations * Plan for placement to [facility]
--- NOTE | 2019-10-20 15:20 | XR ---
EXAMINATION TYPE: XR chest 2V DATE OF EXAM: 10/20/2019 COMPARISON: Prior chest 10/18/2019 HISTORY: Pneumonia follow-up TECHNIQUE: Frontal and lateral views of the chest are obtained. FINDINGS: Pleural parenchymal changes are essentially stable as compared to prior exam, question nova e basilar patchy increased density. Heart size is unchanged. Aorta is dense and possibly ectatic, pat ient is rotated. No evident pneumothorax or pleural effusion. Right hemidiaphragm is mildly elevated. IMPRESSION: Possible basilar subsegmental atelectatic changes or scar rather than pneumonia. Interst itial lung disease and emphysema. Rotated exam.
--- NOTE | 2019-10-20 16:16 | P.PN ---
Subjective Progress Note Date: 10/20/19 On today's evaluation of 10/20/2019 the patient is essentially the same. A follow-up chest x-ray that showed segmental atelectatic changes in the lung base along with some increased interstitial markings right more than left and emphysema. His resting comfortably in bed. He has no new complaints. He remains on IV Invanz. Pulse ox is 99% liters of oxygen by nasal cannula. No other complaints otherwise for now. He is still weak. He is hoping ultimately to go back to his apartment that he used to live with assistance. Objective - Vital Signs Vital signs: Vital Signs Temp 99.3 F 10/20/19 12:12 Pulse 88 10/20/19 12:23 Resp 16 10/20/19 15:22 BP 110/66 10/20/19 12:12 Pulse Ox 100 10/20/19 12:12 Intake & Output 10/19/19 10/20/19 10/20/19 18:59 06:59 18:59 Intake Total 300 0 Balance 300 0 Weight 57.606 kg Intake: Oral 300 0 Other: Voiding Method Urinal Urinal Urinal # Voids 3 3 1 - Exam Debilitated cachectic thin nonacute distress Head exam was generally normal. There was no scleral icterus or corneal arcus. Mucous membranes were moist. Neck was supple and without jugular venous distension, thyromegaly, or carotid bruits. Carotids were easily palpable bilaterally. There was no adenopathy. The patient has dentures in the upper jaw, not in the lower jaw, no thrush. Lungs sounds are diminished special lung bases. Scattered rhonchi heard bilaterally right more than left. Cardiac exam revealed the PMI to be normally situated and sized. The rhythm was regular and no extrasystoles were noted during several minutes of auscultation. The first and second heart sounds were normal and physiologic splitting of the second heart sound was noted. There were no murmurs, rubs, clicks, or gallops. Abdominal exam revealed normal bowel sounds. The abdomen was soft, non-tender, and without masses, organomegaly, or appreciable enlargement of the abdominal aorta. Examination of the extremities revealed easily palpable radial, femoral and pedal pulses. There was no cyanosis, clubbing or edema. Examination of the skin revealed no evidence of significant rashes, suspicious appearing nevi or other concerning lesions. - Labs CBC & Chem 7: 10/14/19 09:28 03 08:23 Labs: Abnormal Lab Results - Last 24 Hours (Table) 10/19/19 10/19/19 10/20/19 Range/Units 17:00 20:40 07:01 POC Glucose (mg/dL) 157 H 135 H 123 H (75-99) mg/dL Microbiology - Last 24 Hours (Table) 10/14/19 09:28 Blood Culture - Final Blood No Growth after 144 hours Assessment and Plan Plan: 1 right lung pneumonia possibly an aspiration type. The patient is a high risk factor patient's for recurrent aspiration based on his previous history of CVA and previous history of heart consent disease in addition to COPD and weak cough and poor ability to perform pulmonary toileting. Previous sputum cultures have shown E. coli. There is chronic interstitial changes on the lungs right more than left, possibly indicating ongoing/persistent aspiration. Patient is currently on IV Invanz. The patient's chest x-ray showed stable infiltration of the right lung. Swallow evaluation was done and the patient has no significant aspiration or penetration with a chin tuck method of nectar thick material. 2 previous history of ESBL producing E. coli in the right lung 3 COPD 4 Parkinson's disease 5 history of CVA 6 remote history of DVT 7 history of rectal cancer 8 History of alcoholism 9 history of partial gastrectomy for stomach ulcer 10 spinal stenosis with degenerative spine disease 11 history of neurogenic bladder with episodic UTIs Plan Continue IV Invanz and complete a 7 day course and then discontinue Repeat chest x-ray from this morning shows chronic changes Hemodynamically stable Pulmonary critical care services we'll sign off We'll give the rest of the management to medicine.
[2019-10-20] MEDS: ERTAPENEM 1 GM in SODIUM CHLORIDE 0.9% 50 ML IVPB SCH (16:20)
[2019-10-20] MEDS: ASPIRIN 81 MG PO SCH (16:25)
--- NOTE | 2019-10-20 22:49 | PN ---
PROGRESS NOTE DATE OF SERVICE: 10/20/2019 REASON FOR FOLLOWUP: Pneumonia. INTERVAL HISTORY: The patient is currently afebrile. He was noted to be slightly lethargic this morning at the time of evaluation, though breathing comfortably. No nausea, vomiting or any diarrhea reported. PHYSICAL EXAMINATION: Blood pressure is 100/64 with a pulse of 98, temperature 97.8. He is 98% on 2 L nasal cannula. General description is an elderly male lying in bed in no distress. RESPIRATORY SYSTEM: Unlabored breathing with decreased breath sounds at the base. No wheeze. HEART: S1, S2. Regular rate and rhythm. ABDOMEN: Soft. No tenderness. LABS: No new labs have been obtained today. DIAGNOSTIC IMPRESSION AND PLAN: Patient admitted to hospital with shortness of breath and cough which is likely multifactorial with concern for possible pneumonia. The patient is covered with Invanz. Will transition to oral antibiotic at the time of discharge and monitor his clinical course closely. MMODL / IJN: [id number] /
[2019-10-21 07:42] VITALS: BP 117/66; RESP 16; TEMP 97.9
[2019-10-21] MEDS: PRIMIDONE 50 MG TAB PO SCH (08:19)
[2019-10-21] MEDS: methylPREDNISolone SOD SUCCI 40 MG/ML 1 ML VIAL IV SCH (08:19)
[2019-10-21] MEDS: DOCUSATE 100 MG CAP PO SCH (08:19)
[2019-10-21] MEDS: FERROUS SULFATE 325 MG TAB PO SCH (08:19)
[2019-10-21] MEDS: CARBIDOPA-LEVODOPA 10-100 MG 1 EACH TAB PO SCH (08:19)
[2019-10-21] MEDS: MULTIVITAMINS, THERA 1 EACH TAB PO SCH (08:19)
[2019-10-21] MEDS: FORMOTEROL FUMARATE 20 MCG/2 ML NEBU INHALATION SCH (08:54)
[2019-10-21] MEDS: IPRATROPIUM-ALBUTEROL 3 ML NEB INHALATION SCH (08:54)
[2019-10-21 08:57] VITALS: PULSE 92
--- NOTE | 2019-10-21 11:30 | P.DS ---
Providers Date of admission: 10/16/19 08:32 Expected date of discharge: 10/21/19 Attending physician: Otis Stevens MD Consults: 10/14/19 12:12 Consult Physician Routine Consulting Provider: Fazal Cooney Consult Reason/Comments: COPD Do you want consulting provider notified?: Yes 10/18/19 08:40 Consult Physician Routine Consulting Provider: Maday Casanova Consult Reason/Comments: abx guidnace Do you want consulting provider notified?: Yes Primary care physician: M[facility] Course: Discharge diagnoses Aspiration pneumonia Acute COPD exacerbation Severe protein energy malnutrition Parkinson's disease History of CVA Hospital course The patient is a 79-year-old male with a known history of COPD, Parkinson's disease with chronic is some changes in the right lung I presented with congestion cough over the last 2 weeks and was admitted for acute COPD exacerbation with probable right-sided aspiration pneumonia, the patient remained afebrile and had a normal white count on his hospitalization, however given his history of ESBL E. coli the patient was started on empiric IV antibiotics with IV Invanz. Chest x-ray showed chronic interstitial changes right greater than left suggesting ongoing/persistent aspiration. The patient was seen by speech therapy and modified barium swallow Was ordered that showed aspiration with video swallow confirming aspiration of thin liquids with moderate impairment of his pharyngeal phase swallow Modified diet dysphagia 3 with chopped honey thick liquids given with chin tuck posturing recommended, patient appetite continued to be poor. Patient continued to be weak. Patient was treated with COPD exacerbation with IV steroids, scheduled and Prn bronchodilator DuoNeb breathing treatments. The patient's respiratory status gradually improved and he was discharged tomorrow would for ongoing physical therapy. This discharge process took approximately 35 minutes. Focused exam Respiratory: Diminished in the bases bilaterally, unlabored on room air Patient Condition at Discharge: Fair Plan - Discharge Summary Discharge Rx Participant: No New Discharge Prescriptions: New Moxifloxacin HCl [Avelox] 400 mg PO DAILY #7 tablet Ipratropium-Albuterol Nebulize [Duoneb 0.5 mg-3 mg/3 ml Soln] 3 ml INHALATION RT-Q2H PRN 14 Days #1 ml PRN Reason: Shortness Of Breath Or Wheezing predniSONE See Taper PO DAILY #12 tab Continue Primidone [Mysoline] 100 mg PO TID Aspirin EC [Ecotrin Low Dose] 81 mg PO DAILY@1700 Ferrous Sulfate [Iron (65 MG Elemental)] 325 mg PO BID tab Carbidopa-Levodopa 10-100 mg [Sinemet 10-100 mg] 1 tab PO BID Multivitamins, Thera [Multivitamin (formulary)] 1 tab PO DAILY Docusate [Colace] 100 mg PO BID cap guaiFENesin [Mucinex] 600 mg PO Q12HR PRN tablet.er PRN Reason: cough HYDROcodone/APAP 10-325MG [Spencer 10-325] 1 tab PO Q8H PRN PRN Reason: Pain Discharge Medication List Aspirin EC [Ecotrin Low Dose] 81 mg PO DAILY@1700 07/26/17 [History] Primidone [Mysoline] 100 mg PO TID 07/26/17 [History] Ferrous Sulfate [Iron (65 MG Elemental)] 325 mg PO BID tab 07/29/17 [Rx] Carbidopa-Levodopa 10-100 mg [Sinemet 10-100 mg] 1 tab PO BID 09/17/17 [History] Multivitamins, Thera [Multivitamin (formulary)] 1 tab PO DAILY 12/23/18 [History] Docusate [Colace] 100 mg PO BID cap 12/29/18 [Rx] guaiFENesin [Mucinex] 600 mg PO Q12HR PRN tablet.er 12/29/18 [Rx] HYDROcodone/APAP 10-325MG [Spencer 10-325] 1 tab PO Q8H PRN 10/14/19 [History] Ipratropium-Albuterol Nebulize [Duoneb 0.5 mg-3 mg/3 ml Soln] 3 ml INHALATION RT-Q2H PRN 14 Days #1 ml 10/21/19 [Rx] Moxifloxacin HCl [Avelox] 400 mg PO DAILY #7 tablet 10/21/19 [Rx] predniSONE See Taper PO DAILY #12 tab 10/21/19 [Rx] Follow up Appointment(s)/Referral(s): Laurence Tijerina, [NON-STAFF] - 1 Week Manny Askew MD [Primary Care Provider] - 1-2 days Patient Instructions/Handouts: COPD (Chronic Obstructive Pulmonary Disease) (DC) Activity/Diet/Wound Care/Special Instructions: Dysphagia 3 diet, aspiration precautions, no straws, crush meds, honey thick liquids. Feed pt, poor appetite, needs encouragement. No free water at this time due to change in status Turn every 2 hours, decub stage 1 to coccyx. Using barrier cream. DNR code status Discharge Disposition: TRANSFER TO SNF/ECF
== END 2019-10-21 13:20 | DRG 177 ==
LOC: EC 09:04 → 6NMEDSUR 12:12 → OBSVTOIN 10-16 08:32
PROVIDERS: ADMIT Family Medicine; ATTEND Family Medicine
DX: J69.0 Pneumonitis due to inhalation of food and vomit (principal); E43 Unspecified severe protein-calorie malnutrition; R64 Cachexia; I69.354 Hemiplegia and hemiparesis following cerebral infarction affecting left non-dominant side; Z68.1 Body mass index [BMI] 19.9 or less, adult; J44.1 Chronic obstructive pulmonary disease with (acute) exacerbation; J98.11 Atelectasis; L89.151 Pressure ulcer of sacral region, stage 1; G20 Parkinson's disease; Z66 Do not resuscitate; R91.1 Solitary pulmonary nodule; M48.00 Spinal stenosis, site unspecified; F10.21 Alcohol dependence, in remission; N31.9 Neuromuscular dysfunction of bladder, unspecified; I69.391 Dysphagia following cerebral infarction; R13.10 Dysphagia, unspecified; R29.6 Repeated falls; K21.9 Gastro-esophageal reflux disease without esophagitis; Z71.3 Dietary counseling and surveillance; Z79.899 Other long term (current) drug therapy; Z79.82 Long term (current) use of aspirin; Z87.01 Personal history of pneumonia (recurrent); Z87.81 Personal history of (healed) traumatic fracture; Z85.048 Personal history of other malignant neoplasm of rectum, rectosigmoid junction, and anus; Z87.440 Personal history of urinary (tract) infections; Z92.3 Personal history of irradiation; Z86.718 Personal history of other venous thrombosis and embolism; Z92.21 Personal history of antineoplastic chemotherapy; Z96.642 Presence of left artificial hip joint; Z90.3 Acquired absence of stomach [part of]; Z98.890 Other specified postprocedural states; Z87.891 Personal history of nicotine dependence; Z87.11 Personal history of peptic ulcer disease; Z90.49 Acquired absence of other specified parts of digestive tract; Z86.19 Personal history of other infectious and parasitic diseases; Z87.19 Personal history of other diseases of the digestive system; Z83.3 Family history of diabetes mellitus
CPT/HCPCS: 36415; 71045; 71046; 74230; 80048; 80053; 81003; 82550; 83605; 83735; 83880; 84484; 85025; 85610; 85730; 87040; 87086; 93005; 94640; 94760; 96374; 99285

== ENCOUNTER 2019-10-24 09:02 | Inpatient (IN) | payer MEDICARE, OTHER ==
[2019-10-24] MEDS ORDERED: IPRATROPIUM-ALBUTEROL 3 ML NEB INHALATION STA (09:17)
[2019-10-24] MEDS ORDERED: SODIUM CHLORIDE 0.9% 1,000 ML IV STA (09:17)
[2019-10-24] MEDS ORDERED: methylPREDNISolone SOD SUCCI 125 MG/2 ML VIAL IV STA (09:17)
[2019-10-24] MEDS ORDERED: ACETAMINOPHEN IVPB STA (09:22)
[2019-10-24] MEDS ORDERED: IBUPROFEN ORAL SUSP 100 MG/5 ML CUP PO ONE (09:22)
[2019-10-24] MEDS ORDERED: IBUPROFEN IV 400 MG in SODIUM CHLORIDE 0.9% 100 ML IV ONE (09:30)
[2019-10-24] MEDS ORDERED: ACETAMINOPHEN SUPPOSITORY 650 MG SUPP RECTAL STA (09:30)
--- NOTE | 2019-10-24 09:36 | ED ---
General Adult HPI - General Chief complaint: Shortness of Breath Stated complaint: Pneumonia Time Seen by Provider: 10/24/19 09:07 Source: EMS, RN notes reviewed, old records reviewed Mode of arrival: EMS - History of Present Illness Initial comments: Patient is a 79-year-old male with a history of Parkinson's disease and recently admitted for pneumonia. He was discharged tomorrow at rehab facility 3 days ago. He presents today from [facility] with generalized weakness, worsening shortness of breath and fever. Patient has a fever of 102 at this time. Patient had rectal temperature completed and he was noted to have black stool. Patient reports that he's been taking his antibiotics from discharge. Patient was placed on 4 L of oxygen and satting at 93%. Apparently patient's pneumonia was related to aspiration pneumonia. He's been discharged on Avelox. - Related Data Home Medications Medication Instructions Recorded Confirmed Aspirin EC [Ecotrin Low Dose] 81 mg PO DAILY@1700 07/26/17 10/24/19 Primidone [Mysoline] 100 mg PO TID@0800,1200,1700 07/26/17 10/24/19 Carbidopa-Levodopa 10-100 mg 1 tab PO BID@0800,1700 09/17/17 10/24/19 [Sinemet 10-100 mg] Multivitamins, Thera [Multivitamin 1 tab PO DAILY@1700 12/23/18 10/24/19 (formulary)] Acetaminophen Tab [Tylenol] 650 mg PO Q4H PRN 10/24/19 10/24/19 Bisacodyl [Dulcolax] 10 mg RECTAL DAILY PRN 10/24/19 10/24/19 Docusate [Colace] 100 mg PO BID@0800,1700 10/24/19 10/24/19 Ferrous Sulfate [Iron (65 MG 325 mg PO BID@0800,1700 10/24/19 10/24/19 Elemental)] HYDROcodone/APAP 5-325MG [[place] 1 tab PO Q6H PRN 10/24/19 10/24/19 5-325] Lactose-Reduced Food [Ensure Plus] 1 can PO TID@0800,1200,1700 10/24/19 10/24/19 Magnesium Hydroxide [Milk of 2,400 mg PO DAILY PRN 10/24/19 10/24/19 Magnesia] Moxifloxacin HCl [Avelox] 400 mg PO DAILY@0600 10/24/19 10/24/19 Na Phos,M-B/Na Phos,Di-Ba [Fleet 133 ml RECTAL DAILY PRN 10/24/19 10/24/19 Adult] Previous Rx's Medication Instructions Recorded guaiFENesin [Mucinex] 600 mg PO Q12HR PRN tablet.er 12/29/18 Ipratropium-Albuterol Nebulize 3 ml INHALATION RT-Q2H PRN 14 Days 10/21/19 [Duoneb 0.5 mg-3 mg/3 ml Soln] #1 ml predniSONE See Taper PO DAILY #12 tab 10/21/19 Allergies Allergy/AdvReac Type Severity Reaction Status Date / Time No Known Allergies Allergy Verified 10/14/19 11:13 Review of Systems ROS Statement: Those systems with pertinent positive or pertinent negative responses have been documented in the HPI. ROS Other: All systems not noted in ROS Statement are negative. 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 coli ESBL MDRO Source:: Sputum Past Surgical History: Appendectomy, Back Surgery, Bowel Resection, Cho lecystectomy, Joint Replacement, Orthopedic Surgery Additional Past Surgical History / Comment(s): bowel resection d/t cancer, partial gastrectomy d/t bleeding ulcer, colonoscopies, low back surgery, total L hip arthroplasty, R hip/pelvic fracture with surgery/hardware, R ankle fracture with surgery/hardware Past Anesthesia/Blood Transfusion Reactions: No Reported Reaction Additional Past Anesthesia/Blood Transfusion Reaction / Comment(s): Pt states he has received blood in past without reaction. Past Psychological History: No Psychological Hx Reported Smoking Status: Former smoker Past Alcohol Use History: None Reported Past Drug Use History: None Reported - Past Family History Father Family Medical History: Unable to Obtain Additional Family Medical History / Comment(s): heart problems Mother History Unknown: Yes Family Medical History: Diabetes Mellitus Additional Family Medical History / Comment(s): Pt states he cannot remember mother's medical hx. General Exam - General Exam Comments Initial Comments: 79-year-old male. Generally weak all. Cachectic appearing. General appearance: alert, in no apparent distress Head exam: Present: atraumatic, normocephalic, normal inspection Eye exam: Present: normal appearance, PERRL, EOMI. Absent: scleral icterus, conjunctival injection, periorbital swelling ENT exam: Present: normal exam, mucous membranes moist Neck exam: Present: normal inspection. Absent: tenderness, meningismus, lymphadenopathy Respiratory exam: Present: wheezes, rhonchi, decreased breath sounds. Absent: normal lung sounds bilaterally, respiratory distress, rales, stridor Cardiovascular Exam: Present: normal rhythm, tachycardia, normal heart sounds. Absent: regular rate, systolic murmur, diastolic murmur, rubs, gallop, clicks GI/Abdominal exam: Present: soft, normal bowel sounds. Absent: distended, tenderness, guarding, rebound, rigid Extremities exam: Present: normal inspection, full ROM, normal capillary refill, other (pressure ulcer R heel, sacrum ulcer). Absent: tenderness, pedal edema, joint swelling, calf tenderness Back exam: Present: normal inspection Neurological exam: Present: alert, oriented X3, CN II-XII intact Course Vital Signs 10/24/19 10/24/19 10/24/19 09:07 09:13 09:32 Temperature 99.7 F H 102.1 F H Pulse Rate 117 H 123 H Respiratory 18 Rate Blood Pressure 102/71 O2 Sat by Pulse 95 Oximetry 10/24/19 10/24/19 09:45 10:52 Temperature Pulse Rate 123 H 108 H Respiratory 18 Rate Blood Pressure 104/55 O2 Sat by Pulse 97 Oximetry Medical Decision Making - Medical Decision Making This patient's a 79-year-old male who presents emergency department today for failure of outpatient treatment. He is currently at [facility] and is on Avelox for question of aspiration pneumonia. He has history of Parkinson's. Patient is found to be septic, temperature 102 rectally. He was also noted have black tarry stool and has a positive occult. Patient was given IV Protonix. His hemoglobin is stable at 10. His white blood cell count and significant elevated at 26,000. Patient was started on Zosyn, vancomycin and Levaquin for hospital-acquired pneumonia. As an elevated lactic acid 2.7. He is given a 2 L bolus. He also complains of a pressure ulcer over his right heel and sacrum, thsi was proped up on pillows. Patient is CODE STATUS was addressed, [facility] Patient wants to be a full code. This is contraindication from his discharge summary from his last admission. He does state that he wants to be a full code at this time. Patient at this time will be admitted to [facility]. - Lab Data Result diagrams: 10/24/19 09:26 10/24/19 09:26 Lab Results 10/24/19 10/24/19 10/24/19 Range/Units 09:26 09:26 09:26 WBC 26.0 H (3.8-10.6) k/uL RBC 3.35 L (4.30-5.90) m/uL Hgb 10.3 L (13.0-17.5) gm/dL Hct 31.8 L (39.0-53.0) % MCV 95.2 (80.0-100.0) fL MCH 30.7 (25.0-35.0) pg MCHC 32.2 (31.0-37.0) g/dL RDW 13.7 (11.5-15.5) % Plt Count 674 H (150-450) k/uL Neutrophils % 90 % Lymphocytes % 4 % Monocytes % 4 % Eosinophils % 0 % Basophils % 0 % Neutrophils # 23.5 H (1.3-7.7) k/uL Lymphocytes # 1.1 (1.0-4.8) k/uL Monocytes # 1.1 H (0-1.0) k/uL Eosinophils # 0.1 (0-0.7) k/uL Basophils # 0.0 (0-0.2) k/uL Sodium 143 (137-145) mmol/L Potassium 4.8 (3.5-5.1) mmol/L Chloride 101 (98-107) mmol/L Carbon Dioxide 33 H (22-30) mmol/L Anion Gap 9 mmol/L BUN 52 H (9-20) mg/dL Creatinine 0.68 (0.66-1.25) mg/dL Est GFR (CKD-EPI)AfAm >90 (>60 ml/min/1.73 sqM) Est GFR (CKD-EPI)NonAf >90 (>60 ml/min/1.73 sqM) Glucose 172 H (74-99) mg/dL Plasma Lactic Acid Rahul (0.7-2.0) mmol/L Calcium 9.3 (8.4-10.2) mg/dL Total Bilirubin 0.5 (0.2-1.3) mg/dL AST 41 (17-59) U/L ALT 34 (4-49) U/L Alkaline Phosphatase 117 (38-126) U/L Troponin I (0.000-0.034) ng/mL Total Protein 6.7 (6.3-8.2) g/dL Albumin 3.8 (3.5-5.0) g/dL Stool Occult Blood (Negative) Influenza Type A RNA (Not Detectd) Influenza Type B (PCR) (Not Detectd) RSV (PCR) (Negative) Blood Type O Positive Blood Type Recheck O Pos Bld Type Recheck Status No Antibody Screen NEGATIVE Spec Expiration Date 10/27/2019 - 232510/24/19 10/24/19 10/24/19 Range/Units 09:26 09:26 09:26 WBC (3.8-10.6) k/uL RBC (4.30-5.90) m/uL Hgb (13.0-17.5) gm/dL Hct (39.0-53.0) % MCV (80.0-100.0) fL MCH (25.0-35.0) pg MCHC (31.0-37.0) g/dL RDW (11.5-15.5) % Plt Count (150-450) k/uL Neutrophils % % Lymphocytes % % Monocytes % % Eosinophils % % Basophils % % Neutrophils # (1.3-7.7) k/uL Lymphocytes # (1.0-4.8) k/uL Monocytes # (0-1.0) k/uL Eosinophils # (0-0.7) k/uL Basophils # (0-0.2) k/uL Sodium (137-145) mmol/L Potassium (3.5-5.1) mmol/L Chloride (98-107) mmol/L Carbon Dioxide (22-30) mmol/L Anion Gap mmol/L BUN (9-20) mg/dL Creatinine (0.66-1.25) mg/dL Est GFR (CKD-EPI)AfAm (>60 ml/min/1.73 sqM) Est GFR (CKD-EPI)NonAf (>60 ml/min/1.73 sqM) Glucose (74-99) mg/dL Plasma Lactic Acid Rahul 2.7 H* (0.7-2.0) mmol/L Calcium (8.4-10.2) mg/dL Total Bilirubin (0.2-1.3) mg/dL AST (17-59) U/L ALT (4-49) U/L Alkaline Phosphatase (38-126) U/L Troponin I <0.012 (0.000-0.034) ng/mL Total Protein (6.3-8.2) g/dL Albumin (3.5-5.0) g/dL Stool Occult Blood (Negative) Influenza Type A RNA Not Detected (Not Detectd) Influenza Type B (PCR) Not Detected (Not Detectd) RSV (PCR) Negative (Negative) Blood Type Blood Type Recheck Bld Type Recheck Status Antibody Screen Spec Expiration Date 10/24/19 Range/Units 09:26 WBC (3.8-10.6) k/uL RBC (4.30-5.90) m/uL Hgb (13.0-17.5) gm/dL Hct (39.0-53.0) % MCV (80.0-100.0) fL MCH (25.0-35.0) pg MCHC (31.0-37.0) g/dL RDW (11.5-15.5) % Plt Count (150-450) k/uL Neutrophils % % Lymphocytes % % Monocytes % % Eosinophils % % Basophils % % Neutrophils # (1.3-7.7) k/uL Lymphocytes # (1.0-4.8) k/uL Monocytes # (0-1.0) k/uL Eosinophils # (0-0.7) k/uL Basophils # (0-0.2) k/uL Sodium (137-145) mmol/L Potassium (3.5-5.1) mmol/L Chloride (98-107) mmol/L Carbon Dioxide (22-30) mmol/L Anion Gap mmol/L BUN (9-20) mg/dL Creatinine (0.66-1.25) mg/dL Est GFR (CKD-EPI)AfAm (>60 ml/min/1.73 sqM) Est GFR (CKD-EPI)NonAf (>60 ml/min/1.73 sqM) Glucose (74-99) mg/dL Plasma Lactic Acid Rahul (0.7-2.0) mmol/L Calcium (8.4-10.2) mg/dL Total Bilirubin (0.2-1.3) mg/dL AST (17-59) U/L ALT (4-49) U/L Alkaline Phosphatase (38-126) U/L Troponin I (0.000-0.034) ng/mL Total Protein (6.3-8.2) g/dL Albumin (3.5-5.0) g/dL Stool Occult Blood Positive (Negative) Influenza Type A RNA (Not Detectd) Influenza Type B (PCR) (Not Detectd) RSV (PCR) (Negative) Blood Type Blood Type Recheck Bld Type Recheck Status Antibody Screen Spec Expiration Date - Radiology Data Radiology results: report reviewed EKG performed at 907 shows sinus tachycardia, ST aabnormality possible digitalis effect. Jugular rate of 1 25 bpm. Was 132 ms. QS samaritan is 70 ms. QT QTc is 3/444 ms. Right perihilar infiltrate is increased from prior exam with diffuse asymmetric interstitial pattern likely on fibrosis or chronic interstitial lung disease. Correlate for COPD. Disposition Clinical Impression: Sepsis, Pneumonia, Failure of outpatient treatment, Weakness, Parkinsonism Disposition: ADMITTED IP TO THIS HOSP Condition: Stable Is patient prescribed a controlled substance at d/c from ED?: No Referrals: Manny Askew MD [STAFF PHYSICIAN] - 1-2 days Time of Disposition: 11:19
[2019-10-24] MEDS ORDERED: LEVOFLOXACIN 750MG-D5W PMX 750 MG in DEXTROSE/WATER 1 150ML.BAG IVPB STA (09:40)
[2019-10-24] MEDS ORDERED: VANCOMYCIN IV PER PHARMACY 1 EACH MISC MISCELLANE PRN (09:40)
[2019-10-24] MEDS ORDERED: CEFEPIME 2 GM in SODIUM CHLORIDE 0.9% 100 ML IVPB STA (09:40)
[2019-10-24 09:44] LABS: Basophils % (A) 0 %; Eosinophils # (A) 0.1 k/uL (0-0.7); Eosinophils % (A) 0 %; HCT 31.8 % (39.0-53.0); HGB 10.3 gm/dL (13.0-17.5); Lymphocytes # (A) 1.1 k/uL (1.0-4.8); Lymphocytes % (A) 4 %; MCH 30.7 pg (25.0-35.0); MCHC 32.2 g/dL (31.0-37.0); MCV 95.2 fL (80.0-100.0); Mean Platelet Volume 8.3; Monocytes # (A) 1.1 k/uL (0-1.0); Monocytes % (A) 4 %; Neutrophils # (A) 23.5 k/uL (1.3-7.7); Neutrophils % (A) 90 %; Platelet Count 674 k/uL (150-450); RBC 3.35 m/uL (4.30-5.90); RDW 13.7 % (11.5-15.5)
[2019-10-24] MEDS ORDERED: VANCOMYCIN 1,000 MG in SODIUM CHLORIDE 0.9% 250 ML IVPB STA (09:47)
[2019-10-24] MEDS ORDERED: PANTOPRAZOLE 40 MG/10 ML VIAL IVP STA ×2 (09:50→10:00)
[2019-10-24 09:55] LABS: ALT 34 U/L (4-49); AST 41 U/L (17-59); African American GFR (CKD) >90 (>60 ml/min/1.73 sqM); Albumin 3.8 g/dL (3.5-5.0); Alkaline Phosphatase 117 U/L (38-126); Anion Gap 9 mmol/L; Blood Urea Nitrogen 52 mg/dL (9-20); Calcium 9.3 mg/dL (8.4-10.2); Carbon Dioxide 33 mmol/L (22-30); Chloride 101 mmol/L (98-107); Glucose 172 mg/dL (74-99); Non-African American GFR(CKD) >90 (>60 ml/min/1.73 sqM); Potassium 4.8 mmol/L (3.5-5.1); Sodium 143 mmol/L (137-145); Total Bilirubin 0.5 mg/dL (0.2-1.3); Total Protein 6.7 g/dL (6.3-8.2)
[2019-10-24] MEDS ORDERED: PIPERACILLIN-TAZOBACTAM 3.375 GM in SODIUM CHLORIDE 0.9% 100 ML IVPB STA (10:00)
[2019-10-24] MEDS ORDERED: SODIUM CHLORIDE 0.9% 1,000 ML IV ONE (10:15)
--- NOTE | 2019-10-24 10:33 | XR ---
EXAMINATION TYPE: XR chest 2V DATE OF EXAM: 10/24/2019 COMPARISON: 10/20/2019 TECHNIQUE: PA and lateral views submitted. HISTORY: Fever FINDINGS: There is increased right perihilar area of consolidation with asymmetric interstitial pattern greate r on the right. Left lung appears clear. Atherosclerotic change aorta. Heart size normal. Arthropathy of the shoulders. Postsurgical change overlying the vertebral column. Hyperinflation IMPRESSION: 1. Right perihilar infiltrate is increased from prior exam with the diffuse asymmetric interstitial p attern likely on the basis of fibrosis and chronic interstitial lung disease. 2. Correlate for COPD
[2019-10-24 11:15] LABS: INR 1.1 (<1.2); Prothrombin Time 10.9 sec (9.0-12.0)
[2019-10-24] MEDS ORDERED: MORPHINE SULFATE 4 MG/ML SYRINGE IV PRN (11:20)
[2019-10-24] MEDS ORDERED: IBUPROFEN 400 MG TAB PO PRN (11:20)
[2019-10-24] MEDS ORDERED: NALOXONE 0.4 MG/ML 1 ML VIAL IV PRN (11:20)
[2019-10-24] MEDS ORDERED: ONDANSETRON 4 MG/2 ML VIAL IVP PRN (11:20)
[2019-10-24] MEDS ORDERED: ACETAMINOPHEN TAB 325 MG TAB PO PRN (11:20)
[2019-10-24] MEDS ORDERED: PNEUMONIA PROTOCOL UTILIZED 1 EACH MISC PO PRN (11:24)
[2019-10-24 11:27] LABS: Partial Thromboplastin Time 20.9 sec (22.0-30.0)
[2019-10-24] MEDS ORDERED: IBUPROFEN IV 800 MG in SODIUM CHLORIDE 0.9% 250 ML IV SCH (12:00)
--- NOTE | 2019-10-24 12:47 | P.HPIM ---
History of Present Illness H&P Date: 10/24/19 Chief Complaint: Fever The patient is a 79-year-old male with a past focal history of Parkinson's disease, COPD, history of ESBL E. coli, recent COPD exacerbation due to aspiration pneumonia that presented to the ER via EMS with reports of generalized weakness worsening shortness of breath and fever. Apparently he was noted to have a fever of 102 prior to being sent to the ER . The patient was recently discharged 10/20 to [facility] on Avelox after being treated for COPD exacerbation and aspiration pneumonia and sent home on Avelox and prednisone taper along with DuoNebs. During his previous workup chest x-ray showed chronic interstitial changes right greater than left suggesting ongoing/persistent aspiration. The patient was seen by speech therapy and modified barium swallow Was ordered that showed aspiration with video swallow confirming aspiration of thin liquids with moderate impairment of his pharyngeal phase swallow Modified diet dysphagia 3 with chopped honey thick liquids given with chin tuck posturing recommended The patient reports starting feeling weak and fatigued over the last 2 days, denies any other symptoms of chest pain nausea vomiting or abdominal pain. He reports that he was compliant with his dietary recommendations and stated that he had chopped diet and was utilizing chin tuck techniques at [facility]. The patient does report some pain in his lower buttocks. Today in the ER the patient had a comprehensive workup chest x-ray showed right perihilar infiltrate which was increased from the prior exam with diffuse asym metric interstitial pattern likely in the base of fibrosis and chronic interstitial lung disease. Abnormal labs include a white count of 26.0 , hemoglobin of 10.3 , platelets 674 , with a left shift , and elevated lactic acid at 2.7,. Influenza A and B and RSV were negative , stool occult was posi tive. 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 coli ESBL MDRO Source:: Sputum Past Surgical History: Appendectomy, Back Surgery, Bowel Resection, Cholecystect arash, Joint Replacement, Orthopedic Surgery Additional Past Surgical History / Comment(s): bowel resection d/t cancer, partial gastrectomy d/t bleeding ulcer, colonoscopies, low back surgery, total L hip arthroplasty, R hip/pelvic fracture with surgery/hardware, R ankle fracture with surgery/hardware Past Anesthesia/Blood Transfusion Reactions: No Reported Reaction Additional Past Anesthesia/Blood Transfusion Reaction / Comment(s): Pt states he has received blood in past without reaction. Past Psychological History: No Psychological Hx Reported Smoking Status: Former smoker Past Alcohol Use History: None Reported Past Drug Use History: None Reported - Past Family History Father Family Medical History: Unable to Obtain Additional Family Medical History / Comment(s): heart problems Mother History Unknown: Yes Family Medical History: Diabetes Mellitus Additional Family Medical History / Comment(s): Pt states he cannot remember mother's medical hx. Medications and Allergies Home Medications Medication Instructions Recorded Confirmed Type Aspirin EC [Ecotrin Low Dose] 81 mg PO DAILY@1700 07/26/17 10/24/19 History Primidone [Mysoline] 100 mg PO TID@0800,1200,1700 07/26/17 10/24/19 History Carbidopa-Levodopa 10-100 mg 1 tab PO BID@0800,1700 09/17/17 10/24/19 History [Sinemet 10-100 mg] Multivitamins, Thera [Multivitamin 1 tab PO DAILY@1700 12/23/18 10/24/19 History (formulary)] guaiFENesin [Mucinex] 600 mg PO Q12HR PRN tablet.er 12/29/18 10/24/19 Rx Ipratropium-Albuterol Nebulize 3 ml INHALATION RT-Q2H PRN 14 Days 10/21/19 10/24/19 Rx [Duoneb 0.5 mg-3 mg/3 ml Soln] #1 ml predniSONE See Taper PO DAILY #12 tab 10/21/19 10/24/19 Rx Acetaminophen Tab [Tylenol] 650 mg PO Q4H PRN 10/24/19 10/24/19 History Bisacodyl [Dulcolax] 10 mg RECTAL DAILY PRN 10/24/19 10/24/19 History Docusate [Colace] 100 mg PO BID@0800,1700 10/24/19 10/24/19 History Ferrous Sulfate [Iron (65 MG 325 mg PO BID@0800,1700 10/24/19 10/24/19 History Elemental)] HYDROcodone/APAP 5-325MG [[place] 1 tab PO Q6H PRN 10/24/19 10/24/19 History 5-325] Lactose-Reduced Food [Ensure Plus] 1 can PO TID@0800,1200,1700 10/24/19 10/24/19 History Magnesium Hydroxide [Milk of 2,400 mg PO DAILY PRN 10/24/19 10/24/19 History Magnesia] Moxifloxacin HCl [Avelox] 400 mg PO DAILY@0600 10/24/19 10/24/19 History Na Phos,M-B/Na Phos,Di-Ba [Fleet 133 ml RECTAL DAILY PRN 10/24/19 10/24/19 History Adult] Allergies Allergy/AdvReac Type Severity Reaction Status Date / Time No Known Allergies Allergy Verified 10/14/19 11:13 Physical Exam Vitals: Vital Signs Temp Pulse Resp BP Pulse Ox 10/24/19 11:38 99.2 F 103 H 18 108/58 96 10/24/19 10:52 108 H 18 104/55 97 10/24/19 09:45 123 H 10/24/19 09:32 123 H 10/24/19 09:13 102.1 F H 10/24/19 09:07 99.7 F H 117 H 18 102/71 95 Intake and Output 10/23/19 10/24/19 10/24/19 22:59 06:59 14:59 Other: Weight 49.895 kg Constitutional: No acute distress, conversant, pleasant, emaciated Eyes: Anicteric sclerae, moist conjunctiva, no lid-lag, PERRLA ENMT: Bilateral temporal wasting,Oropharynx clear, no erythema, exudates Neck:Supple, FROM, no masses, or JVD, No carotid bruits; No thyromegaly Lungs: Diminished in the bases, unlabored on 2 L via nasal cannula Cardiovascular: Tachycardic with regular rhythm, No murmurs, gallops, or rubs no peripheral edema Abdominal: Soft Nontender, nom distended, no guarding, no rebound or rigidity, Normoactive bowel sounds No hepatomegaly, No splenomegaly, No palpable mass No abdominal wall hernia noted Skin: Normal temperature, tone, texture, turgor, No induration No subcutaneous nodules, No rash, lesions, No ulcers Extremities:No digital cyanosis No clubbing, Pedal pulses intact and symmetrical Radial pulses intact and symmetrical, No calf tenderness, diminished tone and muscle mass with contracted lower extremities Psychiatric: Alert and oriented to person, place and time, Appropriate affect Intact judgement Neuro: No focal deficits appreciated Results CBC & Chem 7: 10/24/19 09:26 10/24/19 09:26 Labs: Abnormal Lab Results - Last 24 Hours (Table) 10/24/19 10/24/19 10/24/19 Range/Units 09: 09:26 09:26 WBC 26.0 H (3.8-10.6) k/uL RBC 3.35 L (4.30-5.90) m/uL Hgb 10.3 L (13.0-17.5) gm/dL Hct 31.8 L (39.0-53.0) % Plt Count 674 H (150-450) k/uL Neutrophils # 23.5 H (1.3-7.7) k/uL Monocytes # 1.1 H (0-1.0) k/uL APTT (22.0-30.0) sec Carbon Dioxide 33 H (22-30) mmol/L BUN 52 H (9-20) mg/dL Glucose 172 H (74-99) mg/dL Plasma Lactic Acid Rahul 2.7 H* (0.7-2.0) mmol/L 10/24/19 Range/Units 10:25 WBC (3.8-10.6) k/uL RBC (4.30-5.90) m/uL Hgb (13.0-17.5) gm/dL Hct (39.0-53.0) % Plt Count (150-450) k/uL Neutrophils # (1.3-7.7) k/uL Monocytes # (0-1.0) k/uL APTT 20.9 L (22.0-30.0) sec Carbon Dioxide (22-30) mmol/L BUN (9-20) mg/dL Glucose (74-99) mg/dL Plasma Lactic Acid Rahul (0.7-2.0) mmol/L Assessment and Plan Assessment: Sepsis Pneumonia aspiration versus healthcare associated COPD Acute blood loss anemia with positive Hemoccult Dysphagia due to impaired pharyngeal phase swallow Sacral decubital ulcer stage II History of CVA Parkinson's disease Pulmonary fibrosis Plan: The patient is admitted with sepsis anticipated greater than 2 midnight stay secondary to likely aspiration pneumonia versus HCAP after presenting with fever and tachycardia and a pronounced leukocytosis. He started on empiric IV antibiotics with Rocephin and Zosyn and vancomycin and was noted to have a elevated lactic acid level 2.7. We'll give him a bolus of 1.5 L per sepsis weight-based protocol with bloody urine cultures pending. Continue supportive therapy with Tylenol and ibuprofen as needed. There is concern that given the patient's history of Parkinson's disease, cva amd aspiration that he may no longer be on candidate for oral intake as his aspiration may be an ongoing issue and that he might need a feeding tube. In the meantime we'll consult speech therapy for any further recommendations, also consult pulmonary and ID. The patient will be made nothing by mouth and we will run maintenance fluids after the boluses completed. Continue breathing treatments and follow-up any further recommendations. The patient also to have a hemoglobin of 10.3 with an approximate 2 g drop and a positive Hemoccult will order iron studies and consult GI for further recommendations. Continue wound care for his sacral decubital ulcer. Continue to monitor the patient's clinical course CODE STATUS: Full code Anticipated discharge place: [facility] Prophylaxis : SCDs and heparin and PPI's Greater than 60 minutes was spent in the evaluation of this medically complicated patient
--- NOTE | 2019-10-24 12:58 | P.CNPUL ---
History of Present Illness Consult date: 10/24/19 Reason for consult: dyspnea, pneumonia History of present illness: The patient is a 79-year-old male with known history of Parkinson and previous history of CVA with a week's swallow with an abnormal swallow evaluation and modified barium swallow was recently treated for right lower lobe pneumonia. The patient was given IV Invanz and he was discharged on Avelox. Within a few days of discharge, the patient came back with generalized weakness and fever with temperature of 102 and his chest x-ray showing worsening right lower lobe pulmonary infiltration. He has also leukocytosis. He was readmitted to the hospital. Performance and functional status is poor. He is profoundly weak. His influenza screen was negative. White cell count was at 26. Hemoglobin is at 10.3. Lactic acid level was at 2.7. Stool occult was positive. He was given a dose of vancomycin and Zosyn and Levaquin in the emergency department. Review of Systems Constitutional: Reports fatigue, Reports poor appetite, Reports weakness, Reports weight loss Eyes: denies as per HPI, denies blurred vision, denies bulging eye, denies decreased vision, denies diplopia, denies discharge, denies dry eye, denies irritation, denies itching, denies pain, denies photophobia, denies loss of peripheral vision, denies loss of vision, denies tunnel vision/blind spots Ears: deny: decreased hearing, ear discharge, earache, tinnitus Ears, nose, mouth and throat: Reports as per HPI Breasts: absent: as per HPI, gynecomastia Cardiovascular: Reports decreased exercise tolerance, Reports dyspnea on exertion, Reports shortness of breath Respiratory: Reports cough, Reports cough with sputum, Reports dyspnea, Reports respiratory infections Gastrointestinal: Reports loss of appetite Genitourinary: Reports as per HPI Musculoskeletal: Reports as per HPI Musculoskeletal: absent: ankle pain, ankle stiffness, ankle swelling Integumentary: Reports as per HPI Neurological: Reports as per HPI, Reports gait dysfunction, Reports lack of coordination, Reports memory loss, Reports weakness Psychiatric: Reports as per HPI Endocrine: Reports as per HPI, Reports fatigue Hematologic/Lymphatic: Reports as per HPI Allergic/Immunologic: Reports as per HPI 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 coli ESBL MDRO Source:: Sputum Past Surgical History: Appendectomy, Back Surgery, Bowel Resection, Cholecy stectomy, Joint Replacement, Orthopedic Surgery Additional Past Surgical History / Comment(s): bowel resection d/t cancer, partial gastrectomy d/t bleeding ulcer, colonoscopies, low back surgery, total L hip arthroplasty, R hip/pelvic fracture with surgery/hardware, R ankle fracture with surgery/hardware Past Anesthesia/Blood Transfusion Reactions: No Reported Reaction Additional Past Anesthesia/Blood Transfusion Reaction / Comment(s): Pt states he has received blood in past without reaction. Past Psychological History: No Psychological Hx Reported Smoking Status: Former smoker Past Alcohol Use History: None Reported Past Drug Use History: None Reported - Past Family History Father Family Medical History: Unable to Obtain Additional Family Medical History / Comment(s): heart problems Mother History Unknown: Yes Family Medical History: Diabetes Mellitus Additional Family Medical History / Comment(s): Pt states he cannot remember mother's medical hx. Medications and Allergies Home Medications Medication Instructions Recorded Confirmed Type Aspirin EC [Ecotrin Low Dose] 81 mg PO DAILY@0 07/26/17 10/24/19 History Primidone [Mysoline] 100 mg PO TID@0800,1200,1700 07/26/17 10/24/19 History Carbidopa-Levodopa 10-100 mg 1 tab PO BID@0800,1700 09/17/17 10/24/19 History [Sinemet 10-100 mg] Multivitamins, Thera [Multivitamin 1 tab PO DAILY@1700 12/23/18 10/24/19 History (formulary)] guaiFENesin [Mucinex] 600 mg PO Q12HR PRN tablet.er 12/29/18 10/24/19 Rx Ipratropium-Albuterol Nebulize 3 ml INHALATION RT-Q2H PRN 14 Days 10/21/19 10/24/19 Rx [Duoneb 0.5 mg-3 mg/3 ml Soln] #1 ml predniSONE See Taper PO DAILY #12 tab 10/21/19 10/24/19 Rx Acetaminophen Tab [Tylenol] 650 mg PO Q4H PRN 10/24/19 10/24/19 History Bisacodyl [Dulcolax] 10 mg RECTAL DAILY PRN 10/24/19 10/24/19 History Docusate [Colace] 100 mg PO BID@0800,1700 10/24/19 10/24/19 History Ferrous Sulfate [Iron (65 MG 325 mg PO BID@0800,1700 10/24/19 10/24/19 History Elemental)] HYDROcodone/APAP 5-325MG [[place] 1 tab PO Q6H PRN 10/24/19 10/24/19 History 5-325] Lactose-Reduced Food [Ensure Plus] 1 can PO TID@0800,1200,1700 10/24/19 10/24/19 History Magnesium Hydroxide [Milk of 2,400 mg PO DAILY PRN 10/24/19 10/24/19 History Magnesia] Moxifloxacin HCl [Avelox] 400 mg PO DAILY@0600 10/24/19 10/24/19 History Na Phos,M-B/Na Phos,Di-Ba [Fleet 133 ml RECTAL DAILY PRN 10/24/19 10/24/19 History Adult] Allergies Allergy/AdvReac Type Severity Reaction Status Date / Time No Known Allergies Allergy Verified 10/14/19 11:13 Physical Exam Vitals: Vital Signs Temp Pulse Resp BP Pulse Ox 10/24/19 11:38 99.2 F 103 H 18 108/58 96 10/24/19 10:52 108 H 18 104/55 97 10/24/19 09:45 123 H 10/24/19 09:32 123 H 10/24/19 09:13 102.1 F H 10/24/19 09:07 99.7 F H 117 H 18 102/71 95 Intake and Output 10/23/19 10/24/19 10/24/19 22:59 06:59 14:59 Other: Weight 49.895 kg Debilitated cachectic thin nonacute distress Head exam was generally normal. There was no scleral icterus or corneal arcus. Mucous membranes were moist. Neck was supple and without jugular venous distension, thyromegaly, or carotid bruits. Carotids were easily palpable bilaterally. There was no adenopathy. The patient has dentures in the upper jaw, not in the lower jaw, no thrush. Lungs sounds are diminished special lung bases. Scattered rhonchi heard bilaterally right more than left. Cardiac exam revealed the PMI to be normally situated and sized. The rhythm was regular and no extrasystoles were noted during several minutes of auscultation. The first and second heart sounds were normal and physiologic splitting of the second heart sound was noted. There were no murmurs, rubs, clicks, or gallops. Abdominal exam revealed normal bowel sounds. The abdomen was soft, non-tender, and without masses, organomegaly, or appreciable enlargement of the abdominal aorta. Examination of the extremities revealed easily palpable radial, femoral and pedal pulses. There was no cyanosis, clubbing or edema. Examination of the skin revealed no evidence of significant rashes, suspicious appearing nevi or other concerning lesions. Results - Laboratory Findings CBC and BMP: 10/24/19 09:26 10/24/19 09:26 PT/INR, D-dimer PT 10.9 sec (9.0-12.0) 10/24/19 10:25 INR 1.1 (<1.2) 10/24/19 10:25 Abnormal lab findings: Abnormal Labs 10/24/19 10/24/19 10/24/19 09:26 09:26 09:26 WBC 26.0 H RBC 3.35 L Hgb 10.3 L Hct 31.8 L Plt Count 674 H Neutrophils # 23.5 H Monocytes # 1.1 H APTT Carbon Dioxide 33 H BUN 52 H Glucose 172 H Plasma Lactic Acid Rahul 2.7 H* 10/24/19 10:25 WBC RBC Hgb Hct Plt Count Neutrophils # Monocytes # APTT 20.9 L Carbon Dioxide BUN Glucose Plasma Lactic Acid Rahul - Diagnostic Findings Chest x-ray: image reviewed Assessment and Plan Plan: 1 right lung pneumonia possibly an aspiration type. The patient is a high risk factor patient's for recurrent aspiration based on his previous history of CVA and previous history of heart consent disease in addition to COPD and weak cough and poor ability to perform pulmonary toileting. Previous sputum cultures have shown E. coli. This was an ESBL producing organism. During his last admission, the patient was treated with IV Invanz and he was discharged on Avelox. He came back with a new onset fever and worsening right lower lobe pulmonary infiltration. He is on a combination of Levaquin and Zosyn.. He is on 3 L of oxygen by nasal cannula. Hemodynamically stable. No significant tachycardia. No hypotension. Admitted to cough and produces or secretions is poor. Swallow was abnormal based on the previous modified barium swallow. 2 mild lactic acidosis 3 acute leukocytosis 4 previous history of ESBL producing E. coli in the right lung 5 COPD 6 Parkinson's disease 7 history of CVA 8 remote history of DVT 9 history of rectal cancer 10 History of alcoholism 11 history of partial gastrectomy for stomach ulcer 12 spinal stenosis with degenerative spine disease 13 history of neurogenic bladder with episodic UTIs Plan Continue same antibiotic coverage Obtain sputum Gram stain and culture if possible aspiration precautions and do another swallow evaluation a.m. check urinalysis to look for any alternative sources of infection Blood cultures Prognosis poor baseline above-mentioned. Baseline performance and functional status is poor and recommend addressing code status and advanced directive and consider even palliative /comfort measures
[2019-10-24] MEDS: DEXTROSE 5%-0.9% NACL 1,000 ML IV SCH ×2 (13:13→17:04)
[2019-10-24] MEDS: SODIUM CHLORIDE 0.9% 500 ML 500 ML IV SCH ×3 (13:13→16:17)
[2019-10-24] MEDS: PIPERACILLIN-TAZOBACTAM 3.375 GM in SODIUM CHLORIDE 0.9% 100 ML IVPB SCH ×2 (15:05→23:45)
[2019-10-24] MEDS ORDERED: IBUPROFEN IV 400 MG in SODIUM CHLORIDE 0.9% 100 ML IV SCH (18:00)
[2019-10-24] MEDS: IPRATROPIUM-ALBUTEROL 3 ML NEB INHALATION PRN (19:22)
[2019-10-24 19:26] LABS: Appearance,Urine Clear (Clear); Bilirubin,Urine Negative (Negative); Blood,Urine Negative (Negative); Color,Urine Yellow; Glucose,Urine (UA) Negative (Negative); Ketones,Urine Trace (Negative); Leukocyte Esterase,Urine Negative (Negative); Nitrite,Urine Negative (Negative); Protein,Urine Trace (Negative); Specific Gravity,Urine 1.022 (1.001-1.035); Urobilinogen,Urine <2.0 mg/dL (<2.0)
[2019-10-24] MEDS: HEPARIN SODIUM,PORCINE 5,000 UNIT/ML 1 ML VIAL SQ SCH (21:18)
[2019-10-25] MEDS ORDERED: VANCOMYCIN 1,000 MG in SODIUM CHLORIDE 0.9% 250 ML IVPB SCH ×2
[2019-10-25] MEDS: HEPARIN SODIUM,PORCINE 5,000 UNIT/ML 1 ML VIAL SQ SCH ×2 (07:12→19:40)
[2019-10-25] MEDS: DEXTROSE 5%-0.9% NACL 1,000 ML IV SCH ×2 (07:12→15:07)
[2019-10-25] MEDS: PIPERACILLIN-TAZOBACTAM 3.375 GM in SODIUM CHLORIDE 0.9% 100 ML IVPB SCH ×2 (07:12→15:07)
[2019-10-25] MEDS ORDERED: PANTOPRAZOLE 40 MG/10 ML VIAL IV SCH (09:00)
[2019-10-25 09:25] LABS: INR 1.2 (<1.2); Prothrombin Time 12.2 sec (9.0-12.0)
[2019-10-25 09:27] LABS: Basophils % (A) 0 %; Eosinophils % (A) 0 %; HCT 24.2 % (39.0-53.0); Hypochromasia Slight; Lymphocytes # (A) 1.1 k/uL (1.0-4.8); Lymphocytes % (A) 7 %; MCH 30.7 pg (25.0-35.0); MCHC 31.3 g/dL (31.0-37.0); MCV 97.9 fL (80.0-100.0); Macrocytosis Slight; Mean Platelet Volume 8.4; Monocytes # (A) 0.5 k/uL (0-1.0); Monocytes % (A) 3 %; Neutrophils # (A) 13.4 k/uL (1.3-7.7); Neutrophils % (A) 89 %; Platelet Count 448 k/uL (150-450); RBC 2.47 m/uL (4.30-5.90); WBC 15.1 k/uL (3.8-10.6)
[2019-10-25 09:31] LABS: HGB 7.6 gm/dL (13.0-17.5)
[2019-10-25 09:46] LABS: African American GFR (CKD) >90 (>60 ml/min/1.73 sqM); Anion Gap 5 mmol/L; Blood Urea Nitrogen 27 mg/dL (9-20); Calcium 7.8 mg/dL (8.4-10.2); Carbon Dioxide 26 mmol/L (22-30); Chloride 116 mmol/L (98-107); Glucose 132 mg/dL (74-99); Non-African American GFR(CKD) >90 (>60 ml/min/1.73 sqM); Potassium 3.9 mmol/L (3.5-5.1); Sodium 147 mmol/L (137-145)
[2019-10-25 10:22] LABS: % Iron Saturation 3.13 (15.00-50.00); Ferritin 315.1 ng/mL (22.0-322.0)
--- NOTE | 2019-10-25 10:25 | CONS ---
CONSULTATION DATE OF SERVICE: 10/24/2019 REASON FOR CONSULTATION: Antibiotic recommendation. HISTORY OF PRESENTING ILLNESS: The patient is a 79-year-old male who was recently admitted to this facility and has been treated for pneumonia in this patient who was advised oral discharge. The patient has been [facility] the [facility] from [facility] for the patient having generalized weakness, worsening shortness of breath and fever. Apparently, the patient did have fever of 102 degrees Fahrenheit at the [facility]. Patient has been complaining of a congested cough which has been more recent in intensity. However, he is unable to bring up any sputum. Denies any nausea, vomiting, abdominal pain, no diarrhea. On arrival to the ER, the patient did have a fever of 102 degrees Fahrenheit. He was mildly tachycardic and did have a white count of 26,000. The patient UA was negative. Influenza PCR was negative. The patient did have a chest x- ray which shows right perihilar infiltrate decreased from prior exam with diffuse significant interstitial pattern likely on the basis of fibrosis. The patient has been started on multiple antibiotics in the form of vancomycin and Zosyn and Levaquin. Infectious Disease was consulted for further recommendations regarding antibiotic therapy. REVIEW OF SYSTEMS: Positive points have been mentioned. HPI, rest of systems are negative. PAST MEDICAL HISTORY: COPD, CVA, TIA and DVT, pneumonia. PAST SURGICAL HISTORY: Partial gastrectomy, appendectomy, back surgery, cholecystectomy, right hip fracture repair with hardware. SOCIAL HISTORY: Remote history of smoking. Currently a resident of a [facility]. No drinking or drug use. FAMILY HISTORY: Mother history of diabetes mellitus. ALLERGIES: No known drug allergies. MEDICATIONS: Include the patient is currently on Tylenol, DuoNeb, heparin, Motrin, Levaquin, Zosyn and vancomycin. PHYSICAL EXAMINATION: Blood pressure is 99/54 with a pulse of 94, temperature 98.2, he is 95% on 3L nasal cannula General description is an elderly male lying in bed in no distress. No tachypnea or accessory muscle for respiration use. HEENT: Shows pallor, no scleral icterus. Oral mucosa is extremely dry. Neck with no jugular venous distension. Trachea central. No thyromegaly. LUNGS: Unlabored breathing, decreased breath sounds in the base, no wheeze. HEART: S1, S2. Regular rate and rhythm. ABDOMEN: Soft, no tenderness. EXTREMITIES: No edema of the feet. SKIN: Examination no rash or mass palpable. NEUROLOGIC: Patient is awake, alert, oriented x2. Mood and affect normal. LABS: Hemoglobin is 10.1, white count is 26,000, BUN of 52, creatinine 0.68. Lactic acid elevated. Blood culture obtained, currently pending. Chest x-ray report as mentioned above. DIAGNOSTIC IMPRESSION AND PLAN: Patient admitted to the hospital with a fever in this patient have increasing shortness of breath. He did have a cough, culture did likely aspiration pneumonia possible gram-negative, likely MRSA. PLAN: 1. We will try to obtain sputum for Gram stain culture. 2. Will keep the patient on Zosyn 3.75 q.8 hours. However, discontinue vancomycin to decrease risk of toxicity. 3. Will follow up on clinical condition and culture to further adjust medication if needed. Thank you for this consultation. Will follow this patient along with you. MMODL / IJN: [id number] /
[2019-10-25] MEDS: IPRATROPIUM-ALBUTEROL 3 ML NEB INHALATION PRN ×2 (10:54→16:04)
--- NOTE | 2019-10-25 11:27 | P.PN ---
Subjective Progress Note Date: 10/25/19 Principal diagnosis: Aspiration pneumonia The patient is a 79-year-old male with known history of Parkinson and previous history of CVA with a week's swallow with an abnormal swallow evaluation and modified barium swallow was recently treated for right lower lobe pneumonia. The patient was given IV Invanz and he was discharged on Avelox. Within a few days of discharge, the patient came back with generalized weakness and fever with temperature of 102 and his chest x-ray showing worsening right lower lobe pulmonary infiltration. He has also leukocytosis. He was readmitted to the hospital. Performance and functional status is poor. He is profoundly weak. His influenza screen was negative. White cell count was at 26. Hemoglobin is at 10.3. Lactic acid level was at 2.7. Stool occult was positive. He was given a dose of vancomycin and Zosyn and Levaquin in the emergency department. The patient is seen today 10/25/2019 in follow-up on the regular medical floor. He is currently sitting up in bed, aspiration precautions. bedside swallowing exam to be performed today. Currently nothing by mouth. He may need a PEG tube placed. The patient is considering this. White count 15.1. Hemoglobin 7.6. INR 1.2. Sodium 147. Creatinine 0.62. He is continued on DuoNeb inhalations, IV Zosyn. He is febrile temporal temperature of 100.5. 95% O2 saturation on 3 L/m per nasal cannula. Hemodynamically stable. Objective - Vital Signs Vital signs: Vital Signs Temp 100.5 F H 10/25/19 05:00 Pulse 92 10/25/19 11:06 Resp 20 10/25/19 05:00 BP 125/53 10/25/19 05:00 Pulse Ox 95 10/25/19 05:00 Intake & Output 10/24/19 10/25/19 10/25/19 18:59 06:59 18:59 Intake Total 1900 0 Output Total 150 200 Balance 1900 -150 -200 Weight 49.895 kg Intake: IV 1900 Levofloxacin 750Mg-D5w 150 Pmx 750 mg In Dextrose/ Water 1 150ml.bag @ 100 mls/hr IVPB ONCE STA Rx#: [id number] Sodium Chloride 0.9% 500 1500 ml 500 ml @ 1000 mls/hr IV Q35M [facility] Rx#:[id number] Vancomycin 1,000 mg In 250 Sodium Chloride 0.9% 250 ml @ 125 mls/hr IVPB ONCE STA Rx#:[id number] Oral 0 Output: Urine 150 200 Other: Voiding Method Incontinent Incontinent Urinal Incontinent # Voids 10 - Exam Gen. appearance: 79-year-old gentleman, quite debilitated, cachectic. On 3 L nasal cannula Head exam was generally normal. There was no scleral icterus or corneal arcus. Mucous membranes were moist. Neck was supple and without jugular venous distension, thyromegaly, or carotid bruits. Carotids were easily palpable bilaterally. There was no adenopathy. The patient has dentures in the upper jaw, not in the lower jaw, no thrush. Lungs sounds are diminished in the lung bases. Scattered rhonchi heard bilaterally right more than left. Cardiac exam revealed the PMI to be normally situated and sized. The rhythm was regular and no extrasystoles were noted during several minutes of auscultation. The first and second heart sounds were normal and physiologic splitting of the second heart sound was noted. There were no murmurs, rubs, clicks, or gallops. Abdominal exam revealed normal bowel sounds. The abdomen was soft, non-tender, and without masses, organomegaly, or appreciable enlargement of the abdominal aorta. Examination of the extremities revealed easily palpable radial, femoral and pedal pulses. There was no cyanosis, clubbing or edema. Examination of the skin revealed no evidence of significant rashes, suspicious appearing nevi or other concerning lesions. - Labs CBC & Chem 7: 10/25/19 08:28 10/25/19 08:28 Labs: Abnormal Lab Results - Last 24 Hours (Table) 10/24/19 10/24/19 10/24/19 Range/Units 09:26 10:25 13:44 WBC (3.8-10.6) k/uL RBC (4.30-5.90) m/uL Hgb (13.0-17.5) gm/dL Hct (39.0-53.0) % Neutrophils # (1.3-7.7) k/uL PT (9.0-12.0) sec INR (<1.2) APTT 20.9 L (22.0-30.0) sec Sodium (137-145) mmol/L Chloride (98-107) mmol/L BUN (9-20) mg/dL Creatinine (0.66-1.25) mg/dL Glucose (74-99) mg/dL Plasma Lactic Acid Rahul 3.0 H* (0.7-2.0) mmol/L Calcium (8.4-10.2) mg/dL Iron 9 L (65-175) ug/dL % Saturation 3.13 L (15.00-50.00) Urine Protein (Negative) Urine Ketones (Negative) 10/24/19 10/24/19 10/25/19 Range/Units 18:09 19:14 08:28 WBC (3.8-10.6) k/uL RBC (4.30-5.90) m/uL Hgb (13.0-17.5) gm/dL Hct (39.0-53.0) % Neutrophils # (1.3-7.7) k/uL PT 12.2 H (9.0-12.0) sec INR 1.2 H (<1.2) APTT (22.0-30.0) sec Sodium (137-145) mmol/L Chloride (98-107) mmol/L BUN (9-20) mg/dL Creatinine (0.66-1.25) mg/dL Glucose (74-99) mg/dL Plasma Lactic Acid Rahul 3.1 H* (0.7-2.0) mmol/L Calcium (8.4-10.2) mg/dL Iron (65-175) ug/dL % Saturation (15.00-50.00) Urine Protein Trace H (Negative) Urine Ketones Trace H (Negative) 10/25/19 10/25/19 Range/Units 08:28 08:28 WBC 15.1 H (3.8-10.6) k/uL RBC 2.47 L (4.30-5.90) m/uL Hgb 7.6 L D (13.0-17.5) gm/dL Hct 24.2 L (39.0-53.0) % Neutrophils # 13.4 H (1.3-7.7) k/uL PT (9.0-12.0) sec INR (<1.2) APTT (22.0-30.0) sec Sodium 147 H (137-145) mmol/L Chloride 116 H (98-107) mmol/L BUN 27 H (9-20) mg/dL Creatinine 0.62 L (0.66-1.25) mg/dL Glucose 132 H (74-99) mg/dL Plasma Lactic Acid Rahul (0.7-2.0) mmol/L Calcium 7.8 L (8.4-10.2) mg/dL Iron (65-175) ug/dL % Saturation (15.00-50.00) Urine Protein (Negative) Urine Ketones (Negative) Assessment and Plan Assessment: 1 right lung pneumonia possibly an aspiration type. The patient is a high risk factor patient's for recurrent aspiration based on his previous history of CVA and previous history of heart consent disease in addition to COPD and weak cough and poor ability to perform pulmonary toileting. Previous sputum cultures have shown E. coli. This was an ESBL producing organism. During his last admission, the patient was treated with IV Invanz and he was discharged on Avelox. He came back with a new onset fever and worsening right lower lobe pulmonary infiltration. He is on Zosyn.. He is on 3 L of oxygen by nasal cannula. Hemodynamically stable. No significant tachycardia. No hypotension. Admitted to cough and produces of secretions is poor. Swallow was abnormal based on the previous modified barium swallow. 2 mild lactic acidosis 3 acute leukocytosis 4 previous history of ESBL producing E. coli in the right lung 5 COPD 6 Parkinson's disease 7 history of CVA 8 remote history of DVT 9 history of rectal cancer 10 History of alcoholism 11 history of partial gastrectomy for stomach ulcer 12 spinal stenosis with degenerative spine disease 13 history of neurogenic bladder with episodic UTIs Plan The patient was seen and evaluated by Dr. Calderón Remains on aspiration precautions Continue Zosyn Most likely benefit from PEG tube placement if not placed on hospice/comfort care We will continue to follow I, the cosigning physician, performed a history & physical examination of the patient. Lungs sounds with bilateral scattered rhonchi more so on the right Maintaining good O2 saturations in the 90s on3 L/m per nasal. I discussed the assessment and plan of care with my nurse practitioner, Mary Sam. I attest to the above note as dictated by her.
[2019-10-25] MEDS ORDERED: LEVOFLOXACIN 750MG-D5W PMX 750 MG in DEXTROSE/WATER 1 150ML.BAG IVPB SCH (12:00)
--- NOTE | 2019-10-25 12:05 | P.PN ---
Subjective Progress Note Date: 10/25/19 (delayed charting seen at 0845) Principal diagnosis: shortness of breath Patient is a 79-year-old male with past medical history of Parkinson's disease and prior stroke with limited mobility and chronically wheelchair dependent, COPD, and rectal cancer who presented to the emergency department from [facility] secondary to shortness of breath and fevers. Patient was recently hospitalized here from 10/15/22 10/21/19 secondary to aspiration pneumonia which resulted in an ESBL E. coli in the sputum. He initially was treated with Invanz and then transitioned to Avelox on discharge. On arrival to the ER here she was found to have a temperature of 97.7, pulse 117. Laboratory analysis showed a white blood cell count of 26, hemoglobin 10.3, fluid, of 674, lactic acid 2.7, he was found have positive fecal occult blood, influenza and RSV were negative. Chest x-ray showed right perihilar infiltrate increased from prior exam and COPD. Objective - Vital Signs Vital signs: Vital Signs Temp 100.5 F H 10/25/19 05:00 Pulse 92 10/25/19 11:06 Resp 20 10/25/19 05:00 BP 125/53 10/25/19 05:00 Pulse Ox 95 10/25/19 05:00 Intake & Output 10/24/19 10/25/19 10/25/19 18:59 06:59 18:59 Intake Total 1900 0 Output Total 150 200 Balance 1900 -150 -200 Weight 49.895 kg Intake: IV 1900 Levofloxacin 750Mg-D5w 150 Pmx 750 mg In Dextrose/ Water 1 150ml.bag @ 100 mls/hr IVPB ONCE STA Rx#: [id number] Sodium Chloride 0.9% 500 1500 ml 500 ml @ 1000 mls/hr IV Q35M [facility] Rx#:[id number] Vancomycin 1,000 mg In 250 Sodium Chloride 0.9% 250 ml @ 125 mls/hr IVPB ONCE STA Rx#:[id number] Oral 0 Output: Urine 150 200 Other: Voiding Method Incontinent Incontinent Urinal Incontinent # Voids 10 - Labs CBC & Chem 7: 10/25/19 08:28 10/25/19 08:28 Labs: Abnormal Lab Results - Last 24 Hours (Table) 10/24/19 10/24/19 10/24/19 Range/Units 09:26 13:44 18:09 WBC (3.8-10.6) k/uL RBC (4.30-5.90) m/uL Hgb (13.0-17.5) gm/dL Hct (39.0-53.0) % Neutrophils # (1.3-7.7) k/uL PT (9.0-12.0) sec INR (<1.2) Sodium (137-145) mmol/L Chloride (98-107) mmol/L BUN (9-20) mg/dL Creatinine (0.66-1.25) mg/dL Glucose (74-99) mg/dL Plasma Lactic Acid Rahul 3.0 H* 3.1 H* (0.7-2.0) mmol/L Calcium (8.4-10.2) mg/dL Iron 9 L (65-175) ug/dL % Saturation 3.13 L (15.00-50.00) Urine Protein (Negative) Urine Ketones (Negative) 10/24/19 10/25/19 10/25/19 Range/Units 19:14 08:28 08:28 WBC 15.1 H (3.8-10.6) k/uL RBC 2.47 L (4.30-5.90) m/uL Hgb 7.6 L D (13.0-17.5) gm/dL Hct 24.2 L (39.0-53.0) % Neutrophils # 13.4 H (1.3-7.7) k/uL PT 12.2 H (9.0-12.0) sec INR 1.2 H (<1.2) Sodium (137-145) mmol/L Chloride (98-107) mmol/L BUN (9-20) mg/dL Creatinine (0.66-1.25) mg/dL Glucose (74-99) mg/dL Plasma Lactic Acid Rahul (0.7-2.0) mmol/L Calcium (8.4-10.2) mg/dL Iron (65-175) ug/dL % Saturation (15.00-50.00) Urine Protein Trace H (Negative) Urine Ketones Trace H (Negative) 10/25/19 Range/Units 08:28 WBC (3.8-10.6) k/uL RBC (4.30-5.90) m/uL Hgb (13.0-17.5) gm/dL Hct (39.0-53.0) % Neutrophils # (1.3-7.7) k/uL PT (9.0-12.0) sec INR (<1.2) Sodium 147 H (137-145) mmol/L Chloride 116 H (98-107) mmol/L BUN 27 H (9-20) mg/dL Creatinine 0.62 L (0.66-1.25) mg/dL Glucose 132 H (74-99) mg/dL Plasma Lactic Acid Rahul (0.7-2.0) mmol/L Calcium 7.8 L (8.4-10.2) mg/dL Iron (65-175) ug/dL % Saturation (15.00-50.00) Urine Protein (Negative) Urine Ketones (Negative) Microbiology - Last 24 Hours (Table) 10/24/19 09:26 Blood Culture - Preliminary Blood No Growth after 24 hours Assessment and Plan Assessment: Aspiration pneumonia with recent history of ESBL E. coli and sepsis on admission -Nothing by mouth, asked patient to consider whether or not he would want have a PEG tube. -Consult speech -Continue with Zosyn therapy -Follow chest x-ray until clear -Pulmonary recommendations appreciated -Bronchodilators - IVF - consult ID Dysphagia -Nothing by mouth, asked patient to consider whether or not he would want have a PEG tube. okay for meds -Consult speech Anemia positive fecal occult blood, hx gastric ulcers - possible acute blood loss - stat CBC - GI consult - start PPI - apparently patient had black stool in the ED Hypernatremia -Likely secondary to decreased oral intake -Increase D5 half-normal to 125 an hour -Repeat in a.m. 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 - sinement with sips of water or will increase aspiration risks likely - consult neuro for help with over all prognosis stage II sacral decub - off load - frequent turns - wound care Lactic acidosis, resolved Chronic GERD DDD spinal stenosis Severe protein calorie malnutrition with 40 pound weight loss and BMI 17.2 cons istent with cachexia -Supplementation if patient is able to tolerate orals -Consideration of PEG tube placement -Supportive care
[2019-10-25 12:48] LABS: Basophils % (A) 0 %; Eosinophils % (A) 0 %; HCT 24.4 % (39.0-53.0); HGB 7.6 gm/dL (13.0-17.5); Hypochromasia Slight; Lymphocytes % (A) 6 %; MCH 31.1 pg (25.0-35.0); MCHC 31.4 g/dL (31.0-37.0); Macrocytosis Slight; Mean Platelet Volume 8.5; Monocytes # (A) 0.6 k/uL (0-1.0); Monocytes % (A) 4 %; Neutrophils # (A) 13.7 k/uL (1.3-7.7); Neutrophils % (A) 89 %; Platelet Count 450 k/uL (150-450); RBC 2.46 m/uL (4.30-5.90); RDW 15.1 % (11.5-15.5); WBC 15.4 k/uL (3.8-10.6)
[2019-10-25 13:25] VITALS: BMI 19.8
--- NOTE | 2019-10-25 14:02 | XR ---
EXAMINATION TYPE: XR chest 2V DATE OF EXAM: 10/25/2019 COMPARISON: Prior chest x-ray dated 10/24/2019, CT 03/21/2019 HISTORY: Pneumonia TECHNIQUE: Frontal and lateral views of the chest are obtained. FINDINGS: There has been progression in patient's airspace disease within the right lung. There is n o evident pneumothorax or pleural effusion. Aorta is dense. Heart is stable accounting for difference s in technique, rotation. No evident pneumothorax. Patchy basilar density also present on the left. IMPRESSION: Findings may be indicative of pneumonia with underlying emphysema, correlate, follow-up to resolution recommended, CT may be of benefit
[2019-10-25] MEDS: PRIMIDONE 50 MG TAB PO SCH (15:06)
[2019-10-25] MEDS: CARBIDOPA-LEVODOPA 10-100 MG 1 EACH TAB PO SCH (15:07)
[2019-10-25] MEDS: PANTOPRAZOLE 40 MG/10 ML VIAL IV SCH (19:40)
[2019-10-25 20:12] LABS: HCT 21.3 % (39.0-53.0); Hypochromasia Slight; MCH 31.2 pg (25.0-35.0); MCHC 31.2 g/dL (31.0-37.0); Macrocytosis Slight; Mean Platelet Volume 8.4; Platelet Count 335 k/uL (150-450); RBC 2.13 m/uL (4.30-5.90); RDW 15.4 % (11.5-15.5); WBC 14.3 k/uL (3.8-10.6)
--- NOTE | 2019-10-25 20:19 | PN ---
PROGRESS NOTE DATE OF SERVICE: 10/25/2019. REASON FOR FOLLOWUP: Aspiration pneumonia, recurrent. INTERIM HISTORY: The patient is currently afebrile. The patient has been breathing comfortably. Patient denies any chest pain. He did have some cough. No sputum. No abdominal pain and no diarrhea. PHYSICAL EXAMINATION: Blood pressure 118/53 with a pulse of 74, temperature 97.6. He is 93% on 3 L nasal cannula. General description is an elderly male up in the bed in no distress. Respiratory system: Unlabored breathing. Decreased breath sounds in the bases. No wheeze. Heart S1, S2. Regular rate and rhythm. Abdomen soft, no tenderness. LABS: Hemoglobin 7.5 with white count 15.4, creatinine 0.62. DIAGNOSTIC IMPRESSION AND PLAN: Patient admitted to the hospital with fever with concern for aspiration pneumonia. Chest x-ray this morning did show indicative of pneumonia with underlying . The patient to continue Zosyn. Will try to obtain sputum to narrow down the antibiotics and continue supportive care. MMODL / IJN: [id number] /
[2019-10-25 20:21] LABS: HGB 6.6 gm/dL (13.0-17.5)
--- NOTE | 2019-10-25 22:43 | CONS ---
CONSULTATION DATE OF CONSULTATION: 10/25/2019. REASON FOR CONSULTATION: Anemia and Hemoccult-positive stool. HISTORY OF PRESENT ILLNESS: The patient is a 79 -year-old pleasant white male with history of Parkinson's disease, history of COPD, recurrent UTI infection, was admitted to the hospital with fever and shortness of breath. He was subsequently diagnosed with aspiration pneumonia and presently on broad-spectrum antibiotics. During the hospitalization, he was noted to have drop in hemoglobin and Hemoccult-positive stool and hence we are consulted in regards to this issue. The patient remains on broad spectrum antibiotic with Zosyn and Levaquin. He denies any abdominal pain. He reports no nausea, vomiting. He denies any rectal bleeding or melena. He states that he was diagnosed with peptic ulcer disease approximately 30 years ago and underwent partial gastrectomy at that time. In regards to the aspiration pneumonia, he underwent modified barium swallow that showed evidence of aspiration and penetration. Subsequently, he had a speech pathology evaluation. The report of which is still pending at the time of this dictation. PAST MEDICAL HISTORY: Significant for COPD, Parkinson disease, recent aspiration pneumonia, history of CVA in the past with left-sided weakness, degenerative joint disease, spinal stenosis, chronic back pain. PAST SURGICAL HISTORY: Appendectomy, back surgery, cholecystectomy, bowel resection secondary to cancer, hip fracture for which he underwent surgery and right ankle fracture repair. SOCIAL HISTORY: Former smoker and history of heavy alcohol abuse. FAMILY HISTORY: Could not be obtained. mother has diabetes mellitus. MEDICATIONS: At home include: Aspirin, Mysoline, Sinemet, multivitamin, Mucinex, DuoNeb, prednisone, Acetaminophen, Dulcolax, Colace, iron sulfate, [place] p.r.n., Ensure, Milk of Magnesia, Avelox, Fleet's enema as needed. ALLERGIES: None. REVIEW OF SYSTEMS: CARDIOPULMONARY: He denies any chest pain, shortness of breath. : No dysuria or hematuria. MUSCULOSKELETAL: Complains of severe chronic back pain. NEUROLOGY: History of Parkinson disease. PSYCHIATRIC unremarkable. ENT/vision unremarkable. CONSTITUTIONAL: No recent weight loss. No fever, chills, night sweats. PHYSICAL EXAMINATION: He appears comfortable, in no apparent distress. T-max was 102.7. Blood pressure is 110/63, pulse rate is 74. HEENT examination unremarkable. Conjunctivae pink. Sclerae anicteric. Oral cavity no lesions. NECK: No JVD or lymph node enlargement. CHEST: Clear to auscultation except for decreased breath sounds on the right side. ABDOMEN: Soft. It was scaphoid. Midline scar noted. It was nontender, nondistended. Bowel sounds are positive. EXTREMITIES: No pedal edema. NEURO: He is alert, oriented to name and place, not to time. LABS: From at time of admission to the hospital: WBC 15.1, hemoglobin 7.6, platelets normal. INR is 1.2. Today hemoglobin is 7.6. Stool Hemoccult was positive. IMPRESSION: 1. Normocytic anemia with Hemoccult-positive stool, but currently no evidence of active bleeding. As per the nursing staff, there was a questionable black stool that happened in the ER last night, but since being in the hospital, he did not have any further active bleeding noted. He does have prior history of peptic ulcer disease diagnosed 30 years ago at which time he underwent a partial gastrectomy. He does take Aleve at home for chronic back pain at least once a day. Rule out possibility of peptic ulcer disease. 2. History of Parkinson disease. 3. Aspiration pneumonia with oropharyngeal dysphagia. The modified barium swallow did show evidence of aspiration. He was evaluated by speech pathologist, report is still pending at the time of this dictation. RECOMMENDATIONS: 1. Continue with broad-spectrum antibiotics. 2. Continue with Protonix 40 mg daily. 3. If it drops his hemoglobin any further, we will consider EGD during this hospitalization. 4. Await speech pathology evaluation and then we will discuss if he needs any endoscopy with PEG tube placement. 5. Repeat labs in the morning and will follow with you closely during his hospital stay. Thank you for this consultation. MMODL / IJN: [id number] /
[2019-10-26] MEDS: PIPERACILLIN-TAZOBACTAM 3.375 GM in SODIUM CHLORIDE 0.9% 100 ML IVPB SCH ×4 (02:29→23:57)
[2019-10-26] MEDS: DEXTROSE 5%-0.9% NACL 1,000 ML IV SCH ×3 (02:34→18:07)
[2019-10-26 07:31] LABS: Glucose,Whole Blood 129 mg/dL (75-99)
[2019-10-26 08:30] LABS: Basophils % (A) 0 %; Eosinophils # (A) 0.1 k/uL (0-0.7); Eosinophils % (A) 0 %; HCT 25.5 % (39.0-53.0); Hypochromasia Slight; Lymphocytes # (A) 1.1 k/uL (1.0-4.8); Lymphocytes % (A) 8 %; MCH 30.7 pg (25.0-35.0); MCHC 31.7 g/dL (31.0-37.0); MCV 96.9 fL (80.0-100.0); Mean Platelet Volume 8.7; Monocytes # (A) 0.4 k/uL (0-1.0); Monocytes % (A) 3 %; Neutrophils # (A) 11.6 k/uL (1.3-7.7); Neutrophils % (A) 88 %; Platelet Count 388 k/uL (150-450); RBC 2.63 m/uL (4.30-5.90); RDW 14.8 % (11.5-15.5); WBC 13.3 k/uL (3.8-10.6)
--- NOTE | 2019-10-26 08:30 | XR ---
EXAMINATION TYPE: XR chest 1V portable DATE OF EXAM: 10/26/2019 COMPARISON: Prior chest x-ray 10/25/2019 HISTORY: Pneumonia TECHNIQUE: Single frontal view of the chest is obtained. FINDINGS: Airspace disease persists in the right hemithorax, there is volume loss present. No eviden t pneumothorax or pleural effusion. Cardiac mediastinal silhouette, pulmonary vascularity and jodie ar e unchanged. There is underlying emphysema. Left lung shows some minimal basilar increased density. A pical pleural thickening noted on the right. Patient is rotated. Aorta is dense and possibly ectatic. IMPRESSION: Correlate for pneumonia, follow-up recommended to exclude underlying mass, consider ches t CT for better evaluation.
[2019-10-26 08:35] LABS: HGB 8.1 gm/dL (13.0-17.5)
[2019-10-26 08:46] LABS: African American GFR (CKD) >90 (>60 ml/min/1.73 sqM); Anion Gap 5 mmol/L; Blood Urea Nitrogen 21 mg/dL (9-20); Calcium 7.6 mg/dL (8.4-10.2); Carbon Dioxide 23 mmol/L (22-30); Chloride 119 mmol/L (98-107); Glucose 117 mg/dL (74-99); Magnesium 2.1 mg/dL (1.6-2.3); Non-African American GFR(CKD) >90 (>60 ml/min/1.73 sqM); Phosphorus 2.5 mg/dL (2.5-4.5); Potassium 3.1 mmol/L (3.5-5.1); Sodium 147 mmol/L (137-145)
[2019-10-26] MEDS ORDERED: POTASSIUM CHLORIDE 20 MEQ in WATER FOR INJECTION 1 100ML.BAG IVPB STA (09:02)
[2019-10-26] MEDS: IPRATROPIUM-ALBUTEROL 3 ML NEB INHALATION PRN ×3 (09:08→16:12)
[2019-10-26] MEDS ORDERED: guaiFENesin 600 MG TABLET.ER PO PRN (09:09)
--- NOTE | 2019-10-26 09:12 | P.PN ---
Subjective Progress Note Date: 10/26/19 Principal diagnosis: shortness of breath Patient is a 79-year-old male with past medical history of Parkinson's disease and prior stroke with limited mobility and chronically wheelchair dependent, COPD, and rectal cancer who presented to the emergency department from [facility] secondary to shortness of breath and fevers. Patient was recently hospitalized here from 10/15/22 10/21/19 secondary to aspiration pneumonia which resulted in an ESBL E. coli in the sputum. He initially was treated with Invanz and then transitioned to Avelox on discharge. On arrival to the ER here she was found to have a temperature of 97.7, pulse 117. Laboratory analysis showed a white blood cell count of 26, hemoglobin 10.3, fluid, of 674, lactic acid 2.7, he was found have positive fecal occult blood, influenza and RSV were negative. Chest x-ray showed right perihilar infiltrate increased from prior exam and COPD. His hemoglobin dropped to 6.6 and he received 1 unit of pRBC. He was seen by speech and does have some aspiration that improved with chin tuck. Patient seen and examined at bedside. No chest pain, SOB, or nausea. Ate a small amount yesterday. Objective - Vital Signs Vital signs: Vital Signs Temp 98.3 F 10/26/19 04:30 Pulse 90 10/26/19 04:30 Resp 20 10/26/19 04:30 BP 115/65 10/26/19 04:30 Pulse Ox 97 10/26/19 04:30 Intake & Output 10/25/19 10/26/19 10/26/19 18:59 06:59 18:59 Intake Total 610 Output Total 200 400 Balance -200 210 Weight 57.606 kg Intake: Oral 300 Blood Product 310 Rc As-1 Unit 310 [id number] Output: Urine 200 400 Other: Voiding Method Urinal Urinal Incontinent Incontinent # Voids 2 2 # Bowel Movements 0 0 - Exam General: non toxic, no distress, appears at stated age Derm: warm, dry Head: atraumatic, normocephalic, symmetric Eyes: EOMI, no lid lag, anicteric sclera Mouth: no lip lesion, mucus membranes moist Cardiovascular: S1S2 reg, no murmur, positive posterior tibial pulse bilateral, Lungs: Decreased bs bilateral, no rhonchi, no rales , no accessory muscle use Abdominal: soft, nontender to palpation, no guarding, no appreciable organomegaly Ext: no gross muscle atrophy, 1+ edema, no contractures Neuro: CN II-XI grossly intact, no focal neuro deficits, no tremors Psych: Alert, oriented, appropriate affect - Labs CBC & Chem 7: 10/26/19 07:53 10/26/19 07:53 Labs: Abnormal Lab Results - Last 24 Hours (Table) 10/24/19 10/24/19 10/25/19 Range/Units 09:26 09:26 08:28 WBC (3.8-10.6) k/uL RBC (4.30-5.90) m/uL Hgb (13.0-17.5) gm/dL Hct (39.0-53.0) % Neutrophils # (1.3-7.7) k/uL PT 12.2 H (9.0-12.0) sec INR 1.2 H (<1.2) Sodium (137-145) mmol/L Potassium (3.5-5.1) mmol/L Chloride (98-107) mmol/L BUN (9-20) mg/dL Creatinine (0.66-1.25) mg/dL Glucose (74-99) mg/dL POC Glucose (mg/dL) (75-99) mg/dL Calcium (8.4-10.2) mg/dL Iron 9 L (65-175) ug/dL % Saturation 3.13 L (15.00-50.00) Crossmatch See Detail 10/25/19 10/25/19 10/25/19 Range/Units 08:28 08:28 12:24 WBC 15.1 H 15.4 H (3.8-10.6) k/uL RBC 2.47 L 2.46 L (4.30-5.90) m/uL Hgb 7.6 L D 7.6 L (13.0-17.5) gm/dL Hct 24.2 L 24.4 L (39.0-53.0) % Neutrophils # 13.4 H 13.7 H (1.3-7.7) k/uL PT (9.0-12.0) sec INR (<1.2) Sodium 147 H (137-145) mmol/L Potassium (3.5-5.1) mmol/L Chloride 116 H (98-107) mmol/L BUN 27 H (9-20) mg/dL Creatinine 0.62 L (0.66-1.25) mg/dL Glucose 132 H (74-99) mg/dL POC Glucose (mg/dL) (75-99) mg/dL Calcium 7.8 L (8.4-10.2) mg/dL Iron (65-175) ug/dL % Saturation (15.00-50.00) Crossmatch 10/25/19 10/26/19 10/26/19 Range/Units 19:55 07:27 07:53 WBC 14.3 H 13.3 H (3.8-10.6) k/uL RBC 2.13 L 2.63 L (4.30-5.90) m/uL Hgb 6.6 L* 8.1 L D (13.0-17.5) gm/dL Hct 21.3 L 25.5 L (39.0-53.0) % Neutrophils # 11.6 H (1.3-7.7) k/uL PT (9.0-12.0) sec INR (<1.2) Sodium (137-145) mmol/L Potassium (3.5-5.1) mmol/L Chloride (98-107) mmol/L BUN (9-20) mg/dL Creatinine (0.66-1.25) mg/dL Glucose (74-99) mg/dL POC Glucose (mg/dL) 129 H (75-99) mg/dL Calcium (8.4-10.2) mg/dL Iron (65-175) ug/dL % Saturation (15.00-50.00) Crossmatch 10/26/19 Range/Units 07:53 WBC (3.8-10.6) k/uL RBC (4.30-5.90) m/uL Hgb (13.0-17.5) gm/dL Hct (39.0-53.0) % Neutrophils # (1.3-7.7) k/uL PT (9.0-12.0) sec INR (<1.2) Sodium 147 H (137-145) mmol/L Potassium 3.1 L (3.5-5.1) mmol/L Chloride 119 H (98-107) mmol/L BUN 21 H (9-20) mg/dL Creatinine 0.51 L (0.66-1.25) mg/dL Glucose 117 H (74-99) mg/dL POC Glucose (mg/dL) (75-99) mg/dL Calcium 7.6 L (8.4-10.2) mg/dL Iron (65-175) ug/dL % Saturation (15.00-50.00) Crossmatch Microbiology - Last 24 Hours (Table) 10/24/19 09:26 Blood Culture - Preliminary Blood No Growth after 24 hours Assessment and Plan Assessment: Aspiration pneumonia with recent history of ESBL E. coli and sepsis on admission -Continue with Zosyn therapy -Follow chest x-ray until clear -Pulmonary recommendations appreciated -Bronchodilators - IVF - Await ID recs Dysphagia -speech recs appreciated - on dysphagia level 3 diet Acute blood loss Anemia positive fecal occult blood, hx gastric ulcers - possible acute blood loss - repeat CBC this afternoon - GI recs appreciated - PPI - apparently patient had black stool in the ED Hypernatremia -Likely secondary to decreased oral intake -Increase D5 half-normal to 125 an hour, had been held overnight -Repeat in a.m. 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 - sinement - consult neuro for help with over all prognosis stage II sacral decub - off load - frequent turns - wound care Severe protein calorie malnutrition with 40 pound weight loss and BMI 17.2 consistent with cachexia -MVI - Dietitian recs -Supportive care Lactic acidosis, resolved Chronic: GERD DDD spinal stenosis DVT prophylaxis: SCDs Discussed with: Patient and nursing Anticipated discharge: 3-[address]: [place] A total of 35 minutes was spent on the care of this complex patient more than 50% of the time was spent in counseling and care coordination.
[2019-10-26] MEDS: CARBIDOPA-LEVODOPA 10-100 MG 1 EACH TAB PO SCH ×3 (09:17→21:09)
[2019-10-26] MEDS: PRIMIDONE 50 MG TAB PO SCH ×3 (09:17→17:37)
[2019-10-26] MEDS: PANTOPRAZOLE 40 MG/10 ML VIAL IV SCH ×2 (09:17→21:08)
[2019-10-26] MEDS: HEPARIN SODIUM,PORCINE 5,000 UNIT/ML 1 ML VIAL SQ SCH (09:59)
--- NOTE | 2019-10-26 12:26 | P.PN ---
Subjective Progress Note Date: 10/26/19 Principal diagnosis: Aspiration pneumonia The patient is a 79-year-old male with known history of Parkinson and previous history of CVA with a week's swallow with an abnormal swallow evaluation and modified barium swallow was recently treated for right lower lobe pneumonia. The patient was given IV Invanz and he was discharged on Avelox. Within a few days of discharge, the patient came back with generalized weakness and fever with temperature of 102 and his chest x-ray showing worsening right lower lobe pulmonary infiltration. He has also leukocytosis. He was readmitted to the hospital. Performance and functional status is poor. He is profoundly weak. His influenza screen was negative. White cell count was at 26. Hemoglobin is at 10.3. Lactic acid level was at 2.7. Stool occult was positive. He was given a dose of vancomycin and Zosyn and Levaquin in the emergency department. The patient is seen today 10/25/2019 in follow-up on the regular medical floor. He is currently sitting up in bed, aspiration precautions. bedside swallowing exam to be performed today. Currently nothing by mouth. He may need a PEG tube placed. The patient is considering this. White count 15.1. Hemoglobin 7.6. INR 1.2. Sodium 147. Creatinine 0.62. He is continued on DuoNeb inhalations, IV Zosyn. He is febrile temporal temperature of 100.5. 95% O2 saturation on 3 L/m per nasal cannula. Hemodynamically stable. The patient is seen today 10/26/2019 in follow-up on the regular medical floor. He is currently resting in bed. Awake and alert in no acute distress. M aintaining O2 saturations in the mid 90s on 2 L/m per nasal cannula. Chest x-ray reveals airspace disease persists in the right hemithorax, there is volume loss present. No pneumothorax. No pleural effusion. Evidence of emphysema. He's been afebrile. Hemodynamically stable. Blood culture reveals no growth. White count 13.3. Hemoglobin 8.1. Sodium 147. Potassium 3.1. Chloride 119. Bicarb 23. Creatinine 0.51. He did have a drop in hemoglobin to 6.6 yesterday and received 1 unit of packed red blood cells. GI services on the case. Patient stating today he does not want a PEG tube. Objective - Vital Signs Vital signs: Vital Signs Temp 98.3 F 10/26/19 04:30 Pulse 100 10/26/19 09:21 Resp 20 10/26/19 04:30 BP 115/65 10/26/19 04:30 Pulse Ox 97 10/26/19 04:30 Intake & Output 10/25/19 10/26/19 10/26/19 18:59 06:59 18:59 Intake Total 610 Output Total 200 400 Balance -200 210 Weight 57.606 kg Intake: Oral 300 Blood Product 310 Rc As-1 Unit 310 [id number] Output: Urine 200 400 Other: Voiding Method Urinal Urinal Urinal Incontinent Incontinent Incontinent # Voids 2 2 # Bowel Movements 0 0 - Exam Gen. appearance: 79-year-old gentleman, quite debilitated, cachectic. On 2 L nasal cannula Head exam was generally normal. There was no scleral icterus or corneal arcus. Mucous membranes were moist. Neck was supple and without jugular venous distension, thyromegaly, or carotid bruits. Carotids were easily palpable bilaterally. There was no adenopathy. The patient has dentures in the upper jaw, not in the lower jaw, no thrush. Lungs sounds are diminished in the lung bases. Scattered rhonchi heard bilaterally right more than left. Cardiac exam revealed the PMI to be normally situated and sized. The rhythm was regular and no extrasystoles were noted during several minutes of auscultation. The first and second heart sounds were normal and physiologic splitting of the second heart sound was noted. There were no murmurs, rubs, clicks, or gallops. Abdominal exam revealed normal bowel sounds. The abdomen was soft, non-tender, and without masses, organomegaly, or appreciable enlargement of the abdominal aorta. Examination of the extremities revealed easily palpable radial, femoral and pedal pulses. There was no cyanosis, clubbing or edema. Examination of the skin revealed no evidence of significant rashes, suspicious appearing nevi or other concerning lesions. - Labs CBC & Chem 7: 10/26/19 07:53 10/26/19 07:53 Labs: Abnormal Lab Results - Last 24 Hours (Table) 10/24/19 10/25/19 10/25/19 Range/Units 09:26 12:24 19:55 WBC 15.4 H 14.3 H (3.8-10.6) k/uL RBC 2.46 L 2.13 L (4.30-5.90) m/uL Hgb 7.6 L 6.6 L* (13.0-17.5) gm/dL Hct 24.4 L 21.3 L (39.0-53.0) % Neutrophils # 13.7 H (1.3-7.7) k/uL Sodium (137-145) mmol/L Potassium (3.5-5.1) mmol/L Chloride (98-107) mmol/L BUN (9-20) mg/dL Creatinine (0.66-1.25) mg/dL Glucose (74-99) mg/dL POC Glucose (mg/dL) (75-99) mg/dL Calcium (8.4-10.2) mg/dL Crossmatch See Detail 10/26/19 10/26/19 10/26/19 Range/Units 07:27 07:53 07:53 WBC 13.3 H (3.8-10.6) k/uL RBC 2.63 L (4.30-5.90) m/uL Hgb 8.1 L D (13.0-17.5) gm/dL Hct 25.5 L (39.0-53.0) % Neutrophils # 11.6 H (1.3-7.7) k/uL Sodium 147 H (137-145) mmol/L Potassium 3.1 L (3.5-5.1) mmol/L Chloride 119 H (98-107) mmol/L BUN 21 H (9-20) mg/dL Creatinine 0.51 L (0.66-1.25) mg/dL Glucose 117 H (74-99) mg/dL POC Glucose (mg/dL) 129 H (75-99) mg/dL Calcium 7.6 L (8.4-10.2) mg/dL Crossmatch Microbiology - Last 24 Hours (Table) 10/24/19 09:26 Blood Culture - Preliminary Blood No Growth after 48 hours Assessment and Plan Assessment: 1 right lung pneumonia possibly an aspiration type. The patient is a high risk factor patient's for recurrent aspiration based on his previous history of CVA and previous history of heart consent disease in addition to COPD and weak cough and poor ability to perform pulmonary toileting. Previous sputum cultures have shown E. coli. This was an ESBL producing organism. During his last admission, the patient was treated with IV Invanz and he was discharged on Avelox. He came back with a new onset fever and worsening right lower lobe pulmonary infiltration. He is on Zosyn.. He is on 2 L of oxygen by nasal cannula. 2 mild lactic acidosis 3 acute leukocytosis 4 previous history of ESBL producing E. coli in the right lung 5 COPD 6 Parkinson's disease 7 history of CVA 8 remote history of DVT 9 history of rectal cancer 10 History of alcoholism 11 history of partial gastrectomy for stomach ulcer 12 spinal stenosis with degenerative spine disease 13 history of neurogenic bladder with episodic UTIs Plan Chest x-ray reviewed. Remains on aspiration precautions Continue Zosyn, bronchodilators Patient is declining a PEG tube placement Titrate down the FiO2 as tolerated We will continue to follow I, the cosigning physician, performed a history & physical examination of the patient. Lungs sounds with bilateral scattered rhonchi more so on the right. Maintaining good O2 saturations in the 90s on2 L/m per nasal. I discussed the assessment and plan of care with my nurse practitioner, Mary Sam. I attest to the above note as dictated by her.
--- NOTE | 2019-10-26 13:04 | CONS ---
CONSULTATION DATE OF SERVICE: 10/26/2019 Patient is a 79-year-old pleasant white male admitted to hospital with aspiration pneumonia on broad-spectrum antibiotics doing better. He had speech evaluation yesterday and recommended pureed diet and is tolerating well. He has no further episodes of black tarry stools. He denies any symptoms. PHYSICAL EXAMINATION: Appears comfortable, in no apparent distress. VITAL SIGNS: Stable. Blood pressure is 115/65, pulse rate 90, temperature 98. HEENT examination unremarkable, conjunctivae are pink. Sclerae nonicteric. Oral cavity no lesions. NECK: No JVD or lymph node enlargement. CHEST: Clear to auscultation. HEART: Regular rate and rhythm. ABDOMEN: Soft, there was bowel sounds are positive. No organomegaly. EXTREMITIES: No pedal edema. SKIN: No rashes. NEURO: He is alert and oriented x3. No focal deficits. LABS: Hemoglobin went down to 6.6 yesterday, WBC 14.3, platelets normal. BUN 21, creatinine 0.5. He received 1 unit of blood transfusion last night. Labs from today, WBC 13.8, hemoglobin 8.1, platelets normal. IMPRESSION: 1. Severe symptomatic anemia with questionable black tarry stools that happened 2 days ago. Patient since being in the hospital had no further episodes of bleeding. He received 1 unit of blood transfusion. Hemoglobin is 8.1 g/dL. He has prior history of peptic ulcer disease for which he underwent partial gastrectomy 30 years ago. I discussed with him about endoscopy yesterday. He refused at this time. 2. Aspiration pneumonia on broad-spectrum antibiotics. 3. Oropharyngeal dysphagia, on nectar thick liquids and pureed diet, tolerating well. RECOMMENDATIONS: 1. Continue Protonix 40 mg daily. 2. Monitor CBC on a daily basis. 3. Patient refuses to have any endoscopy intervention at the present time. Hence, will continue with conservative approach. 4. Continue broad-spectrum antibiotics. 5. Will follow with you closely. Thank you for this consultation. MMODL / IJN: [id number] /
[2019-10-26 14:57] LABS: HCT 26.8 % (39.0-53.0); Hypochromasia Moderate; MCH 29.8 pg (25.0-35.0); MCHC 29.9 g/dL (31.0-37.0); MCV 99.8 fL (80.0-100.0); Macrocytosis Slight; Mean Platelet Volume 8.5; Platelet Count 392 k/uL (150-450); RBC 2.69 m/uL (4.30-5.90); RDW 14.7 % (11.5-15.5); WBC 13.2 k/uL (3.8-10.6)
--- NOTE | 2019-10-26 16:37 | P.CNNES ---
History of Present Illness Consult date: 10/26/19 Requesting physician: Yessenia Florez Reason for Consult: Parkinson's disease History of Present Illness: Patient is a 79-year-old male with history of Parkinson's disease. Patient was diagnosed with Parkinson's disease in August 2017. He was on primidone 100 mg 3 times a day at that point. Patient was noted to have parkinsonian features on the left side and was started on Sinemet 10/100, one tablet twice a day at that time. Patient currently is on the same dose. He states his left hand shakes. Patient believes the Parkinson started after he had a stroke. Patient's computed tomography scan of the head from 07/16/2016 showed age- related atrophic and chronic small vessel ischemic changes without acute int racranial process. Patient's renal functions are normal. Sodium 147 potassium 3.1. TSH is normal 2.58, total cholesterol 183, LDL 85, HDL 79 and triglycerides 91. Liver panel normal. Patient's rheumatoid factor is elevated 07/08 SHONDA negative. Serum immunofixation negative. Patient is currently taking primidone 100 mg 3 times a day, Sinemet 10/100, one tablet twice a day, Review of Systems Complains of generalized weakness, back pain. Tremors. Denies headache, problem with the visionand sore throat dysphagia. Denies shortness of breath wheezing cough, chest pain nausea vomiting diarrhea. 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 coli ESBL MDRO Source:: Sputum Past Surgical History: Appendectomy, Back Surgery, Bowel Resection, Cholecyste ctomy, Joint Replacement, Orthopedic Surgery Additional Past Surgical History / Comment(s): bowel resection d/t cancer, partial gastrectomy d/t bleeding ulcer, colonoscopies, low back surgery, total L hip arthroplasty, R hip/pelvic fracture with surgery/hardware, R ankle fracture with surgery/hardware Past Anesthesia/Blood Transfusion Reactions: No Reported Reaction Additional Past Anesthesia/Blood Transfusion Reaction / Comment(s): Pt states he has received blood in past without reaction. Past Psychological History: No Psychological Hx Reported Smoking Status: Former smoker Past Alcohol Use History: None Reported Past Drug Use History: None Reported - Past Family History Father Family Medical History: Unable to Obtain Additional Family Medical History / Comment(s): heart problems Mother History Unknown: Yes Family Medical History: Diabetes Mellitus Additional Family Medical History / Comment(s): Pt states he cannot remember mother's medical hx. Medications and Allergies Home Medications Medication Instructions Recorded Confirmed Type Aspirin EC [Ecotrin Low Dose] 81 mg PO DAILY@1700 07/26/17 10/24/19 History Primidone [Mysoline] 100 mg PO TID@0800,1200,1700 07/26/17 10/24/19 History Carbidopa-Levodopa 10-100 mg 1 tab PO BID@0800,1700 09/17/17 10/24/19 History [Sinemet 10-100 mg] Multivitamins, Thera [Multivitamin 1 tab PO DAILY@1700 12/23/18 10/24/19 History (formulary)] guaiFENesin [Mucinex] 600 mg PO Q12HR PRN tablet.er 12/29/18 10/24/19 Rx Ipratropium-Albuterol Nebulize 3 ml INHALATION RT-Q2H PRN 14 Days 10/21/19 10/24/19 Rx [Duoneb 0.5 mg-3 mg/3 ml Soln] #1 ml predniSONE See Taper PO DAILY #12 tab 10/21/19 10/24/19 Rx Acetaminophen Tab [Tylenol] 650 mg PO Q4H PRN 10/24/19 10/24/19 History Bisacodyl [Dulcolax] 10 mg RECTAL DAILY PRN 10/24/19 10/24/19 History Docusate [Colace] 100 mg PO BID@0800,1700 10/24/19 10/24/19 History Ferrous Sulfate [Iron (65 MG 325 mg PO BID@0800,1700 10/24/19 10/24/19 History Elemental)] HYDROcodone/APAP 5-325MG [[place] 1 tab PO Q6H PRN 10/24/19 10/24/19 History 5-325] Lactose-Reduced Food [Ensure Plus] 1 can PO TID@0800,1200,1700 10/24/19 10/24/19 History Magnesium Hydroxide [Milk of 2,400 mg PO DAILY PRN 10/24/19 10/24/19 History Magnesia] Moxifloxacin HCl [Avelox] 400 mg PO DAILY@0600 10/24/19 10/24/19 History Na Phos,M-B/Na Phos,Di-Ba [Fleet 133 ml RECTAL DAILY PRN 10/24/19 10/24/19 History Adult] Allergies Allergy/AdvReac Type Severity Reaction Status Date / Time No Known Allergies Allergy Verified 10/14/19 11:13 Physical Examination - Vital Signs Vital Signs: Vital Signs Temp Pulse Pulse Resp BP BP BP 10/26/19 12:48 98.8 F 92 20 106/55 10/26/19 12:35 96 10/26/19 12:21 92 10/26/19 09:21 100 10/26/19 09:08 104 H 10/26/19 04:30 98.3 F 90 20 115/65 10/26/19 02:20 98.1 F 10/26/19 02:18 98.1 F 91 16 96/54 10/26/19 00:46 98.4 F 93 16 101/54 10/26/19 00:16 98.1 F 96 16 109/62 10/26/19 00:06 98 F 100 16 136/62 10/26/19 00:00 98.2 F 105 H 96 16 135/67 10/25/19 21:00 98.6 F 96 20 103/55 10/25/19 16:14 100 16 10/25/19 16:04 107 H 16 Pulse Ox 10/26/19 12:48 97 10/26/19 12:35 10/26/19 12:21 10/26/19 09:21 10/26/19 09:08 10/26/19 04:30 97 10/26/19 02:20 10/26/19 02:18 97 10/26/19 00:46 98 10/26/19 00:16 99 03/17/20 00:06 92 L 10/26/19 00:00 97 10/25/19 21:00 98 10/25/19 16:14 10/25/19 16:04 9 L Intake and Output 10/25/19 10/26/19 10/26/19 22:59 06:59 14:59 Intake Total 200 410 Output Total 200 200 Balance 0 210 Intake: Oral 200 100 Blood Product 310 Rc As-1 Unit 310 [id number] Output: Urine 200 200 Other: Voiding Method Urinal Urinal Urinal Incontinent Incontinent Incontinent # Voids 1 2 # Bowel Movements 0 0 On examination patient is an elderly male, laying comfortably in the bed. Patient is alert and awake, fairly well oriented, able to provide history appropriately, stating that his Parkinson started 5 years ago after his CVA. Patient states it's October and the year is 2019. He knows that he is in [facility] in [facility], his age, and name of the current president. Speech is mildly hoarse but no aphasia or dysarthria. On cranial examination pupils are round and reacting, visual nelson are full, face is symmetric, tongue protrudes the midline. Palatal elevation and sensation normal. Muscle strength appears fairly normal. Patient does have wasting of intrinsic muscles of hands and feet. Reflexes are diminished and plantars are possibly upgoing. No obvious ataxia for [id number]. Tone is fairly normal. He does have moderate resting tremors noted only of the left hand/arm. Patient does appear bradykinetic. Gait was deferred. Results - Laboratory Findings CBC and BMP: 10/26/19 14:13 10/26/19 07:53 Abnormal Lab Findings: Abnormal Labs 10/24/19 10/24/19 10/24/19 09:26 09:26 09:26 WBC 26.0 H RBC 3.35 L Hgb 10.3 L Hct 31.8 L Plt Count 674 H Neutrophils # 23.5 H Monocytes # 1.1 H PT INR APTT Sodium Potassium Chloride Carbon Dioxide 33 H BUN 52 H Creatinine Glucose 172 H POC Glucose (mg/dL) Plasma Lactic Acid Rahul Calcium Iron % Saturation Urine Protein Urine Ketones Crossmatch See Detail 10/24/19 10/24/19 10/24/19 09:26 09:26 10:25 WBC RBC Hgb Hct Plt Count Neutrophils # Monocytes # PT INR APTT 20.9 L Sodium Potassium Chloride Carbon Dioxide BUN Creatinine Glucose POC Glucose (mg/dL) Plasma Lactic Acid Rahul 2.7 H* Calcium Iron 9 L % Saturation 3.13 L Urine Protein Urine Ketones Crossmatch 10/24/19 10/24/19 10/24/19 13:44 18:09 19:14 WBC RBC Hgb Hct Plt Count Neutrophils # Monocytes # PT INR APTT Sodium Potassium Chloride Carbon Dioxide BUN Creatinine Glucose POC Glucose (mg/dL) Plasma Lactic Acid Rahul 3.0 H* 3.1 H* Calcium Iron % Saturation Urine Protein Trace H Urine Ketones Trace H Crossmatch 10/25/19 10/25/19 10/25/19 08:28 08:28 08:28 WBC 15.1 H RBC 2.47 L Hgb 7.6 L D Hct 24.2 L Plt Count Neutrophils # 13.4 H Monocytes # PT 12.2 H INR 1.2 H APTT Sodium 147 H Potassium Chloride 116 H Carbon Dioxide BUN 27 H Creatinine 0.62 L Glucose 132 H POC Glucose (mg/dL) Plasma Lactic Acid Rahul Calcium 7.8 L Iron % Saturation Urine Protein Urine Ketones Crossmatch 10/25/19 10/25/19 10/26/19 12:24 19:55 07:27 WBC 15.4 H 14.3 H RBC 2.46 L 2.13 L Hgb 7.6 L 6.6 L* Hct 24.4 L 21.3 L Plt Count Neutrophils # 13.7 H Monocytes # PT INR APTT Sodium Potassium Chloride Carbon Dioxide BUN Creatinine Glucose POC Glucose (mg/dL) 129 H Plasma Lactic Acid Rahul Calcium Iron % Saturation Urine Protein Urine Ketones Crossmatch 10/26/19 10/26/19 07:53 07:53 WBC 13.3 H RBC 2.63 L Hgb 8.1 L D Hct 25.5 L Plt Count Neutrophils # 11.6 H Monocytes # PT INR APTT Sodium 147 H Potassium 3.1 L Chloride 119 H Carbon Dioxide BUN 21 H Creatinine 0.51 L Glucose 117 H POC Glucose (mg/dL) Plasma Lactic Acid Rahul Calcium 7.6 L Iron % Saturation Urine Protein Urine Ketones Crossmatch Assessment and Plan Assessment: * Parkinson's disease, mild in degree * History of rectal cancer * Chronic neck and back pain. * Peripheral neuropathy. Plan: * Increase Sinemet to 10/100 mg 3 times a day. * Follow up with neurologist as outpatient, for long-term management of Parkinson's. * Neurologically clear otherwise
[2019-10-26] MEDS: MULTIVITAMINS, THERA 1 EACH TAB PO SCH (17:37)
--- NOTE | 2019-10-26 23:08 | PN ---
PROGRESS NOTE DATE OF SERVICE: 10/26/2019 REASON FOR FOLLOWUP: Aspiration pneumonia. INTERVAL HISTORY: The patient is currently afebrile, has been breathing comfortably. The patient did draw a sputum sample 2 days ago. However, it was not sent down. Denies any chest pain or abdominal pain or diarrhea. PHYSICAL EXAMINATION: Blood pressure 106/55 with a pulse of 92, temperature of 98.8. He is 97% on 2 L nasal cannula. General description is an elderly male lying in bed in no distress. RESPIRATORY SYSTEM: Unlabored breathing with decreased breath sounds at the base. No wheeze. HEART: S1, S2. Regular rate and rhythm. ABDOMEN: Soft. No tenderness. LABS: Hemoglobin is 8, white count 13.2, creatinine 0.51. DIAGNOSTIC IMPRESSION AND PLAN: Patient with recurrent aspiration pneumonia. Patient is currently covered with Zosyn. Sputum cultures will be followed. further and monitor clinical course closely. MMODL / IJN: [id number] /
[2019-10-27] MEDS: DEXTROSE 5%-0.9% NACL 1,000 ML IV SCH ×3 (06:04→18:12)
[2019-10-27] MEDS: IPRATROPIUM-ALBUTEROL 3 ML NEB INHALATION PRN ×3 (07:15→19:54)
[2019-10-27] MEDS: PRIMIDONE 50 MG TAB PO SCH ×3 (08:42→17:54)
[2019-10-27] MEDS: CARBIDOPA-LEVODOPA 10-100 MG 1 EACH TAB PO SCH ×3 (08:43→21:24)
[2019-10-27 08:48] LABS: HCT 27.3 % (39.0-53.0); HGB 8.4 gm/dL (13.0-17.5); Hypochromasia Marked; MCH 31.1 pg (25.0-35.0); MCHC 30.6 g/dL (31.0-37.0); MCV 101.7 fL (80.0-100.0); Macrocytosis Slight; Mean Platelet Volume 9.6; Platelet Count 322 k/uL (150-450); RBC 2.69 m/uL (4.30-5.90); RDW 14.7 % (11.5-15.5); WBC 12.3 k/uL (3.8-10.6)
[2019-10-27 09:00] LABS: African American GFR (CKD) >90 (>60 ml/min/1.73 sqM); Anion Gap 3 mmol/L; Blood Urea Nitrogen 16 mg/dL (9-20); Calcium 7.5 mg/dL (8.4-10.2); Carbon Dioxide 26 mmol/L (22-30); Chloride 117 mmol/L (98-107); Glucose 109 mg/dL (74-99); Magnesium 1.9 mg/dL (1.6-2.3); Non-African American GFR(CKD) >90 (>60 ml/min/1.73 sqM); Potassium 3.4 mmol/L (3.5-5.1); Sodium 146 mmol/L (137-145)
--- NOTE | 2019-10-27 10:40 | P.PN ---
Subjective Progress Note Date: 10/27/19 Principal diagnosis: Shortness of breath Patient still having difficulty breathing. He feels better compared to when he came in overall but is still having trouble. He has cough and feel that the phlegm is getting stuck in his throat. No fevers or chills. No chest pain. Objective - Vital Signs Vital signs: Vital Signs Temp 97.7 F 10/27/19 04:30 Pulse 88 10/27/19 07:26 Resp 20 10/27/19 04:30 BP 96/55 10/27/19 04:30 Pulse Ox 96 10/27/19 04:30 Intake & Output 10/26/19 10/27/19 10/27/19 18:59 06:59 18:59 Intake Total 800 Balance 800 Intake: Oral 800 Other: Voiding Method Urinal Urinal Urinal Incontinent Incontinent Incontinent # Voids 3 2 # Bowel Movements 0 - Exam General: non toxic, no distress, appears at stated age Derm: warm, dry Head: atraumatic, normocephalic, symmetric Eyes: EOMI, no lid lag, anicteric sclera Mouth: no lip lesion, mucus membranes moist Cardiovascular: S1S2 reg, no murmur, positive posterior tibial pulse bilateral, Lungs: Decreased bs bilateral, no rhonchi, no rales , no accessory muscle use Abdominal: soft, nontender to palpation, no guarding, no appreciable org anomegaly Ext: no gross muscle atrophy, 1+ edema, no contractures Neuro: CN II-XI grossly intact, no focal neuro deficits, no tremors Psych: Alert, oriented, appropriate affect - Labs CBC & Chem 7: 10/27/19 07:46 10/27/19 07:46 Labs: Abnormal Lab Results - Last 24 Hours (Table) 10/26/19 10/27/19 10/27/19 Range/Units 14:13 07:46 07:46 WBC 13.2 H 12.3 H (3.8-10.6) k/uL RBC 2.69 L 2.69 L (4.30-5.90) m/uL Hgb 8.0 L 8.4 L (13.0-17.5) gm/dL Hct 26.8 L 27.3 L (39.0-53.0) % MCV 101.7 H (80.0-100.0) fL MCHC 29.9 L 30.6 L (31.0-37.0) g/dL Sodium 146 H (137-145) mmol/L Potassium 3.4 L (3.5-5.1) mmol/L Chloride 117 H (98-107) mmol/L Creatinine 0.50 L (0.66-1.25) mg/dL Glucose 109 H (74-99) mg/dL Calcium 7.5 L (8.4-10.2) mg/dL Microbiology - Last 24 Hours (Table) 10/26/19 12:04 Gram Stain - Preliminary Sputum 10/24/19 09:26 Blood Culture - Preliminary Blood No Growth after 48 hours Assessment and Plan Plan: Aspiration pneumonia with recent history of ESBL E. coli and sepsis on admission -Continue with Zosyn therapy, ID following -Follow chest x-ray until clear -Pulmonary recommendations appreciated -Bronchodilators - IVF Dysphagia -speech recs appreciated -On dysphagia level 3 diet Acute blood loss Anemia positive fecal occult blood, hx gastric ulcers - possible acute blood loss, this is currently stable - repeat CBC in a.m. - GI recs appreciated - Continue PPI - Refusing scopes. Hypernatremia -Likely secondary to decreased oral intake -Continue D5 half-normal to 125 an hour -Repeat in a.m. Hypokalemia Replace and follow in a.m. 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 - sinement dosing adjusted per neuro stage II sacral decub - off load - frequent turns - wound care Severe protein calorie malnutrition with 40 pound weight loss and BMI 17.2 consistent with cachexia -MVI - Dietitian recs -Supportive care Lactic acidosis, resolved Chronic: GERD DDD spinal stenosis DVT prophylaxis: SCDs Discussed with: Patient and nursing Anticipated discharge: 3-[address]: [facility] A total of 35 minutes was spent on the care of this complex patient more than 50% of the time was spent in counseling and care coordination.
[2019-10-27] MEDS ORDERED: POTASSIUM CHLORIDE 10 MEQ in WATER FOR INJECTION 1 100ML.BAG IVPB STA (10:42)
[2019-10-27] MEDS: PIPERACILLIN-TAZOBACTAM 3.375 GM in SODIUM CHLORIDE 0.9% 100 ML IVPB SCH ×2 (12:08→17:54)
[2019-10-27] MEDS: PANTOPRAZOLE 40 MG/10 ML VIAL IV SCH ×2 (12:08→21:22)
[2019-10-27] MEDS: HYDROcodone/APAP 5-325MG 1 EACH TAB PO PRN (12:12)
--- NOTE | 2019-10-27 13:08 | PN ---
PROGRESS NOTE DATE OF DICTATION: 10/27/2019 Patient is a 79-year-old pleasant white male admitted to the hospital with aspiration pneumonia and presently on broad-spectrum antibiotics. He also had severe anemia with a hemoglobin of 6.6 requiring one unit of blood transfusion, presently stable. He denies any rectal bleeding or melena. Overall he states he is feeling better. PHYSICAL EXAMINATION: On physical examination, appears comfortable, no apparent distress. Vital signs are stable. Blood pressure 133/86, pulse rate 88, afebrile. HEENT: Examination unremarkable. Conjunctivae pink. Sclerae anicteric. Oral cavity no lesions. NECK: No JVD or lymph node enlargement. CHEST: Clear to auscultation. HEART: Regular rate and rhythm. ABDOMEN: Soft, it was nontender, nondistended. Bowel sounds are positive. EXTREMITIES: No pedal edema. Some tremors noted. NEUROLOGIC: Alert and oriented x3. LAB: WBC 12.3, hemoglobin 8.4, platelets 322. Basic metabolic panel is within normal limits. IMPRESSION: 1. Aspiration pneumonia secondary to oropharyngeal dysphagia on broad-spectrum antibiotics. 2. Oropharyngeal dysphagia on a modified diet, doing well. 3. Anemia with some black stool at the time of admission the hospital, status post one unit of blood transfusion, presently stable. No further bleeding. Remains on Protonix 40 mg twice daily. 4. History of Parkinson disease. RECOMMENDATION: 1. Continue with Protonix once daily. 2. Continue dysphagia diet. 3. Monitor CBC daily. 4. No plans for any endoscopy intervention. 5. We will follow with you closely. MMODL / IJN: [id number] /
--- NOTE | 2019-10-27 16:44 | PN ---
PROGRESS NOTE DATE OF SERVICE: 10/27/2019 REASON FOR FOLLOWUP: Recurrent aspiration pneumonia. INTERVAL HISTORY: The patient is currently afebrile. The patient has been breathing comfortably. Denies having any chest pain. Breathing has improved. Occasional cough. No sputum, no nausea, no vomiting, no abdominal pain or diarrhea. PHYSICAL EXAMINATION: Blood pressure is 129/78 with a pulse of 100, temperature 97.9. He is 96% on 2 L nasal cannula. General description is an elderly male lying in bed in no distress. RESPIRATORY SYSTEM: Unlabored breathing with decreased intensity of breath sounds. No wheeze. HEART: S1, S2. Regular rate and rhythm. ABDOMEN: Soft. No tenderness. LABS: Hemoglobin 8.4, white count 12.3, creatinine 0.50. Blood culture negative. Sputum culture currently pending. DIAGNOSTIC IMPRESSION AND PLAN: Patient admitted to hospital with recurrent aspiration pneumonia. Patient is clinically responding to Zosyn. To continue. He did get a midline to continue with Zosyn for at least 10 more days to finish a 2-week course of therapy and continue supportive care. MMODL / IJN: [id number] /
[2019-10-27] MEDS: MULTIVITAMINS, THERA 1 EACH TAB PO SCH (17:54)
--- NOTE | 2019-10-27 18:39 | P.PN ---
Subjective Progress Note Date: 10/27/19 Patient states he is doing better on Sinemet 10/100, 1 tablet 3 times a day. States the tremors have improved. No side effects. Nurse has not noticed any improvement. Objective - Vital Signs Vital signs: Vital Signs Temp 97.9 F 10/27/19 12:21 Pulse 100 10/27/19 12:21 Resp 20 10/27/19 12:21 BP 129/78 10/27/19 12:21 Pulse Ox 97 10/27/19 12:21 Intake & Output 10/26/19 10/27/19 10/27/19 18:59 06:59 18:59 Intake Total 800 Balance 800 Weight 57.606 kg Intake: Oral 800 Other: Voiding Method Urinal Urinal Urinal Incontinent Incontinent Incontinent # Voids 3 2 1 # Bowel Movements 0 - Exam Patient still has left arm tremors, although appears slightly better. Still bradykinetic. Rest of the examination unchanged - Labs CBC & Chem 7: 10/27/19 07:46 10/27/19 07:46 Labs: Abnormal Lab Results - Last 24 Hours (Table) 10/27/19 10/27/19 Range/Units 07:46 07:46 WBC 12.3 H (3.8-10.6) k/uL RBC 2.69 L (4.30-5.90) m/uL Hgb 8.4 L (13.0-17.5) gm/dL Hct 27.3 L (39.0-53.0) % MCV 101.7 H (80.0-100.0) fL MCHC 30.6 L (31.0-37.0) g/dL Sodium 146 H (137-145) mmol/L Potassium 3.4 L (3.5-5.1) mmol/L Chloride 117 H (98-107) mmol/L Creatinine 0.50 L (0.66-1.25) mg/dL Glucose 109 H (74-99) mg/dL Calcium 7.5 L (8.4-10.2) mg/dL Microbiology - Last 24 Hours (Table) 10/24/19 09:26 Blood Culture - Preliminary Blood No Growth after 72 hours 10/26/19 12:04 Gram Stain - Preliminary Sputum Assessment and Plan Assessment: * Parkinson's disease, mild in degree * History of rectal cancer * Chronic neck and back pain. * Peripheral neuropathy. * Severe anemia Plan: * Continue Sinemet 10/100 mg 3 times a day. * Follow up with neurologist as outpatient, for long-term management of Parkinso n's. * We will check B12, folate. TSH was normal recently 2 months ago. * Neurologically clear otherwise
[2019-10-28] MEDS: PIPERACILLIN-TAZOBACTAM 3.375 GM in SODIUM CHLORIDE 0.9% 100 ML IVPB SCH ×2 (00:11→08:24)
[2019-10-28 00:38] LABS: Folate, Serum 12.3 ng/mL
[2019-10-28] MEDS: DEXTROSE 5%-0.9% NACL 1,000 ML IV SCH ×3 (05:57→20:53)
[2019-10-28] MEDS: IPRATROPIUM-ALBUTEROL 3 ML NEB INHALATION PRN ×3 (07:20→15:51)
[2019-10-28 07:48] LABS: Basophils % (A) 0 %; Eosinophils # (A) 0.3 k/uL (0-0.7); Eosinophils % (A) 3 %; HCT 24.3 % (39.0-53.0); HGB 7.6 gm/dL (13.0-17.5); Hypochromasia Slight; Lymphocytes # (A) 1.2 k/uL (1.0-4.8); Lymphocytes % (A) 12 %; MCH 30.5 pg (25.0-35.0); MCHC 31.4 g/dL (31.0-37.0); MCV 97.3 fL (80.0-100.0); Mean Platelet Volume 8.5; Monocytes # (A) 0.4 k/uL (0-1.0); Monocytes % (A) 4 %; Neutrophils # (A) 7.9 k/uL (1.3-7.7); Neutrophils % (A) 80 %; Platelet Count 396 k/uL (150-450); RDW 14.4 % (11.5-15.5); WBC 9.9 k/uL (3.8-10.6)
[2019-10-28 08:01] LABS: African American GFR (CKD) >90 (>60 ml/min/1.73 sqM); Anion Gap 1 mmol/L; Blood Urea Nitrogen 12 mg/dL (9-20); Calcium 7.3 mg/dL (8.4-10.2); Carbon Dioxide 26 mmol/L (22-30); Chloride 116 mmol/L (98-107); Glucose 100 mg/dL (74-99); Magnesium 1.7 mg/dL (1.6-2.3); Non-African American GFR(CKD) >90 (>60 ml/min/1.73 sqM); Sodium 143 mmol/L (137-145)
[2019-10-28] MEDS: PANTOPRAZOLE 40 MG/10 ML VIAL IV SCH ×2 (08:24→20:53)
[2019-10-28] MEDS: PRIMIDONE 50 MG TAB PO SCH ×3 (08:24→17:11)
[2019-10-28] MEDS: CARBIDOPA-LEVODOPA 10-100 MG 1 EACH TAB PO SCH ×3 (08:25→20:53)
--- NOTE | 2019-10-28 10:30 | P.PN ---
Subjective Progress Note Date: 10/28/19 Principal diagnosis: Shortness of breath Patient feels about 50% better compared to when he came in. He is still having shortness of breath. No fevers or chills, no overnight event. Objective - Vital Signs Vital signs: Vital Signs Temp 99.0 F 10/28/19 05:07 Pulse 88 10/28/19 07:30 Resp 16 10/28/19 05:07 BP 127/64 10/28/19 05:07 Pulse Ox 97 10/28/19 05:07 Intake & Output 10/27/19 10/28/19 10/28/19 18:59 06:59 18:59 Weight 57.606 kg Other: Voiding Method Urinal Urinal Urinal Incontinent Incontinent Incontinent # Voids 1 3 # Bowel Movements 0 - Exam General: non toxic, no distress, appears at stated age Derm: warm, dry Head: atraumatic, normocephalic, symmetric Eyes: EOMI, no lid lag, anicteric sclera Mouth: no lip lesion, mucus membranes moist Cardiovascular: S1S2 reg, no murmur, positive posterior tibial pulse bilateral, Lungs: Decreased bs bilateral, no rhonchi, no rales , no accessory muscle use Abdominal: soft, nontender to palpation, no guarding, no appreciable organomegaly Ext: no gross muscle atrophy, 1+ edema, no contractures Neuro: CN II-XI grossly intact, no focal neuro deficits, no tremors Psych: Alert, oriented, appropriate affect - Labs CBC & Chem 7: 10/28/19 06:59 10/28/19 06:59 Labs: Abnormal Lab Results - Last 24 Hours (Table) 10/28/19 10/28/19 Range/Units 06:59 06:59 RBC 2.50 L (4.30-5.90) m/uL Hgb 7.6 L (13.0-17.5) gm/dL Hct 24.3 L (39.0-53.0) % Neutrophils # 7.9 H (1.3-7.7) k/uL Chloride 116 H (98-107) mmol/L Creatinine 0.52 L (0.66-1.25) mg/dL Glucose 100 H (74-99) mg/dL Calcium 7.3 L (8.4-10.2) mg/dL Microbiology - Last 24 Hours (Table) 10/24/19 09:26 Blood Culture - Preliminary Blood No Growth after 72 hours Assessment and Plan Plan: Aspiration pneumonia with recent history of ESBL E. coli and sepsis on admission -Continue with Zosyn therapy, ID following---will likely need total of 2 weeks of therapy, midline is in -Follow chest x-ray until clear -Pulmonary recommendations appreciated -Bronchodilators - IVF Dysphagia -speech recs appreciated -On dysphagia level 3 diet Acute blood loss Anemia positive fecal occult blood, hx gastric ulcers - possible acute blood loss, this is currently stable - s/p one unit of PRBCs - GI recs appreciated - Continue PPI - Refusing scopes. Hypernatremia -Likely secondary to decreased oral intake--resolved -Continue D5 half-normal to 125 an hour -Repeat in a.m. 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 - sinement dosing adjusted per neuro stage II sacral decub - off load - frequent turns - wound care Severe protein calorie malnutrition with 40 pound weight loss and BMI 17.2 consistent with cachexia -MVI - Dietitian recs -Supportive care Lactic acidosis, resolved Chronic: GERD DDD spinal stenosis DVT prophylaxis: SCDs Discussed with: Patient Anticipated discharge: 2-[address]: [facility] A total of 35 minutes was spent on the care of this complex patient more than 50% of the time was spent in counseling and care coordination.
[2019-10-28] MEDS ORDERED: VANCOMYCIN IV PER PHARMACY 1 EACH MISC MISCELLANE PRN (14:56)
--- NOTE | 2019-10-28 15:13 | P.PN ---
Subjective Progress Note Date: 10/28/19 Patient states he is doing better on Sinemet 10/100, 1 tablet 3 times a day. States the tremors have improved. No side effects. Nurse was not present. Objective - Vital Signs Vital signs: Vital Signs Temp 99.0 F 10/28/19 05:07 Pulse 84 10/28/19 11:27 Resp 16 10/28/19 05:07 BP 127/64 10/28/19 05:07 Pulse Ox 97 10/28/19 05:07 Intake & Output 10/27/19 10/28/19 10/28/19 18:59 06:59 18:59 Intake Total 100 Balance 100 Weight 57.606 kg Intake: Intake, IV Titration 100 Amount Piperacillin-Tazobactam 3 100 .375 gm In Sodium Chloride 0.9% 100 ml @ 25 mls/hr IVPB Q8HR [facility] Rx# :[id number] Other: Voiding Method Urinal Urinal Urinal Incontinent Incontinent Incontinent # Voids 1 3 # Bowel Movements 0 - Exam Patient still has left arm tremors, although appears slightly better than yest erday. Still bradykinetic. Rest of the examination unchanged - Labs CBC & Chem 7: 10/28/19 06:59 10/28/19 06:59 Labs: Abnormal Lab Results - Last 24 Hours (Table) 10/28/19 10/28/19 Range/Units 06:59 06:59 RBC 2.50 L (4.30-5.90) m/uL Hgb 7.6 L (13.0-17.5) gm/dL Hct 24.3 L (39.0-53.0) % Neutrophils # 7.9 H (1.3-7.7) k/uL Chloride 116 H (98-107) mmol/L Creatinine 0.52 L (0.66-1.25) mg/dL Glucose 100 H (74-99) mg/dL Calcium 7.3 L (8.4-10.2) mg/dL Microbiology - Last 24 Hours (Table) 10/26/19 12:04 Gram Stain - Final Sputum Sputum Culture - Final Methicillin resist S. aureus Adriane albicans 10/24/19 09:26 Blood Culture - Preliminary Blood No Growth after 96 hours Assessment and Plan Assessment: * Parkinson's disease, mild in degree * History of rectal cancer * Chronic neck and back pain. * Peripheral neuropathy. * Severe anemia Plan: * Continue Sinemet 10/100 mg 3 times a day. * Follow up with neurologist as outpatient, for long-term management of Parkinson's, if family wishes. * B12 676, folate 12.3. TSH was normal recently 2 months ago. * Neurologically clear otherwise. We will sign off. Please call neurology if any other concerns.
[2019-10-28] MEDS: VANCOMYCIN 1,000 MG in SODIUM CHLORIDE 0.9% 250 ML IVPB SCH (17:10)
[2019-10-28] MEDS: MULTIVITAMINS, THERA 1 EACH TAB PO SCH (17:12)
[2019-10-28] MEDS: metroNIDAZOLE 500 MG TAB PO SCH ×2 (18:13→20:54)
--- NOTE | 2019-10-28 23:06 | PN ---
PROGRESS NOTE DATE OF SERVICE: 10/28/2019 REASON FOR FOLLOWUP: Pneumonia. INTERVAL HISTORY: The patient is currently afebrile, has been breathing comfortably. He did have a cough; not bringing up any sputum. No chest pain. No nausea, vomiting, abdominal pain or diarrhea. PHYSICAL EXAMINATION: Blood pressure is 111/65 with a pulse of 87, temperature 98.3. He is 97% on 2 L nasal cannula. General description is an elderly male lying in bed in no distress. RESPIRATORY SYSTEM: Unlabored breathing with decreased breath sounds at the base. No wheeze. HEART: S1, S2. Regular rate and rhythm. ABDOMEN: Soft. No tenderness. LABS: Hemoglobin 7.6, white count 9.9, BUN of 12, creatinine 0.52. Sputum is showing Adriane albicans and MRSA. DIAGNOSTIC IMPRESSION AND PLAN: Patient admitted to hospital with pneumonia, aspiration etiology. Patient clinically improved on Zosyn; however, sputum is now showing MRSA. Antibiotic will be adjusted to vancomycin and oral Flagyl. Discontinue Zosyn and monitor his clinical course closely. MMODL / IJN: [id number] /
[2019-10-29] MEDS: VANCOMYCIN 1,000 MG in SODIUM CHLORIDE 0.9% 250 ML IVPB SCH ×2 (00:27→08:02)
[2019-10-29 04:25] VITALS: TEMP 98.1
[2019-10-29] MEDS: DEXTROSE 5%-0.9% NACL 1,000 ML IV SCH ×2 (04:32→13:34)
[2019-10-29] MEDS: CARBIDOPA-LEVODOPA 10-100 MG 1 EACH TAB PO SCH (08:03)
[2019-10-29] MEDS: PANTOPRAZOLE 40 MG/10 ML VIAL IV SCH (08:03)
[2019-10-29] MEDS: PRIMIDONE 50 MG TAB PO SCH ×2 (08:03→13:27)
[2019-10-29] MEDS: metroNIDAZOLE 500 MG TAB PO SCH (08:03)
[2019-10-29 12:14] LABS: Basophils % (A) 0 %; Eosinophils # (A) 0.4 k/uL (0-0.7); Eosinophils % (A) 4 %; HCT 26.3 % (39.0-53.0); HGB 8.5 gm/dL (13.0-17.5); Hypochromasia Slight; Lymphocytes # (A) 1.5 k/uL (1.0-4.8); Lymphocytes % (A) 13 %; MCH 30.5 pg (25.0-35.0); MCHC 32.1 g/dL (31.0-37.0); Mean Platelet Volume 8.6; Monocytes # (A) 0.4 k/uL (0-1.0); Monocytes % (A) 4 %; Neutrophils # (A) 8.8 k/uL (1.3-7.7); Neutrophils % (A) 78 %; Platelet Count 414 k/uL (150-450); RBC 2.77 m/uL (4.30-5.90); RDW 14.4 % (11.5-15.5); WBC 11.3 k/uL (3.8-10.6)
[2019-10-29 12:21] LABS: African American GFR (CKD) >90 (>60 ml/min/1.73 sqM); Anion Gap 3 mmol/L; Blood Urea Nitrogen 10 mg/dL (9-20); Calcium 7.3 mg/dL (8.4-10.2); Carbon Dioxide 24 mmol/L (22-30); Chloride 113 mmol/L (98-107); Glucose 95 mg/dL (74-99); Non-African American GFR(CKD) >90 (>60 ml/min/1.73 sqM); Potassium 3.4 mmol/L (3.5-5.1); Sodium 140 mmol/L (137-145)
[2019-10-29 13:23] VITALS: BP 148/79; PULSE 82; RESP 18
[2019-10-29] MEDS: HYDROcodone/APAP 5-325MG 1 EACH TAB PO PRN (13:26)
[2019-10-29] MEDS ORDERED: POTASSIUM CHLORIDE ER 20 MEQ TAB.ER PO STA (13:48)
--- NOTE | 2019-10-29 14:09 | P.DS ---
Providers Date of admission: 10/24/19 11:20 Expected date of discharge: 10/29/19 Attending physician: Yessenia Florez DO Consults: 10/24/19 11:38 Consult Physician Routine Consulting Provider: Fazal Cooney Consult Reason/Comments: PNA Do you want consulting provider notified?: Yes Consult Physician Routine Consulting Provider: Maday Casanova Consult Reason/Comments: Abx guidance Do you want consulting provider notified?: Yes 10/26/19 09:08 Consult Physician Routine Consulting Provider: Dl Lind Consult Reason/Comments: parkinsons disease Do you want consulting provider notified?: Yes Primary care physician: Stated None Hospital Course: Patient is a 79-year-old male with PMH of Parkinson's disease, COPD, history of ESBL E. coli, recent COPD exacerbation due to aspiration pneumonia the presented to the ED via EMS for generalized weakness, shortness of breath and fever. Patient was noted to have a fever of 102 Fahrenheit prior to presenting to the ED. Patient was previously admitted for COPD exacerbation due to his aspiration pneumonia. He was seen by speech therapy and modified barium swallow was ordered which showed aspiration, discharged on NDD 3 diet with chin tuck posturing recommended. Patient reported weakness and fatigue over the last 2 days prior to admission. In the ER the patient had a comprehensive workup. Chest x-ray showed right perihilar infiltrate which was increased from the prior exam with diffuse asymmetric interstitial pattern likely in the base of fibrosis and chronic interstitial lung disease. Abnormal labs include a white count of 26.0 , hemoglobin of 10.3 , platelets 674 , with a left shift , and elevated lactic acid at 2.7, Influenza A and B and RSV were negative , stool occult was positive. The patient was given a dose of vancomycin and Zosyn and Levaquin and cefepime recommended for admission. Pulmonology and infectious disease was consulted on his case. Infectious disease recommended continuing Zosyn for the time being. Blood cultures were negative. Urine culture was negative. Sputum culture was positive for Adriane and MRSA. Infectious disease then recommended adjusting antibiotics to vancomycin and oral Flagyl. Infectious disease recommended IV antibiotics and patient obtained a midline during this admission. Patient was noted to have a GI bleed with hemoglobin going down from 7.6-6.6 on the first 2 days of admission. He was transfused 1 unit PRBC. His hemoglobin remained stable for the rest of his admission. GI was consulted and patient refused endoscopic evaluation. GI was okay with conservative management. He was continued on Protonix and CBC was monitored daily. Patient was seen and examined. No acute events overnight. Patient reports significant improvement in his breathing since admission. He denies any chest pain or palpitations. No nausea or vomiting. No fever or chills. Complains of a sore bottom. General: [non toxic], [no distress], [appears at stated age] Derm: [warm], [dry] Head: [atraumatic], [normocephalic], [symmetric] Eyes: [EOMI], [no lid lag], [anicteric sclera] Mouth: [no lip lesion], [mucus membranes moist] Cardiovascular: [S1S2 reg], [no murmur], [positive posterior tibial pulse bilateral], Lungs: [CTA bilateral], [no rhonchi, no rales] , [no accessory muscle use] Abdominal: [soft], [ nontender to palpation], [no guarding], [no appreciable organomegaly] Ext: [no gross muscle atrophy], [no edema], [no contractures] Neuro: [ CN II-XI grossly intact], [no focal neuro deficits] Psych: [Alert], [oriented], [appropriate affect] Aspiration pneumonia with recent history of ESBL E. coli and sepsis on admission -Zosyn discontinued from vancomycin and oral Flagyl. Will likely need 2 weeks. -Follow chest x-ray until clear -Pulmonary recommendations appreciated -Bronchodilators Dysphagia - speech recs appreciated - On dysphagia level 3 diet Acute blood loss Anemia positive fecal occult blood, hx gastric ulcers - possible acute blood loss, this is currently stable - s/p one unit of PRBCs - GI recs appreciated - Continue PPI - Refusing scopes. 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 Patient with mild hypokalemia with potassium of 3.4 which would be replaced via mouth. He should have a repeat BMP tomorrow.] Pertinent Studies: Chest x-ray Procedures: Midline placement Patient Condition at Discharge: Stable Plan - Discharge Summary Discharge Rx Participant: No New Discharge Prescriptions: New metroNIDAZOLE [Flagyl] 500 mg PO TID 14 Days tab Vancomycin 1,000 mg IVPB Q8HR 14 Days vial Pantoprazole Sodium [Protonix] 40 mg PO DAILY #30 tablet. Continue Primidone [Mysoline] 100 mg PO TID@0800,1200,1700 Aspirin EC [Ecotrin Low Dose] 81 mg PO DAILY@1700 Carbidopa-Levodopa 10-100 mg [Sinemet 10-100 mg] 1 tab PO BID@0800,1700 Multivitamins, Thera [Multivitamin (formulary)] 1 tab PO DAILY@1700 guaiFENesin [Mucinex] 600 mg PO Q12HR PRN tablet.er PRN Reason: cough Ipratropium-Albuterol Nebulize [Duoneb 0.5 mg-3 mg/3 ml Soln] 3 ml INHALATION RT-Q2H PRN 14 Days #1 ml PRN Reason: Shortness Of Breath Or Wheezing Magnesium Hydroxide [Milk of Magnesia] 2,400 mg PO DAILY PRN PRN Reason: Constipation HYDROcodone/APAP 5-325MG [Adams 5-325] 1 tab PO Q6H PRN PRN Reason: Pain Na Phos,M-B/Na Phos,Di-Ba [Fleet Adult] 133 ml RECTAL DAILY PRN PRN Reason: Constipation Bisacodyl [Dulcolax] 10 mg RECTAL DAILY PRN PRN Reason: Constipation Lactose-Reduced Food [Ensure Plus] 1 can PO TID@0800,1200,1700 Acetaminophen Tab [Tylenol] 650 mg PO Q4H PRN PRN Reason: Pain Ferrous Sulfate [Iron (65 MG Elemental)] 325 mg PO BID@0800,1700 Docusate [Colace] 100 mg PO BID@0800,1700 Discontinued predniSONE See Taper PO DAILY #12 tab Moxifloxacin HCl [Avelox] 400 mg PO DAILY@0600 Discharge Medication List Aspirin EC [Ecotrin Low Dose] 81 mg PO DAILY@1700 07/26/17 [History] Primidone [Mysoline] 100 mg PO TID@0800,1200,1700 17 [History] Carbidopa-Levodopa 10-100 mg [Sinemet 10-100 mg] 1 tab PO BID@0800,1700 09/17/17 [History] Multivitamins, Thera [Multivitamin (formulary)] 1 tab PO DAILY@1700 12/23/18 [History] guaiFENesin [Mucinex] 600 mg PO Q12HR PRN tablet.er 12/29/18 [Rx] Ipratropium-Albuterol Nebulize [Duoneb 0.5 mg-3 mg/3 ml Soln] 3 ml INHALATION RT-Q2H PRN 14 Days #1 ml 10/21/19 [Rx] Acetaminophen Tab [Tylenol] 650 mg PO Q4H PRN 10/24/19 [History] Bisacodyl [Dulcolax] 10 mg RECTAL DAILY PRN 10/24/19 [History] Docusate [Colace] 100 mg PO BID@0800,1700 10/24/19 [History] Ferrous Sulfate [Iron (65 MG Elemental)] 325 mg PO BID@0800,1700 10/24/19 [History] HYDROcodone/APAP 5-325MG [Adams 5-325] 1 tab PO Q6H PRN 10/24/19 [History] Lactose-Reduced Food [Ensure Plus] 1 can PO TID@0800,1200,1700 10/24/19 [History] Magnesium Hydroxide [Milk of Magnesia] 2,400 mg PO DAILY PRN 10/24/19 [History] Na Phos,M-B/Na Phos,Di-Ba [Fleet Adult] 133 ml RECTAL DAILY PRN 10/24/19 [History] Pantoprazole Sodium [Protonix] 40 mg PO DAILY #30 tablet.dr 10/29/19 [Rx] Vancomycin 1,000 mg IVPB Q8HR 14 Days vial 10/29/19 [Rx] metroNIDAZOLE [Flagyl] 500 mg PO TID 14 Days tab 10/29/19 [Rx] Follow up Appointment(s)/Referral(s): Manny Askew MD [STAFF PHYSICIAN] - 1-2 days Maday Casanova MD [STAFF PHYSICIAN] - 1 Week Ambulatory/Diagnostic Orders: Basic Metabolic Panel [LAB.AMB] Time Frame: 1 Day, Location: None Selected Activity/Diet/Wound Care/Special Instructions: Diet: NDD3 chopped honey thick with assistance and chin tuck method Follow-up PCP within 3 days of discharge. Follow-up with pulmonology within 1 week of discharge. Take all medications as advised. Repeat BMP in one day. Discharge Disposition: TRANSFER TO SNF/ECF
[2019-10-29] MEDS ORDERED: VANCOMYCIN TROUGH DUE 1 EACH MISC MISCELLANE ONE (15:00)
--- NOTE | 2019-10-29 16:38 | PN ---
PROGRESS NOTE DATE OF SERVICE: 10/29/2019. REASON FOR FOLLOW UP: Pneumonia. INTERVAL HISTORY: The patient is currently afebrile. He mentioned he is not feeling as good today as he was yesterday. Denies any chest pain. No shortness of breath. No cough. No abdominal pain or any diarrhea. On examination, blood pressure 148/79 with a pulse of 82, temperature 98.1. He is 95% on room air. General description is an elderly male up in the chair in no distress. Respiratory system: Unlabored breathing. Decreased breath sounds in the bases. No wheeze. Cardiac: Heart S1, S2 regular rate and rhythm. Abdomen soft, no tenderness. LABORATORY DATA: Hemoglobin 8.4, white count 9.3, creatinine 0.43. DIAGNOSTIC IMPRESSION AND PLAN: Patient with pneumonia, sputum has been finalized MRSA currently covered with Vancomycin along with oral Flagyl to continue for a total of two weeks and close outpatient followup. MMODL / IJN: [id number] /
== END 2019-10-29 15:39 | DRG 871 ==
LOC: EC 09:02 → 6NMEDSUR 11:20
PROVIDERS: ADMIT Internal Medicine; ATTEND Internal Medicine
PROC: 30233N1 Transfusion of Nonautologous Red Blood Cells into Peripheral Vein, Percutaneous Approach (ICD-10-PCS; 2019-10-25)
PROC: 05H933Z Insertion of Infusion Device into Right Brachial Vein, Percutaneous Approach (ICD-10-PCS; principal; 2019-10-27 08:50)
DX: A41.9 Sepsis, unspecified organism (principal); J69.0 Pneumonitis due to inhalation of food and vomit; E43 Unspecified severe protein-calorie malnutrition; R64 Cachexia; D62 Acute posthemorrhagic anemia; E87.2 Acidosis; Z68.1 Body mass index [BMI] 19.9 or less, adult; E87.0 Hyperosmolality and hypernatremia; K92.2 Gastrointestinal hemorrhage, unspecified; J43.9 Emphysema, unspecified; L89.152 Pressure ulcer of sacral region, stage 2; G20 Parkinson's disease; M48.00 Spinal stenosis, site unspecified; E87.6 Hypokalemia; G89.29 Other chronic pain; G62.9 Polyneuropathy, unspecified; M54.9 Dorsalgia, unspecified; R13.12 Dysphagia, oropharyngeal phase; Z96.642 Presence of left artificial hip joint; K21.9 Gastro-esophageal reflux disease without esophagitis; B95.62 Methicillin resistant Staphylococcus aureus infection as the cause of diseases classified elsewhere; Z79.82 Long term (current) use of aspirin; Z86.73 Personal history of transient ischemic attack (TIA), and cerebral infarction without residual deficits; Z86.718 Personal history of other venous thrombosis and embolism; Z87.440 Personal history of urinary (tract) infections; Z87.891 Personal history of nicotine dependence; Z87.11 Personal history of peptic ulcer disease; Z86.19 Personal history of other infectious and parasitic diseases; Z90.3 Acquired absence of stomach [part of]; Z85.048 Personal history of other malignant neoplasm of rectum, rectosigmoid junction, and anus; Z83.3 Family history of diabetes mellitus; Z87.01 Personal history of pneumonia (recurrent); Z92.21 Personal history of antineoplastic chemotherapy; Z90.49 Acquired absence of other specified parts of digestive tract; Z90.89 Acquired absence of other organs; Z98.890 Other specified postprocedural states; Z82.49 Family history of ischemic heart disease and other diseases of the circulatory system
CPT/HCPCS: 36410; 36415; 71045; 71046; 76937; 80048; 80053; 80202; 81003; 82272; 82607; 82728; 82746; 83540; 83550; 83605; 83735; 84100; 84484; 85025; 85027; 85610; 85730; 86850; 86900; 86901; 86920; 87040; 87070; 87077; 87186; 87205; 87502; 87634; 93005; 94640; 94760; 96361; 96365; 96367; 96374; 96375; 99285

== ENCOUNTER → 2019-11-02 | Day surgery (SDC) | payer MEDICARE, OTHER ==
[~2019-11-02] MED LIST: IOPAMIDOL-370 50ML BTL INJ ONE; LIDOCAINE 1% INJ 10MG/ML (20 ML MDV) SQ ONE
--- NOTE | 2019-11-02 12:55 | IR ---
EXAMINATION TYPE: IR cvc insert >=5 years and left upper extremity venogram DATE OF EXAM: 11/02/2019 COMPARISON: NONE CLINICAL HISTORY: infection, Needs long-term intravenous access for antibiotics. PROCEDURE: Hand hygiene obtained with alcohol-based hand rub. After informed consent, the skin overlying the left basilic vein was localized with ultrasound and no chuy to be compressible and patent. An ultrasound image was obtained and submitted on the patient's c mello. The overlying skin was prepped and draped and Lidocaine was used for local anesthesia. A skin glory was made with a scalpel. Access was gained to the vein under ultrasound guidance with a 21 gau ge needle and a 0.018 inch wire was advanced, but could not be advanced centrally to the left axilla. Gentle hand injection of contrast material performed through a 3 Chadian sheath, based on the finding s the tortuous vein was negotiated with a 0.018 inch angle Glidewire. Access site was dilated with P eel-Away sheath and catheter tailored to the appropriate length and advanced such that the distal tip is at the cavoatrial junction. Spot image was obtained verifying placement. Catheter was fixed to the skin and a sterile dressing was placed following hemostasis. Catheter was aspirated and flushed with saline. Patient was discharged in stable condition without complication.Maximal barrier techniq ue is utilized. Ultrasound image is documented on the chart. Ultrasound used with sterile technique. Findings show a tortuous left axillary vein, left upper extremity shows patent left axillary, subclav marcelle, innominate veins. Fluoro time and fluoroscopic images submitted to document procedure: 112 intraoperative images, 1.8 m in fluoro time IMPRESSION: STATUS POST ULTRASOUND AND FLUOROSCOPIC GUIDED PICC LINE PLACEMENT, READY FOR USE. THIS PROCEDURE WAS PERFORMED BY THE UNDERSIGNED. Limited left upper extremity venogram as described.
--- NOTE | 2019-11-02 13:12 | IR ---
See dictated report PICC line same date
== END ==
LOC: CATHCVL 11:37
PROVIDERS: ATTEND Family Medicine
DX: A41.9 Sepsis, unspecified organism (principal); J44.9 Chronic obstructive pulmonary disease, unspecified; D62 Acute posthemorrhagic anemia; R13.13 Dysphagia, pharyngeal phase; L89.152 Pressure ulcer of sacral region, stage 2; G20 Parkinson's disease; J84.10 Pulmonary fibrosis, unspecified; G89.29 Other chronic pain; I69.354 Hemiplegia and hemiparesis following cerebral infarction affecting left non-dominant side; J69.0 Pneumonitis due to inhalation of food and vomit; K21.9 Gastro-esophageal reflux disease without esophagitis; R29.90 Unspecified symptoms and signs involving the nervous system; Z87.11 Personal history of peptic ulcer disease; Z92.3 Personal history of irradiation; Z87.891 Personal history of nicotine dependence; Z96.642 Presence of left artificial hip joint; Z98.890 Other specified postprocedural states; Z90.49 Acquired absence of other specified parts of digestive tract; Z86.19 Personal history of other infectious and parasitic diseases; Z87.440 Personal history of urinary (tract) infections; Z92.21 Personal history of antineoplastic chemotherapy; Z85.048 Personal history of other malignant neoplasm of rectum, rectosigmoid junction, and anus; Z86.718 Personal history of other venous thrombosis and embolism; Z79.52 Long term (current) use of systemic steroids; Z79.899 Other long term (current) drug therapy; Z79.82 Long term (current) use of aspirin; Z82.49 Family history of ischemic heart disease and other diseases of the circulatory system; Z83.3 Family history of diabetes mellitus
CPT/HCPCS: 36573; C1751; C1769 ×2; J2001; Q9967

== ENCOUNTER 2019-11-17 07:16 | Emergency (ER) | payer MEDICARE, OTHER | END 2019-11-17 07:27 | LOC: EC 07:16 | DX: Z53.21 Procedure and treatment not carried out due to patient leaving prior to being seen by health care provider (principal) | CPT/HCPCS: 99499 ==

== ENCOUNTER → 2019-11-17 | Day surgery (SDC) | payer MEDICARE, OTHER ==
[~2019-11-17] MED LIST changes: -IOPAMIDOL-370 50ML BTL INJ ONE; +LACTATED RINGERS 1,000 ML IV SCH; +LIDOCAINE 1% (10MG/ML) FOR IV START INTRADERMA PRN; +LIDOCAINE 1% INJ 10MG/ML (20 ML MDV) ONE; -LIDOCAINE 1% INJ 10MG/ML (20 ML MDV) SQ ONE; +PROPOFOL 10 MG/ML 20 ML VIAL IV ONE
[2019-11-17 07:42] VITALS: PULSE 98; RESP 16; TEMP 97.6
[2019-11-17 08:06] LABS: Basophils % (A) 0 %; Eosinophils # (A) 0.1 k/uL (0-0.7); Eosinophils % (A) 2 %; HCT 32.8 % (39.0-53.0); HGB 10.3 gm/dL (13.0-17.5); Hypochromasia Slight; Lymphocytes # (A) 1.2 k/uL (1.0-4.8); Lymphocytes % (A) 13 %; MCH 29.6 pg (25.0-35.0); MCHC 31.5 g/dL (31.0-37.0); MCV 94.2 fL (80.0-100.0); Mean Platelet Volume 7.7; Monocytes # (A) 0.5 k/uL (0-1.0); Monocytes % (A) 5 %; Neutrophils # (A) 7.2 k/uL (1.3-7.7); Neutrophils % (A) 78 %; Platelet Count 315 k/uL (150-450); RBC 3.48 m/uL (4.30-5.90); RDW 14.1 % (11.5-15.5); WBC 9.1 k/uL (3.8-10.6)
[2019-11-17 08:17] LABS: Prothrombin Time 10.7 sec (9.0-12.0)
--- NOTE | 2019-11-17 09:01 | P.PCN ---
Date of Procedure: 11/17/19 Procedure(s) Performed: BRIEF HISTORY: Patient is a 79-year-old, pleasant, white male scheduled for an upper endoscopy with a PEG tube placement. He was advised to hospital 2 weeks ago with aspiration pneumonia and treated with antibiotics and was also. Initially the time recommended a pured diet. Patient Has been having decreased the with progressive weight loss and hence scheduled for an upper endoscopy with a PEG tube placement today. He also has prior history of gastric surgery patient continued about the details. . PROCEDURE PERFORMED: Esophagogastroduodenoscopy. PREOPERATIVE DIAGNOSIS: Oropharyngeal dysphagia/poor intake for PEG tube placement IV sedation per anesthesia. PROCEDURE: After informed consent was obtained, the patient was brought into the endoscopy unit. IV sedation was administered by Anesthesia under continuous monitoring. Initially the Olympus GIF-140 video endoscope was inserted into the mouth. Esophagus intubated without any difficulty. It was gradually advanced into the stomach there was evidence of Billroth II gastrectomy with Josephine-en-Y anastomosis noted. The anastomosis appeared normal. The afferent and efferent loops appeared normal. The scope was advanced into the proximal jejunum. The scope at this time was withdrawn to the gastric remnant which appeared normal. Despite multiple attempts I was not able to achieve adequate transillumination that his abdominal wall. At the rectum could not be performed. The scope was then withdrawn into the esophagus. The GE junction was located at 39 cm from the incisors. The esophagus appeared normal. There were no erosions or ulcerations seen and the patient tolerated the procedure well. IMPRESSION: 1. Evidence of partial gastrectomy with Billroth II anastomosis. 2. PEG tube could not be placed because of altered anatomy. RECOMMENDATIONS: The findings of this examination were discussed with the patient as well as her caregiver. He is to have a surgical consultation is an open G-tube placement. We will discuss with Dr. Askew.
[2019-11-17 09:15] VITALS: BP 112/57
== END | disposition home or self-care (01) ==
LOC: ORWHC2ENDO 07:35
PROVIDERS: ATTEND Internal Medicine Gastroenterology
DX: R13.12 Dysphagia, oropharyngeal phase (principal); K21.9 Gastro-esophageal reflux disease without esophagitis; G20 Parkinson's disease; Z90.49 Acquired absence of other specified parts of digestive tract; Z87.01 Personal history of pneumonia (recurrent); Z79.899 Other long term (current) drug therapy
CPT/HCPCS: 85025; 85610; 43235; J2001; J2704

== ENCOUNTER 2019-11-21 10:48 | Inpatient (IN) | payer MEDICARE, OTHER ==
--- NOTE | 2019-11-21 11:04 | ED ---
Recheck HPI - General Chief Complaint: Fever Stated Complaint: resp,MRSA Time Seen by Provider: 11/21/19 10:57 - History of Present Illness Initial Comments: 79yo male with history of MRSA pneumonia, DVT, liver disease, anemia presenting to the ER today for cc of fever, SOB. Patient was at [facility] receiving IV abx through PICC line for diagnosis of MRSA Pneumonia. Patient states he has felt like crap since his diagnosis. Patient denies any significant increase in the shortness of breath, denies leg swelling, SOB. Patient denies vomiting, diarrhea, headache, neck stiffness. Patient denies any other compliants. Overall patient is a poor historian. Patient was on vancomycin outpatient; 1,000mg Q24 hours. - Related Data Home Medications Medication Instructions Recorded Confirmed Aspirin EC [Ecotrin Low Dose] 81 mg PO DAILY@1700 07/26/17 11/21/19 Primidone [Mysoline] 100 mg PO TID@0800,1200,1700 07/26/17 11/21/19 Carbidopa-Levodopa 10-100 mg 1 tab PO BID@0800,1700 09/17/17 11/21/19 [Sinemet 10-100 mg] Multivitamins, Thera [Multivitamin 1 tab PO DAILY@1700 12/23/18 11/21/19 (formulary)] Acetaminophen Tab [Tylenol] 650 mg PO Q4H PRN 10/24/19 11/21/19 Bisacodyl [Dulcolax] 10 mg RECTAL DAILY PRN 10/24/19 11/21/19 Docusate [Colace] 100 mg PO BID@0800,1700 10/24/19 11/21/19 Ferrous Sulfate [Iron (65 MG 325 mg PO BID@0800,1700 10/24/19 11/21/19 Elemental)] HYDROcodone/APAP 5-325MG [[place] 1 tab PO Q6H PRN 10/24/19 11/21/19 5-325] Lactose-Reduced Food [Ensure Plus] 1 can PO TID@0800,1200,1700 10/24/19 11/21/19 Na Phos,M-B/Na Phos,Di-Ba [Fleet 133 ml RECTAL DAILY PRN 10/24/19 11/21/19 Adult] 0.9 % Sodium Chloride [Sodium 10 ml IV TID@0600,1400,2200 11/21/19 11/21/19 Chloride Flush] Heparin Sodium Lock Flush Solution 5 ml IV DAILY@2130 11/21/19 11/21/19 100unit/Ml Ipratropium-Albuterol Nebulize 3 ml INHALATION RT-Q6H PRN 11/21/19 11/21/19 [Duoneb 0.5 mg-3 mg/3 ml Soln] Magnesium Hydroxide [Milk of 7,200 mg PO DAILY PRN 11/21/19 11/21/19 Magnesia Concentrate] Pantoprazole Sodium [Protonix] 40 mg PO DAILY@0600 11/21/19 11/21/19 Vancomycin 1,000 mg IVPB Q24HR 11/21/19 11/21/19 guaiFENesin [Mucinex] 600 mg PO BID PRN 11/21/19 11/21/19 guaiFENesin [Mucinex] 600 mg PO BID@0800,1700 11/21/19 11/21/19 Allergies Allergy/AdvReac Type Severity Reaction Status Date / Time No Known Allergies Allergy Verified 11/21/19 11:05 Review of Systems ROS Statement: Those systems with pertinent positive or pertinent negative responses have been documented in the HPI. ROS Other: All systems not noted in ROS Statement are negative. 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, 2013 TIA, DVT in leg-pt cannot recall laterallity, rectal cancer with surgery/chemo and radiation, pneumonia with sepsis, aspiration pneumonia, elevated liver enzymes, past ETOH abuse-pt states he has not drank in years, partial gastrectomy d/t stomach ulcer, DDD, spinal stenosis, chronic back/cervical pain, parkinson's dx, UTI, iron anemia, History of Any Multi-Drug Resistant Organisms: ESBL, MRSA Date of last positivie culture/infection: 10/26/19, 12/25/18 ESBL MDRO Source:: SPUTUM Past Surgical History: Appendectomy, Back Surgery, Bowel Resection, Cholecystectomy, Joint Replacement, Orthopedic Surgery Additional Past Surgical History / Comment(s): bowel resection d/t cancer, partial gastrectomy d/t bleeding ulcer, colonoscopies, low back surgery, total L hip arthroplasty, R hip/pelvic fracture with surgery/hardware, R ankle fracture with surgery/hardware Past Anesthesia/Blood Transfusion Reactions: No Reported Reaction Additional Past Anesthesia/Blood Transfusion Reaction / Comment(s): Pt states he has received blood in past without reaction. Smoking Status: Former smoker - Past Family History Father Family Medical History: Unable to Obtain Additional Family Medical History / Comment(s): heart problems Mother History Unknown: Yes Family Medical History: Diabetes Mellitus Additional Family Medical History / Comment(s): Pt states he cannot remember mother's medical hx. General Exam - General Exam Comments Initial Comments: General: The patient is awake and alert, in no distress, cachexic Eye: +3 mmm pupils are equal, round and reactive to light, extra-ocular mov ements are intact. No nystagmus. There is normal conjunctiva bilaterally. No signs of icterus. Ears, nose, mouth and throat: There are moist mucous membranes and no oral lesions. Neck: The neck is supple, there is no tenderness or JVD. Cardiovascular: There is a regular rate and rhythm. No murmur, rub or gallop is appreciated. Respiratory: Respirations are mildly-labored, breath sounds are equal. Some rhonchi/rales noted. No wheeze. Gastrointestinal: Soft, non-distended, non-tender abdomen without masses or organomegaly noted. There is no rebound or guarding present. Musculoskeletal: Normal ROM, no tenderness. Strength 5/5. Sensation intact. Radial pulses equal bilaterally 2+. Neurological: A&O x 3. CN II-XII intact grossly, There are no obvious motor or sensory deficits. Coordination appears grossly intact. Speech is normal. Skin: Skin is warm and dry and no rashes or lesions are noted. No LE edema or calf pain to palpation. Psychiatric: Cooperative, appropriate mood & affect, normal judgment. Course Vital Signs 11/21/19 11/21/19 11/21/19 10:53 10:55 11:00 Temperature 99.4 F Pulse Rate 112 H 111 H Respiratory 22 20 Rate Blood Pressure 125/68 125/68 O2 Sat by Pulse 95 98 97 Oximetry 11/21/19 11/21/19 11/21/19 11:10 11:20 11:30 Temperature Pulse Rate 112 H 116 H 117 H Respiratory 19 21 27 H Rate Blood Pressure 125/68 114/73 114/73 O2 Sat by Pulse 95 94 L Oximetry 11/21/19 11/21/19 11/21/19 11:40 11:50 12:00 Temperature Pulse Rate 117 H 114 H 113 H Respiratory 15 19 23 Rate Blood Pressure 136/77 136/77 136/77 O2 Sat by Pulse Oximetry 11/21/19 11/21/19 11/21/19 12:10 12:20 12:30 Temperature Pulse Rate 114 H 112 H 115 H Respiratory 20 23 20 Rate Blood Pressure 124/65 124/65 124/65 O2 Sat by Pulse Oximetry 11/21/19 11/21/19 11/21/19 12:40 12:41 12:50 Temperature Pulse Rate 112 H 112 H Respiratory 16 16 Rate Blood Pressure 123/61 123/61 123/61 O2 Sat by Pulse 97 97 Oximetry 11/21/19 11/21/19 11/21/19 13:00 13:10 13:20 Temperature Pulse Rate 113 H 108 H 110 H Respiratory 24 17 17 Rate Blood Pressure 123/61 129/60 129/60 O2 Sat by Pulse 100 100 100 Oximetry 11/21/19 11/21/19 13:30 14:40 Temperature 98.9 F Pulse Rate 107 H 110 H Respiratory 19 19 Rate Blood Pressure 129/60 126/64 O2 Sat by Pulse 100 97 Oximetry Medical Decision Making - Medical Decision Making 79yo male presenting today for cc of fever. Patient sent from [facility] for fevers. Recently diagnosed with MRSA pneumonia, receiving IV Vancomycin. Patient spiked fever last day, sent this morning for evaluation in ER. Patient denies significant change, but states he does feel slightly worse. Laboratory studies relatively stable. Patient history with exposure to COVID with new fevers, concerning for development of COvid infection. CTA no PE, but is supportive of covid infection with pattern of ground glass infiltrates. Patient will be admitt ed for observation/further treatment given history of chronic illness. Patient agreeable to plan, Dr. Foster agreeable to admission. - Lab Data Result diagrams: 11/24/19 07:16 11/24/19 07:16 Lab Results 11/21/19 11/21/19 11/21/19 Range/Units 11:20 11:20 11:20 WBC (3.8-10.6) k/uL RBC (4.30-5.90) m/uL Hgb (13.0-17.5) gm/dL Hct (39.0-53.0) % MCV (80.0-100.0) fL MCH (25.0-35.0) pg MCHC (31.0-37.0) g/dL RDW (11.5-15.5) % Plt Count (150-450) k/uL Neutrophils % % Lymphocytes % % Monocytes % % Eosinophils % % Basophils % % Neutrophils # (1.3-7.7) k/uL Lymphocytes # (1.0-4.8) k/uL Monocytes # (0-1.0) k/uL Eosinophils # (0-0.7) k/uL Basophils # (0-0.2) k/uL PT 10.3 (9.0-12.0) sec INR 1.0 (<1.2) APTT 24.5 (22.0-30.0) sec D-Dimer 2.30 H (<0.60) mg/L FEU Sodium 139 (137-145) mmol/L Potassium 5.0 (3.5-5.1) mmol/L Chloride 102 (98-107) mmol/L Carbon Dioxide 31 H (22-30) mmol/L Anion Gap 6 mmol/L BUN 16 (9-20) mg/dL Creatinine 0.49 L (0.66-1.25) mg/dL Est GFR (CKD-EPI)AfAm >90 (>60 ml/min/1.73 sqM) Est GFR (CKD-EPI)NonAf >90 (>60 ml/min/1.73 sqM) Glucose 123 H (74-99) mg/dL Plasma Lactic Acid Rahul 2.0 (0.7-2.0) mmol/L Calcium 8.9 (8.4-10.2) mg/dL Magnesium 1.7 (1.6-2.3) mg/dL Ferritin 208.6 (22.0-322.0) ng/mL Total Bilirubin 0.3 (0.2-1.3) mg/dL AST 39 (17-59) U/L ALT 10 (4-49) U/L Alkaline Phosphatase 115 (38-126) U/L Lactate Dehydrogenase 508 (313-618) U/L C-Reactive Protein 191.7 H (<10.0) mg/L Total Protein 6.9 (6.3-8.2) g/dL Albumin 3.2 L (3.5-5.0) g/dL Procalcitonin (0.02-0.09) ng/mL Vancomycin Trough ug/mL Coronavirus (PCR) (Not Detectd) Influenza Type A RNA (Not Detectd) Influenza Type B (PCR) (Not Detectd) 11/21/19 11/21/19 11/21/19 Range/Units 11:20 11:58 11:58 WBC (3.8-10.6) k/uL RBC (4.30-5.90) m/uL Hgb (13.0-17.5) gm/dL Hct (39.0-53.0) % MCV (80.0-100.0) fL MCH (25.0-35.0) pg MCHC (31.0-37.0) g/dL RDW (11.5-15.5) % Plt Count (150-450) k/uL Neutrophils % % Lymphocytes % % Monocytes % % Eosinophils % % Basophils % % Neutrophils # (1.3-7.7) k/uL Lymphocytes # (1.0-4.8) k/uL Monocytes # (0-1.0) k/uL Eosinophils # (0-0.7) k/uL Basophils # (0-0.2) k/uL PT (9.0-12.0) sec INR (<1.2) APTT (22.0-30.0) sec D-Dimer (<0.60) mg/L FEU Sodium (137-145) mmol/L Potassium (3.5-5.1) mmol/L Chloride (98-107) mmol/L Carbon Dioxide (22-30) mmol/L Anion Gap mmol/L BUN (9-20) mg/dL Creatinine (0.66-1.25) mg/dL Est GFR (CKD-EPI)AfAm (>60 ml/min/1.73 sqM) Est GFR (CKD-EPI)NonAf (>60 ml/min/1.73 sqM) Glucose (74-99) mg/dL Plasma Lactic Acid Rahul (0.7-2.0) mmol/L Calcium (8.4-10.2) mg/dL Magnesium (1.6-2.3) mg/dL Ferritin (22.0-322.0) ng/mL Total Bilirubin (0.2-1.3) mg/dL AST (17-59) U/L ALT (4-49) U/L Alkaline Phosphatase (38-126) U/L Lactate Dehydrogenase (313-618) U/L C-Reactive Protein (<10.0) mg/L Total Protein (6.3-8.2) g/dL Albumin (3.5-5.0) g/dL Procalcitonin 0.07 (0.02-0.09) ng/mL Vancomycin Trough ug/mL Coronavirus (PCR) Not Detected (Not Detectd) Influenza Type A RNA Not Detected (Not Detectd) Influenza Type B (PCR) Not Detected (Not Detectd) 11/21/19 11/21/19 Range/Units 11:59 12:01 WBC 10.4 (3.8-10.6) k/uL RBC 3.88 L (4.30-5.90) m/uL Hgb 11.6 L (13.0-17.5) gm/dL Hct 36.5 L (39.0-53.0) % MCV 94.1 (80.0-100.0) fL MCH 30.0 (25.0-35.0) pg MCHC 31.9 (31.0-37.0) g/dL RDW 13.8 (11.5-15.5) % Plt Count 365 (150-450) k/uL Neutrophils % 83 % Lymphocytes % 12 % Monocytes % 3 % Eosinophils % 0 % Basophils % 0 % Neutrophils # 8.7 H (1.3-7.7) k/uL Lymphocytes # 1.2 (1.0-4.8) k/uL Monocytes # 0.3 (0-1.0) k/uL Eosinophils # 0.0 (0-0.7) k/uL Basophils # 0.0 (0-0.2) k/uL PT (9.0-12.0) sec INR (<1.2) APTT (22.0-30.0) sec D-Dimer (<0.60) mg/L FEU Sodium (137-145) mmol/L Potassium (3.5-5.1) mmol/L Chloride (98-107) mmol/L Carbon Dioxide (22-30) mmol/L Anion Gap mmol/L BUN (9-20) mg/dL Creatinine (0.66-1.25) mg/dL Est GFR (CKD-EPI)AfAm (>60 ml/min/1.73 sqM) Est GFR (CKD-EPI)NonAf (>60 ml/min/1.73 sqM) Glucose (74-99) mg/dL Plasma Lactic Acid Rahul (0.7-2.0) mmol/L Calcium (8.4-10.2) mg/dL Magnesium (1.6-2.3) mg/dL Ferritin (22.0-322.0) ng/mL Total Bilirubin (0.2-1.3) mg/dL AST (17-59) U/L ALT (4-49) U/L Alkaline Phosphatase (38-126) U/L Lactate Dehydrogenase (313-618) U/L C-Reactive Protein (<10.0) mg/L Total Protein (6.3-8.2) g/dL Albumin (3.5-5.0) g/dL Procalcitonin (0.02-0.09) ng/mL Vancomycin Trough 9.6 ug/mL Coronavirus (PCR) (Not Detectd) Influenza Type A RNA (Not Detectd) Influenza Type B (PCR) (Not Detectd) - EKG Data EKG Comments: Ventricular rate 114 bpm, WA interval 128 ms, QRS gnosticist 74 ms, QT/QTC 316/435 ms. This is sinus tachycardia. No ST-T wave no ST elevation or depression is appreciated. Disposition Clinical Impression: Hx of staphylococcal pneumonia, Suspected COVID-19 virus infection, Fever, Elevated C-reactive protein (CRP) Disposition: ADMITTED IP TO THIS HOSP Condition: Stable Is patient prescribed a controlled substance at d/c from ED?: No Time of Disposition: 13:37 Decision to Admit Reason: Admit from EC Decision Date: 11/21/19 Decision Time: 13:37
[2019-11-21 12:19] LABS: ALT 10 U/L (4-49); AST 39 U/L (17-59); African American GFR (CKD) >90 (>60 ml/min/1.73 sqM); Albumin 3.2 g/dL (3.5-5.0); Alkaline Phosphatase 115 U/L (38-126); Anion Gap 6 mmol/L; Blood Urea Nitrogen 16 mg/dL (9-20); Calcium 8.9 mg/dL (8.4-10.2); Carbon Dioxide 31 mmol/L (22-30); Chloride 102 mmol/L (98-107); Glucose 123 mg/dL (74-99); LDH 508 U/L (313-618); Magnesium 1.7 mg/dL (1.6-2.3); Non-African American GFR(CKD) >90 (>60 ml/min/1.73 sqM); Sodium 139 mmol/L (137-145); Total Bilirubin 0.3 mg/dL (0.2-1.3); Total Protein 6.9 g/dL (6.3-8.2)
--- NOTE | 2019-11-21 12:19 | XR ---
EXAMINATION TYPE: XR chest 1V portable DATE OF EXAM: 11/21/2019 HISTORY: Suspected COVID-19 pneumonia. REFERENCE: Previous study dated 10/26/2019. FINDINGS: There is some volume loss in the right lung. There is improved aeration of the right lung. The left lung remains clear. The heart is not enlarged. IMPRESSION: IMPROVED AERATION, RIGHT LUNG.
[2019-11-21 12:23] LABS: Basophils % (A) 0 %; Eosinophils % (A) 0 %; HCT 36.5 % (39.0-53.0); HGB 11.6 gm/dL (13.0-17.5); Lymphocytes # (A) 1.2 k/uL (1.0-4.8); Lymphocytes % (A) 12 %; MCHC 31.9 g/dL (31.0-37.0); MCV 94.1 fL (80.0-100.0); Mean Platelet Volume 7.6; Monocytes # (A) 0.3 k/uL (0-1.0); Monocytes % (A) 3 %; Neutrophils # (A) 8.7 k/uL (1.3-7.7); Neutrophils % (A) 83 %; Platelet Count 365 k/uL (150-450); RBC 3.88 m/uL (4.30-5.90); RDW 13.8 % (11.5-15.5); WBC 10.4 k/uL (3.8-10.6)
[2019-11-21 12:29] LABS: Partial Thromboplastin Time 24.5 sec (22.0-30.0); Prothrombin Time 10.3 sec (9.0-12.0)
[2019-11-21 12:32] LABS: C Reactive Protein 191.7 mg/L (<10.0)
[2019-11-21 12:36] LABS: D-Dimer 2.3 mg/L FEU (<0.60)
[2019-11-21] MEDS ORDERED: SODIUM CHLORIDE 0.9% 1,000 ML IV ONE (12:37)
[2019-11-21] MEDS ORDERED: ACETAMINOPHEN TAB 325 MG TAB PO STA (12:41)
--- NOTE | 2019-11-21 13:29 | CT ---
EXAMINATION TYPE: CT angio chest DATE OF EXAM: 11/21/2019 1:05 PM COMPARISON: Previous study dated 09/12/2013. HISTORY: Shortness of breath CT DLP: 262.7 mGycm Automated exposure control for dose reduction was used. CONTRAST: CTA scan of the thorax is performed with IV Contrast, patient injected with 100 mL of Isovue 370, pul monary embolism protocol. . FINDINGS: There is evidence of interstitial fibrosis throughout both lungs. There is diffuse groundgl ass opacity most marked in the right lower lobe. There is some consolidation with air bronchograms in both lower lobes, greater on the right than the left. There is no significant axillary adenopathy. There is a pretracheal adenopathy with the largest lymph node measuring 1.2 cm. There is also some subcarinal adenopathy with the largest lymph node measurin g 1.1 cm. There is minimal right hilar adenopathy. There is a small right effusion. There is no pericardial effusion. The heart is not enlarged. The root of the aorta is dilated measuring 3.8 cm. The proximal arch is aneurysmal measuring 3.3 cm. The proximal descending thoracic aorta is normal in caliber measuring 2.5 cm. The remainder the aorta is normal in caliber. There is no evidence of pulmonary embolus. Visualized portions of the upper abdomen are otherwise normal. There is mild hypertrophic spondylosis within the spine. IMPRESSION: 1. THIS EXAMINATION IS NEGATIVE FOR PULMONARY EMBOLUS. 2. A BACKGROUND OF INTERSTITIAL FIBROSIS WITH SUPERIMPOSED GROUNDGLASS OPACITIES AND CONSOLIDATION IS SUSPICIOUS FOR COVID 19 INFECTION. 3. SMALL RIGHT-SIDED EFFUSION. 4. ASCENDING THORACIC AORTIC ANEURYSM WITH MAXIMAL TRANSVERSE DIAMETER MEASURING 3.8 CM. 5. DEGENERATIVE CHANGES WITHIN THE SPINE.
[2019-11-21] MEDS ORDERED: NALOXONE 0.4 MG/ML 1 ML VIAL IV PRN (13:32)
[2019-11-21] MEDS ORDERED: SODIUM CHLORIDE 0.9% 500 ML 500 ML IV ONE (13:36)
[2019-11-21] MEDS ORDERED: DOXYCYCLINE 100 MG in SODIUM CHLORIDE 0.9% 100 ML IVPB ONE (13:46)
[2019-11-21] MEDS ORDERED: VANCOMYCIN 1,000 MG in SODIUM CHLORIDE 0.9% 250 ML IVPB STA (14:36)
[2019-11-21] MEDS ORDERED: HYDROcodone/APAP 5-325MG 1 EACH TAB PO PRN (15:49)
[2019-11-21] MEDS ORDERED: ACETAMINOPHEN TAB 325 MG TAB PO PRN (15:49)
[2019-11-21] MEDS ORDERED: NON FORMULARY DRUG (Lactose-Reduced Food [Ensure Plus] 1 CAN) PO SCH (17:00)
[2019-11-21] MEDS: MULTIVITAMINS, THERA 1 EACH TAB PO SCH (17:06)
[2019-11-21] MEDS: DOCUSATE 100 MG CAP PO SCH (17:06)
[2019-11-21] MEDS: PRIMIDONE 50 MG TAB PO SCH (17:06)
[2019-11-21] MEDS: FERROUS SULFATE 325 MG TAB PO SCH (17:06)
[2019-11-21] MEDS: ASPIRIN 81 MG PO SCH (17:06)
[2019-11-21] MEDS: CARBIDOPA-LEVODOPA 10-100 MG 1 EACH TAB PO SCH (17:11)
[2019-11-21] MEDS ORDERED: VANCOMYCIN IV PER PHARMACY 1 EACH MISC MISCELLANE PRN (20:00)
[2019-11-21] MEDS ORDERED: HEPARIN IV SCH (21:30)
--- NOTE | 2019-11-21 22:37 | P.HPIM ---
History of Present Illness H&P Date: 11/21/19 Chief Complaint: Generalized weakness Mr. Cohen is a 79-year-old male with the past medical history of Parkinson's disease, COPD, history of ESBL E. coli, MRSA in the sputum sent in from [facility] as he was feeling weak and tired. Patient is currently in the rehab receiving IV antibiotics through the PICC line for his recent diagnosis of MRSA pneumonia. Patient is a poor historian, most of the history is obtained from the ER notes and previous hospital visits and nursing staff report. Per se patient denies having any shortness of breath or cough. He denies having any abdominal pain nausea vomiting or diarrhea. No headache or neck pain. He is clearly not sure about the reason for him being sent from the rehab. In the emergency room patient had a chest x-ray that was showing volume loss in the right lung and patient also had a CT angiogram of the chest that was showing interstitial fibrosis with superimposed groundglass opacities and consolidation which is suspicious for COVID 19 infection. On reviewing the vitals patient had a T-max of 99.4 and he was slightly tachycardic. He is saturating at 94% on 2 L of nasal cannula. Patient had labs in the ER showing d-dimer of 2.3 sodium 139, potassium 5, BUN 16, creatinine 0.49. CRP level is elevated at 191.7 he has tested negative for influenza A, B and coronavirus. So the patient has been admitted for further evaluation and treatment. Review of Systems Those systems with pertinent positive or pertinent negative responses have been documented in the HPI. All systems not noted in ROS Statement are negative. 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, 2013 TIA, DVT in leg-pt cannot recall laterallity, rectal cancer with surgery/chemo and radiation, pneumonia with sepsis, aspiration pneumonia, elevated liver enzymes, past ETOH abuse-pt states he has not drank in years, partial gastrectomy d/t stomach ulcer, DDD, spinal stenosis, chronic back/cervical pain, parkinson's dx, UTI, iron anemia, History of Any Multi-Drug Resistant Organisms: ESBL, MRSA Date of last positivie culture/infection: 10/26/19, 12/25/18 ESBL MDRO Source:: SPUTUM Past Surgical History: Appendectomy, Back Surgery, Bowel Resection, C holecystectomy, Joint Replacement, Orthopedic Surgery Additional Past Surgical History / Comment(s): 1990s bowel resection d/t cancer, partial gastrectomy d/t bleeding ulcer, colonoscopies, low back surgery, total L hip arthroplasty, R hip/pelvic fracture with surgery/hardware, R ankle fracture with surgery/hardware Past Anesthesia/Blood Transfusion Reactions: No Reported Reaction Additional Past Anesthesia/Blood Transfusion Reaction / Comment(s): Pt states he has received blood in past without reaction. Past Psychological History: No Psychological Hx Reported Additional Psychological History / Comment(s): Pt resides alone at [facility]– [place][Note 2]. He has a daily "helper" thru the [facility]. That person will help him with whatever he needs. He gets MOW. He does not drive, uses the bus system. He has a walker and a wheelchair. Currently resides at [facility] for rehab as of 10/24/19 Smoking Status: Former smoker Past Alcohol Use History: None Reported Additional Past Alcohol Use History / Comment(s): Pt started smoking in 9 and quit about 1995. He has hx of alcohol abuse but quit drinking years ago. Past Drug Use History: None Reported - Past Family History Father Family Medical History: Unable to Obtain Additional Family Medical History / Comment(s): heart problems Mother History Unknown: Yes Family Medical History: Diabetes Mellitus Additional Family Medical History / Comment(s): Pt states he cannot remember mother's medical hx. Medications and Allergies Home Medications Medication Instructions Recorded Confirmed Type Aspirin EC [Ecotrin Low Dose] 81 mg PO DAILY@1700 07/26/17 11/21/19 History Primidone [Mysoline] 100 mg PO TID@0800,1200,1700 07/26/17 11/21/19 History Carbidopa-Levodopa 10-100 mg 1 tab PO BID@0800,1700 09/17/17 11/21/19 History [Sinemet 10-100 mg] Multivitamins, Thera [Multivitamin 1 tab PO DAILY@1700 12/23/18 11/21/19 History (formulary)] Acetaminophen Tab [Tylenol] 650 mg PO Q4H PRN 10/24/19 11/21/19 History Bisacodyl [Dulcolax] 10 mg RECTAL DAILY PRN 10/24/19 11/21/19 History Docusate [Colace] 100 mg PO BID@0800,1700 10/24/19 11/21/19 History Ferrous Sulfate [Iron (65 MG 325 mg PO BID@0800,1700 10/24/19 11/21/19 History Elemental)] HYDROcodone/APAP 5-325MG [[place] 1 tab PO Q6H PRN 10/24/19 11/21/19 History 5-325] Lactose-Reduced Food [Ensure Plus] 1 can PO TID@0800,1200,1700 10/24/19 11/21/19 History Na Phos,M-B/Na Phos,Di-Ba [Fleet 133 ml RECTAL DAILY PRN 10/24/19 11/21/19 History Adult] 0.9 % Sodium Chloride [Sodium 10 ml IV TID@0600,1400,2200 11/21/19 11/21/19 History Chloride Flush] Heparin Sodium Lock Flush Solution 5 ml IV DAILY@2130 11/21/19 11/21/19 History 100unit/Ml Ipratropium-Albuterol Nebulize 3 ml INHALATION RT-Q6H PRN 11/21/19 11/21/19 History [Duoneb 0.5 mg-3 mg/3 ml Soln] Magnesium Hydroxide [Milk of 7,200 mg PO DAILY PRN 11/21/19 11/21/19 History Magnesia Concentrate] Pantoprazole Sodium [Protonix] 40 mg PO DAILY@0600 11/21/19 11/21/19 History Vancomycin 1,000 mg IVPB Q24HR 11/21/19 11/21/19 History guaiFENesin [Mucinex] 600 mg PO BID PRN 11/21/19 11/21/19 History guaiFENesin [Mucinex] 600 mg PO BID@0800,1700 11/21/19 11/21/19 History Allergies Allergy/AdvReac Type Severity Reaction Status Date / Time No Known Allergies Allergy Verified 11/21/19 11:05 Physical Exam Vitals: Vital Signs Temp Pulse Pulse Resp BP BP Pulse Ox 11/21/19 15:00 99.7 F H 117 H 23 117/66 94 L 11/21/19 14:41 98.9 F 110 H 19 126/64 97 11/21/19 14:40 98.9 F 110 H 19 126/64 97 11/21/19 13:30 107 H 19 129/60 100 11/21/19 13:20 110 H 17 129/60 100 11/21/19 13:10 108 H 17 129/60 100 11/21/19 13:00 113 H 24 123/61 100 11/21/19 12:50 123/61 11/21/19 12:41 112 H 16 123/61 97 11/21/19 12:40 112 H 16 123/61 97 11/21/19 12:30 115 H 20 124/65 11/21/19 12:20 112 H 23 124/65 11/21/19 12:10 114 H 20 124/65 11/21/19 12:00 113 H 23 136/77 11/21/19 11:50 114 H 19 136/77 11/21/19 11:40 117 H 15 136/77 11/21/19 11:30 117 H 27 H 114/73 11/21/19 11:20 116 H 21 114/73 94 L 11/21/19 11:10 112 H 19 125/68 95 11/21/19 11:00 111 H 20 125/68 97 11/21/19 10:55 98 11/21/19 10:53 99.4 F 112 H 22 125/68 95 Intake and Output 11/21/19 11/21/19 11/21/19 06:59 14:59 22:59 Intake Total 500 Balance 500 Intake: Amount of Fluid Infused ( 500 ml) Other: Weight 53.977 kg Constitutional: No acute distress, emaciated Eyes: Anicteric sclerae, moist conjunctiva, no lid-lag, PERRLA ENMT: Bilateral temporal wasting,Oropharynx clear, no erythema, exudates Lungs: Diminished in the bases, unlabored on 2 L via nasal cannula Cardiovascular: Tachycardic with regular rhythm, Abdominal: Soft Nontender, nom distended, no guarding, no rebound or rigidity, Normoactive bowel sounds Extremities:No digital cyanosis No clubbing, Pedal pulses intact and symmetrical Radial pulses intact and symmetrical Neuro: No focal deficits appreciated Results CBC & Chem 7: 11/21/19 12:01 11/21/19 11:20 Labs: Abnormal Lab Results - Last 24 Hours (Table) 04/12/20 04/12/20 04/12/20 Range/Units 11:20 11:20 12:01 RBC 3.88 L (4.30-5.90) m/uL Hgb 11.6 L (13.0-17.5) gm/dL Hct 36.5 L (39.0-53.0) % Neutrophils # 8.7 H (1.3-7.7) k/uL D-Dimer 2.30 H (<0.60) mg/L FEU Carbon Dioxide 31 H (22-30) mmol/L Creatinine 0.49 L (0.66-1.25) mg/dL Glucose 123 H (74-99) mg/dL C-Reactive Protein 191.7 H (<10.0) mg/L Albumin 3.2 L (3.5-5.0) g/dL Thrombosis Risk Factor Assmnt - Choose All That Apply Each Risk Factor Represents 3 Points: History of DVT/PE Thrombosis Risk Factor Assessment Total Risk Factor Score: 3 Thrombosis Risk Factor Assessment Level: Moderate Risk Assessment and Plan Assessment: ASSESSMENT MRSA pneumonia Generalized weakness COPD not in acute exacerbation Parkinson's disease Pulmonary fibrosis Sacral stage II decubitus ulcer Severe protein calorie malnutrition Elevated d-dimer PLAN: Patient recently had MRSA pneumonia and is being treated with IV antibiotics, will continue with the antibiotic sent ID Dr. Casanova has been consulted. Patient had CT angiogram of the chest which was showing groundglass appearance, patient has tested negative for coronavirus. Patient has been restarted on his home medications. Further recommendations to follow depending on
[2019-11-21] MEDS: PIPERACILLIN-TAZOBACTAM 3.375 GM in SODIUM CHLORIDE 0.9% 100 ML IVPB SCH (23:36)
[2019-11-22] MEDS: PANTOPRAZOLE 40 MG TABLET PO SCH (05:11)
[2019-11-22] MEDS ORDERED: VANCOMYCIN 1,000 MG in SODIUM CHLORIDE 0.9% 250 ML IVPB SCH (06:00)
--- NOTE | 2019-11-22 06:06 | CONS ---
CONSULTATION DATE OF SERVICE: 11/21/2019 REASON FOR CONSULTATION: Pneumonia. HISTORY OF PRESENT ILLNESS: The patient is a 79-year-old male who was recently admitted to this facility and was treated for aspiration pneumonia. The patient's sputum sensitivity can be positive for MRSA and the patient received more than 2 weeks of IV antibiotic therapy. The patient has been sent back to the ER this morning apparently as the patient did have a new fever while at the group home and the patient complained of increased shortness of breath. The patient did have a cough with occasional sputum, but denies any hemoptysis. No chest pain. Denies any nausea, no vomiting. No abdominal pain or any diarrhea. On arrival to the ER, the patient did have a temperature of 99.4 to 99.7, satting around 95%. The patient did have a normal white count and no lymphopenia. LDH was normal. The CRP was elevated. Vancomycin trough was low. The patient has influenza and coronavirus PCR negative. The patient did have a chest x-ray improved radiation right lung. The patient did have a CT angiogram that was negative for PE; interstitial fibrosis with superimposed ground glass opacity and consolidation which is suspicious for COVID-19 per Radiology. The patient has been admitted to the floor, started on vancomycin. Infectious Disease was consulted for further recommendations regarding antibiotic therapy. REVIEW OF SYSTEMS: Positive points has been mentioned in HPI. Rest of the systems are negative: PAST MEDICAL HISTORY: Past medical history is significant for COPD, CVA, TIA, DVT, gastroesophageal reflux disease, pneumonia. PAST SURGICAL HISTORY: Appendectomy, back surgery, bowel resection, cholecystectomy. SOCIAL HISTORY: Remote history of smoking. No drinking or drug use. Currently a group home resident. FAMILY HISTORY: Mother history of diabetes mellitus. ALLERGIES: No known drug allergies. MEDICATIONS: Medications include the patient is currently on vancomycin, pharmacy to dose. She is on Tylenol, [place], DuoNeb, aspirin, Sinemet, Colace, Lovenox, iron sulfate, Theragran, Narcan, Protonix, Mysoline. PHYSICAL EXAMINATION: On examination, blood pressure is 106/62 with a pulse of 96, temperature 98. He is 92% on 2 L nasal cannula cannula. General description is an elderly male lying in bed in no distress. No tachypnea or accessory muscle of respiration use. HEENT: Examination shows slight pallor. No scleral icterus. Oral mucous membranes dry. No pharyngeal erythema or thrush. NECK: Trachea central. No thyromegaly. LUNGS: Unlabored breathing, decreased breath sounds at the bases. No wheeze. HEART: S1, S2. Regular rate and rhythm. ABDOMEN: Soft, no tenderness. No guarding or rigidity. EXTREMITIES: No edema of feet. SKIN EXAMINATION: No rash or mass palpable. NEUROLOGICAL: Patient is awake, alert, oriented x2. Mood and affect normal. LABS: Hemoglobin is 11.6, white count 10.4, BUN of 16, creatinine 0.49. LDH is 508. Influenza and coronavirus PCR is negative. DIAGNOSTIC IMPRESSION AND PLAN: Patient admitted to the hospital with fever in this patient who did have some shortness of breath, did have a cough with concern for possible aspiration pneumonitis. Other source could have been the PICC line infection that patient had for a couple of weeks now and was receiving vancomycin though trough has been on low side. clinic suspicion for a COVID-19 in this patient with no evidence of lymphopenia and LDH being normal. PLAN: 1. We will try to obtain sputum for Gram stain and culture. 2. We will follow the blood cultures already done. 3. Discontinue vancomycin. Will start the patient on Zosyn 3.375 grams q.8 hours. 4. We will follow on clinical condition and culture to further adjust medication if needed. Thank you for this consultation. Will follow this patient along with you. JESI / AYSHAN: [id number] /
[2019-11-22 07:11] LABS: Basophils % (A) 0 %; Eosinophils # (A) 0.1 k/uL (0-0.7); Eosinophils % (A) 1 %; HCT 33.8 % (39.0-53.0); HGB 10.2 gm/dL (13.0-17.5); Hypochromasia Moderate; Lymphocytes # (A) 1.3 k/uL (1.0-4.8); Lymphocytes % (A) 14 %; MCH 28.7 pg (25.0-35.0); MCHC 30.2 g/dL (31.0-37.0); MCV 95.2 fL (80.0-100.0); Mean Platelet Volume 7.8; Monocytes # (A) 0.4 k/uL (0-1.0); Monocytes % (A) 4 %; Neutrophils % (A) 79 %; Platelet Count 324 k/uL (150-450); RBC 3.55 m/uL (4.30-5.90); RDW 13.5 % (11.5-15.5); WBC 8.8 k/uL (3.8-10.6)
[2019-11-22 07:17] LABS: Potassium 4.1 mmol/L (3.5-5.1)
[2019-11-22 07:21] LABS: African American GFR (CKD) >90 (>60 ml/min/1.73 sqM); Anion Gap 5 mmol/L; Blood Urea Nitrogen 14 mg/dL (9-20); Calcium 8.1 mg/dL (8.4-10.2); Carbon Dioxide 26 mmol/L (22-30); Chloride 104 mmol/L (98-107); Glucose 103 mg/dL (74-99); LDH 349 U/L (313-618); Non-African American GFR(CKD) >90 (>60 ml/min/1.73 sqM); Sodium 135 mmol/L (137-145)
[2019-11-22 07:33] LABS: C Reactive Protein 221.1 mg/L (<10.0)
[2019-11-22] MEDS: DOCUSATE 100 MG CAP PO SCH ×2 (09:12→16:40)
[2019-11-22] MEDS: FERROUS SULFATE 325 MG TAB PO SCH ×2 (09:12→16:40)
[2019-11-22] MEDS: CARBIDOPA-LEVODOPA 10-100 MG 1 EACH TAB PO SCH ×2 (09:13→16:44)
[2019-11-22] MEDS: PIPERACILLIN-TAZOBACTAM 3.375 GM in SODIUM CHLORIDE 0.9% 100 ML IVPB SCH ×2 (09:13→16:40)
[2019-11-22] MEDS: ENOXAPARIN 30 MG/0.3 ML SYRINGE SQ SCH (09:13)
[2019-11-22] MEDS: PRIMIDONE 50 MG TAB PO SCH ×3 (09:13→16:40)
[2019-11-22 10:25] LABS: Ferritin 208.6 ng/mL (22.0-322.0)
[2019-11-22 12:27] LABS: Ferritin 254.3 ng/mL (22.0-322.0)
--- NOTE | 2019-11-22 13:12 | P.CNPUL ---
History of Present Illness Consult date: 11/22/19 Requesting physician: Florence Mackay Reason for consult: pulmonary fibrosis Chief complaint: Fever, history of MRSA pneumonia History of present illness: This is a 79-year-old male with a known history of Parkinson's disease, COPD, ESBL E. coli, previous CVA with subsequent weak swallow and abdominal swallow evaluation with multiple hospitalizations for pneumonia, most recent hospitalization October 23-2019. He was tested at that time for RSV and influenza A/B, all were negative. Sputum culture was positive for amanda and MRSA. He was discharged after that admission to [facility] for further rehabilitation with PICC line placed to administer 2 weeks of IV vancomycin, he was also discharged on 2 weeks of oral metronidazole. He was sent back from [facility] yesterday with complaints of just "not feeling well", he denies any pain, increased shortness of breath, increased coughing or sputum production, or any other significant complaints although the patient is a very poor historian. Temperature the emergency room was 99.4 orally, heart rate 117, blood pressure 125/68, pulse ox 95% on 2 L nasal cannula. White blood cell count 10.4, hemoglobin 11.6, d-dimer 2.3, lactic acid 2.0, BUN 16, creatinine 0.49, LDH 508, CRP 192, ferritin 209. Chest x-ray demonstrated volume loss in the right lung with improved aeration from previous study dated October 25, left lung remains clear. Chest CTA was negative for pulmonary emboli, however there was interstitial fibrosis with superimposed groundglass opacities and consolidation which was suspicious for Covid 19 infection. Coronavirus PCR was taken and was negative. EKG demonstrated sinus tach with heart rate 114 bpm. The patient was admitted for evaluation and treatment with consultation placed to infectious disease and pulmonology. 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, 2013 TIA, DVT in leg-pt cannot recall laterallity, rectal cancer with surgery/chemo and radiation, pneumonia with sepsis, aspiration pneumonia, elevated liver enzymes, past ETOH abuse-pt states he has not drank in years, partial gastrectomy d/t stomach ulcer, DDD, spinal stenosis, chronic back/cervical pain, parkinson's dx, UTI, iron anemia, History of Any Multi-Drug Resistant Organisms: ESBL, MRSA Date of last positivie culture/infection: 10/26/19, 12/25/18 ESBL MDRO Source:: SPUTUM Past Surgical History: Appendectomy, Back Surgery, Bowel Resection, Cholecystectomy, Joint Replacement, Orthopedic Surgery Additional Past Surgical History / Comment(s): bowel resection d/t cancer, partial gastrectomy d/t bleeding ulcer, colonoscopies, low back surgery, total L hip arthroplasty, R hip/pelvic fracture with surgery/hardware, R ankle fracture with surgery/hardware Past Anesthesia/Blood Transfusion Reactions: No Reported Reaction Additional Past Anesthesia/Blood Transfusion Reaction / Comment(s): Pt states he has received blood in past without reaction. Past Psychological History: No Psychological Hx Reported Additional Psychological History / Comment(s): Pt resides alone at [facility]. He has a daily "helper" thru the [facility]. That person will help him with whatever he needs. He gets MOW. He does not drive, uses the bus system. He has a walker and a wheelchair. Currently resides at [facility] for rehab as of 10/24/19 Smoking Status: Former smoker Past Alcohol Use History: None Reported Additional Past Alcohol Use History / Comment(s): Pt started smoking in 1959 and quit about 1995. He has hx of alcohol abuse but quit drinking years ago. Past Drug Use History: None Reported - Past Family History Father Family Medical History: Unable to Obtain Additional Family Medical History / Comment(s): heart problems Mother History Unknown: Yes Family Medical History: Diabetes Mellitus Additional Family Medical History / Comment(s): Pt states he cannot remember mother's medical hx. Medications and Allergies Home Medications Medication Instructions Recorded Confirmed Type Aspirin EC [Ecotrin Low Dose] 81 mg PO DAILY@1700 07/26/17 11/21/19 History Primidone [Mysoline] 100 mg PO TID@0800,1200,1700 07/26/17 11/21/19 History Carbidopa-Levodopa 10-100 mg 1 tab PO BID@0800,1700 09/17/17 11/21/19 History [Sinemet 10-100 mg] Multivitamins, Thera [Multivitamin 1 tab PO DAILY@1700 12/23/18 11/21/19 History (formulary)] Acetaminophen Tab [Tylenol] 650 mg PO Q4H PRN 10/24/19 11/21/19 History Bisacodyl [Dulcolax] 10 mg RECTAL DAILY PRN 10/24/19 11/21/19 History Docusate [Colace] 100 mg PO BID@0800,1700 10/24/19 11/21/19 History Ferrous Sulfate [Iron (65 MG 325 mg PO BID@0800,1700 10/24/19 11/21/19 History Elemental)] HYDROcodone/APAP 5-325MG [[place] 1 tab PO Q6H PRN 10/24/19 11/21/19 History 5-325] Lactose-Reduced Food [Ensure Plus] 1 can PO TID@0800,1200,1700 10/24/19 11/21/19 History Na Phos,M-B/Na Phos,Di-Ba [Fleet 133 ml RECTAL DAILY PRN 10/24/19 11/21/19 History Adult] 0.9 % Sodium Chloride [Sodium 10 ml IV TID@0600,1400,2200 11/21/19 11/21/19 History Chloride Flush] Heparin Sodium Lock Flush Solution 5 ml IV DAILY@21311/21/19 11/21/19 History 100unit/Ml Ipratropium-Albuterol Nebulize 3 ml INHALATION RT-Q6H PRN 11/21/19 11/21/19 History [Duoneb 0.5 mg-3 mg/3 ml Soln] Magnesium Hydroxide [Milk of 7,200 mg PO DAILY PRN 11/21/19 11/21/19 History Magnesia Concentrate] Pantoprazole Sodium [Protonix] 40 mg PO DAILY@0600 11/21/19 11/21/19 History Vancomycin 1,000 mg IVPB Q24HR 11/21/19 11/21/19 History guaiFENesin [Mucinex] 600 mg PO BID PRN 11/21/19 11/21/19 History guaiFENesin [Mucinex] 600 mg PO BID@0800,1700 11/21/19 11/21/19 History Allergies Allergy/AdvReac Type Severity Reaction Status Date / Time No Known Allergies Allergy Verified 11/21/19 11:05 Physical Exam Vitals: Vital Signs Temp Pulse Pulse Resp BP BP Pulse Ox 11/22/19 11:20 98.0 F 92 18 117/65 96 11/22/19 11:01 93 L 11/22/19 07:22 18 11/22/19 07:00 98.6 F 96 18 111/56 95 11/22/19 05:51 19 11/22/19 03:50 98.3 F 95 105/58 96 11/22/19 01:25 97 11/21/19 23:45 98.1 F 101 H 128/68 92 L 11/21/19 19:10 98.0 F 96 106/62 92 L 11/21/19 16:00 117 H 23 11/21/19 15:00 99.7 F H 117 H 23 117/66 94 L 11/21/19 14:41 98.9 F 110 H 19 126/64 97 11/21/19 14:40 98.9 F 110 H 19 126/64 97 11/21/19 13:30 107 H 19 129/60 100 11/21/19 13:20 110 H 17 129/60 100 11/21/19 13:10 108 H 17 129/60 100 11/21/19 13:00 113 H 24 123/61 100 11/21/19 12:50 123/61 11/21/19 12:41 112 H 16 123/61 97 11/21/19 12:40 112 H 16 123/61 97 Intake and Output 11/21/19 11/22/19 11/22/19 22:59 06:59 14:59 Intake Total 20 Balance 20 Intake: Oral 20 - Constitutional Appears comfortable General appearance: cooperative, no acute distress, thin - EENT Eyes: PERRLA, normal appearance ENT: hard of hearing - Neck Neck: normal ROM - Respiratory Lungs sounds diminished bilaterally. Respirations even, nonlabored. Currently on 2 L nasal cannula with oxygen saturation 96%. No chest wall deformities. No clubbing or cyanosis present. - Cardiovascular S1, S2 present. Regular rate and rhythm, sinus rhythm on telemetry, heart rate 84. Palpable peripheral pulses bilaterally. No edema present. No calf pain or tenderness noted. - Gastrointestinal Abdomen soft, nontender, nondistended. No organomegaly present. Active bowel sounds present 4 quadrants. - Integumentary Skin is warm and dry with evidence of good perfusion - Neurologic Neurologic: CNII-XII intact - Musculoskeletal Musculoskeletal: generalized weakness, strength equal bilaterally - Psychiatric Alert and oriented 2-3, calm, cooperative Results - Laboratory Findings CBC and BMP: 11/22/19 06:49 11/22/19 06:49 PT/INR, D-dimer PT 10.3 sec (9.0-12.0) 11/21/19 11:20 INR 1.0 (<1.2) 11/21/19 11:20 D-Dimer 2.30 mg/L FEU (<0.60) H 11/21/19 11:20 Abnormal lab findings: Abnormal Labs 11/21/19 11/21/19 11/21/19 11:20 11:20 12:01 RBC 3.88 L Hgb 11.6 L Hct 36.5 L MCHC Neutrophils # 8.7 H D-Dimer 2.30 H Sodium Carbon Dioxide 31 H Creatinine 0.49 L Glucose 123 H Calcium C-Reactive Protein 191.7 H Albumin 3.2 L 11/22/19 11/22/19 06:49 06:49 RBC 3.55 L Hgb 10.2 L Hct 33.8 L MCHC 30.2 L Neutrophils # D-Dimer Sodium 135 L Carbon Dioxide Creatinine 0.42 L Glucose 103 H Calcium 8.1 L C-Reactive Protein 221.1 H Albumin - Diagnostic Findings Chest x-ray: report reviewed, image reviewed CT scan - chest: report reviewed, image reviewed Assessment and Plan Assessment: Recent diagnosis MRSA pneumonia, was being treated at [facility] with IV vancomy xiomara, oral metronidazole, Covid negative Interstitial fibrosis on chest CTA Generalized weakness, debility COPD History of Parkinson's disease Previous CVA with subsequent weak swallow Protein calorie malnutrition Plan: The patient was seen and examined on the medical surgical unit with Dr. Herrera. Obtain sputum culture. Continue Zosyn per infectious disease. Wean O2 as tolerated. DuoNeb updrafts is needed. Increase activity as tolerated, PT/OT consulted. Home medications per primary care service. Patient appears stable from a pulmonology standpoint. We'll continue to monitor and make recommendations as patient progresses. I, the cosigning physician, performed a history & physical examination of the patient. Lungs sounds are diminished bilaterally. Maintaining good O2 saturations in the 90s on 2 L nasal cannula. I discussed the assessment and plan of care with my nurse practitioner, Priyanka Rod. I attest to the above note as dictated by her. Time with Patient: Greater than 30
[2019-11-22 15:46] VITALS: BMI 18.6
[2019-11-22] MEDS: ASPIRIN 81 MG PO SCH (16:40)
[2019-11-22] MEDS: MULTIVITAMINS, THERA 1 EACH TAB PO SCH (16:40)
--- NOTE | 2019-11-22 22:42 | PN ---
PROGRESS NOTE DATE OF SERVICE: 11/22/2019 REASON FOR FOLLOWUP: Pneumonia, possible aspiration. INTERVAL HISTORY: The patient is currently afebrile, has been breathing comfortably. The patient does have a cough and is bringing up some sputum. Did not get a cup for sputum collection. No chest pain, no abdominal pain or diarrhea. PHYSICAL EXAMINATION: Blood pressure 112/64 with a pulse of 93, temperature 99.4. He is 94% on 2 L nasal cannula. General description is an elderly male lying in bed in no distress. RESPIRATORY SYSTEM: Unlabored breathing with decreased breath sounds at the base. No wheeze. HEART: S1, S2. Regular rate and rhythm. ABDOMEN: Soft. No tenderness. LABS: Hemoglobin is 10, white count 8.8. BUN of 14, creatinine 0.42. DIAGNOSTIC IMPRESSION AND PLAN: Patient admitted to hospital with fever and pneumonia with concern for possible aspiration etiology. Patient's antibiotic has been switched to Zosyn; to continue. Will try to obtain a sputum sample to narrow down his antibiotics. Continue supportive care. MMODL / IJN: [id number] /
--- NOTE | 2019-11-22 23:45 | P.PN ---
Subjective Progress Note Date: 11/22/19 Principal diagnosis: Fever Mr. Cohen is a 79-year-old male with the past medical history of Parkinson's disease, COPD, history of ESBL E. coli, MRSA in the sputum sent in from [facility] as he was feeling weak and tired. Patient is currently in the rehab receiving IV antibiotics through the PICC line for his recent diagnosis of MRSA pneumonia. Patient is a poor historian, most of the history is obtained from the ER notes and previous hospital visits and nursing staff report. Per se patient denies having any shortness of breath or cough. He denies having any abdominal pain nausea vomiting or diarrhea. No headache or neck pain. He is clearly not sure about the reason for him being sent from the rehab. In the emergency room patient had a chest x-ray that was showing volume loss in the right lung and patient also had a CT angiogram of the chest that was showing interstitial fibrosis with superimposed groundglass opacities and consolidation which is suspicious for COVID 19 infection. On reviewing the vitals patient had a T-max of 99.4 and he was slightly tachycardic. He is saturating at 94% on 2 L of nasal cannula. Patient had labs in the ER showing d-dimer of 2.3 sodium 139, potassium 5, BUN 16, creatinine 0.49. CRP level is elevated at 191.7 he has tested negative for influenza A, B and coronavirus. So the patient has been admitted for further evaluation and treatment. On 11/22/19 - Patient complains of generalized weakness and fatigue. He states that his cough is more now and is productive in nature. Patient denies having any chest pain or palpitations. No abdominal pain nausea vomiting or diarrhea. No dysuria or hematuria. On reviewing the patient's vitals he has been saturating at 94% on 2 L of nasal cannula and afebrile for the past 24 hours. Labs from this morning no significant changes. Active Medications Acetaminophen (Tylenol Tab) 650 mg PO Q4H PRN PRN Reason: Pain Hydrocodone Bitart/Acetaminophen ([place] 5-325) 1 each PO Q6H PRN PRN Reason: Pain Albuterol/Ipratropium (Duoneb 0.5 Mg-3 Mg/3 Ml Soln) 3 ml INHALATION RT-Q6H PRN PRN Reason: Congestion Aspirin (Aspirin) 81 mg PO DAILY@1700 MARCOS Last Admin: 11/21/19 17:06 Dose: 81 mg Documented by: Carbidopa/Levodopa (Sinemet 10-100) 1 each PO BID@0800,1700 [facility] Last Admin: 11/22/19 09:13 Dose: 1 each Documented by: Docusate Sodium (Colace) 100 mg PO BID@0800,1700 [facility] Last Admin: 11/22/19 09:12 Dose: 100 mg Documented by: Enoxaparin Sodium (Lovenox) 30 mg SQ DAILY [facility] Last Admin: 11/22/19 09:13 Dose: 30 mg Documented by: Ferrous Sulfate (Feosol) 325 mg PO BID@0800,1700 [facility] Last Admin: 11/22/19 09:12 Dose: 325 mg Documented by: Piperacillin Sod/Tazobactam (Sod 3.375 gm/ Sodium Chloride) 100 mls @ 25 mls/hr IVPB Q8HR [facility] Last Admin: 11/22/19 09:13 Dose: 25 mls/hr Documented by: Multivitamins (Theragran) 1 each PO DAILY@1700 [facility] Last Admin: 11/21/19 17:06 Dose: 1 each Documented by: Naloxone HCl (Narcan) 0.2 mg IV Q2M PRN PRN Reason: Opioid Reversal Pantoprazole Sodium (Protonix) 40 mg PO DAILY@0600 [facility] Last Admin: 11/22/19 05:11 Dose: 40 mg Documented by: Primidone (Mysoline) 100 mg PO TID@0800,1200,1700 [facility] Last Admin: 11/22/19 09:13 Dose: 100 mg Documented by: Objective - Vital Signs Vital signs: Vital Signs Temp 98.0 F 11/22/19 11:20 Pulse 92 11/22/19 11:20 Resp 18 11/22/19 11:20 BP 117/65 11/22/19 11:20 Pulse Ox 96 11/22/19 11:20 Intake & Output 11/21/19 11/22/19 11/22/19 18:59 06:59 18:59 Intake Total 500 20 Balance 500 20 Weight 53.977 kg Intake: Amount of Fluid Infused ( 500 ml) Oral 20 - Exam PHYSICAL EXAM Constitutional: No acute distress, emaciated Eyes: Anicteric sclerae, moist conjunctiva, no lid-lag, PERRLA ENMT: Bilateral temporal wasting,Oropharynx clear, no erythema, exudates Lungs: Diminished in the bases, unlabored on 2 L via nasal cannula Cardiovascular: Tachycardic with regular rhythm Abdominal: Soft Nontender, nom distended, no guarding, no rebound or rigidity, Normoactive bowel sounds Extremities:No digital cyanosis No clubbing, Pedal pulses intact and symmetrical Radial pulses intact and symmetrical Neuro: No focal deficits appreciated - Labs CBC & Chem 7: 11/22/19 06:49 11/22/19 06:49 Labs: Abnormal Lab Results - Last 24 Hours (Table) 11/22/19 11/22/19 Range/Units 06:49 06:49 RBC 3.55 L (4.30-5.90) m/uL Hgb 10.2 L (13.0-17.5) gm/dL Hct 33.8 L (39.0-53.0) % MCHC 30.2 L (31.0-37.0) g/dL Sodium 135 L (137-145) mmol/L Creatinine 0.42 L (0.66-1.25) mg/dL Glucose 103 H (74-99) mg/dL Calcium 8.1 L (8.4-10.2) mg/dL C-Reactive Protein 221.1 H (<10.0) mg/L Assessment and Plan Assessment: ASSESSMENT MRSA pneumonia Generalized weakness COPD not in acute exacerbation Parkinson's disease Pulmonary fibrosis Sacral stage II decubitus ulcer Severe protein calorie malnutrition Elevated d-dimer PLAN: Patient recently had MRSA pneumonia and is being treated with IV antibiotics Zosyn. Awaiting suputum cultures. Patient had CT angiogram of the chest which was showing groundglass appearance, patient has tested negative for coronavirus. Patient has been restarted on his home medications. He has poor swallowing , PEG tube attempted by Dr. Carmona on 11/17/19 but could not be done due to altered anatomy. She suggested a possibility of G tube placement, to be followed up tomorrow on this.
[2019-11-23] MEDS: PIPERACILLIN-TAZOBACTAM 3.375 GM in SODIUM CHLORIDE 0.9% 100 ML IVPB SCH ×3 (01:52→15:59)
[2019-11-23] MEDS: PANTOPRAZOLE 40 MG TABLET PO SCH (05:48)
[2019-11-23] MEDS: IPRATROPIUM-ALBUTEROL 3 ML NEB INHALATION PRN (08:01)
[2019-11-23] MEDS: PRIMIDONE 50 MG TAB PO SCH ×3 (08:49→16:02)
[2019-11-23] MEDS: ENOXAPARIN 30 MG/0.3 ML SYRINGE SQ SCH (08:49)
[2019-11-23] MEDS: FERROUS SULFATE 325 MG TAB PO SCH ×2 (08:49→16:01)
[2019-11-23] MEDS: CARBIDOPA-LEVODOPA 10-100 MG 1 EACH TAB PO SCH ×2 (08:49→16:01)
[2019-11-23] MEDS: DOCUSATE 100 MG CAP PO SCH ×2 (08:49→16:01)
--- NOTE | 2019-11-23 11:41 | P.PN ---
Subjective Progress Note Date: 11/23/19 Principal diagnosis: Cough, congestion This is a 79-year-old male with a known history of Parkinson's disease, COPD, ESBL E. coli, previous CVA with subsequent weak swallow and abdominal swallow evaluation with multiple hospitalizations for pneumonia, most recent hospitalization October 23-2019. He was tested at that time for RSV and influenza A/B, all were negative. Sputum culture was positive for amanda and MRSA. He was discharged after that admission to [facility] for further rehabilitation with PICC line placed to administer 2 weeks of IV vancomycin, he was also discharged on 2 weeks of oral metronidazole. He was sent back from [facility] yesterday with complaints of just "not feeling well", he denies any pain, increased shortness of breath, increased coughing or sputum production, or any other significant complaints although the patient is a very poor historian. Temperature the emergency room was 99.4 orally, heart rate 117, blood pressure 125/68, pulse ox 95% on 2 L nasal cannula. White blood cell count 10.4, hemoglobin 11.6, d-dimer 2.3, lactic acid 2.0, BUN 16, creatinine 0.49, LDH 508, CRP 192, ferritin 209. Chest x-ray demonstrated volume loss in the right lung with improved aeration from previous study dated October 25, left lung remains clear. Chest CTA was negative for pulmonary emboli, however there was interstitial fibrosis with superimposed groundglass opacities and consolidation which was suspicious for Covid 19 infection. Coronavirus PCR was taken and was negative. EKG demonstrated sinus tach with heart rate 114 bpm. The patient was admitted for evaluation and treatment with consultation placed to infectious disease and pulmonology. On 11/23/2019 patient seen in follow-up on the general medical floor, he is looking little stronger, sitting up in the chair today, slightly less congested, but he is weak distal cough, lung sounds are still positive for diffuse rhonchi. Patient is not bringing up much sputum. He states his left chest hurts when he coughs. Not been able to produce a sputum sample for culture. One episode of low-grade fever today, at 99.9F at 7:00 this morning, he is currently at 5 L of oxygen with a pulse ox of 90%, he is on Zosyn for antibiotic coverage, including mycin has been discontinued, ID service is following and managing the antibiotics. Today's labs have been reviewed, showing white blood cell count of 8.8, hemoglobin of 10.2, platelet count of 324, sodium of 135, the rest of the electrolytes were within normal limits, BUN of 14 creatinine of 0.42. His pro calcitonin was negative 2. His coronavirus and influenza screen were negative. Objective - Vital Signs Vital signs: Vital Signs Temp 99.9 F H 11/23/19 07:15 Pulse 112 H 11/23/19 08:11 Resp 18 11/23/19 07:15 BP 119/68 11/23/19 07:15 Pulse Ox 90 L 11/23/19 07:15 Intake & Output 11/22/19 11/23/19 11/23/19 18:59 06:59 18:59 Intake Total 0 Balance 0 Weight 53.977 kg Intake: Oral 0 Other: # Voids 3 1 # Bowel Movements 1 - Exam GENERAL EXAM: Alert, very pleasant, extremely frail-looking 79-year-old white male, on 5 L of oxygen the pulse ox of 90% comfortable in no apparent distress. HEAD: Normocephalic/atraumatic. EYES: Normal reaction of pupils, equal size. Conjunctiva pink, sclera white. NOSE: Clear with pink turbinates. THROAT: No erythema or exudates. NECK: No masses, no JVD, no thyroid enlargement, no adenopathy. CHEST: No chest wall deformity. Symmetrical expansion. LUNGS: Equal air entry with diffuse rhonchi, patient has a weak cough CVS: Regular rate and rhythm, normal S1 and S2, no gallops, no murmurs, no rubs ABDOMEN: Soft, nontender. No hepatosplenomegaly, normal bowel sounds, no guarding or rigidity. EXTREMITIES: No clubbing, no edema, no cyanosis, 2+ pulses and upper and lower extremities. MUSCULOSKELETAL: Muscle strength and tone normal. SPINE: No scoliosis or deformity SKIN: No rashes CENTRAL NERVOUS SYSTEM: Alert and oriented -3. No focal deficits, tone is normal in all 4 extremities. PSYCHIATRIC: Alert and oriented -3. Appropriate affect. Intact judgment and insight. - Labs CBC & Chem 7: 11/22/19 06:49 11/22/19 06:49 Labs: Microbiology - Last 24 Hours (Table) 11/21/19 11:59 Blood Culture - Preliminary Blood No Growth after 24 hours Assessment and Plan Plan: Assessment: #1. Acute hypoxic respiratory failure related to possibility of aspiration pneumonia #2. Recent MRSA related pneumonia, treated at [facility] with IV vancomycin, oral metronidazole #3. Possibility of Covid 19 infection has been ruled out #4. Interstitial fibrosis on chest CT angiogram #5. Generalized weakness and debility #6. History of COPD #7. History of Parkinson's disease #8. Previous history of CVA with subsequent dysphagia #9. Protein calorie malnutrition Plan: Continue with antibiotics per ID service recommendation, maintain aspiration precautions, obtain swallow evaluation, patient's cough is very weak and possibility of aspiration pneumonia is likely. Vancomycin has been dis continued. Obtain sputum specimen. Follow-up chest x-ray in the morning. Overall prognosis is extremely guarded, in view of patient's comorbidities, overall functional status and recurrent pulmonary infections. I performed a history & physical examination of the patient and discussed their management with my nurse practitioner, Akaknsha Green. I reviewed the nurse practitioner's note and agree with the documented findings and plan of care. Lung sounds are positive for diffuse rhonchi. The findings and the impression was discussed with the patient. I attest to the documentation by the nurse practitioner. Time with Patient: Less than 30
--- NOTE | 2019-11-23 12:07 | P.PN ---
Progress Note - Text I was consulted secondary to patient having had a scheduled appointment as outpatient for possible feeding tube placement. Patient is not a candidate right now due to high risk and multiple medical comorbidities. Elective surgery is not being performed at this time secondary to COVID pandemic. Patient may follow up as outpatient when his overall medical condition improves. I would recommend nasoenteral feeding until patients condition improves if he does not pass swallow evals.
[2019-11-23] MEDS: MULTIVITAMINS, THERA 1 EACH TAB PO SCH (16:01)
[2019-11-23] MEDS: ASPIRIN 81 MG PO SCH (16:01)
--- NOTE | 2019-11-23 19:25 | P.PN ---
Subjective From records Mr. Cohen is a 79-year-old male with the past medical history of Parkinson's disease, COPD, history of ESBL E. coli, MRSA in the sputum sent in from [facility] as he was feeling weak and tired. Patient is currently in the rehab receiving IV antibiotics through the PICC line for his recent diagnosis of MRSA pneumonia. Patient is a poor historian, most of the history is obtained from the ER notes and previous hospital visits and nursing staff report. Per se patient denies having any shortness of breath or cough. He denies having any abdominal pain nausea vomiting or diarrhea. No headache or neck pain. He is clearly not sure about the reason for him being sent from the rehab. In the emergency room patient had a chest x-ray that was showing volume loss in the right lung and patient also had a CT angiogram of the chest that was showing interstitial fibrosis with superimposed groundglass opacities and consolidation which is suspicious for COVID 19 infection. On reviewing the vitals patient had a T-max of 99.4 and he was slightly tachycardic. He is saturating at 94% on 2 L of nasal cannula. Patient had labs in the ER showing d-dimer of 2.3 sodium 139, potassium 5, BUN 16, creatinine 0.49. CRP level is elevated at 191.7 he has tested negative for influenza A, B and coronavirus. So the patient has been admitted for further evaluation and treatment. On 11/22/19 - Patient complains of generalized weakness and fatigue. He states that his cough is more now and is productive in nature. Patient denies having any chest pain or palpitations. No abdominal pain nausea vomiting or diarrhea. No dysuria or hematuria. On reviewing the patient's vitals he has been saturating at 94% on 2 L of nasal cannula and afebrile for the past 24 hours. Labs from this morning no significant changes. Subjective 11/23/2019 Patient is poor historian, he does not seem in respiratory distress, he was admitted on 11/21/2023 possible aspiration pneumonia and pulmonary and infectious disease on the case, patient has been recently discharged from hospital for MRSA pneumonia and he was on IV vancomycin, however his vancomycin was stopped and he was started on Zosyn for possible aspiration pneumonia. Swallow evaluation was trying today and it failed. Dr. soto recommended to postpone the PEG tube placement as an outpatient because of Covid 19 pandemic and he recommended NG tube feeding patient has fever on admission at 99.7 which is low-grade, more fever since yesterday. WBC count is normal. He has an elevated C-reactive protein however he has negative LDH and 14 and negative for pro calcitonin, negative Covid and influenza. Discussed with staff and bedside nurse ROS: N/a Active Medications Generic Name Dose Route Start Last Admin Trade Name Freq PRN Reason Stop Dose Admin Acetaminophen 650 mg 11/21/19 15:49 11/22/19 15:52 Tylenol Tab PO 650 mg Q4H PRN Administration Pain Hydrocodone Bitart/Acetaminophen 1 each 11/21/19 15:49 [place] 5-325 PO Q6H PRN Pain Albuterol/Ipratropium 3 ml 11/21/19 15:49 11/23/19 08:01 Duoneb 0.5 Mg-3 Mg/3 Ml Soln INHALATION 3 ml RT-Q6H PRN Administration Congestion Aspirin 81 mg 11/21/19 17:00 11/23/19 16:01 Aspirin PO Not Given DAILY@1700 [facility] Carbidopa/Levodopa 1 each 11/21/19 17:00 11/23/19 16:01 Sinemet 10-100 PO Not Given BID@0800,1700 [facility] Docusate Sodium 100 mg 11/21/19 17:00 11/23/19 16:01 Colace PO Not Given BID@0800,1700 [facility] Enoxaparin Sodium 40 mg 11/24/19 09:00 Lovenox SQ DAILY [facility] Ferrous Sulfate 325 mg 11/21/19 17:00 11/23/19 16:01 Feosol PO Not Given BID@0800,1700 [facility] Piperacillin Sod/Tazobactam 100 mls @ 25 mls/hr 11/22/19 00:00 11/23/19 15:59 Sod 3.375 gm/ Sodium Chloride IVPB 25 mls/hr Q8HR [facility] Administration Multivitamins 1 each 11/21/19 17:00 11/23/19 16:01 Theragran PO Not Given DAILY@1700 [facility] Naloxone HCl 0.2 mg 11/21/19 13:32 Narcan IV Q2M PRN Opioid Reversal Pantoprazole Sodium 40 mg 11/22/19 06:00 11/23/19 05:48 Protonix PO Not Given DAILY@0600 [facility] Primidone 100 mg 11/21/19 17:00 11/23/19 16:02 Mysoline PO Not Given TID@0800,1200,1700 [facility] Objective - Vital Signs Vital signs: Vital Signs Temp 98.2 F 11/23/19 14:50 Pulse 114 H 11/23/19 14:50 Resp 18 11/23/19 14:50 BP 122/68 11/23/19 14:50 Pulse Ox 92 L 11/23/19 14:50 Intake & Output 11/23/19 11/23/19 11/24/19 06:59 18:59 06:59 Intake Total 0 100 Balance 0 100 Intake: Intake, IV Titration 100 Amount Piperacillin-Tazobactam 3 100 .375 gm In Sodium Chloride 0.9% 100 ml @ 25 mls/hr IVPB Q8HR [facility] Rx# :[id number] Oral 0 Other: # Voids 1 1 # Bowel Movements 2 - Exam -GENERAL: The patient is alert and confused HEENT: Pupils are round and equally reacting to light. EOMI. No scleral icterus. No conjunctival pallor. Normocephalic, atraumatic. No pharyngeal erythema. No t hyromegaly. CARDIOVASCULAR: S1 and S2 present. No murmurs, rubs, or gallops. -PULMONARY: Chest is clear to auscultation, no wheezing or crackles. Slightly tachypneic ABDOMEN: Soft, nontender, nondistended, normoactive bowel sounds. No palpable organomegaly. MUSCULOSKELETAL: No joint swelling or deformity. EXTREMITIES: No cyanosis, clubbing, or pedal edema. NEUROLOGICAL: Gross neurological examination did not reveal any focal deficits. SKIN: No rashes. no petechiae. - Labs CBC & Chem 7: 11/22/19 06:49 11/22/19 06:49 Labs: Microbiology - Last 24 Hours (Table) 11/21/19 11:59 Blood Culture - Preliminary Blood No Growth after 48 hours Assessment and Plan Assessment: Possible aspiration pneumonia Swallowing difficulty history of recurrent pulmonary infection with recent MRSA pneumonia Generalized weakness COPD not in acute exacerbation Parkinson's disease Pulmonary fibrosis Sacral stage II decubitus ulcer Severe protein calorie malnutrition Elevated d-dimer Plan: This is a pleasant 79 years old male who presents with possible aspiration pneumonia, PEG tube placement is deferred by surgical team for outpatient proced ure. The patient is currently maintained nothing by mouth and NG tube is recommended by surgery team. Patient to continue on the same antibiotics as per ID team recommendation. ID and pulmonary service R following the patient closely Labs and medication were reviewed.. Continue same treatment. Continue with symptomatic treatment. Resume home medication. Monitor lytes and vitals. DVT and GI prophylaxis. Further recommendations of the clinical course of the patient DVT prophylaxis: Subcutaneous Lovenox GI Prophylaxis: Ppi Prognosis is guarded
--- NOTE | 2019-11-23 21:43 | PN ---
PROGRESS NOTE DATE OF SERVICE: 11/23/2019 REASON FOR FOLLOWUP: Aspiration pneumonia. INTERVAL HISTORY: The patient is afebrile. He has been breathing slightly comfortably. The patient denies any chest pain. Did have a cough, not bringing up any sputum. No nausea, no vomiting. No abdominal pain or diarrhea. PHYSICAL EXAMINATION: Blood pressure 119/63, pulse of 106, temperature 98.2. He is 92% on 5 L nasal cannula. General description is an elderly male up in the bed in no distress. RESPIRATORY SYSTEM: Unlabored breathing. Some coarse breath sounds at the base. No wheeze. HEART: S1, S2. Regular rate and rhythm. ABDOMEN: Soft. No tenderness. LABS: Hemoglobin is 10.2, white count 8.8, creatinine 0.42. Blood cultures have been negative. Sputum requested but not collected. DIAGNOSTIC IMPRESSION AND PLAN: Patient presented to hospital with fever with concern for pneumonia, possible aspiration. The patient is currently covered with Zosyn; to continue. Will try to obtain a sputum sample to narrow down his antibiotics. Continue with supportive care. MMODL / IJN: [id number] /
[2019-11-24] MEDS: PIPERACILLIN-TAZOBACTAM 3.375 GM in SODIUM CHLORIDE 0.9% 100 ML IVPB SCH ×4 (00:49→23:38)
[2019-11-24] MEDS: PANTOPRAZOLE 40 MG TABLET PO SCH (07:09)
[2019-11-24] MEDS: CARBIDOPA-LEVODOPA 10-100 MG 1 EACH TAB PO SCH ×2 (07:10→17:41)
[2019-11-24] MEDS: FERROUS SULFATE 325 MG TAB PO SCH ×2 (07:10→17:41)
[2019-11-24] MEDS: DOCUSATE 100 MG CAP PO SCH ×2 (07:10→17:41)
[2019-11-24] MEDS: PRIMIDONE 50 MG TAB PO SCH ×3 (07:10→17:41)
--- NOTE | 2019-11-24 07:25 | XR ---
EXAMINATION TYPE: XR chest 1V portable DATE OF EXAM: 11/24/2019 COMPARISON: 11/21/2019 INDICATION: Aspiration pneumonia TECHNIQUE: Single frontal view of the chest is obtained. FINDINGS: The heart size is normal. The pulmonary vasculature is normal. There is increased opacification throughout the right lung. IMPRESSION: 1. Diffuse infiltrate throughout the right lung. Correlate for pneumonia. Findings are worsening from 11/21/2019.
[2019-11-24 08:02] LABS: HCT 32.4 % (39.0-53.0); HGB 9.9 gm/dL (13.0-17.5); Hypochromasia Slight; MCH 29.3 pg (25.0-35.0); MCHC 30.5 g/dL (31.0-37.0); MCV 95.9 fL (80.0-100.0); Mean Platelet Volume 7.7; Platelet Count 412 k/uL (150-450); RBC 3.38 m/uL (4.30-5.90); RDW 13.7 % (11.5-15.5); WBC 15.6 k/uL (3.8-10.6)
[2019-11-24 08:13] LABS: African American GFR (CKD) >90 (>60 ml/min/1.73 sqM); Anion Gap 11 mmol/L; Blood Urea Nitrogen 17 mg/dL (9-20); Calcium 8.4 mg/dL (8.4-10.2); Carbon Dioxide 21 mmol/L (22-30); Chloride 109 mmol/L (98-107); Glucose 121 mg/dL (74-99); Non-African American GFR(CKD) >90 (>60 ml/min/1.73 sqM); Potassium 3.7 mmol/L (3.5-5.1); Sodium 141 mmol/L (137-145)
[2019-11-24] MEDS ORDERED: ENOXAPARIN 40 MG/0.4 ML SYRINGE SQ SCH (09:00)
--- NOTE | 2019-11-24 12:41 | XR ---
EXAMINATION TYPE: XR abdomen 1V DATE OF EXAM: 11/24/2019 COMPARISON: NONE HISTORY: NG tube placement TECHNIQUE: Single supine KUB image of the abdomen is obtained FINDINGS: NG tube is seen coursing back into the cervical esophageal region. Repositioning recommended. Right l ower lobe infiltrate seen. Scattered constipation within the upper abdomen noted. IMPRESSION: 1. Reposition NG tube
--- NOTE | 2019-11-24 13:16 | P.PN ---
Subjective Progress Note Date: 11/24/19 Principal diagnosis: Cough, congestion This is a 79-year-old male with a known history of Parkinson's disease, COPD, ESBL E. coli, previous CVA with subsequent weak swallow and abdominal swallow evaluation with multiple hospitalizations for pneumonia, most recent hospitalization October 23-2019. He was tested at that time for RSV and influenza A/B, all were negative. Sputum culture was positive for amanda and MRSA. He was discharged after that admission to [facility] for further rehabilitation with PICC line placed to administer 2 weeks of IV vancomycin, he was also discharged on 2 weeks of oral metronidazole. He was sent back from [facility] yesterday with complaints of just "not feeling well", he denies any pain, increased shortness of breath, increased coughing or sputum production, or any other significant complaints although the patient is a very poor historian. Temperature the emergency room was 99.4 orally, heart rate 117, blood pressure 125/68, pulse ox 95% on 2 L nasal cannula. White blood cell count 10.4, hemoglobin 11.6, d-dimer 2.3, lactic acid 2.0, BUN 16, creatinine 0.49, LDH 508, CRP 192, ferritin 209. Chest x-ray demonstrated volume loss in the right lung with improved aeration from previous study dated October 25, left lung remains clear. Chest CTA was negative for pulmonary emboli, however there was interstitial fibrosis with superimposed groundglass opacities and consolidation which was suspicious for Covid 19 infection. Coronavirus PCR was taken and was negative. EKG demonstrated sinus tach with heart rate 114 bpm. The patient was admitted for evaluation and treatment with consultation placed to infectious disease and pulmonology. On 11/23/2019 patient seen in follow-up on the general medical floor, he is looking little stronger, sitting up in the chair today, slightly less congested, but he is weak distal cough, lung sounds are still positive for diffuse rhonchi. Patient is not bringing up much sputum. He states his left chest hurts when he coughs. Not been able to produce a sputum sample for culture. One episode of low-grade fever today, at 99.9F at 7:00 this morning, he is currently at 5 L of oxygen with a pulse ox of 90%, he is on Zosyn for antibiotic coverage, including mycin has been discontinued, ID service is following and managing the antibiotics. Today's labs have been reviewed, showing white blood cell count of 8.8, hemoglobin of 10.2, platelet count of 324, sodium of 135, the rest of the electrolytes were within normal limits, BUN of 14 creatinine of 0.42. His pro calcitonin was negative 2. His coronavirus and influenza screen were negative. The patient was seen today 11/24/2019 for follow-up in the general medical floor. He is sitting up in bed and overall does not appear to be doing very well. He is very loose congestion which can be heard audibly without a stethoscope, he has a week cough and unable to clear his secretions. He is currently on 5 L nasal cannula with oxygen saturation 95%. Remains afebrile. Tachycardic with rate in the low 100s, sinus tach on telemetry. Blood cell count 15.6, hemoglobin 9.9, BUN 17, creatinine 0.59. Chest x-ray demonstrates increased opacification in the right lung, which is worse than previous x-ray from November 20. Remains on IV Zosyn. Patient has remained NPO secondary to chronic aspiration. Objective - Vital Signs Vital signs: Vital Signs Temp 98.8 F 11/24/19 07:00 Pulse 104 H 11/24/19 07:00 Resp 15 11/24/19 07:00 BP 120/73 11/24/19 07:00 Pulse Ox 95 11/24/19 07:00 Intake & Output 11/23/19 11/24/19 11/24/19 18:59 06:59 18:59 Intake Total 100 Output Total 500 Balance 100 -500 Intake: Intake, IV Titration 100 Amount Piperacillin-Tazobactam 3 100 .375 gm In Sodium Chloride 0.9% 100 ml @ 25 mls/hr IVPB Q8HR [facility] Rx# :[id number] Output: Urine 500 Other: # Voids 1 # Bowel Movements 2 - Constitutional Constitutional Comment(s): Sitting up in bed, appears chronically ill, emaciated General appearance: Present: cooperative, mild distress - Respiratory Details: Lungs sounds coarse bilaterally. Respirations even but slightly labored. Currently on 5 L nasal cannula with oxygen saturation 95%. Weak cough. - Cardiovascular Details: S1, S2 present. Tachycardic but regular rate and rhythm, sinus tach on telemetry. Palpable peripheral pulses bilaterally. No edema present. No calf pain or tenderness noted. - Gastrointestinal Gastrointestinal Comment(s): Abdomen soft, nontender, nondistended. No organomegaly present. Active bowel sounds present 4 quadrants. Currently NPO - Integumentary Integumentary Comment(s): Skin is warm and dry - Neurologic Neurologic: Present: CNII-XII intact - Musculoskeletal Musculoskeletal: Present: generalized weakness, strength equal bilaterally - Psychiatric Psychiatric: Present: A&O x's 3, appropriate affect - Allied health notes Allied health notes reviewed: nursing - Labs CBC & Chem 7: 11/24/19 07:16 11/24/19 07:16 Labs: Abnormal Lab Results - Last 24 Hours (Table) 11/24/19 11/24/19 Range/Units 07:16 07:16 WBC 15.6 H (3.8-10.6) k/uL RBC 3.38 L (4.30-5.90) m/uL Hgb 9.9 L (13.0-17.5) gm/dL Hct 32.4 L (39.0-53.0) % MCHC 30.5 L (31.0-37.0) g/dL Chloride 109 H (98-107) mmol/L Carbon Dioxide 21 L (22-30) mmol/L Creatinine 0.59 L (0.66-1.25) mg/dL Glucose 121 H (74-99) mg/dL Microbiology - Last 24 Hours (Table) 11/21/19 11:59 Blood Culture - Preliminary Blood No Growth after 48 hours - Imaging and Cardiology Chest x-ray: report reviewed, image reviewed Assessment and Plan Assessment: Acute hypoxic respiratory failure related to aspiration pneumonia Recent diagnosis MRSA pneumonia, was being treated at [facility] with IV vanco mycin, oral metronidazole, Covid negative Interstitial fibrosis on chest CTA Generalized weakness, debility COPD History of Parkinson's disease Previous CVA with subsequent dysphagia Protein calorie malnutrition Plan: The patient was seen and examined on the medical surgical unit with Dr. Herrera. CODE STATUS adjust with patient and his sister. Patient changed to no CODE STATUS Continue Zosyn per infectious disease Wean O2 as tolerated DuoNeb updrafts as needed Increase activity as tolerated No PEG tube placement per general surgery. Place an NG tube and start tube feeding per RT recommendations. Discussed with RN Overall prognosis is extremely guarded, declining We'll continue to follow June, the cosigning physician, performed a history & physical examination of the patient. Lungs sounds are coarse bilaterally. Maintaining good O2 saturations in the 90s on 5 L nasal cannula. I discussed the assessment and plan of care with my nurse practitioner, Priyanka Rod. I attest to the above note as dictated by her. Time with Patient: Greater than 30
--- NOTE | 2019-11-24 14:26 | P.PN ---
Subjective From records Mr. Cohen is a 79-year-old male with the past medical history of Parkinson's disease, COPD, history of ESBL E. coli, MRSA in the sputum sent in from [facility] as he was feeling weak and tired. Patient is currently in the rehab receiving IV antibiotics through the PICC line for his recent diagnosis of MRSA pneumonia. Patient is a poor historian, most of the history is obtained from the ER notes and previous hospital visits and nursing staff report. Per se patient denies having any shortness of breath or cough. He denies having any abdominal pain nausea vomiting or diarrhea. No headache or neck pain. He is clearly not sure about the reason for him being sent from the rehab. In the emergency room patient had a chest x-ray that was showing volume loss in the right lung and patient also had a CT angiogram of the chest that was showing interstitial fibrosis with superimposed groundglass opacities and consolidation which is suspicious for COVID 19 infection. On reviewing the vitals patient had a T-max of 99.4 and he was slightly tachycardic. He is saturating at 94% on 2 L of nasal cannula. Patient had labs in the ER showing d-dimer of 2.3 sodium 139, potassium 5, BUN 16, creatinine 0.49. CRP level is elevated at 191.7 he has tested negative for influenza A, B and coronavirus. So the patient has been admitted for further evaluation and treatment. On 11/22/19 - Patient complains of generalized weakness and fatigue. He states that his cough is more now and is productive in nature. Patient denies having any chest pain or palpitations. No abdominal pain nausea vomiting or diarrhea. No dysuria or hematuria. On reviewing the patient's vitals he has been saturating at 94% on 2 L of nasal cannula and afebrile for the past 24 hours. Labs from this morning no significant changes. Subjective 11/23/2019 Patient is poor historian, he does not seem in respiratory distress, he was admitted on 11/21/2023 possible aspiration pneumonia and pulmonary and infectious disease on the case, patient has been recently discharged from hospital for MRSA pneumonia and he was on IV vancomycin, however his vancomycin was stopped and he was started on Zosyn for possible aspiration pneumonia. Swallow evaluation was trying today and it failed. Dr. soto recommended to postpone the PEG tube placement as an outpatient because of Covid 19 pandemic and he recommended NG tube feeding patient has fever on admission at 99.7 which is low-grade, more fever since yesterday. WBC count is normal. He has an elevated C-reactive protein however he has negative LDH and 14 and negative for pro calcitonin, negative Covid and influenza. Discussed with staff and bedside nurse 11/24/2019 Patient lying in bed not in distress however these generally weak with low tone of voice. He has weak cough. Slightly tachypneic. He had low-grade temperature 99.9 yesterday, heart rate 104, breathing at 15-20, he is saturating 95% on 5 L of oxygen via nasal cannula. Leukocytosis went up to date to 15.6 K, rest of CBC and BMP looks stable. Coronavirus and influenza virus are negative. Chest x-ray showing diffuse infiltrates throughout the right lung with worsening pneumonia. Pulmonary team on the case. Patient remains on Zosyn I discussed the case with the surgical team and Dr. soto, due to his complex medical completion and ongoing infection and be the fact the patient will need major surgery for placement of the tube feeding it was felt by the surgeon is not a candidate for placing the tube no and he suggested dobhoff tube feeding for now, I discussed with the patient and he agrees. ROS: Review of systems -CONSTITUTIONAL: No fever, he feels generally weak HEENT: No recent visual problems or hearing problems. Denied any sore throat. NEUROLOGICAL: No headaches, no weakness, no numbness. HEMATOLOGICAL: Denies any bleeding or petechiae. GENITOURINARY: Denies any burning micturition, frequency, or urgency. MUSCULOSKELETAL/RHEUMATOLOGICAL: Denies any joint pain, swelling, or any muscle pain. ENDOCRINE: Denies any polyuria or polydipsia. Active Medications Generic Name Dose Route Start Last Admin Trade Name Freq PRN Reason Stop Dose Admin Acetaminophen 650 mg 11/21/19 15:49 11/22/19 15:52 Tylenol Tab PO 650 mg Q4H PRN Administration Pain Hydrocodone Bitart/Acetaminophen 1 each 11/21/19 15:49 [place] 5-325 PO Q6H PRN Pain Albuterol/Ipratropium 3 ml 11/21/19 15:49 11/23/19 08:01 Duoneb 0.5 Mg-3 Mg/3 Ml Soln INHALATION 3 ml RT-Q6H PRN Administration Congestion Aspirin 81 mg 11/21/19 17:00 11/23/19 16:01 Aspirin PO Not Given DAILY@1700 [facility] Carbidopa/Levodopa 1 each 11/21/19 17:00 11/24/19 07:10 Sinemet 10-100 PO Not Given BID@0800,1700 [facility] Docusate Sodium 100 mg 11/21/19 17:00 11/24/19 07:10 Colace PO Not Given BID@0800,1700 [facility] Enoxaparin Sodium 40 mg 11/24/19 09:00 11/24/19 08:27 Lovenox SQ 40 mg DAILY [facility] Administration Ferrous Sulfate 325 mg 11/21/19 17:00 11/24/19 07:10 Feosol PO Not Given BID@0800,1700 [facility] Piperacillin Sod/Tazobactam 100 mls @ 25 mls/hr 11/22/19 00:00 11/24/19 08:28 Sod 3.375 gm/ Sodium Chloride IVPB 25 mls/hr Q8HR [facility] Administration Multivitamins 1 each 11/21/19 17:00 11/23/19 16:01 Theragran PO Not Given DAILY@1700 [facility] Naloxone HCl 0.2 mg 11/21/19 13:32 Narcan IV Q2M PRN Opioid Reversal Pantoprazole Sodium 40 mg 11/22/19 06:00 11/24/19 07:09 Protonix PO Not Given DAILY@0600 [facility] Primidone 100 mg 11/21/19 17:00 11/24/19 13:15 Mysoline PO Not Given TID@0800,1200,1700 [facility] Objective - Vital Signs Vital signs: Vital Signs Temp 98.8 F 11/24/19 07:00 Pulse 104 H 11/24/19 07:00 Resp 15 11/24/19 07:00 BP 120/73 11/24/19 07:00 Pulse Ox 95 11/24/19 07:00 Intake & Output 11/23/19 11/24/19 11/24/19 18:59 06:59 18:59 Intake Total 100 Output Total 500 Balance 100 -500 Weight 53.977 kg Intake: Intake, IV Titration 100 Amount Piperacillin-Tazobactam 3 100 .375 gm In Sodium Chloride 0.9% 100 ml @ 25 mls/hr IVPB Q8HR [facility] Rx# :[id number] Output: Urine 500 Other: # Voids 1 # Bowel Movements 2 - Exam -GENERAL: The patient is alert and confused HEENT: Pupils are round and equally reacting to light. EOMI. No scleral icterus. No conjunctival pallor. Normocephalic, atraumatic. No pharyngeal erythema. No thyromegaly. CARDIOVASCULAR: S1 and S2 present. No murmurs, rubs, or gallops. -PULMONARY: Chest is clear to auscultation, no wheezing or crackles. Slightly tachypneic ABDOMEN: Soft, nontender, nondistended, normoactive bowel sounds. No palpable organomegaly. MUSCULOSKELETAL: No joint swelling or deformity. EXTREMITIES: No cyanosis, clubbing, or pedal edema. NEUROLOGICAL: Gross neurological examination did not reveal any focal deficits. SKIN: No rashes. no petechiae. - Labs CBC & Chem 7: 11/24/19 07:16 11/24/19 07:16 Labs: Abnormal Lab Results - Last 24 Hours (Table) 11/24/19 11/24/19 Range/Units 07:16 07:16 WBC 15.6 H (3.8-10.6) k/uL RBC 3.38 L (4.30-5.90) m/uL Hgb 9.9 L (13.0-17.5) gm/dL Hct 32.4 L (39.0-53.0) % MCHC 30.5 L (31.0-37.0) g/dL Chloride 109 H (98-107) mmol/L Carbon Dioxide 21 L (22-30) mmol/L Creatinine 0.59 L (0.66-1.25) mg/dL Glucose 121 H (74-99) mg/dL Microbiology - Last 24 Hours (Table) 11/21/19 11:59 Blood Culture - Preliminary Blood No Growth after 48 hours Assessment and Plan Assessment: Possible aspiration pneumonia Swallowing difficulty history of recurrent pulmonary infection with recent MRSA pneumonia Generalized weakness COPD not in acute exacerbation Parkinson's disease Pulmonary fibrosis Sacral stage II decubitus ulcer Severe protein calorie malnutrition Elevated d-dimer Plan: This is a pleasant 79 years old male who presents with possible aspiration pneumonia, PEG tube placement is deferred by surgical team for outpatient procedure. Instead recommended to have Dobbhoff tube and patient agrees. The patient is currently maintained nothing by mouth and NG tube is recommended by surgery team. Patient to continue on the same antibiotics as per ID team recommendation. ID and pulmonary service R following the patient closely Labs and medication were reviewed.. Continue same treatment. Continue with symptomatic treatment. Resume home medication. Monitor lytes and vitals. DVT and GI prophylaxis. Further recommendations of the clinical course of the patient DVT prophylaxis: Subcutaneous Lovenox GI Prophylaxis: Ppi Prognosis is guarded
[2019-11-24] MEDS: MULTIVITAMINS, THERA 1 EACH TAB PO SCH (17:41)
[2019-11-24] MEDS: ASPIRIN 81 MG PO SCH (17:41)
[2019-11-24] MEDS: INSULIN ASPART (NovoLOG) 100 UNIT/ML VIAL SQ SCH (17:43)
--- NOTE | 2019-11-24 17:45 | PN ---
PROGRESS NOTE DATE OF SERVICE: 11/24/2019 REASON FOR FOLLOWUP: Aspiration pneumonia. INTERVAL HISTORY: The patient is currently afebrile. The patient is breathing comfortably. Still requiring high-flow oxygen. Denies having any chest pain. He did have a cough; did not give up any sputum. No chest pain. No abdominal pain or diarrhea. PHYSICAL EXAMINATION: Blood pressure 122/68 with a pulse of 118, temperature 99. He is 93% on 5 L nasal cannula. General description is an elderly male lying in bed in no distress. RESPIRATORY SYSTEM: Unlabored breathing with decreased breath sounds at the base. No wheeze. HEART: S1, S2. Regular rate and rhythm. ABDOMEN: Soft. No tenderness. LABS: Hemoglobin 9.9, white count 15.6, BUN of 17, creatinine 0.59. DIAGNOSTIC IMPRESSION AND PLAN: Patient admitted to hospital with shortness of breath and a fever with concern for likely recurrent aspiration pneumonia. Patient is currently on Zosyn. White count is slightly worse and also has slight worsening of the x-ray finding. Will try to obtain a sputum sample so we can narrow down his antibiotics. The patient should be made n.p.o. to prevent any further aspiration or worsening of his clinical condition. MMODL / IJN: [id number] /
[2019-11-24] MEDS ORDERED: DEXTROSE 5%-0.45% NACL 1,000 ML IV SCH (18:00)
[2019-11-24 20:12] VITALS: BP 110/56; TEMP 98.1
[2019-11-25 01:12] LABS: Glucose,Whole Blood 195 mg/dL (75-99)
[2019-11-25] MEDS: INSULIN ASPART (NovoLOG) 100 UNIT/ML VIAL SQ SCH ×2 (01:19→01:24)
[2019-11-25] MEDS ORDERED: MORPHINE SULFATE 4 MG/ML SYRINGE IVP PRN (03:33)
[2019-11-25] MEDS: IPRATROPIUM-ALBUTEROL 3 ML NEB INHALATION PRN (05:15)
[2019-11-25 05:17] VITALS: RESP 12
[2019-11-25 05:25] VITALS: PULSE 107
[2019-11-25 05:29] LABS: Glucose,Whole Blood 222 mg/dL (75-99)
--- NOTE | 2019-11-26 12:04 | CDI ---
Documentation Clarification Form Date: 11/26/2019 11:50:14 AM From: Capri Swo Admit Date: 11/21/2019 01:45:00 PM Patient Name: Joel Cohen Visit Number: [id number] Discharge Date: 11/25/2019 07:30:00 AM ATTENTION: The Clinical Documentation Specialists (CDI) and [facility] Coding Staff appreciate your assistance in clarifying documentation. Please respond to the clarification below the line at the bottom and electronically sign. The CDI & [facility] Coding staff will review the response and follow-up if needed. Please note: Queries are made part of the Legal Health Record. If you have any questions, please contact the author of this message via ITS. Dr. Suero E Sheet The patient presented from [facility] with increasing SOB being treated for MRSA Pneumonia with IV vancomycin as outpatient with aspiration pneumonia this admission. History/Risk Factors: CVA with Dysphagia with Parkinsons disease failed peg tube placement on 11/17/2019 d/t anatomy, ESBL E.coli hx, MRSA Pneumonia, Picc line, COPD, previous sepsis with aspiration pneumonia. Stage 2 decubitus ulcer to coccyx, severe protein calorie malnutrition Clinical Indicators: 11/20 Covid 19 and Influenza Negative 11/20-11/23 WBC: 10.4/8.8/15.6 11/20 Lactic acid: 2.0 not rechecked 11/20 Blood cultures: negative x 1 11/20 1053 Vitals signs on admission: Temp 99.4, HR 112, RR 22, B/P 125/68, Spo2 95% 2l NC 11/22 0715 V/S: Temp 99.9, HR 120, RR 18, B/P 119/68, Spo2 90% on 5L NC 11/23 Attending Progress note: Patient lying in bed not in distress however these generally weak with low tone of voice. He has weak cough. Slightly tachypneic. He had low-grade temperature 99.9 yesterday, heart rate 104, breathing at 15-20, he is saturating 95% on 5 L of oxygen via nasal cannula. Leukocytosis went up to date to 15.6 K, rest of CBC and BMP looks stable. Coronavirus and influenza virus are negative.Chest x-ray showing diffuse infiltrates throughout the right lung with worsening pneumonia. Pulmonary team on the case. Patient remains on Zosyn I discussed the case with the surgical team and Dr. soto, due to his complex medical completion and ongoing infection and be the fact the patient will need major surgery for placement of the tube feeding it was felt by the surgeon is not a candidate for placing the tube." 11/23 Pulmonary: "sitting up in bed and overall does not appear to be doing very well. He is very loose congestion which can be heard audibly without a stethoscope, he has a week cough and unable to clear his secretions. He is currently on 5 L nasal cannula with oxygen saturation 95%.Remains afebrile.Tachycardic with rate in the low 100s, sinus tach on telemetry. Blood cell count 15.6, hemoglobin 9.9, BUN 17, Creatinine 0.59.Chest x-ray demonstrates increased opacification in the right lung, which is worse than previous x-ray from November 20. Remains on IV Zosyn. Patient has remained NPO secondary to chronic aspiration. Acute hypoxic respiratory failure related to aspiration pneumonia Recent diagnosis MRSA pneumonia, was being treated at [facility] with IV vancomycin, oral metronidazole, Covid negative. Treatment: 11/23 ID Consult:"Patient admitted to hospital with shortness of breath and a fever with concern for likely recurrent aspiration pneumonia. Patient is currently on Zosyn. White count is slightly worse and also has slight worsening of the x-ray finding. Will try to obtain a sputum sample so we can narrow down his antibiotics. The patient should be made n.p.o. to prevent any further aspiration or worsening of his clinical condition. Antibiotics: 11/20 Ceftriaxone 1gm IVPB x 1 dose 11/20 Vanco 1 gm IVPB x 1 dose Zosyn 3.375 gm IVPB q 8 hrs 11/20 IV Bolus: 1l 0.9%NS In your professional opinion, please clarify if these findings signify one of the following conditions, whether the condition is POA, and cause, if known: Condition Sepsis Severe Sepsis Septic Shock Other, please specify Unable to determine Present on Admission Yes No Identify the (suspected) organism Link or clarify if there is associated (due to/with): Organ failure Shock SIRS Criteria (2 or more of the following may indicate SIRS): -Temperature < 96.8F (36C) or > 101.0F (38.3C) -Heart Rate > 90 bpm -Respiratory Rate > 20 breaths/min or PaCO2 < 32 mmHg -White Blood Cell Count > 12,000 or < 4,000 cells/mm3 or > 10% bands -Lactate >2.0 mmol/L (>4.0 is equivalent to septic shock) (Last Revision: November 2017) Patient possibly has sepsis on admission as he is been treated for MRSA pneumonitis at [facility] and has been on IV antibiotic, patient is partially treated. so it is hard to depend on criteria alone MTDD
--- NOTE | 2019-11-29 21:17 | P.DS ---
Providers Date of admission: 11/21/19 13:45 Attending physician: Segun Patrick Consults: 11/21/19 13:49 Consult Physician Routine Consulting Provider: Robles Calderón Consult Reason/Comments: Suspected covid, pulmonary fibrosis Do you want consulting provider notified?: Yes, Notify in am 11/21/19 13:50 Consult Physician Routine Consulting Provider: Maday Casanova Consult Reason/Comments: suspected covid Do you want consulting provider notified?: Yes, Notify in am 11/22/19 15:43 Consult Physician Routine Consulting Provider: Tyrel Mari Consult Reason/Comments: feeding tube placement Do you want consulting provider notified?: Yes Primary care physician: Stated None Hospital Course: Diagnoses: Sepsis secondary to aspiration pneumonia Swallowing difficulty history of recurrent pulmonary infection with recent MRSA pneumonia Generalized weakness History of stroke COPD not in acute exacerbation Parkinson's disease Pulmonary fibrosis Sacral stage II decubitus ulcer Severe protein calorie malnutrition Elevated d-dimer Hospital course: Mr. Cohen is a 79-year-old male with the past medical history of Parkinson's disease, COPD, CVA/TIA with left-sided weakness, history of ESBL E. coli, MRSA in the sputum sent in from [facility] as he was feeling weak and tired. Patient was in rehab receiving IV antibiotics through the PICC line for his recent diagnosis of MRSA pneumonia. Patient is a poor historian, patient was admitted with aspiration pneumonia, patient has been followed closely by pulmonary and infectious disease service. Patient has been on IV antibiotic for example he was on Zosyn, surgical team were consulted for possible tube feeding placement, however because of Covid pandemic and patient condition it was deferred as an outpatient by the surgical team and Dr. mari. so NG tube and hobhoff tubes were tried to be placed several times with no success, so patient was started on gentle hydration with D5 half-normal saline with plan to place TPN for next the. and overnight he was complaining from pain in the right hip area with morphine is provided at that time his blood pressure was stable and he has mild tachycardia with heart rate about 120, however overnight about 2 hours later patient got worse with a drop in blood pressure, A team has been called, however patient was made DO NOT RESUSCITATE by pulmonary service and Dr. Herrera the day before as his condition was going downhill, so the patient was resuscitated with fluid however he . Family informed by staff as per bedside Please refer to previous notes for more details and the consultants notes from surgery, ID and pulmonary services Patient Condition at Discharge: Stable Plan - Discharge Summary Discharge Rx Participant: Yes New Discharge Prescriptions: No Action Primidone [Mysoline] 100 mg PO TID@0800,1200,1700 Aspirin EC [Ecotrin Low Dose] 81 mg PO DAILY@1700 Carbidopa-Levodopa 10-100 mg [Sinemet 10-100 mg] 1 tab PO BID@0800,1700 Multivitamins, Thera [Multivitamin (formulary)] 1 tab PO DAILY@1700 HYDROcodone/APAP 5-325MG [Lockhart 5-325] 1 tab PO Q6H PRN PRN Reason: Pain Na Phos,M-B/Na Phos,Di-Ba [Fleet Adult] 133 ml RECTAL DAILY PRN PRN Reason: Constipation Bisacodyl [Dulcolax] 10 mg RECTAL DAILY PRN PRN Reason: Constipation Lactose-Reduced Food [Ensure Plus] 1 can PO TID@0800,1200,1700 Acetaminophen Tab [Tylenol] 650 mg PO Q4H PRN PRN Reason: Pain Ferrous Sulfate [Iron (65 MG Elemental)] 325 mg PO BID@0800,1700 Docusate [Colace] 100 mg PO BID@0800,1700 Heparin Sodium Lock Flush Solution 100unit/Ml 5 ml IV DAILY@2130 Vancomycin 1,000 mg IVPB Q24HR guaiFENesin [Mucinex] 600 mg PO BID PRN PRN Reason: Cough Magnesium Hydroxide [Milk of Magnesia Concentrate] 7,200 mg PO DAILY PRN PRN Reason: Constipation Ipratropium-Albuterol Nebulize [Duoneb 0.5 mg-3 mg/3 ml Soln] 3 ml INHALATION RT-Q6H PRN PRN Reason: Congestion 0.9 % Sodium Chloride [Sodium Chloride Flush] 10 ml IV TID@0600,1400,2200 guaiFENesin [Mucinex] 600 mg PO BID@0800,1700 Pantoprazole Sodium [Protonix] 40 mg PO DAILY@0600 Discharge Medication List Aspirin EC [Ecotrin Low Dose] 81 mg PO DAILY@1700 07/26/17 [History] Primidone [Mysoline] 100 mg PO TID@0800,1200,1700 07/26/17 [History] Carbidopa-Levodopa 10-100 mg [Sinemet 10-100 mg] 1 tab PO BID@0800,1700 09/17/17 [History] Multivitamins, Thera [Multivitamin (formulary)] 1 tab PO DAILY@1700 12/23/18 [History] Acetaminophen Tab [Tylenol] 650 mg PO Q4H PRN 10/24/19 [History] Bisacodyl [Dulcolax] 10 mg RECTAL DAILY PRN 10/24/19 [History] Docusate [Colace] 100 mg PO BID@0800,1700 10/24/19 [History] Ferrous Sulfate [Iron (65 MG Elemental)] 325 mg PO BID@0800,1700 10/24/19 [History] HYDROcodone/APAP 5-325MG [Lockhart 5-325] 1 tab PO Q6H PRN 10/24/19 [History] Lactose-Reduced Food [Ensure Plus] 1 can PO TID@0800,1200,1700 10/24/19 [History] Na Phos,M-B/Na Phos,Di-Ba [Fleet Adult] 133 ml RECTAL DAILY PRN 10/24/19 [History] 0.9 % Sodium Chloride [Sodium Chloride Flush] 10 ml IV TID@0600,1400,2200 11/21/19 [History] Heparin Sodium Lock Flush Solution 100unit/Ml 5 ml IV DAILY@212911/21/19 [History] Ipratropium-Albuterol Nebulize [Duoneb 0.5 mg-3 mg/3 ml Soln] 3 ml INHALATION RT-Q6H PRN 11/21/19 [History] Magnesium Hydroxide [Milk of Magnesia Concentrate] 7,200 mg PO DAILY PRN 11/21/19 [History] Pantoprazole Sodium [Protonix] 40 mg PO DAILY@0600 11/21/19 [History] Vancomycin 1,000 mg IVPB Q24HR 11/21/19 [History] guaiFENesin [Mucinex] 600 mg PO BID PRN 11/21/19 [History] guaiFENesin [Mucinex] 600 mg PO BID@0800,1700 11/21/19 [History] Follow up Appointment(s)/Referral(s): None,Stated [Primary Care Provider] - 1-2 days Discharge Disposition: - Preliminary Cause of Preliminary Cause of : severe sepsis and aspiration pneumonia
== END 2019-11-25 07:30 | disposition expired | DRG 871 ==
LOC: EC 10:48 → 4SSUR 13:45
PROVIDERS: ADMIT Hospitalist; ATTEND Hospitalist
PROC: 0DH67UZ Insertion of Feeding Device into Stomach, Via Natural or Artificial Opening (ICD-10-PCS; principal; 2019-11-24)
DX: A41.9 Sepsis, unspecified organism (principal); J69.0 Pneumonitis due to inhalation of food and vomit; E43 Unspecified severe protein-calorie malnutrition; J96.01 Acute respiratory failure with hypoxia; J15.212 Pneumonia due to Methicillin resistant Staphylococcus aureus; R64 Cachexia; I69.354 Hemiplegia and hemiparesis following cerebral infarction affecting left non-dominant side; Z68.1 Body mass index [BMI] 19.9 or less, adult; R65.20 Severe sepsis without septic shock; L89.152 Pressure ulcer of sacral region, stage 2; D50.9 Iron deficiency anemia, unspecified; F10.11 Alcohol abuse, in remission; Z20.828 Contact with and (suspected) exposure to other viral communicable diseases; Z66 Do not resuscitate; G20 Parkinson's disease; J84.10 Pulmonary fibrosis, unspecified; I69.391 Dysphagia following cerebral infarction; R13.10 Dysphagia, unspecified; R40.2362 Coma scale, best motor response, obeys commands, at arrival to emergency department; R40.2142 Coma scale, eyes open, spontaneous, at arrival to emergency department; R40.2252 Coma scale, best verbal response, oriented, at arrival to emergency department; M25.551 Pain in right hip; J44.9 Chronic obstructive pulmonary disease, unspecified; K21.9 Gastro-esophageal reflux disease without esophagitis; K76.9 Liver disease, unspecified; Z79.82 Long term (current) use of aspirin; Z79.2 Long term (current) use of antibiotics; Z79.899 Other long term (current) drug therapy; Z71.3 Dietary counseling and surveillance; Z86.718 Personal history of other venous thrombosis and embolism; Z87.01 Personal history of pneumonia (recurrent); Z85.048 Personal history of other malignant neoplasm of rectum, rectosigmoid junction, and anus; Z92.21 Personal history of antineoplastic chemotherapy; Z92.3 Personal history of irradiation; Z86.14 Personal history of Methicillin resistant Staphylococcus aureus infection; Z90.3 Acquired absence of stomach [part of]; Z87.11 Personal history of peptic ulcer disease; Z90.49 Acquired absence of other specified parts of digestive tract; Z98.890 Other specified postprocedural states; Z96.642 Presence of left artificial hip joint; Z87.81 Personal history of (healed) traumatic fracture; Z87.891 Personal history of nicotine dependence; Z86.19 Personal history of other infectious and parasitic diseases; Z83.3 Family history of diabetes mellitus
CPT/HCPCS: 36415; 71045; 71275; 74018; 80048; 80053; 80202; 82728; 83605; 83615; 83735; 84145; 85025; 85027; 85379; 85610; 85730; 86140; 87040; 87502; 87635; 93005; 94640; 99285